=== PATIENT | male | born 1960 | race Caucasian/White ===

== ENCOUNTER 2017-11-06 06:28 | Emergency (ER) | END 2017-11-06 07:08 | disposition home or self-care (01) ==

== ENCOUNTER 2018-10-13 18:15 | Inpatient (IN) | payer OTHER ==
[~2018-10-13] VITALS: Ht 172.7 cm; Wt 73.2 kg
[~2018-10-13 18:15] MED LIST: IBUP-1542 PO; LEVO750T25 PO; TRAM50TA2 PO
[2018-10-13] MEDS ORDERED: SOD CHLORIDE 0.9% 500 ML IV STA (19:17)
[2018-10-13] MEDS ORDERED: SOD CHLORIDE 0.9% 100 ML ONE (19:49)
[2018-10-13] MEDS ORDERED: IOHEXOL 100 ML ONE (19:49)
[2018-10-13] MEDS ORDERED: CEFTRIAXONE 1 GM/50 ML (PMX) 50 ML IVPB ONE (22:00)
[2018-10-13] MEDS ORDERED: PROPOFOL 200 MG INJ IV ONE (22:30)
[2018-10-13] MEDS ORDERED: HYDROmorphONE 0.5 MG/0.5 ML SYG IV STA (22:56)
[2018-10-13] MEDS ORDERED: ONDANSETRON 4 MG INJ IV STA (22:56)
[2018-10-13] MEDS ORDERED: ONDANSETRON 4 MG INJ IV PRN (23:30)
[2018-10-13] MEDS ORDERED: ZOLPIDEM 5 MG TAB PO PRN (23:30)
--- NOTE | 2018-10-13 23:49 | ERD ---
ER Documentation Chief Complaint Chief Complaint CHEST PAIN X 4 DAYS HPI This is a 58-year-old male who 3 days ago felt a sudden pain in his right back and was short of breath ever since. Is also had a cough that is been chronic. He says he is currently being treated with clarithromycin for MAC. He had a bronchial lavage in July with an cultures returned with this antibiotic as a sensitivity. He has not had any fever, substernal chest pain or abdominal pain ROS All systems reviewed and are negative except as per history of present illness. Medications Home Meds Active Scripts Ibuprofen* (Motrin*) 600 Mg Tab, 600 MG PO Q6, #30 TAB Prov:MANSI SHAH PA-C 11/06/17 Tramadol HCl (Tramadol HCl) 50 Mg Tablet, 50 MG PO Q6 PRN for PAIN, #20 TAB Prov:MANSI SHAH PA-C 11/06/17 Levofloxacin* (Levaquin*) 750 Mg Tablet, 750 MG PO DAILY for 5 Days, TAB Prov:VALENTINA OVALLE BRAIDER SETTER 08/08/15 Allergies Allergies: Coded Allergies: No Known Allergy (Unverified , 11/06/17) PMhx/Soc History of Surgery: Yes (appendectomy) Anesthesia Reaction: No Hx Neurological Disorder: No Hx Respiratory Disorders: No Hx Cardiac Disorders: No Hx Psychiatric Problems: No Hx Miscellaneous Medical Probl: Yes (rheumatoid arthritis ) Hx Alcohol Use: No Hx Substance Use: No Hx Tobacco Use: No Smoking Status: Never smoker FmHx Family History: No coronary disease Physical Exam Vitals Vital Signs Date Temp Pulse Resp B/P (MAP) Pulse Ox O2 O2 Flow FiO2 Time Delivery Rate 10/13/18 91 21 130/93 99 Room Air 23:00 (105) 10/13/18 100 2.0 22:57 10/13/18 98.5 101 25 96/67 (77) 97 Room Air 22:00 10/13/18 98.5 100 24 119/87 99 Room Air 21:00 (98) 10/13/18 98.5 103 22 127/89 99 Room Air 19:10 (102) 10/13/18 98.5 112 22 152/88 99 18:17 (109) Physical Exam Const: Well-developed, well-nourished Head: Atraumatic, normocephalic Eyes: Normal Conjunctiva, PERRLA, EOMI, normal sclera, no nystagmus ENT: Normal External Ears, Nose and Mouth, moist mucus membranes. Neck: Full range of motion. No meningismus, no lymphadenopathy. Resp: [No breath sounds on the right lung eubanks left lung is clear Cardio: Regular rate and rhythm, no murmurs, S1 S2 present Abd: Soft, non tender x 4, non distended. Normal bowel sounds, no guarding or rebound, no pulsitile abdominal masses or bruits Skin: No petechiae or rashes, no ecchymosis , no maculopapular rash Back: No midline or flank tenderness Ext: No cyanosis, or edema, FROM x 4, normal inspection, neurovascularly intact x 4 Neur: Awake and alert, STR 5/5 x 4, sensation intact x 4, no focal findings, cerebellum intact Psych: Normal Mood and Affect Result Diagram: 10/13/18190410/13/181904 Results 24 hrs Laboratory Tests Test 10/13/18 19:05 White Blood Count 8.9 10^3/ul Red Blood Count 4.03 10^6/ul Hemoglobin 11.0 g/dl Hematocrit 34.9 % Mean Corpuscular Volume 86.6 fl Mean Corpuscular Hemoglobin 27.3 pg Mean Corpuscular Hemoglobin Concent 31.5 g/dl Red Cell Distribution Width 15.9 % Platelet Count 314 10^3/UL Mean Platelet Volume 8.9 fl Immature Granulocytes % 0.800 % Neutrophils % 84.1 % Lymphocytes % 6.3 % Monocytes % 8.4 % Eosinophils % 0.2 % Basophils % 0.2 % Nucleated Red Blood Cells % 0.0 /100WBC Immature Granulocytes # 0.070 10^3/ul Neutrophils # 7.5 10^3/ul Lymphocytes # 0.6 10^3/ul Monocytes # 0.7 10^3/ul Eosinophils # 0.0 10^3/ul Basophils # 0.0 10^3/ul Nucleated Red Blood Cells # 0.0 10^3/ul Prothrombin Time 13.7 Sec Prothrombin Time Ratio 1.1 INR International Normalized Ratio 1.04 Activated Partial Thromboplast Time 29.5 Sec Sodium Level 135 mmol/L Potassium Level 4.6 mmol/L Chloride Level 99 mmol/L Carbon Dioxide Level 25 mmol/L Anion Gap 11 Blood Urea Nitrogen 18 mg/dl Creatinine 0.66 mg/dl Est Glomerular Filtrat Rate mL/min > 60 mL/min Glucose Level 394 mg/dl Calcium Level 8.8 mg/dl Troponin I < 0.012 ng/ml B-Type Natriuretic Peptide 354 PG/ML Current Medications Medications Dose Sig/Raoul Start Time Status Last (Trade) Ordered Route PRN Stop Time Admin Dose Reason Admin Sodium 500 ml @ Q1H STAT 10/13/18 DC 10/13/18 Chloride 500 mls/hr IV 19:17 10/13/18 19:39 20:16 IV Flush 10 ml STK-MED 10/13/18 DC (NS 10 ml) ONCE .ROUTE 19:49 10/13/18 19:50 Sodium 100 ml @ ud STK-MED 10/13/18 DC Chloride ONCE .ROUTE 19:49 10/13/18 19:50 Iohexol 100 ml @ ud STK-MED 10/13/18 DC ONCE .ROUTE 19:49 10/13/18 19:50 Ceftriaxone 50 ml @ ONCE ONCE 10/13/18 DC 10/13/18 Sodium 100 mls/hr IVPB 22:00 10/13/18 22:11 22:29 Propofol 100 mg ONCE ONCE 10/13/18 DC 10/13/18 (Diprivan) IV 22:30 10/13/18 22:33 22:31 1 mg ONCE STAT 10/13/18 DC 10/13/18 Hydromorphone IV 22:56 10/13/18 23:04 HCl 22:59 (Dilaudid) Ondansetron 4 mg ONCE STAT 10/13/18 DC 10/13/18 HCl (Zofran IV 22:56 10/13/18 23:03 Inj) 22:59 Morphine 3 mg Q3H PRN 10/13/18 Sulfate IV mod pain 23:30 (morphine) Ondansetron 4 mg Q4H PRN 10/13/18 HCl (Zofran IV nausea 23:30 Inj) Zolpidem 5 mg HS 10/13/18 Tartrate REPEAT X 1 23:30 (Ambien) PRN PO INSOMNIA Procedures/MDM [address] [address] Radiology Main Line: [phone] DIAGNOSTIC IMAGING REPORT Patient: MATILDA JOSEPH : 1960 Age: 58 Sex: M MR #: [id number] DOS: 10/13/181916 Ordering MD: MORENA PRECIADO DO Location: E/R Room/Bed: PROCEDURE: CTA Chest and pulmonary angiogram. CLINICAL INDICATION: Chest pain and shortness of breath. TECHNIQUE: CT scan of the chest and CT pulmonary angiogram was performed following the uncomplicated intravenous administration of 100 cc of Omnipaque- 350 IV contrast. Coronal and sagittal reformatted images were obtained. 3D volume rendered images were obtained. DICOM images are available. CTDI 19.72, 13.94 mGy, and DLP 582.34 mGy-cm. One or more of the following dose reduction techniques were used: - Automated exposure control. - Adjustment of the mA and/or kV according to patient size. - Use of iterative reconstruction technique. COMPARISON: CR CHEST 08/07/2015 FINDINGS: CT CHEST: Lungs: Partial near complete collapse of the right lung. Very large right-sided hydropneumothorax. Dense consolidation with small effusion in the right lung base. Mediastinum: Normal. No significant midline shift at this time. Cardiovascular: Atherosclerotic vascular calcifications. Lymph nodes: No adenopathy. Musculoskeletal: Degenerative spinal enthesopathy. Upper abdomen: Normal. CT PULMONARY ANGIOGRAM: Pulmonary arteries: [<Normal caliber.>] [<No embolism.>] IMPRESSION: 1. Severe near complete collapse of the right lung. 2. Dense consolidation in the right lung base with adjacent small right pleural effusion. 3. Otherwise, scattered benign chronic senescent changes. Critical results discussed with Dr. Preciado in the ER at 9:49 p.m. on 10/13/2018. RPTAT: HMJB .Sawyer Mills MD MD Date Time Electronically viewed and signed by .Sawyer Mills MD, MD on 10/13/2018 21:50 .B/ CC: MORENA PRECIADO DO [id number] Procedural Sedation: Pre-assessment performed. See preceding complete history and physical for details. Time out performed. See sedation documentation for details. Risk, benefits and alternatives were discussed with the patient. Medication(s): Propofol Complications: No hypoxic or apneic events Recovered without incident. A minimum of 16 minutes of face to face time was performed including preparation, sedation and recovery time. Chest Tube Placement by me: Patient consented, sterilely draped, full prep, gown, glove, mask, time out performed. Anesthesia: 1% lidocaine locally Location: Mid-Anterior Axillary Line, approximate 5th intercostal Device: 28 [place]ong [place]er chest tube Technique: Vertical incision, blunt dissection above the superior rib border, tactile confirmation Results: Chest tube fogging Secured with suture and taping. No complications. Attached to [facility]. Spoke to Dr. Boykin as well as Dr. Jermaine vincent will admit to the floor to treat Critical Care Time: 45 minutes Treatments/Evaluations: Close monitoring and treatment of unstable vital signs, cardiorespiratory, and neurologic status, while maintaining tight balance of fluid, respiratory, and cardiac interventions. This time includes discussing the case with the patient and the patient's family. This time does not include all procedures stated elsewhere in this record. This time also includes reviewing old records, labs and radiological studies. This time includes examining and re- examining the patient. Additionally, this time also includes arranging care with admitting and consulting physicians. Departure Diagnosis: Primary Impression: Pneumothorax, right Condition: Stable MORENA PRECIADO DO Oct 13, 2018 23:49
[2018-10-14] VITALS (11 sets, daily range): BP systolic 123–137; BP diastolic 77–92; PULSE 90–115; RESP 18–19; Ht 172.7 cm; Wt 73.2 kg
[2018-10-14] MEDS ORDERED: ACETAMINOPHEN 325 MG TAB PO PRN
[2018-10-14] MEDS ORDERED: ONDANSETRON 4 MG INJ IV PRN
[2018-10-14] MEDS ORDERED: OMEP20CA16 PO ×2 (00:43→01:25)
[2018-10-14] MEDS ORDERED: FOLI-49 PO (00:43)
[2018-10-14] MEDS ORDERED: CLAR500T PO (00:43)
[2018-10-14] MEDS ORDERED: RIFA150C22 PO (00:43)
[2018-10-14] MEDS ORDERED: ETHA400T8 PO (00:43)
[2018-10-14] MEDS ORDERED: PRED5TAB PO (00:43)
[2018-10-14] MEDS ORDERED: CHOL100062 PO (01:25)
[2018-10-14] MEDS: morphine 4 MG/ML VIAL IV PRN ×2 (03:55→18:53)
[2018-10-14] MEDS ORDERED: ETHAMBUTOL 400 MG TAB PO SCH ×2 (09:00→10:30)
[2018-10-14] MEDS ORDERED: CLARITHROMYCIN 500 MG TAB PO SCH ×2 (09:00→10:30)
[2018-10-14] MEDS ORDERED: RIFABUTIN 150 MG CAP PO SCH (09:00)
[2018-10-14] MEDS ORDERED: GLUCAGON 1 MG INJ IM PRN (09:00)
[2018-10-14] MEDS ORDERED: GLUCOSE GEL 15 GRAM TUBE PO PRN ×2 (09:00)
[2018-10-14] MEDS ORDERED: DEXTROSE 50% 50 ML SYRINGE IV PRN ×2 (09:00)
[2018-10-14] MEDS ORDERED: GLUCOSE GEL 15 GRAM TUBE BUCCAL PRN (09:00)
--- NOTE | 2018-10-14 09:34 | HP ---
DATE OF ADMISSION: 10/13/2018 CHIEF COMPLAINT: Chest pain and shortness of breath x4 days. HISTORY OF PRESENT ILLNESS: A 58-year-old male with recently diagnosed MAC pneumonia, [facility] with complaint of right-sided chest pain associated with shortness of breath for the la st 3 days prior to admission. The patient had a chronic cough with associated hemoptysis prior to on set of his chest pain. He underwent extensive workup and diagnosed with MAC pneumonia. He is on 3 o ral antibiotics. The patient denies abdominal pain, nausea or vomiting. No fevers or chills. No we ight loss. Initial evaluation revealed a 90% pneumothorax on the right side. A chest tube was placed in the [facility] Room. REVIEW OF SYSTEMS: Otherwise unremarkable. PAST MEDICAL HISTORY: 1. Recently diagnosed MAC pneumonia. 2. Type 2 diabetes mellitus. 3. Rheumatoid arthritis. MEDICATIONS PRIOR TO ADMISSION: 1. Clarithromycin 1000 mg daily. 2. Ethambutol 800 mg daily. 3. 300 mg daily. 4. Omeprazole 20 mg daily. 5. Prednisone 5 mg daily. 6. Folic acid 1 mg daily. 7. Vitamin D supplement. SOCIAL HISTORY: Patient lives at home. His was at the bedside. He denies tobacco or alcohol u se. PHYSICAL EXAMINATION: GENERAL: Well-developed, well-nourished male who is in no apparent distress. VITAL SIGNS: Stable. He is afebrile. HEENT: Extraocular muscles intact. Pupils equal and reactive to light bilaterally. Sclerae are ani cteric. Oropharynx is clear and moist. NECK: Supple, no JVD, no carotid bruits. LUNGS: Decreased breath sounds on the right side with mild rhonchi. CARDIAC: Regular rate and rhythm. ABDOMEN: Soft, nontender, nondistended, normoactive bowel sounds. EXTREMITIES: No clubbing, cyanosis, or edema. NEUROLOGICAL: Grossly nonfocal. ASSESSMENT: 1. A 58-year-old male with near complete right-sided pneumothorax. 2. Recently diagnosed MAC pneumonia. 3. Type 2 diabetes mellitus. 4. Rheumatoid arthritis. PLAN: 1. Admit to telemetry. 2. Resume home medications including antibiotics. 3. Continue chest tube. 4. Cardiothoracic consultation was requested. Dictated By: KAREN KRAMER/LINK Conf#: [id number] [facility]#: [id number]
[2018-10-14] MEDS: FOLIC ACID 1 MG TAB PO SCH (09:56)
[2018-10-14] MEDS: predniSONE 2.5 MG TAB PO SCH (09:57)
--- NOTE | 2018-10-14 10:44 | CONS ---
Assessment/Plan Assessment/Plan Assessment/Plan (Daily) Her spontaneous episode of right-sided pneumothorax status post chest tube placement She is still with a air leak Continue chest tube suction pulmonary toilet repeat chest x-ray tomorrow Consultation Date/Type/Reason Admit Date/Time Oct 13, 2018 at 23:44 Date/Time of Note DATE: 10/14/18 TIME: 10:42 Hx of Present Illness This is a 58-year-old male with a first episode of spontaneous right-sided pneumothorax admitted through the emergency room chest tube has been placed Currently a chest tube is in place with small air leak minimal drainage X-ray shows no definitive pneumothorax but right-sided pleural effusion and con gestive heart failure patient is hemodynamically stable minimal shortness of breath ENT: no complaints Respiratory: no complaints Cardiovascular: no complaints Gastrointestinal: no complaints Genitourinary: no complaints Musculoskeletal: no complaints Skin: no complaints Neurologic: no complaints Past Medical History Home Meds Reported Medications Cholecalciferol* (Vitamin D3*) 1,000 Unit Tablet, 1000 UNIT PO DAILY, TAB 10/14/18 Omeprazole* (Omeprazole*) 20 Mg Capsule.dr, 20 MG PO QAM, #30 CAP 10/14/18 Folic Acid* (Folic Acid*) 1 Mg Tablet, 1 MG PO DAILY for 90 Days, #90 10/14/18 Prednisone* (Prednisone*) 5 Mg Tab, 7.5 MG PO DAILY for 30 Days TAKE 1.5 TAB BY MOUTH DAILY 10/14/18 Clarithromycin* (Clarithromycin*) 500 Mg Tablet, 1000 MG PO DAILY for [id number] for 5 Days 10/14/18 Ethambutol Hcl (Ethambutol Hcl) 400 Mg Tablet, 800 MG PO DAILY for [id number] 10/14/18 Rifabutin (Rifabutin) 150 Mg Capsule, 300 MG PO DAILY for [id number] 10/14/18 Discontinued Reported Medications Omeprazole* (Omeprazole*) 20 Mg Capsule.dr, 20 MG PO DAILY, #30 CAP 10/14/18 Discontinued Scripts Ibuprofen* (Motrin*) 600 Mg Tab, 600 MG PO Q6, #30 TAB Prov:MANSI SHAH PA-C 11/06/17 Tramadol HCl (Tramadol HCl) 50 Mg Tablet, 50 MG PO Q6 PRN for PAIN, #20 TAB Prov:MANSI SHAH PA-C 11/06/17 Levofloxacin* (Levaquin*) 750 Mg Tablet, 750 MG PO DAILY for 5 Days, TAB Prov:VALENTINA OVALLE NP 08/08/15 Medications Current Medications Morphine Sulfate (morphine) 3 mg Q3H PRN IV mod pain Last administered on 10/14/18at 03:55; Admin Dose 3 MG; Start 10/13/18 at 23:30 Ondansetron HCl (Zofran Inj) 4 mg Q4H PRN IV nausea; Start 10/13/18 at 23:30 Zolpidem Tartrate (Ambien) 5 mg HS MAY REPEAT X 1 PRN PO INSOMNIA; Start 10/13/18 at 23:30 Ondansetron HCl (Zofran Inj) 4 mg ER BRIDGE PRN IV NAUSEA/VOMITING; Start 10/14/18 at 00:00; Stop 10/14/18 at 23:59 Acetaminophen (Tylenol Tab) 650 mg ER BRIDGE PRN PO .MILD PAIN 1-3 OR TEMP; Start 10/14/18 at 00:00; Stop 10/14/18 at 23:59 Folic Acid (Folic Acid) 1 mg DAILY PO Last administered on 10/14/18at 09:56; Adm in Dose 1 MG; Start 10/14/18 at 09:00 Prednisone (Prednisone) 7.5 mg DAILY PO Last administered on 10/14/18at 09:57; Admin Dose 7.5 MG; Start 10/14/18 at 09:00 Insulin Aspart (Novolog Insulin Pen) NOVOLOG *MODERATE* ALGORITHM WITH MEALS BEDTIME SC ; Start 10/14/18 at 11:50 Miscellaneous Information 1 ea NOTE XX ; Start 10/14/18 at 09:00 Glucose (Glutose) 15 gm Q15M PRN PO DECREASED GLUCOSE; Start 10/14/18 at 09:00 Glucose (Glutose) 22.5 gm Q15M PRN PO DECREASED GLUCOSE; Start 10/14/18 at 09:00 Dextrose (D50w Syringe) 25 ml Q15M PRN IV DECREASED GLUCOSE; Start 10/14/18 at 09:00 Dextrose (D50w Syringe) 50 ml Q15M PRN IV DECREASED GLUCOSE; Start 10/14/18 at 09:00 Glucagon (Glucagen) 1 mg Q15M PRN IM DECREASED GLUCOSE; Start 10/14/18 at 09:00 Glucose (Glutose) 15 gm Q15M PRN BUCCAL DECREASED GLUCOSE; Start 10/14/18 at 09:00 Rifabutin (Mycobutin) 150 mg MoWeFr@0900,2100 PO ; Start 10/16/18 at 09:00 Clarithromycin (Biaxin) 500 mg MoWeFr@0900,2100 PO ; Start 10/16/18 at 09:00 Ethambutol HCl (Myambutol) 400 mg MoWeFr@0900,2100 PO ; Start 10/16/18 at 09:00 Allergies: Coded Allergies: No Known Allergy (Unverified , 10/14/18) Social History Smoking Status: Former smoker Exam/Review of Systems Exam Vitals Vital Signs Date Temp Pulse Resp B/P (MAP) Pulse Ox O2 O2 Flow FiO2 Time Delivery Rate 10/14/18 101 08:00 10/14/18 98.5 18 128/82 96 07:25 (97) 10/14/18 Room Air 03:20 10/13/18 2.0 22:57 Intake and Output 10/13/18 10/13/18 10/14/18 1515:00 23:00 07:00 IntakeIntake Total 0 ml OutputOutput Total 40 ml 150 ml BalanceBalance -40 ml -150 ml Eyes: nl conjunctiva, EOMI, nl lids, nl sclera, PERRL ENMT: nl external ears & nose, nl lips & teeth, nl nasal mucosa & septum Neck: supple, non-tender Respiratory: clear to auscultation, normal air movement Cardiovascular: regular rate and rhythm, nl pulses Gastrointestinal: soft, nl liver, spleen, non-tender Musculoskeletal: nl extremities to inspection, nl gait and stance Extremities: normal pulses Results Result Diagram: 10/13/18190410/13/181904 Results 24hrs Laboratory Tests Test 10/13/18 19:05 White Blood Count 8.9 # Red Blood Count 4.03 L Hemoglobin 11.0 L Hematocrit 34.9 L Mean Corpuscular Volume 86.6 Mean Corpuscular Hemoglobin 27.3 L Mean Corpuscular Hemoglobin Concent 31.5 L Red Cell Distribution Width 15.9 H Platelet Count 314 Mean Platelet Volume 8.9 Immature Granulocytes % 0.800 H Neutrophils % 84.1 H Lymphocytes % 6.3 L Monocytes % 8.4 Eosinophils % 0.2 Basophils % 0.2 Nucleated Red Blood Cells % 0.0 Immature Granulocytes # 0.070 H Neutrophils # 7.5 Lymphocytes # 0.6 L Monocytes # 0.7 Eosinophils # 0.0 Basophils # 0.0 Nucleated Red Blood Cells # 0.0 Prothrombin Time 13.7 Prothrombin Time Ratio 1.1 INR International Normalized Ratio 1.04 Activated Partial Thromboplast Time 29.5 Sodium Level 135 Potassium Level 4.6 Chloride Level 99 Carbon Dioxide Level 25 Anion Gap 11 Blood Urea Nitrogen 18 Creatinine 0.66 Est Glomerular Filtrat Rate mL/min > 60 Glucose Level 394 H Calcium Level 8.8 Troponin I < 0.012 B-Type Natriuretic Peptide 354 H Medications Medication Current Medications Morphine Sulfate (morphine) 3 mg Q3H PRN IV mod pain Last administered on 10/14/18at 03:55; Admin Dose 3 MG; Start 10/13/18 at 23:30 Ondansetron HCl (Zofran Inj) 4 mg Q4H PRN IV nausea; Start 10/13/18 at 23:30 Zolpidem Tartrate (Ambien) 5 mg HS MAY REPEAT X 1 PRN PO INSOMNIA; Start 10/13/18 at 23:30 Ondansetron HCl (Zofran Inj) 4 mg ER BRIDGE PRN IV NAUSEA/VOMITING; Start 10/14/18 at 00:00; Stop 10/14/18 at 23:59 Acetaminophen (Tylenol Tab) 650 mg ER BRIDGE PRN PO .MILD PAIN 1-3 OR TEMP; Start 10/14/18 at 00:00; Stop 10/14/18 at 23:59 Folic Acid (Folic Acid) 1 mg DAILY PO Last administered on 10/14/18at 09:56; A dmin Dose 1 MG; Start 10/14/18 at 09:00 Prednisone (Prednisone) 7.5 mg DAILY PO Last administered on 10/14/18at 09:57; Admin Dose 7.5 MG; Start 10/14/18 at 09:00 Insulin Aspart (Novolog Insulin Pen) NOVOLOG *MODERATE* ALGORITHM WITH MEALS BEDTIME SC ; Start 10/14/18 at 11:50 Miscellaneous Information 1 ea NOTE XX ; Start 10/14/18 at 09:00 Glucose (Glutose) 15 gm Q15M PRN PO DECREASED GLUCOSE; Start 10/14/18 at 09:00 Glucose (Glutose) 22.5 gm Q15M PRN PO DECREASED GLUCOSE; Start 10/14/18 at 09:00 Dextrose (D50w Syringe) 25 ml Q15M PRN IV DECREASED GLUCOSE; Start 10/14/18 at 09:00 Dextrose (D50w Syringe) 50 ml Q15M PRN IV DECREASED GLUCOSE; Start 10/14/18 at 09:00 Glucagon (Glucagen) 1 mg Q15M PRN IM DECREASED GLUCOSE; Start 10/14/18 at 09:00 Glucose (Glutose) 15 gm Q15M PRN BUCCAL DECREASED GLUCOSE; Start 10/14/18 at 09:00 Rifabutin (Mycobutin) 150 mg MoWeFr@0900,2100 PO ; Start 10/16/18 at 09:00 Clarithromycin (Biaxin) 500 mg MoWeFr@0900,2100 PO ; Start 10/16/18 at 09:00 Ethambutol HCl (Myambutol) 400 mg MoWeFr@0900,2100 PO ; Start 10/16/18 at 09:00 JOSEPH VALAEDZ MD Oct 14, 2018 10:44
[2018-10-14] MEDS: INSULIN ASPART [NOVOLOG] 3 ML PEN SC SCH ×3 (12:23→21:48)
[2018-10-15] VITALS (12 sets, daily range): BP systolic 105–140; BP diastolic 72–85; PULSE 101–120; RESP 16–18
[2018-10-15] MEDS: ACETAMINOPHEN 325 MG TAB PO PRN (04:44)
[2018-10-15] MEDS: INSULIN ASPART [NOVOLOG] 3 ML PEN SC SCH ×4 (07:41→22:11)
[2018-10-15] MEDS: predniSONE 2.5 MG TAB PO SCH (08:04)
[2018-10-15] MEDS: FOLIC ACID 1 MG TAB PO SCH (08:04)
--- NOTE | 2018-10-15 09:01 | PN ---
Date/Time of Note Date/Time of Note DATE: 10/15/18 TIME: 08:59 Subjective Complains of joint pain. No shortness of breath. No cough. Objective Vitals Vital Signs Date Temp Pulse Resp B/P (MAP) Pulse Ox O2 O2 Flow FiO2 Time Delivery Rate 10/15/18 99.5 106 16 105/74 95 07:26 (84) 10/14/18 Room Air 03:20 10/13/18 2.0 22:57 Intake and Output 10/14/18 10/14/18 10/15/18 1515:00 23:00 07:00 IntakeIntake Total 650 ml 450 ml OutputOutput Total 150 ml BalanceBalance 500 ml 450 ml Neck supple Lungs mild rhonchi Regular rate and rhythm no murmurs or gallops Soft nontender nondistended normoactive bowel sounds No edema Nonfocal Results Result Diagram: 10/13/18190410/13/181904 Medications Medications Current Medications Morphine Sulfate (morphine) 3 mg Q3H PRN IV mod pain Last administered on 10/14/18at 18:53; Admin Dose 3 MG; Start 10/13/18 at 23:30 Ondansetron HCl (Zofran Inj) 4 mg Q4H PRN IV nausea; Start 10/13/18 at 23:30 Zolpidem Tartrate (Ambien) 5 mg HS MAY REPEAT X 1 PRN PO INSOMNIA; Start 10/13/18 at 23:30 Folic Acid (Folic Acid) 1 mg DAILY PO Last administered on 10/15/18at 08:04; Admin Dose 1 MG; Start 10/14/18 at 09:00 Prednisone (Prednisone) 7.5 mg DAILY PO Last administered on 10/15/18at 08:04; Admin Dose 7.5 MG; Start 10/14/18 at 09:00 Insulin Aspart (Novolog Insulin Pen) NOVOLOG *MODERATE* ALGORITHM WITH MEALS BEDTIME SC Last administered on 10/14/18at 21:48; Admin Dose 1 UNIT; Start 10/14/18 at 11:50 Miscellaneous Information 1 ea NOTE XX ; Start 10/14/18 at 09:00 Glucose (Glutose) 15 gm Q15M PRN PO DECREASED GLUCOSE; Start 10/14/18 at 09:00 Glucose (Glutose) 22.5 gm Q15M PRN PO DECREASED GLUCOSE; Start 10/14/18 at 09:00 Dextrose (D50w Syringe) 25 ml Q15M PRN IV DECREASED GLUCOSE; Start 10/14/18 at 09:00 Dextrose (D50w Syringe) 50 ml Q15M PRN IV DECREASED GLUCOSE; Start 10/14/18 at 09:00 Glucagon (Glucagen) 1 mg Q15M PRN IM DECREASED GLUCOSE; Start 10/14/18 at 09:00 Glucose (Glutose) 15 gm Q15M PRN BUCCAL DECREASED GLUCOSE; Start 10/14/18 at 09:00 Rifabutin (Mycobutin) 150 mg MoWeFr@0900,2100 PO ; Start 10/16/18 at 09:00 Clarithromycin (Biaxin) 500 mg MoWeFr@0900,2100 PO ; Start 10/16/18 at 09:00 Ethambutol HCl (Myambutol) 400 mg MoWeFr@0900,2100 PO ; Start 10/16/18 at 09:00 Acetaminophen (Tylenol Tab) 650 mg Q4H PRN PO MILD PAIN(1-3)OR ELEVATED TEMP Last administered on 10/15/18at 04:44; Admin Dose 650 MG; Start 10/15/18 at 04:38 VTE Prophylaxis Risk score (from Nsg)>0 risk: 2 SCD applied (from Nsg): Yes Lines/Catheters IV Catheter Type: Saline Lock Retana in Place: No Assessment/Plan Assessment/Plan 58-year-old male with spontaneous right-sided pneumothorax about 3 days prior to admission Status post right chest tube placement MAC pneumonia Fever Rheumatoid arthritis Type 2 diabetes mellitus Continue chest tube drainage Continue triple antibiotics as previously prescribed Cardiothoracic follow-up ID consultation was requested KAREN HINDS MD Oct 15, 2018 09:01
--- NOTE | 2018-10-15 09:37 | CONS ---
Consultation Date/Type/Reason Admit Date/Time Oct 13, 2018 at 23:44 Date/Time of Note DATE: 10/15/18 TIME: 09:37 Past Medical History Home Meds Reported Medications Cholecalciferol* (Vitamin D3*) 1,000 Unit Tablet, 1000 UNIT PO DAILY, TAB 10/14/18 Omeprazole* (Omeprazole*) 20 Mg Capsule.dr, 20 MG PO QAM, #30 CAP 10/14/18 Folic Acid* (Folic Acid*) 1 Mg Tablet, 1 MG PO DAILY for 90 Days, #90 10/14/18 Prednisone* (Prednisone*) 5 Mg Tab, 7.5 MG PO DAILY for 30 Days TAKE 1.5 TAB BY MOUTH DAILY 10/14/18 Clarithromycin* (Clarithromycin*) 500 Mg Tablet, 1000 MG PO DAILY for [id number] for 5 Days 10/14/18 Ethambutol Hcl (Ethambutol Hcl) 400 Mg Tablet, 800 MG PO DAILY for [id number] 10/14/18 Rifabutin (Rifabutin) 150 Mg Capsule, 300 MG PO DAILY for [id number] 10/14/18 Discontinued Reported Medications Omeprazole* (Omeprazole*) 20 Mg Capsule.dr, 20 MG PO DAILY, #30 CAP 10/14/18 Discontinued Scripts Ibuprofen* (Motrin*) 600 Mg Tab, 600 MG PO Q6, #30 TAB Prov:MANSI SHAH PA-C 11/06/17 Tramadol HCl (Tramadol HCl) 50 Mg Tablet, 50 MG PO Q6 PRN for PAIN, #20 TAB Prov:MANSI SHAH PA-C 11/06/17 Levofloxacin* (Levaquin*) 750 Mg Tablet, 750 MG PO DAILY for 5 Days, TAB Prov:VALENTINA OVALLE NP 08/08/15 Medications Current Medications Morphine Sulfate (morphine) 3 mg Q3H PRN IV mod pain Last administered on 10/14/18at 18:53; Admin Dose 3 MG; Start 10/13/18 at 23:30 Ondansetron HCl (Zofran Inj) 4 mg Q4H PRN IV nausea; Start 10/13/18 at 23:30 Zolpidem Tartrate (Ambien) 5 mg HS MAY REPEAT X 1 PRN PO INSOMNIA; Start 10/13/18 at 23:30 Folic Acid (Folic Acid) 1 mg DAILY PO Last administered on 10/15/18at 08:04; Admin Dose 1 MG; Start 10/14/18 at 09:00 Prednisone (Prednisone) 7.5 mg DAILY PO Last administered on 10/15/18at 08:04; Admin Dose 7.5 MG; Start 10/14/18 at 09:00 Insulin Aspart (Novolog Insulin Pen) NOVOLOG *MODERATE* ALGORITHM WITH MEALS BEDTIME SC Last administered on 10/14/18at 21:48; Admin Dose 1 UNIT; Start 10/14/18 at 11:50 Miscellaneous Information 1 ea NOTE XX ; Start 10/14/18 at 09:00 Glucose (Glutose) 15 gm Q15M PRN PO DECREASED GLUCOSE; Start 10/14/18 at 09:00 Glucose (Glutose) 22.5 gm Q15M PRN PO DECREASED GLUCOSE; Start 10/14/18 at 09:00 Dextrose (D50w Syringe) 25 ml Q15M PRN IV DECREASED GLUCOSE; Start 10/14/18 at 09:00 Dextrose (D50w Syringe) 50 ml Q15M PRN IV DECREASED GLUCOSE; Start 10/14/18 at 09:00 Glucagon (Glucagen) 1 mg Q15M PRN IM DECREASED GLUCOSE; Start 10/14/18 at 09:00 Glucose (Glutose) 15 gm Q15M PRN BUCCAL DECREASED GLUCOSE; Start 10/14/18 at 09:00 Rifabutin (Mycobutin) 150 mg MoWeFr@0900,2100 PO ; Start 10/16/18 at 09:00 Clarithromycin (Biaxin) 500 mg MoWeFr@0900,2100 PO ; Start 10/16/18 at 09:00 Ethambutol HCl (Myambutol) 400 mg MoWeFr@0900,2100 PO ; Start 10/16/18 at 09:00 Acetaminophen (Tylenol Tab) 650 mg Q4H PRN PO MILD PAIN(1-3)OR ELEVATED TEMP Last administered on 10/15/18at 04:44; Admin Dose 650 MG; Start 10/15/18 at 04:38 Allergies: Coded Allergies: No Known Allergy (Unverified , 10/14/18) Social History Smoking Status: Former smoker Exam/Review of Systems Exam Vitals Vital Signs Date Temp Pulse Resp B/P (MAP) Pulse Ox O2 O2 Flow FiO2 Time Delivery Rate 6/9/19 99.5 106 16 105/74 95 07:26 (84) 10/14/18 Room Air 03:20 10/13/18 2.0 22:57 Intake and Output 10/14/18 10/14/18 10/15/18 1515:00 23:00 07:00 IntakeIntake Total 650 ml 450 ml OutputOutput Total 150 ml BalanceBalance 500 ml 450 ml Results Result Diagram: 10/13/18190410/13/18 190 Results 24hrs Laboratory Tests Test 10/14/18 12:16 10/14/18 17:22 10/14/18 21:33 10/15/18 03:04 Bedside Glucose 178 273 H 181 191 Test 10/15/18 07:40 Bedside Glucose 135 Medications Medication Current Medications Morphine Sulfate (morphine) 3 mg Q3H PRN IV mod pain Last administered on 10/14/18at 18:53; Admin Dose 3 MG; Start 10/13/18 at 23:30 Ondansetron HCl (Zofran Inj) 4 mg Q4H PRN IV nausea; Start 10/13/18 at 23:30 Zolpidem Tartrate (Ambien) 5 mg HS MAY REPEAT X 1 PRN PO INSOMNIA; Start 10/13/18 at 23:30 Folic Acid (Folic Acid) 1 mg DAILY PO Last administered on 10/15/18at 08:04; Admin Dose 1 MG; Start 10/14/18 at 09:00 Prednisone (Prednisone) 7.5 mg DAILY PO Last administered on 10/15/18at 08:04; Admin Dose 7.5 MG; Start 10/14/18 at 09:00 Insulin Aspart (Novolog Insulin Pen) NOVOLOG *MODERATE* ALGORITHM WITH MEALS BEDTIME SC Last administered on 10/14/18at 21:48; Admin Dose 1 UNIT; Start 10/14/18 at 11:50 Miscellaneous Information 1 ea NOTE XX ; Start 10/14/18 at 09:00 Glucose (Glutose) 15 gm Q15M PRN PO DECREASED GLUCOSE; Start 10/14/18 at 09:00 Glucose (Glutose) 22.5 gm Q15M PRN PO DECREASED GLUCOSE; Start 10/14/18 at 09:00 Dextrose (D50w Syringe) 25 ml Q15M PRN IV DECREASED GLUCOSE; Start 10/14/18 at 09:00 Dextrose (D50w Syringe) 50 ml Q15M PRN IV DECREASED GLUCOSE; Start 10/14/18 at 09:00 Glucagon (Glucagen) 1 mg Q15M PRN IM DECREASED GLUCOSE; Start 10/14/18 at 09:00 Glucose (Glutose) 15 gm Q15M PRN BUCCAL DECREASED GLUCOSE; Start 10/14/18 at 09:00 Rifabutin (Mycobutin) 150 mg MoWeFr@0900,2100 PO ; Start 10/16/18 at 09:00 Clarithromycin (Biaxin) 500 mg MoWeFr@0900,2100 PO ; Start 10/16/18 at 09:00 Ethambutol HCl (Myambutol) 400 mg MoWeFr@0900,2100 PO ; Start 10/16/18 at 09:00 Acetaminophen (Tylenol Tab) 650 mg Q4H PRN PO MILD PAIN(1-3)OR ELEVATED TEMP Last administered on 10/15/18at 04:44; Admin Dose 650 MG; Start 10/15/18 at 04:38 SCOTTY YOUNGER MD Oct 15, 2018 09:37
[2018-10-15] MEDS: morphine 4 MG/ML VIAL IV PRN (11:02)
--- NOTE | 2018-10-15 11:41 | CONS ---
Assessment/Plan Assessment/Plan Hospital Course (Demo Recall) Persistent tachy noted. labs ordered no results back yet. will start empiric abx given above will be in nikkie. ty Consultation Date/Type/Reason Admit Date/Time Oct 13, 2018 at 23:44 Initial Consult Date Date/Time of Note DATE: 10/15/18 TIME: 11:41 Exam/Review of Systems Exam Vitals Vital Signs Date Temp Pulse Resp B/P (MAP) Pulse Ox O2 O2 Flow FiO2 Time Delivery Rate 10/15/18 98.5 112 16 113/75 96 11:30 (88) 10/14/18 Room Air 03:20 10/13/18 2.0 22:57 Intake and Output 10/14/18 10/14/18 10/15/18 1515:00 23:00 07:00 IntakeIntake Total 650 ml 450 ml OutputOutput Total 150 ml BalanceBalance 500 ml 450 ml Results Result Diagram: 10/13/18 1905 10/13/18 1905 Results 24hrs Laboratory Tests Test 10/14/18 12:16 10/14/18 17:22 10/14/18 21:33 10/15/18 03:04 Bedside Glucose 178 273 H 181 191 Test 10/15/18 07:40 Bedside Glucose 135 Medications Medication Current Medications Morphine Sulfate (morphine) 3 mg Q3H PRN IV mod pain Last administered on 10/15/18at 11:02; Admin Dose 3 MG; Start 10/13/18 at 23:30 Ondansetron HCl (Zofran Inj) 4 mg Q4H PRN IV nausea; Start 10/13/18 at 23:30 Zolpidem Tartrate (Ambien) 5 mg HS MAY REPEAT X 1 PRN PO INSOMNIA; Start 10/13/18 at 23:30 Folic Acid (Folic Acid) 1 mg DAILY PO Last administered on 10/15/18at 08:04; Admin Dose 1 MG; Start 10/14/18 at 09:00 Prednisone (Prednisone) 7.5 mg DAILY PO Last administered on 10/15/18at 08:04; Admin Dose 7.5 MG; Start 10/14/18 at 09:00 Insulin Aspart (Novolog Insulin Pen) NOVOLOG *MODERATE* ALGORITHM WITH MEALS BEDTIME SC Last administered on 10/14/18at 21:48; Admin Dose 1 UNIT; Start 10/14/18 at 11:50 Miscellaneous Information 1 ea NOTE XX ; Start 10/14/18 at 09:00 Glucose (Glutose) 15 gm Q15M PRN PO DECREASED GLUCOSE; Start 10/14/18 at 09:00 Glucose (Glutose) 22.5 gm Q15M PRN PO DECREASED GLUCOSE; Start 10/14/18 at 09:00 Dextrose (D50w Syringe) 25 ml Q15M PRN IV DECREASED GLUCOSE; Start 10/14/18 at 09:00 Dextrose (D50w Syringe) 50 ml Q15M PRN IV DECREASED GLUCOSE; Start 10/14/18 at 09:00 Glucagon (Glucagen) 1 mg Q15M PRN IM DECREASED GLUCOSE; Start 10/14/18 at 09:00 Glucose (Glutose) 15 gm Q15M PRN BUCCAL DECREASED GLUCOSE; Start 10/14/18 at 09:00 Rifabutin (Mycobutin) 150 mg MoWeFr@0900,2100 PO ; Start 10/16/18 at 09:00 Clarithromycin (Biaxin) 500 mg MoWeFr@0900,2100 PO ; Start 10/16/18 at 09:00 Ethambutol HCl (Myambutol) 400 mg MoWeFr@0900,2100 PO ; Start 10/16/18 at 09:00 Acetaminophen (Tylenol Tab) 650 mg Q4H PRN PO MILD PAIN(1-3)OR ELEVATED TEMP Last administered on 10/15/18at 04:44; Admin Dose 650 MG; Start 10/15/18 at 04:38 SCOTTY YOUNGER MD Oct 15, 2018 11:41
[2018-10-15] MEDS ORDERED: VANCOMYCIN IV PER PHARMACY XX SCH (12:00)
[2018-10-15] MEDS ORDERED: VANCOMYCIN HCL 1.5 GM in SOD CHLORIDE 0.9% 250 ML IVPB ONE (13:00)
[2018-10-15] MEDS: PIPER-TAZO 3.375 GM IV (PMX) 100 ML IVPB SCH (17:30)
[2018-10-16] VITALS (12 sets, daily range): BP systolic 112–131; BP diastolic 66–81; PULSE 113–132; RESP 18–20
[2018-10-16] MEDS: PIPER-TAZO 3.375 GM IV (PMX) 100 ML IVPB SCH ×3 (01:53→18:58)
[2018-10-16] MEDS: VANCOMYCIN 1 GM 250 ML IVPB SCH ×2 (01:56→14:08)
[2018-10-16] MEDS: morphine 4 MG/ML VIAL IV PRN ×2 (02:36→20:16)
[2018-10-16] MEDS: ACETAMINOPHEN 325 MG TAB PO PRN (04:48)
[2018-10-16] MEDS: predniSONE 2.5 MG TAB PO SCH (09:11)
[2018-10-16] MEDS: ETHAMBUTOL 400 MG TAB PO SCH ×2 (09:11→20:15)
[2018-10-16] MEDS: CLARITHROMYCIN 500 MG TAB PO SCH ×2 (09:11→20:15)
[2018-10-16] MEDS: FOLIC ACID 1 MG TAB PO SCH (09:11)
[2018-10-16] MEDS: RIFABUTIN 150 MG CAP PO SCH ×2 (09:15→20:15)
[2018-10-16] MEDS: INSULIN ASPART [NOVOLOG] 3 ML PEN SC SCH ×4 (09:31→20:15)
--- NOTE | 2018-10-16 09:37 | PN ---
Date/Time of Note Date/Time of Note DATE: 10/16/18 TIME: 09:35 Subjective Alert and comfortable. Having dry cough Objective Vitals Vital Signs Date Temp Pulse Resp B/P (MAP) Pulse Ox O2 O2 Flow FiO2 Time Delivery Rate 10/16/18 115 08:39 10/16/18 98.5 20 112/74 95 Room Air 07:21 (87) 10/13/18 2.0 22:57 Intake and Output 10/15/18 10/15/18 10/16/18 1515:00 23:00 07:00 IntakeIntake Total 1100 ml 800 ml OutputOutput Total 1700 ml BalanceBalance -600 ml 800 ml Right-sided rhonchi. Chest tube in place Regular rate and rhythm Soft nontender nondistended normoactive bowel sounds No edema Nonfocal Results Result Diagram: 10/16/18 0733 10/13/18 1905 Medications Medications Current Medications Morphine Sulfate (morphine) 3 mg Q3H PRN IV mod pain Last administered on 02/24at 02:36; Admin Dose 3 MG; Start 10/13/18 at 23:30 Ondansetron HCl (Zofran Inj) 4 mg Q4H PRN IV nausea; Start 10/13/18 at 23:30 Zolpidem Tartrate (Ambien) 5 mg HS MAY REPEAT X 1 PRN PO INSOMNIA; Start 10/13/18 at 23:30 Folic Acid (Folic Acid) 1 mg DAILY PO Last administered on 10/16/18at 09:11; Admin Dose 1 MG; Start 10/14/18 at 09:00 Prednisone (Prednisone) 7.5 mg DAILY PO Last administered on 10/16/18at 09:11; Admin Dose 7.5 MG; Start 10/14/18 at 09:00 Insulin Aspart (Novolog Insulin Pen) NOVOLOG *MODERATE* ALGORITHM WITH MEALS BEDTIME SC Last administered on 10/16/18at 09:31; Admin Dose 2 UNIT; Start 10/14/18 at 11:50 Miscellaneous Information 1 ea NOTE XX ; Start 10/14/18 at 09:00 Glucose (Glutose) 15 gm Q15M PRN PO DECREASED GLUCOSE; Start 10/14/18 at 09:00 Glucose (Glutose) 22.5 gm Q15M PRN PO DECREASED GLUCOSE; Start 10/14/18 at 09:00 Dextrose (D50w Syringe) 25 ml Q15M PRN IV DECREASED GLUCOSE; Start 10/14/18 at 09:00 Dextrose (D50w Syringe) 50 ml Q15M PRN IV DECREASED GLUCOSE; Start 10/14/18 at 09:00 Glucagon (Glucagen) 1 mg Q15M PRN IM DECREASED GLUCOSE; Start 10/14/18 at 09:00 Glucose (Glutose) 15 gm Q15M PRN BUCCAL DECREASED GLUCOSE; Start 10/14/18 at 09:00 Rifabutin (Mycobutin) 150 mg MoWeFr@0900,2100 PO Last administered on 10/16/18at 09:15; Admin Dose 150 MG; Start 10/16/18 at 09:00 Clarithromycin (Biaxin) 500 mg MoWeFr@0900,2100 PO Last administered on 10/16/18at 09:11; Admin Dose 500 MG; Start 10/16/18 at 09:00 Ethambutol HCl (Myambutol) 400 mg MoWeFr@0900,2100 PO Last administered on 10/16/18at 09:11; Admin Dose 400 MG; Start 10/16/18 at 09:00 Acetaminophen (Tylenol Tab) 650 mg Q4H PRN PO MILD PAIN(1-3)OR ELEVATED TEMP Last administered on 10/16/18at 04:48; Admin Dose 650 MG; Start 10/15/18 at 04:38 Vancomycin HCl (Vanco Iv Per Pharmacy) VANCOMYCIN PER PHARMACY PER PROTOCOL XX ; Start 10/15/18 at 12:00 Piperacillin Sod/ Tazobactam Sod 100 ml @ 25 mls/hr TID@,,18 IVPB Last administered on 10/16/18at 01:53; Admin Dose 25 MLS/HR; Start 10/15/18 at 18:00 Vancomycin HCl 250 ml @ 125 mls/hr Q12H IVPB Last administered on 10/16/18at 01:56; Admin Dose 125 MLS/HR; Start 10/16/18 at 02:00 Miscellaneous Information (*Rx Drug Level Order Reminder*) Reminder: Vancomycin Tro... ONCE ONCE XX ; Start 10/17/18 at 01:00; Stop 10/17/18 at 01:01 VTE Prophylaxis Risk score (from Nsg)>0 risk: 3 SCD applied (from Ns): Yes Lines/Catheters IV Catheter Type: Saline Lock Retana in Place: No Assessment/Plan Assessment/Plan 58-year-old male with spontaneous right pneumothorax, status post chest tube placement MAC pneumonia, on triple antibiotics Persistent fevers Rheumatoid arthritis Type 2 diabetes mellitus Continue IV vancomycin and Zosyn Continue chest tube Cardiothoracic and ID follow-up KAREN HINDS MD Oct 16, 2018 09:37
[2018-10-16] MEDS: PANTOPRAZOLE (EC) 40 MG TAB PO SCH (14:08)
--- NOTE | 2018-10-16 15:03 | CONS ---
Assessment/Plan Assessment/Plan Hospital Course (Demo Recall) 1. Pneumothorax 2. PNA 3. Sepsis 4. DM 5. RA R: [place] cx lactic acid procalc serial cxr vanco/zosyn hiv screen cocci crypto obtain records from outpatient pulm Consultation Date/Type/Reason Admit Date/Time Oct 13, 2018 at 23:44 Date of Consultation: Oct 16, 2018 Type of Consult ID Reason for Consultation ABX RECS Requesting Provider: KAREN HINDS MD Date/Time of Note DATE: 10/16/18 TIME: 14:57 Hx of Present Illness A 58-year-old male with hx of MAC, admitted through ER with R pneumothorax. He had chest tube placed emergently. He was noted to have fevers. Past Medical History Home Meds Reported Medications Cholecalciferol* (Vitamin D3*) 1,000 Unit Tablet, 1000 UNIT PO DAILY, TAB 10/14/18 Omeprazole* (Omeprazole*) 20 Mg Capsule.dr, 20 MG PO QAM, #30 CAP 10/14/18 Folic Acid* (Folic Acid*) 1 Mg Tablet, 1 MG PO DAILY for 90 Days, #90 10/14/18 Prednisone* (Prednisone*) 5 Mg Tab, 7.5 MG PO DAILY for 30 Days TAKE 1.5 TAB BY MOUTH DAILY 10/14/18 Clarithromycin* (Clarithromycin*) 500 Mg Tablet, 1000 MG PO DAILY for [id number] for 5 Days 10/14/18 Ethambutol Hcl (Ethambutol Hcl) 400 Mg Tablet, 800 MG PO DAILY for [id number] 10/14/18 Rifabutin (Rifabutin) 150 Mg Capsule, 300 MG PO DAILY for [id number] 10/14/18 Discontinued Reported Medications Omeprazole* (Omeprazole*) 20 Mg Capsule.dr, 20 MG PO DAILY, #30 CAP 10/14/18 Discontinued Scripts Ibuprofen* (Motrin*) 600 Mg Tab, 600 MG PO Q6, #30 TAB Prov:MANSI SHAH PA-C 11/06/17 Tramadol HCl (Tramadol HCl) 50 Mg Tablet, 50 MG PO Q6 PRN for PAIN, #20 TAB Prov:MANSI SHAH PA-C 11/06/17 Levofloxacin* (Levaquin*) 750 Mg Tablet, 750 MG PO DAILY for 5 Days, TAB Prov:VALENTINA OVALLE NP 08/08/15 Medications Current Medications Morphine Sulfate (morphine) 3 mg Q3H PRN IV mod pain Last administered on 10/16/18at 02:36; Admin Dose 3 MG; Start 10/13/18 at 23:30 Ondansetron HCl (Zofran Inj) 4 mg Q4H PRN IV nausea; Start 10/13/18 at 23:30 Zolpidem Tartrate (Ambien) 5 mg HS MAY REPEAT X 1 PRN PO INSOMNIA; Start 10/13/18 at 23:30 Folic Acid (Folic Acid) 1 mg DAILY PO Last administered on 10/16/18at 09:11; Admin Dose 1 MG; Start 10/14/18 at 09:00 Prednisone (Prednisone) 7.5 mg DAILY PO Last administered on 10/16/18at 09:11; Admin Dose 7.5 MG; Start 10/14/18 at 09:00 Insulin Aspart (Novolog Insulin Pen) NOVOLOG *MODERATE* ALGORITHM WITH MEALS BEDTIME SC Last administered on 10/16/18at 13:13; Admin Dose 4 UNIT; Start 10/14/18 at 11:50 Miscellaneous Information 1 ea NOTE XX ; Start 10/14/18 at 09:00 Glucose (Glutose) 15 gm Q15M PRN PO DECREASED GLUCOSE; Start 10/14/18 at 09:00 Glucose (Glutose) 22.5 gm Q15M PRN PO DECREASED GLUCOSE; Start 10/14/18 at 09:00 Dextrose (D50w Syringe) 25 ml Q15M PRN IV DECREASED GLUCOSE; Start 10/14/18 at 09:00 Dextrose (D50w Syringe) 50 ml Q15M PRN IV DECREASED GLUCOSE; Start 10/14/18 at 09:00 Glucagon (Glucagen) 1 mg Q15M PRN IM DECREASED GLUCOSE; Start 10/14/18 at 09:00 Glucose (Glutose) 15 gm Q15M PRN BUCCAL DECREASED GLUCOSE; Start 10/14/18 at 0 9:00 Rifabutin (Mycobutin) 150 mg MoWeFr@00,2100 PO Last administered on 10/16/18at 09:15; Admin Dose 150 MG; Start 10/16/18 at 09:00 Clarithromycin (Biaxin) 500 mg MoWeFr@00,2100 PO Last administered on 10/16/18 09:11; Admin Dose 500 MG; Start 10/16/18 at 09:00 Ethambutol HCl (Myambutol) 400 mg MoWeFr@0900,2100 PO Last administered on 10/16/18 09:11; Admin Dose 400 MG; Start 10/16/18 at 09:00 Acetaminophen (Tylenol Tab) 650 mg Q4H PRN PO MILD PAIN(1-3)OR ELEVATED TEMP Last administered on 10/16/18at 04:48; Admin Dose 650 MG; Start 10/15/18 at 04:38 Vancomycin HCl (Vanco Iv Per Pharmacy) VANCOMYCIN PER PHARMACY PER PROTOCOL XX ; Start 10/15/18 at 12:00 Piperacillin Sod/ Tazobactam Sod 100 ml @ 25 mls/hr TID@,,18 IVPB Last administered on 10/16/18at 12:42; Admin Dose 25 MLS/HR; Start 10/15/18 at 18:00 Vancomycin HCl 250 ml @ 125 mls/hr Q12H IVPB Last administered on 10/16/18 14:08; Admin Dose 125 MLS/HR; Start 10/16/18 at 02:00 Miscellaneous Information (*Rx Drug Level Order Reminder*) Reminder: Vancomycin Tro... ONCE ONCE XX ; Start 10/17/18 at 01:00; Stop 10/17/18 at 01:01 Pantoprazole (Protonix Tab) 40 mg DAILY@06 PO Last administered on 10/16/18 14:08; Admin Dose 40 MG; Start 10/16/18 at 13:55 Allergies: Coded Allergies: No Known Allergy (Unverified , 10/14/18) Social History Smoking Status: Former smoker Exam/Review of Systems Exam Vitals Vital Signs Date Temp Pulse Resp B/P (MAP) Pulse Ox O2 O2 Flow FiO2 Time Delivery Rate 10/16/18 126 12:35 10/16/18 99.1 20 118/81 97 Room Air 11:20 (93) 10/13/18 2.0 22:57 Intake and Output 10/15/18 10/15/18 10/16/18 1515:00 23:00 07:00 IntakeIntake Total 1100 ml 800 ml OutputOutput Total 1700 ml BalanceBalance -600 ml 800 ml Constitutional: alert, oriented, well developed Psych: no complaints, nl mood/affect Head: normocephalic, atraumatic Eyes: EOMI Respiratory: clear to auscultation, other (CT in place) Cardiovascular: regular rate and rhythm Gastrointestinal: soft Neurological: [employer] 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 Results Result Diagram: 10/16/18 0733 10/13/18 1905 Results 24hrs Laboratory Tests Test 10/15/18 17:27 10/15/18 22:00 10/16/18 02:18 10/16/18 07:33 Bedside Glucose 199 221 H 145 White Blood Count 15.6 #H Red Blood Count 4.28 L Hemoglobin 11.4 L Hematocrit 37.2 L Mean Corpuscular 86.9 Volume Mean Corpuscular 26.6 L Hemoglobin Mean Corpuscular 30.6 L Hemoglobin Concent Red Cell 16.5 H Distribution Width Platelet Count 262 Mean Platelet Volume 8.4 Immature 1.300 H Granulocytes % Neutrophils % 83.1 H Lymphocytes % 6.7 L Monocytes % 8.4 Eosinophils % 0.3 Basophils % 0.2 Nucleated Red Blood 0.0 Cells % Immature 0.210 H Granulocytes # Neutrophils # 13.0 H Lymphocytes # 1.0 Monocytes # 1.3 H Eosinophils # 0.0 Basophils # 0.0 Nucleated Red Blood 0.0 Cells # Test 10/16/18 08:41 10/16/18 12:37 Bedside Glucose 142 214 Medications Medication Current Medications Morphine Sulfate (morphine) 3 mg Q3H PRN IV mod pain Last administered on 10/16/18at 02:36; Admin Dose 3 MG; Start 10/13/18 at 23:30 Ondansetron HCl (Zofran Inj) 4 mg Q4H PRN IV nausea; Start 10/13/18 at 23:30 Zolpidem Tartrate (Ambien) 5 mg HS MAY REPEAT X 1 PRN PO INSOMNIA; Start 10/13/18 at 23:30 Folic Acid (Folic Acid) 1 mg DAILY PO Last administered on 10/16/18at 09:11; Admin Dose 1 MG; Start 10/14/18 at 09:00 Prednisone (Prednisone) 7.5 mg DAILY PO Last administered on 10/16/18at 09:11; Admin Dose 7.5 MG; Start 10/14/18 at 09:00 Insulin Aspart (Novolog Insulin Pen) NOVOLOG *MODERATE* ALGORITHM WITH MEALS BEDTIME SC Last administered on 10/16/18at 13:13; Admin Dose 4 UNIT; Start 10/14/18 at 11:50 Miscellaneous Information 1 ea NOTE XX ; Start 10/14/18 at 09:00 Glucose (Glutose) 15 gm Q15M PRN PO DECREASED GLUCOSE; Start 10/14/18 at 09:00 Glucose (Glutose) 22.5 gm Q15M PRN PO DECREASED GLUCOSE; Start 10/14/18 at 09:00 Dextrose (D50w Syringe) 25 ml Q15M PRN IV DECREASED GLUCOSE; Start 10/14/18 at 09:00 Dextrose (D50w Syringe) 50 ml Q15M PRN IV DECREASED GLUCOSE; Start 10/14/18 at 09:00 Glucagon (Glucagen) 1 mg Q15M PRN IM DECREASED GLUCOSE; Start 10/14/18 at 09:00 Glucose (Glutose) 15 gm Q15M PRN BUCCAL DECREASED GLUCOSE; Start 10/14/18 at 09:00 Rifabutin (Mycobutin) 150 mg MoWeFr@0900,2100 PO Last administered on 10/16/18at 09:15; Admin Dose 150 MG; Start 10/16/18 at 09:00 Clarithromycin (Biaxin) 500 mg MoWeFr@0900,2100 PO Last administered on 10/16/18at 09:11; Admin Dose 500 MG; Start 10/16/18 at 09:00 Ethambutol HCl (Myambutol) 400 mg MoWeFr@0900,2100 PO Last administered on at 09:11; Admin Dose 400 MG; Start 10/16/18 at 09:00 Acetaminophen (Tylenol Tab) 650 mg Q4H PRN PO MILD PAIN(1-3)OR ELEVATED TEMP Last administered on 10/16/18at 04:48; Admin Dose 650 MG; Start 10/15/18 at 04:38 Vancomycin HCl (Vanco Iv Per Pharmacy) VANCOMYCIN PER PHARMACY PER PROTOCOL XX ; Start 10/15/18 at 12:00 Piperacillin Sod/ Tazobactam Sod 100 ml @ 25 mls/hr TID@02,,18 IVPB Last ad ministered on 10/16/18at 12:42; Admin Dose 25 MLS/HR; Start 10/15/18 at 18:00 Vancomycin HCl 250 ml @ 125 mls/hr Q12H IVPB Last administered on 10/16/18at 14:08; Admin Dose 125 MLS/HR; Start 10/16/18 at 02:00 Miscellaneous Information (*Rx Drug Level Order Reminder*) Reminder: Vancomycin Tro... ONCE ONCE XX ; Start 10/17/18 at 01:00; Stop 10/17/18 at 01:01 Pantoprazole (Protonix Tab) 40 mg DAILY@06 PO Last administered on 10/16/18at 14:08; Admin Dose 40 MG; Start 10/16/18 at 13:55 SCOTTY YOUNGER MD Oct 16, 2018 15:03
[2018-10-17] VITALS (12 sets, daily range): BP systolic 115–147; BP diastolic 72–86; PULSE 104–148; RESP 18–22
[2018-10-17] MEDS: VANCOMYCIN 1 GM 250 ML IVPB SCH (01:42)
[2018-10-17] MEDS: PIPER-TAZO 3.375 GM IV (PMX) 100 ML IVPB SCH ×2 (01:43→09:55)
[2018-10-17] MEDS: ACETAMINOPHEN 325 MG TAB PO PRN ×2 (02:00→08:06)
[2018-10-17] MEDS: PANTOPRAZOLE (EC) 40 MG TAB PO SCH (05:42)
[2018-10-17] MEDS ORDERED: PANTOPRAZOLE (EC) 40 MG TAB PO SCH (06:00)
[2018-10-17] MEDS: INSULIN ASPART [NOVOLOG] 3 ML PEN SC SCH ×4 (07:55→20:38)
[2018-10-17] MEDS: predniSONE 2.5 MG TAB PO SCH (08:06)
[2018-10-17] MEDS: FOLIC ACID 1 MG TAB PO SCH (08:06)
[2018-10-17] MEDS: morphine 2 MG INJ IV PRN (08:54)
[2018-10-17] MEDS ORDERED: SOD CHLORIDE 0.9% 500 ML IV ONE (09:00)
[2018-10-17] MEDS ORDERED: SOD CHLORIDE 0.9% 250 ML IV ONE (09:00)
--- NOTE | 2018-10-17 10:20 | PN ---
Date/Time of Note Date/Time of Note DATE: 10/17/18 TIME: 10:17 Subjective Patient complains of right-sided chest pain. Mild dry cough Objective Vitals Vital Signs Date Temp Pulse Resp B/P (MAP) Pulse Ox O2 O2 Flow FiO2 Time Delivery Rate 10/17/18 98.8 130 09:54 10/17/18 18 147/83 94 Nasal 2.0 08:05 (104) Cannula Intake and Output 10/16/18 10/16/18 10/17/18 1515:00 23:00 07:00 IntakeIntake Total 1410 ml 600 ml BalanceBalance 1410 ml 600 ml Right-sided rhonchi. Decreased breath sound at the base Tachycardia Soft nontender nondistended normoactive bowel sounds No edema No focal Results Result Diagram: 10/17/1882010/17/18820 Medications Medications Current Medications Ondansetron HCl (Zofran Inj) 4 mg Q4H PRN IV nausea; Start 10/13/18 at 23:30 Zolpidem Tartrate (Ambien) 5 mg HS MAY REPEAT X 1 PRN PO INSOMNIA; Start 10/13/18 at 23:30 Folic Acid (Folic Acid) 1 mg DAILY PO Last administered on 10/17/18at 08:06; Admin Dose 1 MG; Start 10/14/18 at 09:00 Prednisone (Prednisone) 7.5 mg DAILY PO Last administered on 10/17/18at 08:06; Admin Dose 7.5 MG; Start 10/14/18 at 09:00 Insulin Aspart (Novolog Insulin Pen) NOVOLOG *MODERATE* ALGORITHM WITH MEALS BEDTIME SC Last administered on 10/16/18at 18:26; Admin Dose 4 UNIT; Start 10/14/18 at 11:50 Miscellaneous Information 1 ea NOTE XX ; Start 10/14/18 at 09:00 Glucose (Glutose) 15 gm Q15M PRN PO DECREASED GLUCOSE; Start 10/14/18 at 09:00 Glucose (Glutose) 22.5 gm Q15M PRN PO DECREASED GLUCOSE; Start 10/14/18 at 09:00 Dextrose (D50w Syringe) 25 ml Q15M PRN IV DECREASED GLUCOSE; Start 10/14/18 at 09:00 Dextrose (D50w Syringe) 50 ml Q15M PRN IV DECREASED GLUCOSE; Start 10/14/18 at 09:00 Glucagon (Glucagen) 1 mg Q15M PRN IM DECREASED GLUCOSE; Start 10/14/18 at 09:00 Glucose (Glutose) 15 gm Q15M PRN BUCCAL DECREASED GLUCOSE; Start 10/14/18 at 09:00 Rifabutin (Mycobutin) 150 mg MoWeFr@0900,2100 PO Last administered on 10/16/18at 20:15; Admin Dose 150 MG; Start 10/16/18 at 09:00 Clarithromycin (Biaxin) 500 mg MoWeFr@0900,2100 PO Last administered on 10/16/18at 20:15; Admin Dose 500 MG; Start 10/16/18 at 09:00 Ethambutol HCl (Myambutol) 400 mg MoWeFr@0900,2100 PO Last administered on 10/16/18at 20:15; Admin Dose 400 MG; Start 10/16/18 at 09:00 Acetaminophen (Tylenol Tab) 650 mg Q4H PRN PO MILD PAIN(1-3)OR ELEVATED TEMP Last administered on 10/17/18at 08:06; Admin Dose 650 MG; Start 10/15/18 at 04:38 Vancomycin HCl (Vanco Iv Per Pharmacy) VANCOMYCIN PER PHARMACY PER PROTOCOL XX ; Start 10/15/18 at 12:00 Piperacillin Sod/ Tazobactam Sod 100 ml @ 25 mls/hr TID@02,10,18 IVPB Last administered on 10/17/18at 09:55; Admin Dose 25 MLS/HR; Start 10/15/18 at 18:00 Pantoprazole (Protonix Tab) 40 mg DAILY@06 PO Last administered on 10/17/18at 05:42; Admin Dose 40 MG; Start 10/16/18 at 13:55 Vancomycin HCl 1.5 gm/Sodium Chloride 250 ml @ 83.333 mls/ hr Q12H IVPB ; Start 10/17/18 at 12:00 Miscellaneous Information (*Rx Drug Level Order Reminder*) VANCO TR AT 2300 2300 ONCE XX ; Start 10/18/18 at 23:00; Stop 10/18/18 at 23:01 Morphine Sulfate (morphine) 2 mg Q3H PRN IV SEVERE PAIN LEVEL 7-10 Last administered on 10/17/18at 08:54; Admin Dose 2 MG; Start 10/17/18 at 08:30 VTE Prophylaxis Risk score (from Nsg)>0 risk: 3 [place] [facility] [place]/Catheters IV Catheter Type: Saline Lock Retana in Place: No Assessment/Plan Assessment/Plan 58-year-old male with right-sided pneumothorax. Status post chest tube placement. Chest x-ray shows the chest tube is out of place Right lower lobe consolidation MAC pneumonia Persistent fever Type 2 diabetes mellitus Rheumatoid arthritis Immunocompromised state Continue broad-spectrum antibiotics Stat chest CT Case was discussed with Dr. Schneider and Dr Oakley Pulmonary consultation KAREN HINDS MD Oct 17, 2018 10:20
--- NOTE | 2018-10-17 11:02 | CONS ---
Assessment/Plan Assessment/Plan Hospital Course (Demo Recall) - Sepsis 2/2 pna - Pna - sputum cx in process - Pneumothorax - CXR shows R sided thoracostomy tube tube is been withdrawn with the tip now seen external to the pleural within the R lateral soft tissues. Increasing consolidation at R lung base with loculated appearing R pleural fluid accumulation, slightly increased. Increased lucency within the central R lung suspicious for pneumo. Discoid atelectasis is seen at LLbase. - DMT2 - RA Recommendations: - Cont vanco - D/c zosyn, start merrem - Cont clarithro, rifambutin, and ethambutol - Serial cxr - F/u repeat blood cultures and ua/cx from this am (pending in process), blood cultures 10/13/18 (NGTD), blood cultures 10/15/18 (NGTD), crypto, cocci - Ordered: Beta D glucan, TB Quant Gold, Sputum AFB x3 - F/u CT scan - F/u RUE doppler - Obtain records from outpatient pulm - asked RN to request these - Airborne isolation Plan was d/w patient in detail, patient's RN Haleigh, and with Dr. Beltrán via [employer] messaging in detail. Total time spent was 60 min. Consultation Date/Type/Reason Admit Date/Time Oct 13, 2018 at 23:44 Initial Consult Date 10/16/18 Requesting Provider: KAREN HINDS MD Date/Time of Note DATE: 10/17/18 TIME: 10:49 24 HR Interval Summary Free Text/Dictation wbc improving 13.1. Patient febrile with tmax this am 103. [place] cultures done and in process. CXR showed dislodgment of chest tube and patient is awaiting a CT Scan today. Patient also awaiting a RUE doppler d/t RUE increasing swelling. HIV Screen and Influenz a/b screens were neg. Detailed Summary Eyes: no complaints ENT: no complaints Respiratory: cough (occ), shortness of breath (had sob this am, states since he was placed on oxygen has been "breathing ok." ), sputum (he reports it is yellow ), other (chest tube out.); No pain, No pleuritic pain, No wheezing Cardiovascular: no complaints; No chest pain, No lightheadedness, No palpitations Gastrointestinal: pain (states he gets "bloating pain" after meals); No constipation, No decreased appetite, No diarrhea, No nausea, No vomiting Genitourinary: no complaints; No dysuria Musculoskeletal: no complaints Skin: no complaints, other (LUE progressive swelling. ) Neurologic: no complaints Endocrine: no complaints Lymphatic: no complaints Psychological: no complaints, nl mood/affect Exam/Review of Systems Exam Vitals Vital Signs Date Temp Pulse Resp B/P (MAP) Pulse Ox O2 O2 Flow FiO2 Time Delivery Rate 10/17/18 98.8 130 09:54 10/17/18 18 147/83 94 Nasal 2.0 08:05 (104) Cannula Allergies Coded Allergies No Known Allergy (Unverified10/14/18) Intake and Output 10/16/18 10/16/18 10/17/18 1515:00 23:00 07:00 IntakeIntake Total 1410 ml 600 ml BalanceBalance 1410 ml 600 ml Constitutional: alert, oriented, well developed, other (sitting up in bed speaking with his visitors); No distress Psych: no complaints, nl mood/affect Head: normocephalic, atraumatic Eyes: nl conjunctiva, nl lids, nl sclera ENMT: nl external ears & nose, nl nasal mucosa & septum, mucosa pink and moist Neck: supple, non-tender Respiratory: normal air movement, diminished breath sounds (R mid/lower lobes > all other lung eubanks), other (On O2 2l nc, right previous ct site covered with a c/d/i kerlix dressing. ); No labored breathing, No wheezing Cardiovascular: regular rate and rhythm, nl pulses; No edema Gastrointestinal: soft, non-tender, bowel sounds (normoactive); No distended, No tender Genitourinary - Male: other (bladder flat, no f/c) Musculoskeletal: nl extremities to inspection Extremities: normal pulses Neurological: DIGITAL PROJECT COORDINATOR 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, nl mental status, nl speech, nl strength Skin: nl turgor; No rash or lesions Results Result Diagram: 10/17/1882010/17/1821 Results 24hrs Laboratory Tests Test 10/16/18 12:37 10/16/18 18:18 10/16/18 20:14 10/17/18 00:47 Bedside Glucose 214 200 166 Vancomycin Level 7.7 L Trough Test 10/17/18 06:31 10/17/18 08:15 10/17/18 08:21 Blood Urea Nitrogen 13 14 Creatinine 0.94 0.98 Bedside Glucose 129 White Blood Count 13.1 H Red Blood Count 4.22 L Hemoglobin 11.3 L Hematocrit 36.3 L Mean Corpuscular 86.0 Volume Mean Corpuscular 26.8 L Hemoglobin Mean Corpuscular 31.1 L Hemoglobin Concent Red Cell 16.5 H Distribution Width Platelet Count 278 Mean Platelet Volume 8.4 Immature 1.400 H Granulocytes % Neutrophils % 83.4 H Lymphocytes % 5.9 L Monocytes % 8.7 Eosinophils % 0.4 Basophils % 0.2 Nucleated Red Blood 0.0 Cells % Immature 0.190 H Granulocytes # Neutrophils # 10.9 H Lymphocytes # 0.8 Monocytes # 1.1 H Eosinophils # 0.1 Basophils # 0.0 Nucleated Red Blood 0.0 Cells # Sodium Level 134 L Potassium Level 4.4 Chloride Level 100 Carbon Dioxide Level 24 Anion Gap 10 Est Glomerular > 60 Filtrat Rate mL/min Glucose Level 112 Lactic Acid Level 1.2 Calcium Level 8.7 Total Bilirubin 0.4 Direct Bilirubin 0.00 Indirect Bilirubin 0.4 Aspartate Amino 25 Transf (AST/SGOT) Alanine 40 Aminotransferase (AL T/SGPT) Alkaline Phosphatase 166 H Total Protein 5.6 L Albumin 2.6 L Globulin 3.00 Albumin/Globulin 0.86 Ratio Imaging Imaging CXR 10/17/18 IMPRESSION: 1. The right-sided thoracostomy tube is been withdrawn with the tip now seen external to the pleura within the right lateral soft tissues. 2. Increasing consolidation at the right lung base with loculated appearing right pleural fluid accumulation, slightly increased. There is increased lucency within the central right lung suspicious for pneumothorax. Discoid atelectasis is seen at the left lung base. 3. Mild diffuse degenerative enthesopathy of the thoracic spine. 4. The bowel gas pattern reflects an ileus. Findings including that of malpositioned right thoracostomy tube, increasing consolidation, increasing pleural fluid and suspicion of pneumothorax were telephoned by Parker Clemente MD to VANESSA Butler, on 10/17/2018 at 0914 hours. Medications Medication Current Medications Ondansetron HCl (Zofran Inj) 4 mg Q4H PRN IV nausea; Start 10/13/18 at 23:30 Zolpidem Tartrate (Ambien) 5 mg HS MAY REPEAT X 1 PRN PO INSOMNIA; Start 10/13/18 at 23:30 Folic Acid (Folic Acid) 1 mg DAILY PO Last administered on 10/17/18 08:06; Admin Dose 1 MG; Start 10/14/18 at 09:00 Prednisone (Prednisone) 7.5 mg DAILY PO Last administered on 10/17/18 08:06; Admin Dose 7.5 MG; Start 10/14/18 at 09:00 Insulin Aspart (Novolog Insulin Pen) NOVOLOG *MODERATE* ALGORITHM WITH MEALS BEDTIME SC Last administered on 10/16/18 18:26; Admin Dose 4 UNIT; Start 10/14/18 at 11:50 Miscellaneous Information 1 ea NOTE XX ; Start 10/14/18 at 09:00 Glucose (Glutose) 15 gm Q15M PRN PO DECREASED GLUCOSE; Start 10/14/18 at 09:00 Glucose (Glutose) 22.5 gm Q15M PRN PO DECREASED GLUCOSE; Start 10/14/18 at 09:00 Dextrose (D50w Syringe) 25 ml Q15M PRN IV DECREASED GLUCOSE; Start 10/14/18 at 09:00 Dextrose (D50w Syringe) 50 ml Q15M PRN IV DECREASED GLUCOSE; Start 10/14/18 at 09:00 Glucagon (Glucagen) 1 mg Q15M PRN IM DECREASED GLUCOSE; Start 10/14/18 at 09:00 Glucose (Glutose) 15 gm Q15M PRN BUCCAL DECREASED GLUCOSE; Start 10/14/18 at 09:00 Rifabutin (Mycobutin) 150 mg MoWeFr@0900,2100 PO Last administered on 10/16/18at 20:15; Admin Dose 150 MG; Start 10/16/18 at 09:00 Clarithromycin (Biaxin) 500 mg MoWeFr@0900,2100 PO Last administered on 10/16/18 20:15; Admin Dose 500 MG; Start 10/16/18 at 09:00 Ethambutol HCl (Myambutol) 400 mg MoWeFr@0900,2100 PO Last administered on 10/16/18at 20:15; Admin Dose 400 MG; Start 10/16/18 at 09:00 Acetaminophen (Tylenol Tab) 650 mg Q4H PRN PO MILD PAIN(1-3)OR ELEVATED TEMP Last administered on 6/11/19at 08:06; Admin Dose 650 MG; Start 10/15/18 at 04:38 Vancomycin HCl (Vanco Iv Per Pharmacy) VANCOMYCIN PER PHARMACY PER PROTOCOL XX ; Start 10/15/18 at 12:00 Piperacillin Sod/ Tazobactam Sod 100 ml @ 25 mls/hr TID@02,10,18 IVPB Last administered on 10/17/18at 09:55; Admin Dose 25 MLS/HR; Start 10/15/18 at 18:00 Pantoprazole (Protonix Tab) 40 mg DAILY@06 PO Last administered on 10/17/18at 05:42; Admin Dose 40 MG; Start 10/16/18 at 13:55 Vancomycin HCl 1.5 gm/Sodium Chloride 250 ml @ 83.333 mls/ hr Q12H IVPB ; Start 10/17/18 at 12:00 Miscellaneous Information (*Rx Drug Level Order Reminder*) VANCO TR AT 2300 2300 ONCE XX ; Start 10/18/18 at 23:00; Stop 10/18/18 at 23:01 Morphine Sulfate (morphine) 2 mg Q3H PRN IV SEVERE PAIN LEVEL 7-10 Last administered on 10/17/18at 08:54; Admin Dose 2 MG; Start 10/17/18 at 08:30 ENDER AVILA NP Oct 17, 2018 11:02
--- NOTE | 2018-10-17 11:48 | CONS ---
Assessment/Plan Assessment/Plan Assessment/Plan (Daily) CT chest was reviewed from admission which is showing subtotal right pneumothorax with infiltrative changes in right upper lobe. There is mild pleural thickening on the right side as well. Post chest tube placements x-ray showing adequate lung reexpansion. Assessment and recommendations; 1. Patient with history of MAC pneumonia admitted for right pneumothorax with likely acute right lower lobe community acquired pneumonia,, currently on appropriate antimicrobial regimen. 2. Apparently chest tube has slipped out of pleural space. Continue current supportive care. Chest tube to be addressed by cardiothoracic surgeon. Continue current antimicrobial regimen. Consultation Date/Type/Reason Admit Date/Time Oct 13, 2018 at 23:44 Date of Consultation: Oct 17, 2018 Type of Consult Pulmonary Patient is a 58-year-old male who came into the emergency room on the seventh of this month with acute shortness of breath. Upon evaluation chest was done which showed a right pneumothorax. Patient had a chest tube placement with lung reexpansion. 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 Patient is feeling better still complains of scant cough without any sputum production or hemoptysis. Denies any fever or chills. Past medical history; 1. History of MAC pneumonia. 2. Right pneumothorax, status post chest tube placement. 3. COPD. Medications; reviewed. Allergies; none. Social history; noncontributory. Family history; noncontributory. No sure of any tuberculosis infection in the family. Occupational history; patient is on disability. Review of systems; denies any headache, seizures, fever, chest pain, wheezing, complains of very scant cough. Denies any weight loss. Any hemoptysis. Denies any abdominal pain, nausea vomiting. Any melena hematochezia. Any arthritis symptoms. Any skin changes. Patient has good appetite. General exam; middle-aged male, awake and alert. Currently in no distress. Date/Time of Note DATE: 10/17/18 TIME: 11:45 Past Medical History Home Meds Reported Medications Cholecalciferol* (Vitamin D3*) 1,000 Unit Tablet, 1000 UNIT PO DAILY, TAB 10/14/18 Omeprazole* (Omeprazole*) 20 Mg Capsule.dr, 20 MG PO QAM, #30 CAP 10/14/18 Folic Acid* (Folic Acid*) 1 Mg Tablet, 1 MG PO DAILY for 90 Days, #90 10/14/18 Prednisone* (Prednisone*) 5 Mg Tab, 7.5 MG PO DAILY for 30 Days TAKE 1.5 TAB BY MOUTH DAILY 10/14/18 Clarithromycin* (Clarithromycin*) 500 Mg Tablet, 1000 MG PO DAILY for [id number] for 5 Days 10/14/18 Ethambutol Hcl (Ethambutol Hcl) 400 Mg Tablet, 800 MG PO DAILY for CLHE-OLI-LOP 10/14/18 Rifabutin (Rifabutin) 150 Mg Capsule, 300 MG PO DAILY for [id number] 10/14/18 Discontinued Reported Medications Omeprazole* (Omeprazole*) 20 Mg Capsule.dr, 20 MG PO DAILY, #30 CAP 10/14/18 Discontinued Scripts Ibuprofen* (Motrin*) 600 Mg Tab, 600 MG PO Q6, #30 TAB Prov:MANSI SHAH PA-C 11/06/17 Tramadol HCl (Tramadol HCl) 50 Mg Tablet, 50 MG PO Q6 PRN for PAIN, #20 TAB Prov:MANSI SHAH PA-C 11/06/17 Levofloxacin* (Levaquin*) 750 Mg Tablet, 750 MG PO DAILY for 5 Days, TAB Prov:VALENTINA OVALLE NP 08/08/15 Medications Current Medications Ondansetron HCl (Zofran Inj) 4 mg Q4H PRN IV nausea; Start 10/13/18 at 23:30 Zolpidem Tartrate (Ambien) 5 mg HS MAY REPEAT X 1 PRN PO INSOMNIA; Start 10/13/18 at 23:30 Folic Acid (Folic Acid) 1 mg DAILY PO Last administered on 10/17/18at 08:06; Admin Dose 1 MG; Start 10/14/18 at 09:00 Prednisone (Prednisone) 7.5 mg DAILY PO Last administered on 10/17/18at 08:06; Admin Dose 7.5 MG; Start 10/14/18 at 09:00 Insulin Aspart (Novolog Insulin Pen) NOVOLOG *MODERATE* ALGORITHM WITH MEALS BEDTIME SC Last administered on 10/16/18at 18:26; Admin Dose 4 UNIT; Start 10/14/18 at 11:50 Miscellaneous Information 1 ea NOTE XX ; Start 10/14/18 at 09:00 Glucose (Glutose) 15 gm Q15M PRN PO DECREASED GLUCOSE; Start 10/14/18 at 09:00 Glucose (Glutose) 22.5 gm Q15M PRN PO DECREASED GLUCOSE; Start 10/14/18 at 09:00 Dextrose (D50w Syringe) 25 ml Q15M PRN IV DECREASED GLUCOSE; Start 10/14/18 at 09:00 Dextrose (D50w Syringe) 50 ml Q15M PRN IV DECREASED GLUCOSE; Start 10/14/18 at 09:00 Glucagon (Glucagen) 1 mg Q15M PRN IM DECREASED GLUCOSE; Start 10/14/18 at 09:00 Glucose (Glutose) 15 gm Q15M PRN BUCCAL DECREASED GLUCOSE; Start 10/14/18 at 09:00 Rifabutin (Mycobutin) 150 mg MoWeFr@0900,2100 PO Last administered on 10/16/18at 20:15; Admin Dose 150 MG; Start 10/16/18 at 09:00 Clarithromycin (Biaxin) 500 mg MoWeFr@0900,2100 PO Last administered on 10/16/18at 20:15; Admin Dose 500 MG; Start 10/16/18 at 09:00 Ethambutol HCl (Myambutol) 400 mg MoWeFr@0900,2100 PO Last administered on 10/16/18at 20:15; Admin Dose 400 MG; Start 10/16/18 at 09:00 Acetaminophen (Tylenol Tab) 650 mg Q4H PRN PO MILD PAIN(1-3)OR ELEVATED TEMP Last administered on 10/17/18at 08:06; Admin Dose 650 MG; Start 10/15/18 at 04:38 Vancomycin HCl (Vanco Iv Per Pharmacy) VANCOMYCIN PER PHARMACY PER PROTOCOL XX ; Start 10/15/18 at 12:00 Pantoprazole (Protonix Tab) 40 mg DAILY@06 PO Last administered on 10/17/18at 05:42; Admin Dose 40 MG; Start 10/16/18 at 13:55 Vancomycin HCl 1.5 gm/Sodium Chloride 250 ml @ 83.333 mls/ hr Q12H IVPB ; Start 10/17/18 at 12:00 Miscellaneous Information (*Rx Drug Level Order Reminder*) VANCO TR AT 2300 2300 ONCE XX ; Start 10/18/18 at 23:00; Stop 10/18/18 at 23:01 Morphine Sulfate (morphine) 2 mg Q3H PRN IV SEVERE PAIN LEVEL 7-10 Last administered on 10/17/18at 08:54; Admin Dose 2 MG; Start 10/17/18 at 08:30 Meropenem/Sodium Chloride 50 ml @ 100 mls/hr Q8 IVPB ; Start 10/17/18 at 14:00 Allergies: Coded Allergies: No Known Allergy (Unverified , 10/14/18) Social History Smoking Status: Former smoker Exam/Review of Systems Exam Vitals Vital Signs Date Temp Pulse Resp B/P (MAP) Pulse Ox O2 O2 Flow FiO2 Time Delivery Rate 10/17/18 98.7 116 18 117/74 97 11:36 (88) 10/17/18 Nasal 2.0 08:05 Cannula Intake and Output 10/16/18 10/16/18 10/17/18 1515:00 23:00 07:00 IntakeIntake Total 1410 ml 600 ml BalanceBalance 1410 ml 600 ml Exam H EENT exam; supple neck, no JVD. No lymphadenopathy. Midline trachea. No thyromegaly. No neck masses. Chest exam; diminished breath sounds bilaterally. Right-sided chest tube in place. S1-S2 audible, no murmurs. Regular rhythm. Abdomen exam; soft, nontender. No organomegaly. Bowel sounds audible. Extremity exam; no peripheral edema clubbing. APPLICATION SECURITY ENGINEER exam; no focal deficit. Results Result Diagram: 10/17/18 0821 10/17/18 0821 Results 24hrs Laboratory Tests Test 10/16/18 12:37 10/16/18 18:18 10/16/18 20:14 10/17/18 00:47 Bedside Glucose 214 200 166 Vancomycin Level 7.7 L Trough Test 10/17/18 06:31 10/17/18 08:15 10/17/18 08:21 Blood Urea Nitrogen 13 14 Creatinine 0.94 0.98 Bedside Glucose 129 White Blood Count 13.1 H Red Blood Count 4.22 L Hemoglobin 11.3 L Hematocrit 36.3 L Mean Corpuscular 86.0 Volume Mean Corpuscular 26.8 L Hemoglobin Mean Corpuscular 31.1 L Hemoglobin Concent Red Cell 16.5 H Distribution Width Platelet Count 278 Mean Platelet Volume 8.4 Immature 1.400 H Granulocytes % Neutrophils % 83.4 H Lymphocytes % 5.9 L Monocytes % 8.7 Eosinophils % 0.4 Basophils % 0.2 Nucleated Red Blood 0.0 Cells % Immature 0.190 H Granulocytes # Neutrophils # 10.9 H Lymphocytes # 0.8 Monocytes # 1.1 H Eosinophils # 0.1 Basophils # 0.0 Nucleated Red Blood 0.0 Cells # Sodium Level 134 L Potassium Level 4.4 Chloride Level 100 Carbon Dioxide Level 24 Anion Gap 10 Est Glomerular > 60 Filtrat Rate mL/min Glucose Level 112 Lactic Acid Level 1.2 Calcium Level 8.7 Total Bilirubin 0.4 Direct Bilirubin 0.00 Indirect Bilirubin 0.4 Aspartate Amino 25 Transf (AST/SGOT) Alanine 40 Aminotransferase (AL T/SGPT) Alkaline Phosphatase 166 H Total Protein 5.6 L Albumin 2.6 L Globulin 3.00 Albumin/Globulin 0.86 Ratio Medications Medication Current Medications Ondansetron HCl (Zofran Inj) 4 mg Q4H PRN IV nausea; Start 10/13/18 at 23:30 Zolpidem Tartrate (Ambien) 5 mg HS MAY REPEAT X 1 PRN PO INSOMNIA; Start 10/13/18 at 23:30 Folic Acid (Folic Acid) 1 mg DAILY PO Last administered on 10/17/18at 08:06; Admin Dose 1 MG; Start 10/14/18 at 09:00 Prednisone (Prednisone) 7.5 mg DAILY PO Last administered on 10/17/18at 08:06; Admin Dose 7.5 MG; Start 10/14/18 at 09:00 Insulin Aspart (Novolog Insulin Pen) NOVOLOG *MODERATE* ALGORITHM WITH MEALS BEDTIME SC Last administered on 10/16/18at 18:26; Admin Dose 4 UNIT; Start 10/14/18 at 11:50 Miscellaneous Information 1 ea NOTE XX ; Start 10/14/18 at 09:00 Glucose (Glutose) 15 gm Q15M PRN PO DECREASED GLUCOSE; Start 10/14/18 at 09:00 Glucose (Glutose) 22.5 gm Q15M PRN PO DECREASED GLUCOSE; Start 10/14/18 at 09:00 Dextrose (D50w Syringe) 25 ml Q15M PRN IV DECREASED GLUCOSE; Start 10/14/18 at 09:00 Dextrose (D50w Syringe) 50 ml Q15M PRN IV DECREASED GLUCOSE; Start 10/14/18 at 09:00 Glucagon (Glucagen) 1 mg Q15M PRN IM DECREASED GLUCOSE; Start 10/14/18 at 09:00 Glucose (Glutose) 15 gm Q15M PRN BUCCAL DECREASED GLUCOSE; Start 10/14/18 at 09:00 Rifabutin (Mycobutin) 150 mg MoWeFr@0900,2100 PO Last administered on 10/16/18at 20:15; Admin Dose 150 MG; Start 10/16/18 at 09:00 Clarithromycin (Biaxin) 500 mg MoWeFr@0900,2100 PO Last administered on 10/16/18at 20:15; Admin Dose 500 MG; Start 10/16/18 at 09:00 Ethambutol HCl (Myambutol) 400 mg MoWeFr@0900,2100 PO Last administered on 10/16/18 20:15; Admin Dose 400 MG; Start 10/16/18 at 09:00 Acetaminophen (Tylenol Tab) 650 mg Q4H PRN PO MILD PAIN(1-3)OR ELEVATED TEMP Last administered on 10/17/18at 08:06; Admin Dose 650 MG; Start 10/15/18 at 04:38 Vancomycin HCl (Vanco Iv Per Pharmacy) VANCOMYCIN PER PHARMACY PER PROTOCOL XX ; Start 10/15/18 at 12:00 Pantoprazole (Protonix Tab) 40 mg DAILY@06 PO Last administered on 10/17/18at 05:42; Admin Dose 40 MG; Start 10/16/18 at 13:55 Vancomycin HCl 1.5 gm/Sodium Chloride 250 ml @ 83.333 mls/ hr Q12H IVPB ; Start 10/17/18 at 12:00 Miscellaneous Information (*Rx Drug Level Order Reminder*) VANCO TR AT 2300 2300 ONCE XX ; Start 10/18/18 at 23:00; Stop 10/18/18 at 23:01 Morphine Sulfate (morphine) 2 mg Q3H PRN IV SEVERE PAIN LEVEL 7-10 Last administered on 10/17/18at 08:54; Admin Dose 2 MG; Start 10/17/18 at 08:30 Meropenem/Sodium Chloride 50 ml @ 100 mls/hr Q8 IVPB ; Start 10/17/18 at 14:00 BENJAMIN PERSON 11, 2019 11:48
[2018-10-17] MEDS: VANCOMYCIN HCL 1.5 GM in SOD CHLORIDE 0.9% 250 ML IVPB SCH (12:07)
[2018-10-17] MEDS: MEROPENEM 1 GM/50ML(PMX) 50 ML IVPB SCH ×2 (13:23→21:33)
[2018-10-17] MEDS: ASPIRIN 81 MG TAB PO SCH (17:07)
[2018-10-18] VITALS (15 sets, daily range): BP systolic 114–144; BP diastolic 71–83; PULSE 93–129; RESP 18–20
[2018-10-18] MEDS: VANCOMYCIN HCL 1.5 GM in SOD CHLORIDE 0.9% 250 ML IVPB SCH ×2 (00:29→11:35)
[2018-10-18] MEDS: PANTOPRAZOLE (EC) 40 MG TAB PO SCH (05:28)
[2018-10-18] MEDS: MEROPENEM 1 GM/50ML(PMX) 50 ML IVPB SCH ×3 (05:28→22:31)
[2018-10-18] MEDS: INSULIN ASPART [NOVOLOG] 3 ML PEN SC SCH ×4 (07:55→20:25)
[2018-10-18] MEDS: ACETAMINOPHEN 325 MG TAB PO PRN (08:16)
[2018-10-18] MEDS: ASPIRIN 81 MG TAB PO SCH (08:16)
[2018-10-18] MEDS: predniSONE 2.5 MG TAB PO SCH (08:16)
[2018-10-18] MEDS: FOLIC ACID 1 MG TAB PO SCH (08:16)
[2018-10-18] MEDS: RIFABUTIN 150 MG CAP PO SCH ×2 (08:20→20:25)
[2018-10-18] MEDS: CLARITHROMYCIN 500 MG TAB PO SCH ×2 (08:20→20:25)
[2018-10-18] MEDS: ETHAMBUTOL 400 MG TAB PO SCH ×2 (08:20→20:25)
--- NOTE | 2018-10-18 11:12 | CONS ---
Assessment/Plan Assessment/Plan Assessment/Plan (Daily) CT chest was reviewed from yesterday which is showing partially loculated right hydropneumothorax. Assessment recommendations; 1. Patient with history of KIERAN chronic pulmonary infection admitted for right pneumothorax with right lower lobe pneumonia. Chest tube has been removed due to dislodgment. Continue current supportive care. Patient scheduled for replacement chest tube today. Consultation Date/Type/Reason Admit Date/Time Oct 13, 2018 at 23:44 Initial Consult Date 10/17/18 Type of Consult Pulmonary Patient is a 58-year-old male who came into the emergency room on the seventh of this month with acute shortness of breath. Upon evaluation chest was done which showed a right pneumothorax. Patient had a chest tube placement with lung reexpansion. 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 Patient is feeling better still complains of scant cough without any sputum production or hemoptysis. Denies any fever or chills. Past medical history; 1. History of MAC pneumonia. 2. Right pneumothorax, status post chest tube placement. 3. COPD. Medications; reviewed. Allergies; none. Social history; noncontributory. Family history; noncontributory. No sure of any tuberculosis infection in the family. Occupational history; patient is on disability. Review of systems; denies any headache, seizures, fever, chest pain, wheezing, complains of very scant cough. Denies any weight loss. Any hemoptysis. Denies any abdominal pain, nausea vomiting. Any melena hematochezia. Any arthritis symptoms. Any skin changes. Patient has good appetite. General exam; middle-aged male, awake and alert. Currently in no distress. Requesting Provider: KAREN HINDS MD Date/Time of Note DATE: 10/18/18 TIME: 11:09 24 HR Interval Summary Free Text/Dictation Patient's condition is overall stable. Right-sided chest tube was pulled out yesterday. Because of dislodgment. Patient come to the very minimal shortness of breath. Complains of scant cough. General exam; middle-aged male, sitting in a chair by bedside. Awake and alert. Currently in no distress. Exam/Review of Systems Exam Vitals Vital Signs Date Temp Pulse Resp B/P (MAP) Pulse Ox O2 O2 Flow FiO2 Time Delivery Rate 10/18/18 100.0 09:13 10/18/18 123 08:20 10/18/18 20 144/83 91 Room Air 08:02 (103) 10/18/18 2.0 07:49 Intake and Output 10/17/18 10/17/18 10/18/18 1515:00 23:00 07:00 IntakeIntake Total 900 ml 650 ml BalanceBalance 900 ml 650 ml Exam H EENT exam; supple neck, no JVD. No lymphadenopathy. Midline trachea. No thyromegaly. Patient has fair dentition. No neck masses. Chest exam; diffuse crackles right lower lobe. Rest of the lung eubanks are fairly clear. S1-S2 audible, no murmurs. Regular rhythm. Abdomen exam; soft, no organomegaly. Nontender. Bowel sounds audible. Extremity exam; no peripheral edema. DAY CARE DIRECTOR exam; no focal deficit. Results Result Diagram: 10/18/18 1003 10/18/18 1003 Results 24hrs Laboratory Tests Test 10/17/18 12:05 10/17/18 13:10 10/17/18 17:06 10/17/18 20:29 Bedside Glucose 159 229 H 211 Urine Color YELLOW Urine Clarity CLEAR Urine pH 6.0 Urine Specific 1.011 [place] Urine Ketones 1+ H Urine Nitrite NEGATIVE Urine Bilirubin NEGATIVE Urine Urobilinogen NEGATIVE Urine Leukocyte NEGATIVE Esterase Urine Microscopic 2 RBC Urine Microscopic 2 WBC Urine Hemoglobin NEGATIVE Urine Glucose NEGATIVE Urine Total Protein 1+ H Test 10/18/18 01:40 10/18/18 08:15 10/18/18 10:03 Bedside Glucose 124 107 White Blood Count 13.1 H Red Blood Count 3.94 L Hemoglobin 10.9 L Hematocrit 34.5 L Mean Corpuscular 87.6 Volume Mean Corpuscular 27.7 L Hemoglobin Mean Corpuscular 31.6 L Hemoglobin Concent Red Cell 16.5 H Distribution Width Platelet Count 326 Mean Platelet Volume 8.5 Immature 1.100 H Granulocytes % Neutrophils % 83.0 H Lymphocytes % 5.5 L Monocytes % 9.3 Eosinophils % 0.8 Basophils % 0.3 Nucleated Red Blood 0.0 Cells % Immature 0.150 H Granulocytes # Neutrophils # 10.8 H Lymphocytes # 0.7 L Monocytes # 1.2 H Eosinophils # 0.1 Basophils # 0.0 Nucleated Red Blood 0.0 Cells # Prothrombin Time 15.1 H Prothrombin Time 1.2 Ratio INR International 1.18 Normalized Ratio Activated 39.3 H Partial Thromboplast Time Sodium Level 140 Potassium Level 4.1 Chloride Level 103 Carbon Dioxide Level 22 Anion Gap 15 H Blood Urea Nitrogen 20 Creatinine 1.34 H Est Glomerular 55 L Filtrat Rate mL/min Glucose Level 144 Calcium Level 9.1 Phosphorus Level 2.8 Magnesium Level 2.2 Total Bilirubin 0.3 Direct Bilirubin 0.00 Indirect Bilirubin 0.3 Aspartate Amino 21 Transf (AST/SGOT) Alanine 24 Aminotransferase (AL T/SGPT) Alkaline Phosphatase 169 H Total Protein 7.1 # Albumin 3.2 L Globulin 3.90 H Albumin/Globulin 0.82 Ratio Medications Medication Current Medications Ondansetron HCl (Zofran Inj) 4 mg Q4H PRN IV nausea; Start 10/13/18 at 23:30 Zolpidem Tartrate (Ambien) 5 mg HS MAY REPEAT X 1 PRN PO INSOMNIA; Start 10/13/18 at 23:30 Folic Acid (Folic Acid) 1 mg DAILY PO Last administered on 10/18/18at 08:16; Admin Dose 1 MG; Start 10/14/18 at 09:00 Prednisone (Prednisone) 7.5 mg DAILY PO Last administered on 10/18/18at 08:16; Admin Dose 7.5 MG; Start 10/14/18 at 09:00 Insulin Aspart (Novolog Insulin Pen) NOVOLOG *MODERATE* ALGORITHM WITH MEALS BEDTIME SC Last administered on 10/17/18at 20:38; Admin Dose 1 UNIT; Start 10/14/18 at 11:50 Miscellaneous Information 1 ea NOTE XX ; Start 10/14/18 at 09:00 Glucose (Glutose) 15 gm Q15M PRN PO DECREASED GLUCOSE; Start 10/14/18 at 09:00 Glucose (Glutose) 22.5 gm Q15M PRN PO DECREASED GLUCOSE; Start 10/14/18 at 09:00 Dextrose (D50w Syringe) 25 ml Q15M PRN IV DECREASED GLUCOSE; Start 10/14/18 at 09:00 Dextrose (D50w Syringe) 50 ml Q15M PRN IV DECREASED GLUCOSE; Start 10/14/18 at 09:00 Glucagon (Glucagen) 1 mg Q15M PRN IM DECREASED GLUCOSE; Start 10/14/18 at 09:00 Glucose (Glutose) 15 gm Q15M PRN BUCCAL DECREASED GLUCOSE; Start 10/14/18 at 09:00 Rifabutin (Mycobutin) 150 mg MoWeFr@0900,2100 PO Last administered on 10/18/18 08:20; Admin Dose 150 MG; Start 10/16/18 at 09:00 Clarithromycin (Biaxin) 500 mg MoWeFr@0900,2100 PO Last administered on 10/18/18 08:20; Admin Dose 500 MG; Start 10/16/18 at 09:00 Ethambutol HCl (Myambutol) 400 mg MoWeFr@0900,2100 PO Last administered on 10/07 08:20; Admin Dose 400 MG; Start 10/16/18 at 09:00 Acetaminophen (Tylenol Tab) 650 mg Q4H PRN PO MILD PAIN(1-3)OR ELEVATED TEMP Last administered on 10/18/18 08:16; Admin Dose 650 MG; Start 10/15/18 at 04:38 Vancomycin HCl (Vanco Iv Per Pharmacy) VANCOMYCIN PER PHARMACY PER PROTOCOL XX ; Start 10/15/18 at 12:00 Pantoprazole (Protonix Tab) 40 mg DAILY@06 PO Last administered on 10/18/18 05:28; Admin Dose 40 MG; Start 10/16/18 at 13:55 Vancomycin HCl 1.5 gm/Sodium Chloride 250 ml @ 83.333 mls/ hr Q12H IVPB Last administered on 10/18/18 00:29; Admin Dose 83.333 MLS/HR; Start 10/17/18 at 12:00 Miscellaneous Information (*Rx Drug Level Order Reminder*) VANCO TR AT 2300 2300 ONCE XX ; Start 10/18/18 at 23:00; Stop 10/18/18 at 23:01 Morphine Sulfate (morphine) 2 mg Q3H PRN IV SEVERE PAIN LEVEL 7-10 Last administered on 10/17/18at 08:54; Admin Dose 2 MG; Start 10/17/18 at 08:30 Meropenem/Sodium Chloride 50 ml @ 100 mls/hr Q8 IVPB Last administered on 10/18/18 05:28; Admin Dose 100 MLS/HR; Start 10/17/18 at 14:00 Aspirin (Aspirin) 81 mg DAILY PO Last administered on 6/12/19at 08:16; Admin Dose 81 MG; Start 10/17/18 at 16:30 BENJAMIN PERSON Oct 18, 2018 11:11
[2018-10-18] MEDS ORDERED: BENZONATATE 100 MG CAP PO PRN (12:00)
[2018-10-18] MEDS ORDERED: DIPHENHYDRAMINE 50 MG INJ IM PRN (12:00)
[2018-10-18] MEDS ORDERED: FENTAnyl 50 MCG/ML VIAL ONE (13:04)
[2018-10-18] MEDS ORDERED: LIDOCAINE 1% (MDV) 20 ML INJ ONE (13:06)
--- NOTE | 2018-10-18 13:29 | CONS ---
Assessment/Plan Assessment/Plan Hospital Course (Demo Recall) - Sepsis 2/2 pna - Pna - sputum cx in process - Pneumothorax - CXR shows R sided thoracostomy tube tube is been withdrawn with the tip now seen external to the pleural within the R lateral soft tissues. Increasing consolidation at R lung base with loculated appearing R pleural fluid accumulation, slightly increased. Increased lucency within the central R lung suspicious for pneumo. Discoid atelectasis is seen at LLbase. - DMT2 - RA Recommendations: - Cont vanco - cont. merrem - cont. Fluconazole - low threshold to change to Caspofungin as necc. - CT surgery evaluation for decortication nikkie - Cont clarithro, rifambutin, and ethambutol - Serial cxr - F/u repeat blood cultures and ua/cx from this am (pending in process), blood cultures 10/13/18 (NGTD), blood cultures 10/15/18 (NGTD), crypto, cocci - Ordered: Beta D glucan, TB Quant Gold, Sputum AFB x3 - Obtain records from outpatient pulm - asked RN to request these - Airborne isolation I directed care to HEARING HEALTH TECHNICIAN yesterday via [employer] English messaging in detail. I discussed the case with Dr. Andrade yesteday am; care coordinated. Consultation Date/Type/Reason Admit Date/Time Oct 13, 2018 at 23:44 Initial Consult Date Type of Consult ID Requesting Provider: KAREN ANDRADE MD Date/Time of Note DATE: 10/18/18 TIME: 13:25 cct 2h 24 HR Interval Summary Free Text/Dictation Case d/w Dr. Andrade yesterday. CAre coordinated. Suggested CT surg eval. d/w nurse Cristiine this and ordered lactic acid given persistent fevers. Exam/Review of Systems Exam Vitals Vital Signs Date Temp Pulse Resp B/P (MAP) Pulse Ox O2 O2 Flow FiO2 Time Delivery Rate 10/18/18 98.1 122 20 114/71 96 Room Air 11:14 (85) 10/18/18 2.0 07:49 Intake and Output 10/17/18 10/17/18 10/18/18 1515:00 23:00 07:00 IntakeIntake Total 900 ml 650 ml BalanceBalance 900 ml 650 ml Constitutional: alert Head: normocephalic, atraumatic Eyes: EOMI Neck: supple Results Result Diagram: 10/18/18 1003 10/18/18 1003 Results 24hrs Laboratory Tests Test 10/17/18 17:06 10/17/18 20:29 10/18/18 01:40 10/18/18 08:15 Bedside Glucose 229 H 211 124 107 Test 10/18/18 10:03 10/18/18 11:18 10/18/18 11:34 White Blood Count 13.1 H Red Blood Count 3.94 L Hemoglobin 10.9 L Hematocrit 34.5 L Mean Corpuscular 87.6 Volume Mean Corpuscular 27.7 L Hemoglobin Mean Corpuscular 31.6 L Hemoglobin Concent Red Cell 16.5 H Distribution Width Platelet Count 326 Mean Platelet Volume 8.5 Immature 1.100 H Granulocytes % Neutrophils % 83.0 H Lymphocytes % 5.5 L Monocytes % 9.3 Eosinophils % 0.8 Basophils % 0.3 Nucleated Red Blood 0.0 Cells % Immature 0.150 H Granulocytes # Neutrophils # 10.8 H Lymphocytes # 0.7 L Monocytes # 1.2 H Eosinophils # 0.1 Basophils # 0.0 Nucleated Red Blood 0.0 Cells # Prothrombin Time 15.1 H Prothrombin Time 1.2 Ratio INR International 1.18 Normalized Ratio Activated 39.3 H Partial Thromboplast Time Sodium Level 140 Potassium Level 4.1 Chloride Level 103 Carbon Dioxide Level 22 Anion Gap 15 H Blood Urea Nitrogen 20 Creatinine 1.34 H Est Glomerular 55 L Filtrat Rate mL/min Glucose Level 144 Calcium Level 9.1 Phosphorus Level 2.8 Magnesium Level 2.2 Total Bilirubin 0.3 Direct Bilirubin 0.00 Indirect Bilirubin 0.3 Aspartate Amino 21 Transf (AST/SGOT) Alanine 24 Aminotransferase (AL T/SGPT) Alkaline Phosphatase 169 H Total Protein 7.1 # Albumin 3.2 L Globulin 3.90 H Albumin/Globulin 0.82 Ratio Lactic Acid Level 1.3 Bedside Glucose 155 Medications Medication Current Medications Ondansetron HCl (Zofran Inj) 4 mg Q4H PRN IV nausea; Start 10/13/18 at 23:30 Zolpidem Tartrate (Ambien) 5 mg HS MAY REPEAT X 1 PRN PO INSOMNIA; Start 10/13/18 at 23:30 Folic Acid (Folic Acid) 1 mg DAILY PO Last administered on 10/18/18at 08:16; Admin Dose 1 MG; Start 10/14/18 at 09:00 Prednisone (Prednisone) 7.5 mg DAILY PO Last administered on 10/18/18 08:16; Admin Dose 7.5 MG; Start 10/14/18 at 09:00 Insulin Aspart (Novolog Insulin Pen) NOVOLOG *MODERATE* ALGORITHM WITH MEALS BEDTIME SC Last administered on 10/18/18at 11:55; Admin Dose 2 UNIT; Start 10/14/18 at 11:50 Miscellaneous Information 1 ea NOTE XX ; Start 10/14/18 at 09:00 Glucose (Glutose) 15 gm Q15M PRN PO DECREASED GLUCOSE; Start 10/14/18 at 09:00 Glucose (Glutose) 22.5 gm Q15M PRN PO DECREASED GLUCOSE; Start 10/14/18 at 09:00 Dextrose (D50w Syringe) 25 ml Q15M PRN IV DECREASED GLUCOSE; Start 10/14/18 at 09:00 Dextrose (D50w Syringe) 50 ml Q15M PRN IV DECREASED GLUCOSE; Start 10/14/18 at 09:00 Glucagon (Glucagen) 1 mg Q15M PRN IM DECREASED GLUCOSE; Start 10/14/18 at 09:00 Glucose (Glutose) 15 gm Q15M PRN BUCCAL DECREASED GLUCOSE; Start 10/14/18 at 09:00 Rifabutin (Mycobutin) 150 mg MoWeFr@0900,2100 PO Last administered on 10/18/18at 08:20; Admin Dose 150 MG; Start 10/16/18 at 09:00 Clarithromycin (Biaxin) 500 mg MoWeFr@0900,2100 PO Last administered on 10/18/18 08:20; Admin Dose 500 MG; Start 10/16/18 at 09:00 Ethambutol HCl (Myambutol) 400 mg MoWeFr@0900,2100 PO Last administered on 10/18/18 08:20; Admin Dose 400 MG; Start 10/16/18 at 09:00 Acetaminophen (Tylenol Tab) 650 mg Q4H PRN PO MILD PAIN(1-3)OR ELEVATED TEMP Last administered on 10/18/18 08:16; Admin Dose 650 MG; Start 10/15/18 at 04:38 Vancomycin HCl (Vanco Iv Per Pharmacy) VANCOMYCIN PER PHARMACY PER PROTOCOL XX ; Start 10/15/18 at 12:00 Pantoprazole (Protonix Tab) 40 mg DAILY@06 PO Last administered on 10/18/18at 05:28; Admin Dose 40 MG; Start 10/16/18 at 13:55 Vancomycin HCl 1.5 gm/Sodium Chloride 250 ml @ 83.333 mls/ hr Q12H IVPB Last administered on 10/18/18at 11:35; Admin Dose 83.333 MLS/HR; Start 10/17/18 at 12:00 Miscellaneous Information (*Rx Drug Level Order Reminder*) VANCO TR AT 2300 2300 ONCE XX ; Start 10/18/18 at 23:00; Stop 10/18/18 at 23:01 Morphine Sulfate (morphine) 2 mg Q3H PRN IV SEVERE PAIN LEVEL 7-10 Last administered on 10/17/18at 08:54; Admin Dose 2 MG; Start 10/17/18 at 08:30 Meropenem/Sodium Chloride 50 ml @ 100 mls/hr Q8 IVPB Last administered on 10/18/18at 05:28; Admin Dose 100 MLS/HR; Start 10/17/18 at 14:00 Aspirin (Aspirin) 81 mg DAILY PO Last administered on 10/18/18at 08:16; Admin Dose 81 MG; Start 10/17/18 at 16:30 Diphenhydramine HCl (Benadryl) 25 mg Q6H PRN IM itching ; Start 10/18/18 at 12:00 Benzonatate (Tessalon) 200 mg TID PRN PO cough; Start 10/18/18 at 12:00 Fluconazole 200 ml @ 100 mls/hr Q24H IVPB ; Start 10/18/18 at 13:30; Status SCOTTY GARCIA MD Oct 18, 2018 13:29
[2018-10-18] MEDS: FLUCONAZOLE 400 MG/NS (PMX) 200 ML IVPB SCH (15:02)
[2018-10-18] MEDS: morphine 2 MG INJ IV PRN (16:40)
[2018-10-18] MEDS ORDERED: DIPHENHYDRAMINE 50 MG INJ IV PRN (18:00)
--- NOTE | 2018-10-18 20:26 | PN ---
Date/Time of Note Date/Time of Note DATE: 10/18/18 TIME: 20:24 Assessment/Plan VTE Prophylaxis [place] [facility] [place] risk: 3 SCD applied (from [facility] [place] Yes Pharmacological prophylaxis: NA/contraindicated Pharm contraindication: surgical contra Lines/Catheters IV Catheter Type (from [facility]): Peripheral IV Urinary Cath still in place: No Assessment/Plan Hospital Course 58 male with recently diagnosed MAC pneumonia . He is being followed by ID for persistent fever and on Vancomycin, Diflucan, Meropenem Clarithromycin, Rifabutin, Ethambutol,. He had a right-sided thoracostomy tube for pneumothorax which fell of . He is waiting CT surgery consult by Dr Schneider . Found to have JOHNNY on 10/18 . Plan - continue ABX per ID recs - Airbron precautions - Awaiting CT surgery input for possible decortication - Monitor Creatinine , start IVF , consider stopping vancomycin gib=renay JOHNNY - PPX : Problems: (1) Persistent fever Status: Acute (2) Pulmonary Mycobacterium avium complex (MAC) infection Status: Acute (3) Hydropneumothorax Status: Acute (4) JOHNNY (acute kidney injury) Status: Acute Result Diagram: 10/18/18 1003 10/18/18 1003 Results 24hrs Laboratory Tests Test 10/17/18 20:29 10/18/18 01:40 10/18/18 08:15 10/18/18 10:03 Bedside Glucose 211 124 107 White Blood Count 13.1 H Red Blood Count 3.94 L Hemoglobin 10.9 L Hematocrit 34.5 L Mean Corpuscular 87.6 Volume Mean Corpuscular 27.7 L Hemoglobin Mean Corpuscular 31.6 L Hemoglobin Concent Red Cell 16.5 H Distribution Width Platelet Count 326 Mean Platelet Volume 8.5 Immature 1.100 H Granulocytes % Neutrophils % 83.0 H Lymphocytes % 5.5 L Monocytes % 9.3 Eosinophils % 0.8 Basophils % 0.3 Nucleated Red Blood 0.0 Cells % Immature 0.150 H Granulocytes # Neutrophils # 10.8 H Lymphocytes # 0.7 L Monocytes # 1.2 H Eosinophils # 0.1 Basophils # 0.0 Nucleated Red Blood 0.0 Cells # Prothrombin Time 15.1 H Prothrombin Time 1.2 Ratio INR International 1.18 Normalized Ratio Activated 39.3 H Partial Thromboplast Time Sodium Level 140 Potassium Level 4.1 Chloride Level 103 Carbon Dioxide Level 22 Anion Gap 15 H Blood Urea Nitrogen 20 Creatinine 1.34 H Est Glomerular 55 L Filtrat Rate mL/min Glucose Level 144 Calcium Level 9.1 Phosphorus Level 2.8 Magnesium Level 2.2 Total Bilirubin 0.3 Direct Bilirubin 0.00 Indirect Bilirubin 0.3 Aspartate Amino 21 Transf (AST/SGOT) Alanine 24 Aminotransferase (AL T/SGPT) Alkaline Phosphatase 169 H Total Protein 7.1 # Albumin 3.2 L Globulin 3.90 H Albumin/Globulin 0.82 Ratio Test 10/18/18 11:18 10/18/18 11:34 10/18/18 16:47 Lactic Acid Level 1.3 Bedside Glucose 155 227 H Subjective 24 Hr Interval Summary Free Text/Dictation co pain in the throat and upper abdomen with coughing , co persistent fever and cough Exam/Review of Systems Exam Vitals Vital Signs Date Temp Pulse Resp B/P (MAP) Pulse Ox O2 O2 Flow FiO2 Time Delivery Rate 10/18/18 Nasal 2.0 19:05 Cannula 10/18/18 98.6 110 20 123/77 94 17:00 (92) Intake and Output 10/17/18 10/17/18 10/18/18 1414:59 22:59 06:59 IntakeIntake Total 900 ml 650 ml BalanceBalance 900 ml 650 ml Exam General: In no acute distress , laying in bed , cooperative , pleasant HEENT, EOM intact, JULIO bilat, mucosal membranes moist and pink , no oral lesions, NECK : Supple , not stiffness, , no mass , no carotid bruit Core: S1, S2, NL rate and rhythm, no murmur, no rubs, JVD not elevated, no peripheral edema Lungs: in no respiratory distress, not using the accessory muscles of respiration, clear bilaterally with no rales, no crackles , no wheezing , normal inspiratory to expiratory ratio Abdomen, soft, not distended, normal bowel sounds, no tenderness, Extremities without : edema , cyanosis, calf tenderness, brisk capillary refill Neurological: AOx3, normal speech, CN2-12 intact, no motor or sensory deficit, normal gait and normal coordination Results Results 24hrs Laboratory Tests Test 10/17/18 20:29 10/18/18 01:40 10/18/18 08:15 10/18/18 10:03 Bedside Glucose 211 124 107 White Blood Count 13.1 H Red Blood Count 3.94 L Hemoglobin 10.9 L Hematocrit 34.5 L Mean Corpuscular 87.6 Volume Mean Corpuscular 27.7 L Hemoglobin Mean Corpuscular 31.6 L Hemoglobin Concent Red Cell 16.5 H Distribution Width Platelet Count 326 Mean Platelet Volume 8.5 Immature 1.100 H Granulocytes % Neutrophils % 83.0 H Lymphocytes % 5.5 L Monocytes % 9.3 Eosinophils % 0.8 Basophils % 0.3 Nucleated Red Blood 0.0 Cells % Immature 0.150 H Granulocytes # Neutrophils # 10.8 H Lymphocytes # 0.7 L Monocytes # 1.2 H Eosinophils # 0.1 Basophils # 0.0 Nucleated Red Blood 0.0 Cells # Prothrombin Time 15.1 H Prothrombin Time 1.2 Ratio INR International 1.18 Normalized Ratio Activated 39.3 H Partial Thromboplast Time Sodium Level 140 Potassium Level 4.1 Chloride Level 103 Carbon Dioxide Level 22 Anion Gap 15 H Blood Urea Nitrogen 20 Creatinine 1.34 H Est Glomerular 55 L Filtrat Rate mL/min Glucose Level 144 Calcium Level 9.1 Phosphorus Level 2.8 Magnesium Level 2.2 Total Bilirubin 0.3 Direct Bilirubin 0.00 Indirect Bilirubin 0.3 Aspartate Amino 21 Transf (AST/SGOT) Alanine 24 Aminotransferase (AL T/SGPT) Alkaline Phosphatase 169 H Total Protein 7.1 # Albumin 3.2 L Globulin 3.90 H Albumin/Globulin 0.82 Ratio Test 10/18/18 11:18 10/18/18 11:34 10/18/18 16:47 Lactic Acid Level 1.3 Bedside Glucose 155 227 H Medications Medication Current Medications Ondansetron HCl (Zofran Inj) 4 mg Q4H PRN IV nausea; Start 10/13/18 at 23:30 Zolpidem Tartrate (Ambien) 5 mg HS MAY REPEAT X 1 PRN PO INSOMNIA; Start 10/13/18 at 23:30 Folic Acid (Folic Acid) 1 mg DAILY PO Last administered on 10/18/18at 08:16; Admin Dose 1 MG; Start 10/14/18 at 09:00 Prednisone (Prednisone) 7.5 mg DAILY PO Last administered on 10/18/18at 08:16; Admin Dose 7.5 MG; Start 10/14/18 at 09:00 Insulin Aspart (Novolog Insulin Pen) NOVOLOG *MODERATE* ALGORITHM WITH MEALS BEDTIME SC Last administered on 10/18/18at 17:03; Admin Dose 6 UNIT; Start 10/14/18 at 11:50 Miscellaneous Information 1 ea NOTE XX ; Start 10/14/18 at 09:00 Glucose (Glutose) 15 gm Q15M PRN PO DECREASED GLUCOSE; Start 10/14/18 at 09:00 Glucose (Glutose) 22.5 gm Q15M PRN PO DECREASED GLUCOSE; Start 10/14/18 at 09:00 Dextrose (D50w Syringe) 25 ml Q15M PRN IV DECREASED GLUCOSE; Start 10/14/18 at 09:00 Dextrose (D50w Syringe) 50 ml Q15M PRN IV DECREASED GLUCOSE; Start 10/14/18 at 09:00 Glucagon (Glucagen) 1 mg Q15M PRN IM DECREASED GLUCOSE; Start 10/14/18 at 09:00 Glucose (Glutose) 15 gm Q15M PRN BUCCAL DECREASED GLUCOSE; Start 10/14/18 at 09:00 Rifabutin (Mycobutin) 150 mg MoWeFr@0900,2100 PO Last administered on 10/18/18at 08:20; Admin Dose 150 MG; Start 10/16/18 at 09:00 Clarithromycin (Biaxin) 500 mg MoWeFr@0900,2100 PO Last administered on 10/18/18at 08:20; Admin Dose 500 MG; Start 10/16/18 at 09:00 Ethambutol HCl (Myambutol) 400 mg MoWeFr@0900,2100 PO Last administered on 10/18/18at 08:20; Admin Dose 400 MG; Start 10/16/18 at 09:00 Acetaminophen (Tylenol Tab) 650 mg Q4H PRN PO MILD PAIN(1-3)OR ELEVATED TEMP Last administered on 10/18/18at 08:16; Admin Dose 650 MG; Start 10/15/18 at 04:38 Vancomycin HCl (Vanco Iv Per Pharmacy) VANCOMYCIN PER PHARMACY PER PROTOCOL XX ; Start 10/15/18 at 12:00 Pantoprazole (Protonix Tab) 40 mg DAILY@06 PO Last administered on 10/18/18at 05:28; Admin Dose 40 MG; Start 10/16/18 at 13:55 Vancomycin HCl 1.5 gm/Sodium Chloride 250 ml @ 83.333 mls/ hr Q12H IVPB Last administered on 10/18/18 11:35; Admin Dose 83.333 MLS/HR; Start 10/17/18 at 12:00; Status Hold Miscellaneous Information (*Rx Drug Level Order Reminder*) NARDA TR AT 2300 2300 ONCE XX ; Start 10/18/18 at 23:00; Stop 10/18/18 at 23:01 Morphine Sulfate (morphine) 2 mg Q3H PRN IV SEVERE PAIN LEVEL 7-10 Last administered on 10/18/18 16:40; Admin Dose 2 MG; Start 10/17/18 at 08:30 Meropenem/Sodium Chloride 50 ml @ 100 mls/hr Q8 IVPB Last administered on 10/18/18 15:03; Admin Dose 100 MLS/HR; Start 10/17/18 at 14:00 Aspirin (Aspirin) 81 mg DAILY PO Last administered on 10/18/18 08:16; Admin Dose 81 MG; Start 10/17/18 at 16:30 Benzonatate (Tessalon) 200 mg TID PRN PO cough Last administered on 10/18/18 15:00; Admin Dose 200 MG; Start 10/18/18 at 12:00 Fluconazole 200 ml @ 100 mls/hr Q24H IVPB Last administered on 10/18/18 15:02; Admin Dose 100 MLS/HR; Start 10/18/18 at 13:30 Diphenhydramine HCl (Benadryl) 25 mg Q6H PRN IV itching Last administered on 10/18/18 16:14; Admin Dose 25 MG; Start 10/18/18 at 18:00 ELOY HARPER MD Oct 18, 2018 20:26
[2018-10-18] MEDS: SOD CHLORIDE 0.9% 1,000 ML IV SCH (22:31)
[2018-10-19] VITALS (9 sets, daily range): BP systolic 119–138; BP diastolic 72–85; PULSE 98–124; RESP 16–18
[2018-10-19] MEDS: VANCOMYCIN 1 GM 250 ML IVPB SCH ×2 (04:10→15:52)
[2018-10-19] MEDS: ACETAMINOPHEN 325 MG TAB PO PRN ×2 (04:10→10:27)
[2018-10-19] MEDS: MEROPENEM 1 GM/50ML(PMX) 50 ML IVPB SCH ×3 (05:41→21:01)
[2018-10-19] MEDS: PANTOPRAZOLE (EC) 40 MG TAB PO SCH (05:41)
[2018-10-19] MEDS: INSULIN ASPART [NOVOLOG] 3 ML PEN SC SCH ×4 (07:55→20:56)
[2018-10-19] MEDS: ASPIRIN 81 MG TAB PO SCH (08:42)
[2018-10-19] MEDS: FOLIC ACID 1 MG TAB PO SCH (08:42)
[2018-10-19] MEDS: SOD CHLORIDE 0.9% 1,000 ML IV SCH ×2 (08:42→13:29)
[2018-10-19] MEDS: predniSONE 2.5 MG TAB PO SCH (08:42)
--- NOTE | 2018-10-19 10:57 | CONS ---
Consultation Date/Type/Reason Admit Date/Time Oct 13, 2018 at 23:44 Initial Consult Date 10/17/18 Type of Consult Pulmonary Patient is a 58-year-old male who came into the emergency room on the seventh of this month with acute shortness of breath. Upon evaluation chest was done which showed a right pneumothorax. Patient had a chest tube placement with lung reexpansion. 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 Patient is feeling better still complains of scant cough without any sputum production or hemoptysis. Denies any fever or chills. Past medical history; 1. History of MAC pneumonia. 2. Right pneumothorax, status post chest tube placement. 3. COPD. Medications; reviewed. Allergies; none. Social history; noncontributory. Family history; noncontributory. No sure of any tuberculosis infection in the family. Occupational history; patient is on disability. Review of systems; denies any headache, seizures, fever, chest pain, wheezing, complains of very scant cough. Denies any weight loss. Any hemoptysis. Denies any abdominal pain, nausea vomiting. Any melena hematochezia. Any arthritis symptoms. Any skin changes. Patient has good appetite. General exam; middle-aged male, awake and alert. Currently in no distress. Requesting Provider: KAREN HINDS MD Date/Time of Note DATE: 10/19/18 TIME: 10:56 24 HR Interval Summary Free Text/Dictation Patient's condition is stable. Denies any chest pain, coughing, wheezing, or shortness of breath. Underwent right pigtail chest tube placement yesterday. General exam; middle-aged male, awake alert, currently in no distress. H EENT exam; supple neck, no JVD. No lymphadenopathy. Midline trachea. No thy romegaly. Patient has fair dentition. No neck masses. Chest exam; diminished but clear breath sounds. Right side chest tube in place. S1-S2 audible, no murmurs. Regular rhythm. Abdomen exam; soft, nontender. No organomegaly. Bowel sounds audible. Extremity exam; no peripheral edema clubbing. SAMPLE TAILOR exam; no focal deficit. Assessment and recommendations; 1. Patient admitted with recurrent right pneumothorax with a history of KIERAN infection. Currently on appropriate antimicrobial regimen. 2. Status post placement of right pleural pigtail catheter with full right lung reexpansion. Continue with supportive care. Antibiotics per ID recommendations. Exam/Review of Systems Exam Vitals Vital Signs Date Temp Pulse Resp B/P (MAP) Pulse Ox O2 O2 Flow FiO2 Time Delivery Rate 10/19/18 103.0 10:27 10/19/18 Nasal 08:46 Cannula 10/19/18 124 08:01 10/19/18 18 135/83 91 07:15 (100) 10/18/18 2.0 19:05 Intake and Output 10/18/18 10/18/18 10/19/18 1515:00 23:00 07:00 IntakeIntake Total 800 ml 800 ml OutputOutput Total 170 ml BalanceBalance 630 ml 800 ml Results Result Diagram: 10/19/18 0625 10/19/18 06 Results 24hrs Laboratory Tests Test 10/18/18 11:18 10/18/18 11:34 10/18/18 16:47 10/18/18 20:23 Lactic Acid Level 1.3 Bedside Glucose 155 227 H 177 Test 10/18/18 23:11 10/19/18 06:25 10/19/18 08:39 Vancomycin Level 21.4 *H Trough White Blood Count 9.0 # Red Blood Count 3.65 L Hemoglobin 9.8 L Hematocrit 31.5 L Mean Corpuscular 86.3 Volume Mean Corpuscular 26.8 L Hemoglobin Mean Corpuscular 31.1 L Hemoglobin Concent Red Cell 16.7 H Distribution Width Platelet Count 304 Mean Platelet Volume 8.8 Immature 0.900 H Granulocytes % Neutrophils % 81.4 H Lymphocytes % 6.4 L Monocytes % 9.8 Eosinophils % 1.2 Basophils % 0.3 Nucleated Red Blood 0.0 Cells % Immature 0.080 H Granulocytes # Neutrophils # 7.3 Lymphocytes # 0.6 L Monocytes # 0.9 Eosinophils # 0.1 Basophils # 0.0 Nucleated Red Blood 0.0 Cells # Sodium Level 137 Potassium Level 3.7 Chloride Level 105 Carbon Dioxide Level 25 Anion Gap 7 # Blood Urea Nitrogen 17 Creatinine 1.18 Est Glomerular > 60 Filtrat Rate mL/min Glucose Level 108 Calcium Level 8.7 Phosphorus Level 2.5 Magnesium Level 2.0 Total Bilirubin 0.2 Direct Bilirubin 0.00 Indirect Bilirubin 0.2 Aspartate Amino 19 Transf (AST/SGOT) Alanine 24 Aminotransferase (AL T/SGPT) Alkaline Phosphatase 122 H Total Protein 6.0 #L Albumin 2.7 L Globulin 3.30 H Albumin/Globulin 0.81 Ratio Bedside Glucose 116 Medications Medication Current Medications Ondansetron HCl (Zofran Inj) 4 mg Q4H PRN IV nausea; Start 10/13/18 at 23:30 Zolpidem Tartrate (Ambien) 5 mg HS MAY REPEAT X 1 PRN PO INSOMNIA; Start 10/13/18 at 23:30 Folic Acid (Folic Acid) 1 mg DAILY PO Last administered on 10/19/18at 08:42; Admin Dose 1 MG; Start 10/14/18 at 09:00 Prednisone (Prednisone) 7.5 mg DAILY PO Last administered on 10/19/18at 08:42; Admin Dose 7.5 MG; Start 10/14/18 at 09:00 Insulin Aspart (Novolog Insulin Pen) NOVOLOG *MODERATE* ALGORITHM WITH MEALS BEDTIME SC Last administered on 10/18/18at 17:03; Admin Dose 6 UNIT; Start 10/14/18 at 11:50 Miscellaneous Information 1 ea NOTE XX ; Start 10/14/18 at 09:00 Glucose (Glutose) 15 gm Q15M PRN PO DECREASED GLUCOSE; Start 10/14/18 at 09:00 Glucose (Glutose) 22.5 gm Q15M PRN PO DECREASED GLUCOSE; Start 10/14/18 at 09:00 Dextrose (D50w Syringe) 25 ml Q15M PRN IV DECREASED GLUCOSE; Start 10/14/18 at 09:00 Dextrose (D50w Syringe) 50 ml Q15M PRN IV DECREASED GLUCOSE; Start 10/14/18 at 09:00 Glucagon (Glucagen) 1 mg Q15M PRN IM DECREASED GLUCOSE; Start 10/14/18 at 09:00 Glucose (Glutose) 15 gm Q15M PRN BUCCAL DECREASED GLUCOSE; Start 10/14/18 at 09:00 Rifabutin (Mycobutin) 150 mg MoWeFr@0900,2100 PO Last administered on 10/18/18at 20:25; Admin Dose 150 MG; Start 10/16/18 at 09:00 Clarithromycin (Biaxin) 500 mg MoWeFr@0900,2100 PO Last administered on 10/18/18at 20:25; Admin Dose 500 MG; Start 10/16/18 at 09:00 Ethambutol HCl (Myambutol) 400 mg MoWeFr@0900,2100 PO Last administered on 10/18/18 20:25; Admin Dose 400 MG; Start 10/16/18 at 09:00 Acetaminophen (Tylenol Tab) 650 mg Q4H PRN PO MILD PAIN(1-3)OR ELEVATED TEMP Last administered on 10/19/18 10:27; Admin Dose 650 MG; Start 10/15/18 at 04:38 Vancomycin HCl (Vanco Iv Per Pharmacy) VANCOMYCIN PER PHARMACY PER PROTOCOL XX ; Start 10/15/18 at 12:00 Pantoprazole (Protonix Tab) 40 mg DAILY@06 PO Last administered on 10/19/18 05:41; Admin Dose 40 MG; Start 10/16/18 at 13:55 Morphine Sulfate (morphine) 2 mg Q3H PRN IV SEVERE PAIN LEVEL 7-10 Last administered on 10/18/18 16:40; Admin Dose 2 MG; Start 10/17/18 at 08:30 Meropenem/Sodium Chloride 50 ml @ 100 mls/hr Q8 IVPB Last administered on 10/19/18 05:41; Admin Dose 100 MLS/HR; Start 10/17/18 at 14:00 Aspirin (Aspirin) 81 mg DAILY PO Last administered on 10/19/18 08:42; Admin Dose 81 MG; Start 10/17/18 at 16:30 Benzonatate (Tessalon) 200 mg TID PRN PO cough Last administered on 10/18/18 15:00; Admin Dose 200 MG; Start 10/18/18 at 12:00 Fluconazole 200 ml @ 100 mls/hr Q24H IVPB Last administered on 10/18/18 15:02; Admin Dose 100 MLS/HR; Start 10/18/18 at 13:30 Diphenhydramine HCl (Benadryl) 25 mg Q6H PRN IV itching Last administered on 10/18/18 16:14; Admin Dose 25 MG; Start 10/18/18 at 18:00 Sodium Chloride 1,000 ml @ 100 mls/hr Q10H IV Last administered on 10/19/18 08:42; Admin Dose 100 MLS/HR; Start 10/18/18 at 21:00 Vancomycin HCl 250 ml @ 125 mls/hr Q12H IVPB Last administered on 10/19/18at 04:10; Admin Dose 125 MLS/HR; Start 10/19/18 at 04:00 BENJAMIN PERSON Oct 19, 2018 10:57
[2018-10-19] MEDS: FLUCONAZOLE 400 MG/NS (PMX) 200 ML IVPB SCH (13:23)
--- NOTE | 2018-10-19 16:34 | CONS ---
Assessment/Plan Assessment/Plan Hospital Course (Demo Recall) - Sepsis 2/2 pneumonia and possible empyema - still with high fevers and tachycardia but leukocytosis has resolved - Recent MAC pneumonia; sputum cx grew normal resp kacey and C. albicans - Pneumothorax, s/p R thoracostomy tube placement 10/13/2018; chest tube had slipped out of pleural space and was removed on 10/17/2018 - Large right hydropneumothorax multiple air pockets within suspicious for empyema per CT - S/p successful CT guided placement of 10-Danish drainage catheter in the right pleural space 10/18/2018 - JOHNNY on 10/18/2018 - resolved - Thrombosis of the right cephalic vein in the antecubital fossa per venous doppler on 10/17/2018 - DMT2 - RA - Immunocompromised status - Elevated alk phos -improving Recommendations: - Continue vancomycin (10/15/2018-) - Continue meropenem (10/17/2018-); S/p Zosyn (10/15/2018-10/17/2018) - Continue fluconazole (10/18/2018-) - Low threshold to change to Caspofungin as necessary - Continue clarithromycin, rifabutin, and ethambutol (10/14/2018-) - Serial CXR - F/u repeat blood cultures (NGTD) from 10/17, crypto, coccidioides, Beta D glucan, Sputum AFB x3 (AFB x1 is negative) - Obtain records from outpatient pulm (still pending) - We recommend CT Surgery re-evaluation for consideration of possible decortication - Airborne isolation Management d/w patient, pt's family at bedside (son and ), VANESSA Grimaldo, and with Dr. Beltrán. Multiple questions from family were answered. Therapeutic time provided. Total time spent: 45 min Consultation Date/Type/Reason Admit Date/Time Oct 13, 2018 at 23:44 Initial Consult Date 10/17/18 Type of Consult Infectious Disease Requesting Provider: KAREN HINDS MD Date/Time of Note DATE: 10/19/18 TIME: 16:34 24 HR Interval Summary Free Text/Dictation Pt had recurrent fever, Tmax 103 F, but WBC has normalized. Quantiferon TB gold negative. CXR shows improving air space opacification of the right lung base, persistent rind of soft tissue density seen along the right lateral chest wall which likely represents loculated fluid and is unchanged, no pneumothorax, and subcutaneous air is no longer seen in the right lateral soft tissues. Pt states SOB has improved. Has occ productive cough with white phlegm. Reports mild abd pain with eating. +Flatus. No BM in 2 days. No n/v/d, dysuria. Exam/Review of Systems Exam Vitals Vital Signs Date Temp Pulse Resp B/P (MAP) Pulse Ox O2 O2 Flow FiO2 Time Delivery Rate 10/19/18 98.7 101 16 119/73 94 15:34 (88) 10/19/18 Nasal 08:46 Cannula 10/18/18 2.0 19:05 Intake and Output 10/18/18 10/18/18 10/19/18 1515:00 23:00 07:00 IntakeIntake Total 800 ml 800 ml OutputOutput Total 170 ml BalanceBalance 630 ml 800 ml Constitutional: alert, oriented, well developed, other (laying in bed in NAD; family at bedside) Psych: no complaints, nl mood/affect Head: normocephalic, atraumatic Eyes: nl conjunctiva, nl lids ENMT: nl external ears & nose, nl lips & teeth, nl nasal mucosa & septum, mucosa pink and moist Neck: supple, non-tender Respiratory: normal air movement, diminished breath sounds (R side), other (on room air; pigtail R chest tube in place on LCWS with serous drainage); No labored breathing, No wheezing Cardiovascular: regular rate and rhythm (mildly tachycardic), nl pulses; No edema Gastrointestinal: soft, non-tender; No distended Genitourinary - Male: other (No Retana; bladder flat) Musculoskeletal: nl extremities to inspection Extremities: normal pulses Neurological: nl mental status, nl speech, nl strength Skin: nl turgor; No rash or lesions Results Result Diagram: 10/19/1862410/19/18624 Results 24hrs Laboratory Tests Test 10/18/18 16:47 10/18/18 20:23 10/18/18 23:11 10/19/18 06:25 Bedside Glucose 227 H 177 Vancomycin Level 21.4 *H Trough White Blood Count 9.0 # Red Blood Count 3.65 L Hemoglobin 9.8 L Hematocrit 31.5 L Mean Corpuscular 86.3 Volume Mean Corpuscular 26.8 L Hemoglobin Mean Corpuscular 31.1 L Hemoglobin Concent Red Cell 16.7 H Distribution Width Platelet Count 304 Mean Platelet Volume 8.8 Immature 0.900 H Granulocytes % Neutrophils % 81.4 H Lymphocytes % 6.4 L Monocytes % 9.8 Eosinophils % 1.2 Basophils % 0.3 Nucleated Red Blood 0.0 Cells % Immature 0.080 H Granulocytes # Neutrophils # 7.3 Lymphocytes # 0.6 L Monocytes # 0.9 Eosinophils # 0.1 Basophils # 0.0 Nucleated Red Blood 0.0 Cells # Sodium Level 137 Potassium Level 3.7 Chloride Level 105 Carbon Dioxide Level 25 Anion Gap 7 # Blood Urea Nitrogen 17 Creatinine 1.18 Est Glomerular > 60 Filtrat Rate mL/min Glucose Level 108 Calcium Level 8.7 Phosphorus Level 2.5 Magnesium Level 2.0 Total Bilirubin 0.2 Direct Bilirubin 0.00 Indirect Bilirubin 0.2 Aspartate Amino 19 Transf (AST/SGOT) Alanine 24 Aminotransferase (AL T/SGPT) Alkaline Phosphatase 122 H Total Protein 6.0 #L Albumin 2.7 L Globulin 3.30 H Albumin/Globulin 0.81 Ratio Test 10/19/18 08:39 10/19/18 12:07 Bedside Glucose 116 190 Imaging Imaging CXR 10/19/2018: IMPRESSION: 1. Interval placement of a pigtail tipped thoracostomy tube which projects through the mid to lower lung right lung zone. 2. Improving air space opacification of the right lung base and there is persistent discoid atelectasis at the left lung base. There is a rind of soft tissue density again seen along the right lateral chest wall which likely represents loculated fluid and is unchanged. No pneumothorax is presently identified. 3. The cardiovascular silhouette is stable and unremarkable. 4. Subcutaneous air is no longer seen in the right lateral soft tissues. Medications Medication Current Medications Ondansetron HCl (Zofran Inj) 4 mg Q4H PRN IV nausea; Start 10/13/18 at 23:30 Zolpidem Tartrate (Ambien) 5 mg HS MAY REPEAT X 1 PRN PO INSOMNIA; Start 10/13/18 at 23:30 Folic Acid (Folic Acid) 1 mg DAILY PO Last administered on 10/19/18at 08:42; Admin Dose 1 MG; Start 10/14/18 at 09:00 Prednisone (Prednisone) 7.5 mg DAILY PO Last administered on 10/19/18 08:42; Admin Dose 7.5 MG; Start 10/14/18 at 09:00 Insulin Aspart (Novolog Insulin Pen) NOVOLOG *MODERATE* ALGORITHM WITH MEALS BEDTIME SC Last administered on 10/18/18 17:03; Admin Dose 6 UNIT; Start 10/14/18 at 11:50 Miscellaneous Information 1 ea NOTE XX ; Start 10/14/18 at 09:00 Glucose (Glutose) 15 gm Q15M PRN PO DECREASED GLUCOSE; Start 10/14/18 at 09:00 Glucose (Glutose) 22.5 gm Q15M PRN PO DECREASED GLUCOSE; Start 10/14/18 at 09:00 Dextrose (D50w Syringe) 25 ml Q15M PRN IV DECREASED GLUCOSE; Start 10/14/18 at 09:00 Dextrose (D50w Syringe) 50 ml Q15M PRN IV DECREASED GLUCOSE; Start 10/14/18 at 09:00 Glucagon (Glucagen) 1 mg Q15M PRN IM DECREASED GLUCOSE; Start 10/14/18 at 09:00 Glucose (Glutose) 15 gm Q15M PRN BUCCAL DECREASED GLUCOSE; Start 10/14/18 at 09:00 Rifabutin (Mycobutin) 150 mg MoWeFr@0900,2100 PO Last administered on 10/18/18 20:25; Admin Dose 150 MG; Start 10/16/18 at 09:00 Clarithromycin (Biaxin) 500 mg MoWeFr@0900,2100 PO Last administered on 10/18/18 20:25; Admin Dose 500 MG; Start 10/16/18 at 09:00 Ethambutol HCl (Myambutol) 400 mg MoWeFr@0900,2100 PO Last administered on 10/18/18 20:25; Admin Dose 400 MG; Start 10/16/18 at 09:00 Acetaminophen (Tylenol Tab) 650 mg Q4H PRN PO MILD PAIN(1-3)OR ELEVATED TEMP Last administered on 10/19/18 10:27; Admin Dose 650 MG; Start 10/15/18 at 04:38 Vancomycin HCl (Vanco Iv Per Pharmacy) VANCOMYCIN PER PHARMACY PER PROTOCOL XX ; Start 10/15/18 at 12:00 Pantoprazole (Protonix Tab) 40 mg DAILY@06 PO Last administered on 10/19/18at 05:41; Admin Dose 40 MG; Start 10/16/18 at 13:55 Morphine Sulfate (morphine) 2 mg Q3H PRN IV SEVERE PAIN LEVEL 7-10 Last administered on 10/18/18 16:40; Admin Dose 2 MG; Start 10/17/18 at 08:30 Meropenem/Sodium Chloride 50 ml @ 100 mls/hr Q8 IVPB Last administered on 10/19/18 14:32; Admin Dose 100 MLS/HR; Start 10/17/18 at 14:00 Aspirin (Aspirin) 81 mg DAILY PO Last administered on 10/19/18 08:42; Admin Dose 81 MG; Start 10/17/18 at 16:30 Benzonatate (Tessalon) 200 mg TID PRN PO cough Last administered on 10/18/18 15:00; Admin Dose 200 MG; Start 10/18/18 at 12:00 Fluconazole 200 ml @ 100 mls/hr Q24H IVPB Last administered on 10/19/18 13:23; Admin Dose 100 MLS/HR; Start 10/18/18 at 13:30 Diphenhydramine HCl (Benadryl) 25 mg Q6H PRN IV itching Last administered on 10/18/18 16:14; Admin Dose 25 MG; Start 10/18/18 at 18:00 Sodium Chloride 1,000 ml @ 100 mls/hr Q10H IV Last administered on 10/19/18 13:29; Admin Dose 100 MLS/HR; Start 10/18/18 at 21:00 Vancomycin HCl 250 ml @ 125 mls/hr Q12H IVPB Last administered on 10/19/18 15:52; Admin Dose 125 MLS/HR; Start 10/19/18 at 04:00 ANILA SIU NP Oct 19, 2018 16:34
--- NOTE | 2018-10-19 19:27 | PN ---
Date/Time of Note Date/Time of Note DATE: 10/19/18 TIME: 19:20 Assessment/Plan VTE Prophylaxis Risk score (from Ns)>0 risk: 2 [place] [facility] [place] Pharmacological prophylaxis: NA/contraindicated Pharm contraindication: bleeding Lines/Catheters IV Catheter Type (from [facility]): [place] Urinary Cath still in place: No Assessment/Plan Hospital Course 58 male with recently diagnosed MAC pneumonia . He is being followed by ID for persistent fever and on Vancomycin, Diflucan, Meropenem Clarithromycin, Rifabutin, Ethambutol,. He had a right-sided thoracostomy tube for pneumothorax which fell off .A Pigtail catheter was then placed via IR Post procedural X ray showed Improving air space opacification of the right lung base but persistent soft tissue density again seen along the right lateral chest wall which likely represents loculated fluid and is unchanged. No pneumothorax is presently identified. Subcutaneous air is no longer seen in the right lateral soft tissues.. Found to have JOHNNY on 10/18 which responded well to IVF . Plan - continue ABX per ID recs - Airbron precautions - CT surgery for possible decortication if he does not respond - Monitor Creatinine ,continue IVF , minimize nephrotoxic agents , renally dosed medications - PPX: Pepcid and SCDs, Result Diagram: 10/19/18 0625 10/19/18 0625 Results 24hrs Laboratory Tests Test 10/18/18 20:23 10/18/18 23:11 10/19/18 06:25 10/19/18 08:39 Bedside Glucose 177 116 Vancomycin Level 21.4 *H Trough White Blood Count 9.0 # Red Blood Count 3.65 L Hemoglobin 9.8 L Hematocrit 31.5 L Mean Corpuscular 86.3 Volume Mean Corpuscular 26.8 L Hemoglobin Mean Corpuscular 31.1 L Hemoglobin Concent Red Cell 16.7 H Distribution Width Platelet Count 304 Mean Platelet Volume 8.8 Immature 0.900 H Granulocytes % Neutrophils % 81.4 H Lymphocytes % 6.4 L Monocytes % 9.8 Eosinophils % 1.2 Basophils % 0.3 Nucleated Red Blood 0.0 Cells % Immature 0.080 H Granulocytes # Neutrophils # 7.3 Lymphocytes # 0.6 L Monocytes # 0.9 Eosinophils # 0.1 Basophils # 0.0 Nucleated Red Blood 0.0 Cells # Sodium Level 137 Potassium Level 3.7 Chloride Level 105 Carbon Dioxide Level 25 Anion Gap 7 # Blood Urea Nitrogen 17 Creatinine 1.18 Est Glomerular > 60 Filtrat Rate mL/min Glucose Level 108 Calcium Level 8.7 Phosphorus Level 2.5 Magnesium Level 2.0 Total Bilirubin 0.2 Direct Bilirubin 0.00 Indirect Bilirubin 0.2 Aspartate Amino 19 Transf (AST/SGOT) Alanine 24 Aminotransferase (AL T/SGPT) Alkaline Phosphatase 122 H Total Protein 6.0 #L Albumin 2.7 L Globulin 3.30 H Albumin/Globulin 0.81 Ratio Test 10/19/18 12:07 10/19/18 17:49 Bedside Glucose 190 220 Exam/Review of Systems Exam Vitals Vital Signs Date Temp Pulse Resp B/P (MAP) Pulse Ox O2 O2 Flow FiO2 Time Delivery Rate 10/19/18 98 16:01 10/19/18 98.7 16 119/73 94 15:34 (88) 10/19/18 Nasal 08:46 Cannula 10/18/18 2.0 19:05 Intake and Output 10/18/18 10/18/18 10/19/18 1515:00 23:00 07:00 IntakeIntake Total 800 ml 800 ml OutputOutput Total 170 ml BalanceBalance 630 ml 800 ml Exam General: In no acute distress , laying in bed , cooperative , pleasant HEENT, EOM intact, JULIO bilat, mucosal membranes moist and pink , no oral lesions, NECK : Supple , not stiffness, , no mass , no carotid bruit Core: S1, S2, NL rate and rhythm, no murmur, no rubs, JVD not elevated, no peripheral edema Lungs: in no respiratory distress, not using the accessory muscles of respiration, clear bilaterally with no rales, no crackles , no wheezing , normal inspiratory to expiratory ratio Abdomen, soft, not distended, normal bowel sounds, no tenderness, Extremities without : edema , cyanosis, calf tenderness, brisk capillary refill Neurological: AOx3, normal speech, CN2-12 intact, no motor or sensory deficit, normal gait and normal coordination Results Results 24hrs Laboratory Tests Test 10/18/18 20:23 10/18/18 23:11 10/19/18 06:25 10/19/18 08:39 Bedside Glucose 177 116 Vancomycin Level 21.4 *H Trough White Blood Count 9.0 # Red Blood Count 3.65 L Hemoglobin 9.8 L Hematocrit 31.5 L Mean Corpuscular 86.3 Volume Mean Corpuscular 26.8 L Hemoglobin Mean Corpuscular 31.1 L Hemoglobin Concent Red Cell 16.7 H Distribution Width Platelet Count 304 Mean Platelet Volume 8.8 Immature 0.900 H Granulocytes % Neutrophils % 81.4 H Lymphocytes % 6.4 L Monocytes % 9.8 Eosinophils % 1.2 Basophils % 0.3 Nucleated Red Blood 0.0 Cells % Immature 0.080 H Granulocytes # Neutrophils # 7.3 Lymphocytes # 0.6 L Monocytes # 0.9 Eosinophils # 0.1 Basophils # 0.0 Nucleated Red Blood 0.0 Cells # Sodium Level 137 Potassium Level 3.7 Chloride Level 105 Carbon Dioxide Level 25 Anion Gap 7 # Blood Urea Nitrogen 17 Creatinine 1.18 Est Glomerular > 60 Filtrat Rate mL/min Glucose Level 108 Calcium Level 8.7 Phosphorus Level 2.5 Magnesium Level 2.0 Total Bilirubin 0.2 Direct Bilirubin 0.00 Indirect Bilirubin 0.2 Aspartate Amino 19 Transf (AST/SGOT) Alanine 24 Aminotransferase (AL T/SGPT) Alkaline Phosphatase 122 H Total Protein 6.0 #L Albumin 2.7 L Globulin 3.30 H Albumin/Globulin 0.81 Ratio Test 10/19/18 12:07 10/19/18 17:49 Bedside Glucose 190 220 Medications Medication Current Medications Ondansetron HCl (Zofran Inj) 4 mg Q4H PRN IV nausea; Start 10/13/18 at 23:30 Zolpidem Tartrate (Ambien) 5 mg HS MAY REPEAT X 1 PRN PO INSOMNIA; Start 10/13/18 at 23:30 Folic Acid (Folic Acid) 1 mg DAILY PO Last administered on 10/19/18at 08:42; Admin Dose 1 MG; Start 10/14/18 at 09:00 Prednisone (Prednisone) 7.5 mg DAILY PO Last administered on 10/19/18at 08:42; Admin Dose 7.5 MG; Start 10/14/18 at 09:00 Insulin Aspart (Novolog Insulin Pen) NOVOLOG *MODERATE* ALGORITHM WITH MEALS BEDTIME SC Last administered on 10/19/18at 18:27; Admin Dose 4 UNIT; Start 10/14/18 at 11:50 Miscellaneous Information 1 ea NOTE XX ; Start 10/14/18 at 09:00 Glucose (Glutose) 15 gm Q15M PRN PO DECREASED GLUCOSE; Start 10/14/18 at 09:00 Glucose (Glutose) 22.5 gm Q15M PRN PO DECREASED GLUCOSE; Start 10/14/18 at 09:00 Dextrose (D50w Syringe) 25 ml Q15M PRN IV DECREASED GLUCOSE; Start 10/14/18 at 09:00 Dextrose (D50w Syringe) 50 ml Q15M PRN IV DECREASED GLUCOSE; Start 10/14/18 at 09:00 Glucagon (Glucagen) 1 mg Q15M PRN IM DECREASED GLUCOSE; Start 10/14/18 at 09:00 Glucose (Glutose) 15 gm Q15M PRN BUCCAL DECREASED GLUCOSE; Start 10/14/18 at 09: 00 Rifabutin (Mycobutin) 150 mg MoWeFr@0900,2100 PO Last administered on 10/18/18at 20:25; Admin Dose 150 MG; Start 10/16/18 at 09:00 Clarithromycin (Biaxin) 500 mg MoWeFr@0900,2100 PO Last administered on 10/18/18 20:25; Admin Dose 500 MG; Start 10/16/18 at 09:00 Ethambutol HCl (Myambutol) 400 mg MoWeFr@0900,2100 PO Last administered on 10/18/18 20:25; Admin Dose 400 MG; Start 10/16/18 at 09:00 Acetaminophen (Tylenol Tab) 650 mg Q4H PRN PO MILD PAIN(1-3)OR ELEVATED TEMP Last administered on 10/19/18at 10:27; Admin Dose 650 MG; Start 10/15/18 at 04:38 Vancomycin HCl (Vanco Iv Per Pharmacy) VANCOMYCIN PER PHARMACY PER PROTOCOL XX ; Start 10/15/18 at 12:00 Pantoprazole (Protonix Tab) 40 mg DAILY@06 PO Last administered on 10/19/18 05:41; Admin Dose 40 MG; Start 10/16/18 at 13:55 Morphine Sulfate (morphine) 2 mg Q3H PRN IV SEVERE PAIN LEVEL 7-10 Last administered on 10/18/18at 16:40; Admin Dose 2 MG; Start 10/17/18 at 08:30 Meropenem/Sodium Chloride 50 ml @ 100 mls/hr Q8 IVPB Last administered on 10/19/18 14:32; Admin Dose 100 MLS/HR; Start 10/17/18 at 14:00 Aspirin (Aspirin) 81 mg DAILY PO Last administered on 10/19/18 08:42; Admin Dose 81 MG; Start 10/17/18 at 16:30 Benzonatate (Tessalon) 200 mg TID PRN PO cough Last administered on 10/18/18 15:00; Admin Dose 200 MG; Start 10/18/18 at 12:00 Fluconazole 200 ml @ 100 mls/hr Q24H IVPB Last administered on 10/19/18 13: 23; Admin Dose 100 MLS/HR; Start 10/18/18 at 13:30 Diphenhydramine HCl (Benadryl) 25 mg Q6H PRN IV itching Last administered on 10/18/18 16:14; Admin Dose 25 MG; Start 10/18/18 at 18:00 Sodium Chloride 1,000 ml @ 100 mls/hr Q10H IV Last administered on 10/19/18 13:29; Admin Dose 100 MLS/HR; Start 10/18/18 at 21:00 Vancomycin HCl 250 ml @ 125 mls/hr Q12H IVPB Last administered on 10/19/18 15:52; Admin Dose 125 MLS/HR; Start 10/19/18 at 04:00 ELOY HARPER MD Oct 19, 2018 19:27
[2018-10-20] VITALS (12 sets, daily range): BP systolic 123–152; BP diastolic 71–94; PULSE 101–143; RESP 18–19
[2018-10-20] MEDS: SOD CHLORIDE 0.9% 1,000 ML IV SCH ×3 (00:16→18:26)
[2018-10-20] MEDS: VANCOMYCIN 1 GM 250 ML IVPB SCH ×2 (03:48→16:05)
[2018-10-20] MEDS: ACETAMINOPHEN 325 MG TAB PO PRN ×2 (05:45→10:57)
[2018-10-20] MEDS: PANTOPRAZOLE (EC) 40 MG TAB PO SCH (05:45)
[2018-10-20] MEDS: MEROPENEM 1 GM/50ML(PMX) 50 ML IVPB SCH ×3 (05:46→21:14)
[2018-10-20] MEDS: INSULIN ASPART [NOVOLOG] 3 ML PEN SC SCH ×4 (07:55→21:00)
[2018-10-20] MEDS: FOLIC ACID 1 MG TAB PO SCH (08:17)
[2018-10-20] MEDS: ASPIRIN 81 MG TAB PO SCH (08:18)
[2018-10-20] MEDS: predniSONE 2.5 MG TAB PO SCH (08:18)
[2018-10-20] MEDS: ETHAMBUTOL 400 MG TAB PO SCH ×2 (08:23→21:15)
[2018-10-20] MEDS: RIFABUTIN 150 MG CAP PO SCH ×2 (08:23→21:15)
[2018-10-20] MEDS: CLARITHROMYCIN 500 MG TAB PO SCH ×2 (08:28→21:15)
[2018-10-20] MEDS ORDERED: SOD CHLORIDE 0.9% 1,000 ML IV ONE (11:30)
--- NOTE | 2018-10-20 11:56 | CONS ---
Consultation Date/Type/Reason Admit Date/Time Oct 13, 2018 at 23:44 Initial Consult Date 10/17/18 Type of Consult Pulmonary Patient is a 58-year-old male who came into the emergency room on the seventh of this month with acute shortness of breath. Upon evaluation chest was done which showed a right pneumothorax. Patient had a chest tube placement with lung reexpansion. 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 Patient is feeling better still complains of scant cough without any sputum production or hemoptysis. Denies any fever or chills. Past medical history; 1. History of MAC pneumonia. 2. Right pneumothorax, status post chest tube placement. 3. COPD. Medications; reviewed. Allergies; none. Social history; noncontributory. Family history; noncontributory. No sure of any tuberculosis infection in the family. Occupational history; patient is on disability. Review of systems; denies any headache, seizures, fever, chest pain, wheezing, complains of very scant cough. Denies any weight loss. Any hemoptysis. Denies any abdominal pain, nausea vomiting. Any melena hematochezia. Any arthritis symptoms. Any skin changes. Patient has good appetite. General exam; middle-aged male, awake and alert. Currently in no distress. Requesting Provider: KAREN HINDS MD Date/Time of Note DATE: 10/20/18 TIME: 11:54 24 HR Interval Summary Free Text/Dictation Patient's condition is stable. Denies any coughing, wheezing, sputum production or hemoptysis. Denies any chest pain. General exam; middle-aged male, awake alert, currently in no distress. H EENT exam; supple neck, no JVD. No lymphadenopathy. Midline trachea. No thyromegaly. Patient has fair dentition. No neck masses. Chest exam; diminished but clear breath sounds. Right side chest tube in place. S1-S2 audible, no murmurs. Regular rhythm. Abdomen exam; soft, nontender. No organomegaly. Bowel sounds are audible. Extremity exam; no peripheral edema clubbing. SECURITIES TRADER exam; no focal deficit. Assessment and recommendations; 1. Patient with history of KIERAN pneumonia admitted for right pneumothorax with a possibly right acute community acquired pneumonia involving right lower lobe. Status post chest tube placement with exchange to pigtail catheter. 2. COPD. Continue current supportive care. Antibiotics per ID recommendations. Exam/Review of Systems Exam Vitals Vital Signs Date Temp Pulse Resp B/P (MAP) Pulse Ox O2 O2 Flow FiO2 Time Delivery Rate 10/20/18 102.9 10:57 10/20/18 131 18 139/80 92 Room Air 10:47 (99) 10/18/18 2.0 19:05 Intake and Output 10/19/18 10/19/18 10/20/18 1515:00 23:00 07:00 IntakeIntake Total 200 ml 1740 ml 700 ml OutputOutput Total 1970 ml 1135 ml BalanceBalance 200 ml -230 ml -435 ml Results Result Diagram: 10/20/18 0721 10/20/18 0721 Results 24hrs Laboratory Tests Test 10/19/18 12:07 10/19/18 17:49 10/19/18 20:56 10/20/18 07:21 Bedside Glucose 190 220 165 White Blood Count 10.2 Red Blood Count 3.64 L Hemoglobin 9.7 L Hematocrit 31.4 L Mean Corpuscular 86.3 Volume Mean Corpuscular 26.6 L Hemoglobin Mean Corpuscular 30.9 L Hemoglobin Concent Red Cell 16.8 H Distribution Width Platelet Count 329 Mean Platelet 8.9 Volume Immature 0.900 H Granulocytes % Neutrophils % 82.1 H Lymphocytes % 6.5 L Monocytes % 8.3 Eosinophils % 1.9 Basophils % 0.3 Nucleated Red 0.0 Blood Cells % Immature 0.090 H Granulocytes # Neutrophils # 8.4 H Lymphocytes # 0.7 L Monocytes # 0.9 Eosinophils # 0.2 Basophils # 0.0 Nucleated Red 0.0 Blood Cells # Sodium Level 136 Potassium Level 3.7 Chloride Level 103 Carbon Dioxide 25 Level Anion Gap 8 Blood Urea 13 Nitrogen Creatinine 1.11 Est Glomerular > 60 Filtrat Rate mL/min Glucose Level 107 Calcium Level 8.7 Phosphorus Level 2.5 Magnesium Level 1.9 Total Bilirubin 0.2 Direct Bilirubin 0.00 Indirect Bilirubin 0.2 Aspartate Amino 22 Transf (AST/SGOT) Alanine 22 Aminotransferase ( ALT/SGPT) Alkaline 115 Phosphatase Total Protein 5.8 L Albumin 2.8 L Globulin 3.00 Albumin/Globulin 0.93 Ratio Test 10/20/18 08:16 10/20/18 11:43 Bedside Glucose 103 Lab Scanned Report REFERENCE LAB Medications Medication Current Medications Ondansetron HCl (Zofran Inj) 4 mg Q4H PRN IV nausea; Start 10/13/18 at 23:30 Zolpidem Tartrate (Ambien) 5 mg HS MAY REPEAT X 1 PRN PO INSOMNIA; Start 10/13/18 at 23:30 Folic Acid (Folic Acid) 1 mg DAILY PO Last administered on 10/20/18 08:17; Admin Dose 1 MG; Start 10/14/18 at 09:00 Prednisone (Prednisone) 7.5 mg DAILY PO Last administered on 10/20/18at 08:18; Admin Dose 7.5 MG; Start 10/14/18 at 09:00 Insulin Aspart (Novolog Insulin Pen) NOVOLOG *MODERATE* ALGORITHM WITH MEALS BEDTIME SC Last administered on 10/19/18at 18:27; Admin Dose 4 UNIT; Start 10/14/18 at 11:50 Miscellaneous Information 1 ea NOTE XX ; Start 10/14/18 at 09:00 Glucose (Glutose) 15 gm Q15M PRN PO DECREASED GLUCOSE; Start 10/14/18 at 09:00 Glucose (Glutose) 22.5 gm Q15M PRN PO DECREASED GLUCOSE; Start 10/14/18 at 09:00 Dextrose (D50w Syringe) 25 ml Q15M PRN IV DECREASED GLUCOSE; Start 10/14/18 at 09:00 Dextrose (D50w Syringe) 50 ml Q15M PRN IV DECREASED GLUCOSE; Start 10/14/18 at 09:00 Glucagon (Glucagen) 1 mg Q15M PRN IM DECREASED GLUCOSE; Start 10/14/18 at 09:00 Glucose (Glutose) 15 gm Q15M PRN BUCCAL DECREASED GLUCOSE; Start 10/14/18 at 09:00 Rifabutin (Mycobutin) 150 mg MoWeFr@00,2100 PO Last administered on 10/20/18at 08:23; Admin Dose 150 MG; Start 10/16/18 at 09:00 Clarithromycin (Biaxin) 500 mg MoWeFr@00,2100 PO Last administered on 10/20/18at 08:28; Admin Dose 500 MG; Start 10/16/18 at 09:00 Ethambutol HCl (Myambutol) 400 mg MoWeFr@00,2100 PO Last administered on 10/20/18at 08:23; Admin Dose 400 MG; Start 10/16/18 at 09:00 Acetaminophen (Tylenol Tab) 650 mg Q4H PRN PO MILD PAIN(1-3)OR ELEVATED TEMP Last administered on 10/20/18 10:57; Admin Dose 650 MG; Start 10/15/18 at 04:38 Vancomycin HCl (Vanco Iv Per Pharmacy) VANCOMYCIN PER PHARMACY PER PROTOCOL XX ; Start 10/15/18 at 12:00 Pantoprazole (Protonix Tab) 40 mg DAILY@06 PO Last administered on 10/20/18 05:45; Admin Dose 40 MG; Start 10/16/18 at 13:55 Morphine Sulfate (morphine) 2 mg Q3H PRN IV SEVERE PAIN LEVEL 7-10 Last administered on 10/18/18 16:40; Admin Dose 2 MG; Start 10/17/18 at 08:30 Meropenem/Sodium Chloride 50 ml @ 100 mls/hr Q8 IVPB Last administered on 10/20/18 05:46; Admin Dose 100 MLS/HR; Start 10/17/18 at 14:00 Aspirin (Aspirin) 81 mg DAILY PO Last administered on 10/20/18 08:18; Admin Dose 81 MG; Start 10/17/18 at 16:30 Benzonatate (Tessalon) 200 mg TID PRN PO cough Last administered on 10/18/18 15:00; Admin Dose 200 MG; Start 10/18/18 at 12:00 Fluconazole 200 ml @ 100 mls/hr Q24H IVPB Last administered on 10/19/18 13:23; Admin Dose 100 MLS/HR; Start 10/18/18 at 13:30 Diphenhydramine HCl (Benadryl) 25 mg Q6H PRN IV itching Last administered on 10/18/18 16:14; Admin Dose 25 MG; Start 10/18/18 at 18:00 Sodium Chloride 1,000 ml @ 100 mls/hr Q10H IV Last administered on 10/20/18 00:16; Admin Dose 100 MLS/HR; Start 10/18/18 at 21:00 Vancomycin HCl 250 ml @ 125 mls/hr Q12H IVPB Last administered on 10/20/18 03:48; Admin Dose 125 MLS/HR; Start 10/19/18 at 04:00 Sodium Chloride 1,000 ml @ 1,000 mls/hr Q1H ONCE IV Last administered on 10/20/18at 11:16; Admin Dose 1,000 MLS/HR; Start 10/20/18 at 11:30; Stop 10/20/18 at 12:29 BENJAMIN PERSON Oct 20, 2018 11:56
[2018-10-20] MEDS: FLUCONAZOLE 400 MG/NS (PMX) 200 ML IVPB SCH (12:32)
--- NOTE | 2018-10-20 16:05 | CONS ---
Assessment/Plan Assessment/Plan Hospital Course (Demo Recall) - Sepsis 2/2 pneumonia and possible empyema - still with high fevers and tachycardia but leukocytosis has resolved - Recent MAC pneumonia; sputum cx grew normal resp kacey and C. albicans - Pneumothorax, s/p R thoracostomy tube placement 10/13/2018; chest tube had slipped out of pleural space and was removed on 10/17/2018 - Large right hydropneumothorax multiple air pockets within suspicious for empyema per CT - S/p successful CT guided placement of 10-Ethiopian drainage catheter in the right pleural space 10/18/2018 - JOHNNY on 10/18/2018 - resolved - Thrombosis of the right cephalic vein in the antecubital fossa per venous doppler on 10/17/2018 - DMT2 - RA - Immunocompromised status - Elevated alk phos -improving Recommendations: - Continue vancomycin (10/15/2018-); monitor levels (21.4) and renal function closely (better today); consider stopping Vanco soon if all cxs remain neg. - Continue meropenem (10/17/2018-); S/p Zosyn (10/15/2018-10/17/2018) - Continue fluconazole (10/18/2018-) till cocci back; albeit that negative fungatell and crypto is somewhat reassuring - Continue clarithromycin, rifabutin, and ethambutol (10/14/2018-) -- optho exam as outpatient and periodic ekg - Serial CXR - F/u repeat blood cultures (NGTD) from 10/17, crypto, coccidioides, Beta D glucan, Sputum AFB x3 (AFB x1 is negative)-- encouraged nursing to collect his via sputum collection in early ams - Obtain records from outpatient pulm (still pending)-- requested again-- I asked family to bring them in and/or have them faxed to our office. I gave them our cards and my personal card - We recommend CT Surgery re-evaluation for consideration of possible decortication - Airborne isolation - Consultation Date/Type/Reason Admit Date/Time Oct 13, 2018 at 23:44 Initial Consult Date Type of Consult ID Requesting Provider: KAREN HINDS MD Date/Time of Note DATE: 10/20/18 TIME: 15:51 i DISCussed with patient, and son on phone along with nurse for approx 1 hour. I answered all their questions and explained everything in detail prolonged service 1 hour Exam/Review of Systems Exam Vitals Vital Signs Date Temp Pulse Resp B/P (MAP) Pulse Ox O2 O2 Flow FiO2 Time Delivery Rate 10/20/18 98.9 104 19 123/75 95 Room Air 14:46 (91) 10/18/18 2.0 19:05 Intake and Output 10/19/18 10/19/18 10/20/18 1515:00 23:00 07:00 IntakeIntake Total 200 ml 1740 ml 700 ml OutputOutput Total 1970 ml 1135 ml BalanceBalance 200 ml -230 ml -435 ml Exam says he feels better Constitutional: alert, oriented Psych: no complaints, nl mood/affect Head: normocephalic, atraumatic Eyes: EOMI Neck: supple Respiratory: other (decreased bs right side) Cardiovascular: regular rate and rhythm Gastrointestinal: soft 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 Results Result Diagram: 10/20/18 0721 10/20/18 0721 Results 24hrs Laboratory Tests Test 10/19/18 17:49 10/19/18 20:56 10/20/18 07:21 10/20/18 08:16 Bedside Glucose 220 165 103 White Blood Count 10.2 Red Blood Count 3.64 L Hemoglobin 9.7 L Hematocrit 31.4 L Mean Corpuscular 86.3 Volume Mean Corpuscular 26.6 L Hemoglobin Mean Corpuscular 30.9 L Hemoglobin Concent Red Cell 16.8 H Distribution Width Platelet Count 329 Mean Platelet 8.9 Volume Immature 0.900 H Granulocytes % Neutrophils % 82.1 H Lymphocytes % 6.5 L Monocytes % 8.3 Eosinophils % 1.9 Basophils % 0.3 Nucleated Red 0.0 Blood Cells % Immature 0.090 H Granulocytes # Neutrophils # 8.4 H Lymphocytes # 0.7 L Monocytes # 0.9 Eosinophils # 0.2 Basophils # 0.0 Nucleated Red 0.0 Blood Cells # Sodium Level 136 Potassium Level 3.7 Chloride Level 103 Carbon Dioxide 25 Level Anion Gap 8 Blood Urea 13 Nitrogen Creatinine 1.11 Est Glomerular > 60 Filtrat Rate mL/min Glucose Level 107 Calcium Level 8.7 Phosphorus Level 2.5 Magnesium Level 1.9 Total Bilirubin 0.2 Direct Bilirubin 0.00 Indirect Bilirubin 0.2 Aspartate Amino 22 Transf (AST/SGOT) Alanine 22 Aminotransferase ( ALT/SGPT) Alkaline 115 Phosphatase Total Protein 5.8 L Albumin 2.8 L Globulin 3.00 Albumin/Globulin 0.93 Ratio Test 10/20/18 11:43 10/20/18 12:25 Lab Scanned Report REFERENCE LAB Bedside Glucose 176 Medications Medication Current Medications Ondansetron HCl (Zofran Inj) 4 mg Q4H PRN IV nausea; Start 10/13/18 at 23:30 Zolpidem Tartrate (Ambien) 5 mg HS MAY REPEAT X 1 PRN PO INSOMNIA; Start 10/13/18 at 23:30 Folic Acid (Folic Acid) 1 mg DAILY PO Last administered on 10/20/18at 08:17; Admin Dose 1 MG; Start 10/14/18 at 09:00 Prednisone (Prednisone) 7.5 mg DAILY PO Last administered on 10/20/18at 08:18; Admin Dose 7.5 MG; Start 10/14/18 at 09:00 Insulin Aspart (Novolog Insulin Pen) NOVOLOG *MODERATE* ALGORITHM WITH MEALS BEDTIME SC Last administered on 10/20/18at 12:35; Admin Dose 2 UNIT; Start 10/14/18 at 11:50 Miscellaneous Information 1 ea NOTE XX ; Start 10/14/18 at 09:00 Glucose (Glutose) 15 gm Q15M PRN PO DECREASED GLUCOSE; Start 10/14/18 at 09:00 Glucose (Glutose) 22.5 gm Q15M PRN PO DECREASED GLUCOSE; Start 10/14/18 at 09:00 Dextrose (D50w Syringe) 25 ml Q15M PRN IV DECREASED GLUCOSE; Start 10/14/18 at 09:00 Dextrose (D50w Syringe) 50 ml Q15M PRN IV DECREASED GLUCOSE; Start 10/14/18 at 09:00 Glucagon (Glucagen) 1 mg Q15M PRN IM DECREASED GLUCOSE; Start 10/14/18 at 09:00 Glucose (Glutose) 15 gm Q15M PRN BUCCAL DECREASED GLUCOSE; Start 10/14/18 at 09:00 Rifabutin (Mycobutin) 150 mg MoWeFr@0900,2100 PO Last administered on 10/20/18at 08:23; Admin Dose 150 MG; Start 10/16/18 at 09:00 Clarithromycin (Biaxin) 500 mg MoWeFr@00,2100 PO Last administered on 10/20/18 08:28; Admin Dose 500 MG; Start 10/16/18 at 09:00 Ethambutol HCl (Myambutol) 400 mg MoWeFr@0900,2100 PO Last administered on 10/20/18 08:23; Admin Dose 400 MG; Start 10/16/18 at 09:00 Acetaminophen (Tylenol Tab) 650 mg Q4H PRN PO MILD PAIN(1-3)OR ELEVATED TEMP Last administered on 10/20/18 10:57; Admin Dose 650 MG; Start 10/15/18 at 04:38 Vancomycin HCl (Vanco Iv Per Pharmacy) VANCOMYCIN PER PHARMACY PER PROTOCOL XX ; Start 10/15/18 at 12:00 Pantoprazole (Protonix Tab) 40 mg DAILY@06 PO Last administered on 10/20/18 05:45; Admin Dose 40 MG; Start 10/16/18 at 13:55 Morphine Sulfate (morphine) 2 mg Q3H PRN IV SEVERE PAIN LEVEL 7-10 Last administered on 10/18/18 16:40; Admin Dose 2 MG; Start 10/17/18 at 08:30 Meropenem/Sodium Chloride 50 ml @ 100 mls/hr Q8 IVPB Last administered on 10/20/18 14:29; Admin Dose 100 MLS/HR; Start 10/17/18 at 14:00 Aspirin (Aspirin) 81 mg DAILY PO Last administered on 10/20/18 08:18; Admin Dose 81 MG; Start 10/17/18 at 16:30 Benzonatate (Tessalon) 200 mg TID PRN PO cough Last administered on 10/18/18 15:00; Admin Dose 200 MG; Start 10/18/18 at 12:00 Fluconazole 200 ml @ 100 mls/hr Q24H IVPB Last administered on 10/20/18 12:32; Admin Dose 100 MLS/HR; Start 10/18/18 at 13:30 Diphenhydramine HCl (Benadryl) 25 mg Q6H PRN IV itching Last administered on 10/18/18 16:14; Admin Dose 25 MG; Start 10/18/18 at 18:00 Sodium Chloride 1,000 ml @ 100 mls/hr Q10H IV Last administered on 10/20/18 00:16; Admin Dose 100 MLS/HR; Start 10/18/18 at 21:00 Vancomycin HCl 250 ml @ 125 mls/hr Q12H IVPB Last administered on 10/20/18at 03:48; Admin Dose 125 MLS/HR; Start 10/19/18 at 04:00 SCOTTY YOUNGER MD Oct 20, 2018 16:04
--- NOTE | 2018-10-20 18:57 | PN ---
Date/Time of Note Date/Time of Note DATE: 10/20/18 TIME: 18:55 Assessment/Plan Lines/Catheters IV Catheter Type (from Nrsg): Peripheral IV Retana in Place (from Nrsg): No Assessment/Plan Assessment/Plan Right Empyema SP Pigtail cath pt still with fever and tachycardia plan for VATS tomorrow Subjective 24 Hr Interval Summary Constitutional: improved Pain Control: mild Exam/Review of Systems Vital Signs Vitals Vital Signs Date Temp Pulse Resp B/P (MAP) Pulse Ox O2 O2 Flow FiO2 Time Delivery Rate 10/20/18 101 16:12 10/20/18 98.9 19 123/75 95 Room Air 14:46 (91) 10/18/18 2.0 19:05 Intake and Output 10/19/18 10/19/18 10/20/18 1515:00 23:00 07:00 IntakeIntake Total 200 ml 1740 ml 700 ml OutputOutput Total 1970 ml 1135 ml BalanceBalance 200 ml -230 ml -435 ml Exam Eyes: nl conjunctiva, EOMI, nl lids, nl sclera ENMT: nl external ears & nose, nl lips & teeth, nl nasal mucosa & septum, mucosa pink and moist Neck: supple, non-tender Respiratory: clear to auscultation, normal air movement Cardiovascular: regular rate and rhythm, nl pulses Gastrointestinal: soft, nl liver, spleen, non-tender Musculoskeletal: nl extremities to inspection, nl gait and stance Results Result Diagram: 10/20/18 0721 10/20/18 0721 JOSEPH VALADEZ MD Oct 20, 2018 18:57
--- NOTE | 2018-10-20 20:25 | PN ---
Date/Time of Note Date/Time of Note DATE: 10/20/18 TIME: 20:21 Assessment/Plan VTE Prophylaxis Risk score (from Ns)>0 risk: 2 SCD applied (from [facility]): Yes Pharmacological prophylaxis: NA/contraindicated, heparin Pharm contraindication: other (chest tube ) Lines/Catheters IV Catheter Type (from [facility]): Peripheral IV Urinary Cath still in place: No Assessment/Plan Hospital Course 58 male with recently diagnosed MAC pneumonia . He is being followed by ID for persistent fever and on Vancomycin, Diflucan, Meropenem Clarithromycin, Rifabutin, Ethambutol,. He had a right-sided thoracostomy tube for pneumothorax which fell off .A Pigtail catheter was then placed via IR Post procedural X ray showed Improving air space opacification of the right lung base but persistent soft tissue density again seen along the right lateral chest wall which likely represents loculated fluid and is unchanged. No pneumothorax is presently identified. Subcutaneous air is no longer seen in the right lateral soft tissues.. Found to have JOHNNY on 10/18 which responded well to IVF . Noted to be tachycardic in 130 s today which responded well to IVF bolus Plan - IVF - continue ABX per ID recs - Airbron precautions - CT surgery for VATS tomorrow given persistent fever despite ABX treatment - Monitor Creatinine ,continue IVF , minimize nephrotoxic agents , renally dosed medications - PPX: Pepcid and SCDs, Problems: (1) Hydropneumothorax Status: Acute (2) Persistent fever Status: Acute (3) Pulmonary Mycobacterium avium complex (MAC) infection Status: Acute (4) JOHNNY (acute kidney injury) Status: Acute Result Diagram: 10/20/18 0721 10/20/18 0721 Results 24hrs Laboratory Tests Test 10/19/18 20:56 10/20/18 07:21 10/20/18 08:16 10/20/18 11:43 Bedside Glucose 165 103 White Blood Count 10.2 Red Blood Count 3.64 L Hemoglobin 9.7 L Hematocrit 31.4 L Mean Corpuscular 86.3 Volume Mean Corpuscular 26.6 L Hemoglobin Mean Corpuscular 30.9 L Hemoglobin Concent Red Cell 16.8 H Distribution Width Platelet Count 329 Mean Platelet 8.9 Volume Immature 0.900 H Granulocytes % Neutrophils % 82.1 H Lymphocytes % 6.5 L Monocytes % 8.3 Eosinophils % 1.9 Basophils % 0.3 Nucleated Red 0.0 Blood Cells % Immature 0.090 H Granulocytes # Neutrophils # 8.4 H Lymphocytes # 0.7 L Monocytes # 0.9 Eosinophils # 0.2 Basophils # 0.0 Nucleated Red 0.0 Blood Cells # Sodium Level 136 Potassium Level 3.7 Chloride Level 103 Carbon Dioxide 25 Level Anion Gap 8 Blood Urea 13 Nitrogen Creatinine 1.11 Est Glomerular > 60 Filtrat Rate mL/min Glucose Level 107 Calcium Level 8.7 Phosphorus Level 2.5 Magnesium Level 1.9 Total Bilirubin 0.2 Direct Bilirubin 0.00 Indirect Bilirubin 0.2 Aspartate Amino 22 Transf (AST/SGOT) Alanine 22 Aminotransferase ( ALT/SGPT) Alkaline 115 Phosphatase Total Protein 5.8 L Albumin 2.8 L Globulin 3.00 Albumin/Globulin 0.93 Ratio Lab Scanned Report REFERENCE LAB Test 10/20/18 12:25 10/20/18 17:36 Bedside Glucose 176 190 Exam/Review of Systems Exam Vitals Vital Signs Date Temp Pulse Resp B/P (MAP) Pulse Ox O2 O2 Flow FiO2 Time Delivery Rate 10/20/18 105 20:00 10/20/18 97.7 19 129/76 94 19:37 (93) 10/20/18 Room Air 14:46 10/18/18 2.0 19:05 Intake and Output 10/19/18 10/19/18 10/20/18 1515:00 23:00 07:00 IntakeIntake Total 200 ml 1740 ml 700 ml OutputOutput Total 1970 ml 1135 ml BalanceBalance 200 ml -230 ml -435 ml Exam General: In no acute distress , laying in bed , cooperative , pleasant HEENT, EOM intact, JULIO bilat, mucosal membranes moist and pink , no oral lesions, NECK : Supple , not stiffness, , no mass , no carotid bruit Core: S1, S2, NL rhythm, tachycardic no murmur, no rubs, JVD not elevated, no peripheral edema Lungs: in no respiratory distress, not using the accessory muscles of respiration, clear bilaterally with no rales, no crackles , no wheezing , normal inspiratory to expiratory ratio Abdomen, soft, not distended, normal bowel sounds, no tenderness, Extremities without : edema , cyanosis, calf tenderness, brisk capillary refill Neurological: AOx3, normal speech, CN2-12 intact, no motor or sensory deficit, normal gait and normal coordination Results Results 24hrs Laboratory Tests Test 10/19/18 20:56 10/20/18 07:21 10/20/18 08:16 10/20/18 11:43 Bedside Glucose 165 103 White Blood Count 10.2 Red Blood Count 3.64 L Hemoglobin 9.7 L Hematocrit 31.4 L Mean Corpuscular 86.3 Volume Mean Corpuscular 26.6 L Hemoglobin Mean Corpuscular 30.9 L Hemoglobin Concent Red Cell 16.8 H Distribution Width Platelet Count 329 Mean Platelet 8.9 Volume Immature 0.900 H Granulocytes % Neutrophils % 82.1 H Lymphocytes % 6.5 L Monocytes % 8.3 Eosinophils % 1.9 Basophils % 0.3 Nucleated Red 0.0 Blood Cells % Immature 0.090 H Granulocytes # Neutrophils # 8.4 H Lymphocytes # 0.7 L Monocytes # 0.9 Eosinophils # 0.2 Basophils # 0.0 Nucleated Red 0.0 Blood Cells # Sodium Level 136 Potassium Level 3.7 Chloride Level 103 Carbon Dioxide 25 Level Anion Gap 8 Blood Urea 13 Nitrogen Creatinine 1.11 Est Glomerular > 60 Filtrat Rate mL/min Glucose Level 107 Calcium Level 8.7 Phosphorus Level 2.5 Magnesium Level 1.9 Total Bilirubin 0.2 Direct Bilirubin 0.00 Indirect Bilirubin 0.2 Aspartate Amino 22 Transf (AST/SGOT) Alanine 22 Aminotransferase ( ALT/SGPT) Alkaline 115 Phosphatase Total Protein 5.8 L Albumin 2.8 L Globulin 3.00 Albumin/Globulin 0.93 Ratio Lab Scanned Report REFERENCE LAB Test 10/20/18 12:25 10/20/18 17:36 Bedside Glucose 176 190 Medications Medication Current Medications Ondansetron HCl (Zofran Inj) 4 mg Q4H PRN IV nausea; Start 10/13/18 at 23:30 Zolpidem Tartrate (Ambien) 5 mg HS MAY REPEAT X 1 PRN PO INSOMNIA; Start 10/13/18 at 23:30 Folic Acid (Folic Acid) 1 mg DAILY PO Last administered on 10/20/18at 08:17; Admin Dose 1 MG; Start 10/14/18 at 09:00 Prednisone (Prednisone) 7.5 mg DAILY PO Last administered on 10/20/18at 08:18; Admin Dose 7.5 MG; Start 10/14/18 at 09:00 Insulin Aspart (Novolog Insulin Pen) NOVOLOG *MODERATE* ALGORITHM WITH MEALS BEDTIME SC Last administered on 10/20/18at 17:41; Admin Dose 4 UNIT; Start 10/14/18 at 11:50 Miscellaneous Information 1 ea NOTE XX ; Start 10/14/18 at 09:00 Glucose (Glutose) 15 gm Q15M PRN PO DECREASED GLUCOSE; Start 10/14/18 at 09:00 Glucose (Glutose) 22.5 gm Q15M PRN PO DECREASED GLUCOSE; Start 10/14/18 at 09:00 Dextrose (D50w Syringe) 25 ml Q15M PRN IV DECREASED GLUCOSE; Start 10/14/18 at 09:00 Dextrose (D50w Syringe) 50 ml Q15M PRN IV DECREASED GLUCOSE; Start 10/14/18 at 09:00 Glucagon (Glucagen) 1 mg Q15M PRN IM DECREASED GLUCOSE; Start 10/14/18 at 09:00 Glucose (Glutose) 15 gm Q15M PRN BUCCAL DECREASED GLUCOSE; Start 10/14/18 at 09:00 Rifabutin (Mycobutin) 150 mg MoWeFr@0900,2100 PO Last administered on 10/20/18at 08:23; Admin Dose 150 MG; Start 10/16/18 at 09:00 Clarithromycin (Biaxin) 500 mg MoWeFr@0900,2100 PO Last administered on 10/20/18at 08:28; Admin Dose 500 MG; Start 10/16/18 at 09:00 Ethambutol HCl (Myambutol) 400 mg MoWeFr@0900,2100 PO Last administered on 10/20/18at 08:23; Admin Dose 400 MG; Start 10/16/18 at 09:00 Acetaminophen (Tylenol Tab) 650 mg Q4H PRN PO MILD PAIN(1-3)OR ELEVATED TEMP Last administered on 10/20/18at 10:57; Admin Dose 650 MG; Start 10/15/18 at 04:38 Vancomycin HCl (Vanco Iv Per Pharmacy) VANCOMYCIN PER PHARMACY PER PROTOCOL XX ; Start 10/15/18 at 12:00 Pantoprazole (Protonix Tab) 40 mg DAILY@06 PO Last administered on 10/20/18at 05:45; Admin Dose 40 MG; Start 10/16/18 at 13:55 Morphine Sulfate (morphine) 2 mg Q3H PRN IV SEVERE PAIN LEVEL 7-10 Last administered on 10/18/18 16:40; Admin Dose 2 MG; Start 10/17/18 at 08:30 Meropenem/Sodium Chloride 50 ml @ 100 mls/hr Q8 IVPB Last administered on 10/20/18 14:29; Admin Dose 100 MLS/HR; Start 10/17/18 at 14:00 Aspirin (Aspirin) 81 mg DAILY PO Last administered on 10/20/18 08:18; Admin Dose 81 MG; Start 10/17/18 at 16:30 Benzonatate (Tessalon) 200 mg TID PRN PO cough Last administered on 10/18/18 15:00; Admin Dose 200 MG; Start 10/18/18 at 12:00 Fluconazole 200 ml @ 100 mls/hr Q24H IVPB Last administered on 10/20/18 12:32; Admin Dose 100 MLS/HR; Start 10/18/18 at 13:30 Diphenhydramine HCl (Benadryl) 25 mg Q6H PRN IV itching Last administered on 10/18/18 16:14; Admin Dose 25 MG; Start 10/18/18 at 18:00 Sodium Chloride 1,000 ml @ 100 mls/hr Q10H IV Last administered on 10/20/18 18:26; Admin Dose 100 MLS/HR; Start 10/18/18 at 21:00 Vancomycin HCl 250 ml @ 125 mls/hr Q12H IVPB Last administered on 10/20/18 16:05; Admin Dose 125 MLS/HR; Start 10/19/18 at 04:00 Miscellaneous Information (*Rx Drug Level Order Reminder*) VANCOMYCIN TROUGH AT 0300 0300 ONCE XX ; Start 10/21/18 at 03:00; Stop 10/21/18 at 03:01 ELOY HARPER MD Oct 20, 2018 20:25
[2018-10-21] VITALS (43 sets, daily range): BP systolic 125–206; BP diastolic 54–115; PULSE 90–125; RESP 14–32
[2018-10-21] MEDS: SOD CHLORIDE 0.9% 1,000 ML IV SCH ×3 (00:40→15:41)
[2018-10-21] MEDS: ACETAMINOPHEN 325 MG TAB PO PRN ×2 (03:06→08:29)
[2018-10-21] MEDS: PANTOPRAZOLE (EC) 40 MG TAB PO SCH (05:54)
[2018-10-21] MEDS: MEROPENEM 1 GM/50ML(PMX) 50 ML IVPB SCH ×3 (05:55→21:57)
[2018-10-21] MEDS ORDERED: VANCOMYCIN 750 MG (PMX) 250 ML IVPB SCH (06:00)
[2018-10-21] MEDS: INSULIN ASPART [NOVOLOG] 3 ML PEN SC SCH ×4 (07:55→20:24)
[2018-10-21] MEDS: predniSONE 2.5 MG TAB PO SCH (08:28)
[2018-10-21] MEDS: ASPIRIN 81 MG TAB PO SCH (08:28)
[2018-10-21] MEDS: FOLIC ACID 1 MG TAB PO SCH (08:28)
--- NOTE | 2018-10-21 09:55 | CONS ---
[facility] HCIS Consult Follow-up Patient Name: Christian Hines Unit Number: [id number] Date of : 1960 Patient Status: Admitted Inpatient Attending Doctor: Kishor Hinds MD Edit: SALEEM MILLIGAN M.D. on 10/23/18 @ 16:59 Chel: I discussed the management with UTILITY SERVICE WORKER Araceli and agree Assessment/Plan Assessment/Plan Hospital Course (Demo Recall) - Sepsis 2/2 pneumonia and possible empyema - still with high fevers and tach ycardia - Recent MAC pneumonia; sputum cx grew normal resp kacey and C. albicans - Pneumothorax, s/p R thoracostomy tube placement 10/13/2018; chest tube had slipped out of pleural space and was removed on 10/17/2018 - Large right hydropneumothorax multiple air pockets within suspicious for empyema per CT - S/p successful CT guided placement of 10-Hungarian drainage catheter in the right pleural space 10/18/2018 - "Sternum" AFB stain positive AFB smear 10/19/18 - Erythematous mildly pruritic rash on pt's back, right knee, and right lateral abdomen 10/21/18 - JOHNNY on 10/18/2018 - resolved - Thrombosis of the right cephalic vein in the antecubital fossa per venous doppler on 10/17/2018 - DMT2 - RA - Immunocompromised status - Elevated alk phos -improving Recommendations: - D/c vancomycin (10/15/2018-10/21/18); monitor levels (19.2) and renal function closely (better today); - Continue meropenem (10/17/2018-); S/p Zosyn (10/15/2018-10/17/2018) - Continue fluconazole (10/18/2018-) till cocci back; albeit that negative fungatell and crypto is somewhat reassuring - Continue clarithromycin, rifabutin, and ethambutol (10/14/2018-) - optho exam as outpatient and periodic ekg - Serial CXR - F/u repeat blood cultures (NGTD) from 10/17, coccidioides, Sputum AFB x3 (AFB x1 is negative) - encouraged nursing to collect his via sputum collection in early ams, pleural fluid cultures - Obtain records from outpatient pulm (still pending) - requested again - Asked family to bring them in and/or have them faxed to our office. - Planned for VATS today - ordered AFB smear/cx, Fungal cx, cytology, anaerobic and aerobic cx for this - Review medications with pharmacy for possible reactions with other medications and rash- d/w Pharmacist Cee - Monitor rash - Airborne isolation Plan was d/w patient in detail, with VANESSA Molina, and with Dr. Milligan. Total time spent was 65 minutes. Consultation Date/Type/Reason Admit Date/Time Oct 13, 2018 at 23:44 Initial Consult Date 10/16/18 Type of Consult ID Requesting Provider: KISHOR HINDS MD Date/Time of Note DATE: 10/21/18 TIME: 09:49 24 HR Interval Summary Free Text/Dictation Recurrent fevers, this am tmax 102.7. Pt currently states he is feeling better. Denies sob. + cough with deep breath ing. States he intermittently has been using the nc oxygen. Denies n/v/d. dysuria. Is c/o rash on his posterior back, states it is mildly itchy, and since this morning rash on right knee and right lateral abdomen. WBC 11.4 D/w VANESSA Molina, the culture that says "sternum" - patient does not have a sternal wound or opening, this culture is likely from the R chest tube site. He is going for VATS today around noon. Exam/Review of Systems Exam Vitals Vital Signs Date Temp Pulse Resp B/P (MAP) Pulse Ox O2 O2 Flow FiO2 Time Delivery Rate 10/21/18 100.6 08:29 10/21/18 121 08:12 10/21/18 19 158/88 98 Room Air 07:45 (111) 10/18/18 2.0 19:05 Allergies Coded Allergies No Known Allergy (Unverified10/14/18) Intake and Output 10/20/18 10/20/1810/21/19 1515:00 23:00 07:00 IntakeIntake Total 1200 ml 860 ml OutputOutput Total 2000 ml BalanceBalance 1200 ml -1140 ml Exam Constitutional: alert, oriented, well developed, other (sitting up in bed speaking with his visitors); No distress Psych: no complaints, nl mood/affect Head: normocephalic, atraumatic Eyes: nl conjunctiva, nl lids, nl sclera ENMT: nl external ears & nose, nl nasal mucosa & septum, mucosa pink and moist Neck: supple, non-tender Respiratory: normal air movement, diminished breath sounds (R mid/lower lobes > all other lung eubanks), other (On RA, R pigtail tube site is c/d/i, serous fluid draining ); No labored breathing, No wheezing Cardiovascular: regular rate and rhythm, nl pulses; No edema Gastrointestinal: soft, non-tender, bowel sounds (normoactive); No distended, No tender Genitourinary - Male: other (bladder flat, no f/c) Musculoskeletal: nl extremities to inspection Extremities: normal pulses Neurological: RN CORONARY CARE UNIT 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, nl mental status, nl speech, nl strength Skin: nl turgor; rash or lesions (Posterior back, right abdomen, and right knee with scattered erythematous pruritic rash) Results Result Diagram: 10/21/18 0327 10/21/18 0327 Results 24hrs Laboratory Tests Test 10/20/18 11:43 10/20/18 12:25 10/20/18 17:36 10/20/18 21:24 Lab Scanned Report REFERENCE LAB Bedside Glucose 176 190 152 Test 10/21/18 03:27 10/21/18 08:27 White Blood Count 11.4 H Red Blood Count 3.89 L Hemoglobin 10.6 L Hematocrit 33.9 L Mean Corpuscular 87.1 Volume Mean Corpuscular 27.2 L Hemoglobin Mean Corpuscular 31.3 L Hemoglobin Concent Red Cell 16.4 H Distribution Width Platelet Count 365 Mean Platelet 8.7 Volume Immature 1.100 H Granulocytes % Neutrophils % 76.3 Lymphocytes % 12.8 L Monocytes % 7.4 Eosinophils % 2.0 Basophils % 0.4 Nucleated Red 0.0 Blood Cells % Immature 0.120 H Granulocytes # Neutrophils # 8.7 H Lymphocytes # 1.5 Monocytes # 0.9 Eosinophils # 0.2 Basophils # 0.0 Nucleated Red 0.0 Blood Cells # Sodium Level 140 Potassium Level 4.1 Chloride Level 104 Carbon Dioxide 27 Level Anion Gap 9 Blood Urea 11 Nitrogen Creatinine 1.09 Est Glomerular > 60 Filtrat Rate mL/min Glucose Level 85 Calcium Level 9.2 Phosphorus Level 2.8 Magnesium Level 2.1 Total Bilirubin 0.4 Direct Bilirubin 0.00 Indirect Bilirubin 0.4 Aspartate Amino 21 Transf (AST/SGOT) Alanine 20 Aminotransferase ( ALT/SGPT) Alkaline 125 H Phosphatase Total Protein 6.5 Albumin 3.0 L Globulin 3.50 H Albumin/Globulin 0.85 Ratio Procalcitonin 0.83 H Vancomycin Level 19.2 Trough Bedside Glucose 88 Imaging Imaging CXR 10/19/18 IMPRESSION: 1. Interval placement of a pigtail tipped thoracostomy tube which projects through the mid to lower lung right lung zone. 2. Improving air space opacification of the right lung base and there is persistent discoid atelectasis at the left lung base. There is a rind of soft tissue density again seen along the right lateral chest wall which likely represents loculated fluid and is unchanged. No pneumothorax is presently identified. 3. The cardiovascular silhouette is stable and unremarkable. 4. Subcutaneous air is no longer seen in the right lateral soft tissues. Medications Medication Current Medications Ondansetron HCl (Zofran Inj) 4 mg Q4H PRN IV nausea; Start 10/13/18 at 23:30 Zolpidem Tartrate (Ambien) 5 mg HS MAY REPEAT X 1 PRN PO INSOMNIA; Start 10/13/18 at 23:30 Folic Acid (Folic Acid) 1 mg DAILY PO Last administered on 10/21/18at 08:28; Admin Dose 1 MG; Start 10/14/18 at 09:00 Prednisone (Prednisone) 7.5 mg DAILY PO Last administered on 10/21/18at 08:28; Admin Dose 7.5 MG; Start 10/14/18 at 09:00 Insulin Aspart (Novolog Insulin Pen) NOVOLOG *MODERATE* ALGORITHM WITH MEALS BEDTIME SC Last administered on 10/20/18at 17:41; Admin Dose 4 UNIT; Start 10/14/18 at 11:50 Miscellaneous Information 1 ea NOTE XX ; Start 10/14/18 at 09:00 Glucose (Glutose) 15 gm Q15M PRN PO DECREASED GLUCOSE; Start 10/14/18 at 09:00 Glucose (Glutose) 22.5 gm Q15M PRN PO DECREASED GLUCOSE; Start 10/14/18 at 09:00 Dextrose (D50w Syringe) 25 ml Q15M PRN IV DECREASED GLUCOSE; Start 10/14/18 at 09:00 Dextrose (D50w Syringe) 50 ml Q15M PRN IV DECREASED GLUCOSE; Start 10/14/18 at 09:00 Glucagon (Glucagen) 1 mg Q15M PRN IM DECREASED GLUCOSE; Start 10/14/18 at 09:00 Glucose (Glutose) 15 gm Q15M PRN BUCCAL DECREASED GLUCOSE; Start 10/14/18 at 09:00 Rifabutin (Mycobutin) 150 mg MoWeFr@0900,2100 PO Last administered on 10/20/18at 21:15; Admin Dose 150 MG; Start 10/16/18 at 09:00 Clarithromycin (Biaxin) 500 mg MoWeFr@0900,2100 PO Last administered on 10/20/18 21:15; Admin Dose 500 MG; Start 10/16/18 at 09:00 Ethambutol HCl (Myambutol) 400 mg MoWeFr@0900,2100 PO Last administered on 10/20/18 21:15; Admin Dose 400 MG; Start 10/16/18 at 09:00 Acetaminophen (Tylenol Tab) 650 mg Q4H PRN PO MILD PAIN(1-3)OR ELEVATED TEMP L ast administered on 10/21/18at 08:29; Admin Dose 650 MG; Start 10/15/18 at 04:38 Vancomycin HCl (Vanco Iv Per Pharmacy) VANCOMYCIN PER PHARMACY PER PROTOCOL XX ; Start 10/15/18 at 12:00 Pantoprazole (Protonix Tab) 40 mg DAILY@06 PO Last administered on 10/21/18at 05:54; Admin Dose 40 MG; Start 10/16/18 at 13:55 Morphine Sulfate (morphine) 2 mg Q3H PRN IV SEVERE PAIN LEVEL 7-10 Last administered on 10/18/18at 16:40; Admin Dose 2 MG; Start 10/17/18 at 08:30 Meropenem/Sodium Chloride 50 ml @ 100 mls/hr Q8 IVPB Last administered on 10/21/18at 05:55; Admin Dose 100 MLS/HR; Start 10/17/18 at 14:00 Aspirin (Aspirin) 81 mg DAILY PO Last administered on 10/21/18 08:28; Admin Dose 81 MG; Start 10/17/18 at 16:30 Benzonatate (Tessalon) 200 mg TID PRN PO cough Last administered on 10/18/18 15:00; Admin Dose 200 MG; Start 10/18/18 at 12:00 Fluconazole 200 ml @ 100 mls/hr Q24H IVPB Last administered on 10/20/18 12:32; Admin Dose 100 MLS/HR; Start 10/18/18 at 13:30 Diphenhydramine HCl (Benadryl) 25 mg Q6H PRN IV itching Last administered on 10/18/18 16:14; Admin Dose 25 MG; Start 10/18/18 at 18:00 Sodium Chloride 1,000 ml @ 100 mls/hr Q10H IV Last administered on 10/21/18 08:27; Admin Dose 100 MLS/HR; Start 10/18/18 at 21:00 Vancomycin HCl 1.25 gm/Sodium Chloride 250 ml @ 83.333 mls/ hr Q24H IVPB ; Start 10/21/18 at 23:00 ENDER AVILA NP Oct 21, 2018 09:55
--- NOTE | 2018-10-21 11:06 | PREAC ---
Date/Time of Note Date/Time of Note DATE: 10/21/18 TIME: 11:04 Anesthesia Eval and Record Evaluation Time Pre-Procedure Interview DATE: 10/21/18 TIME: 11:04 Age 58 Sex male NPO: 8 hrs Preoperative diagnosis right pneumothorax, MAC pneumonia Planned procedure right VATS with decortication Past Medical History Past Medical History: Includes Cardio: HTN Endo: Diabetes Pulm: COPD Musculoskeletal: Rheumatoid arthritis Heme: Anemia Surgery & Anesthesia Issues No known issue Meds Anticoagulation: No Beta Isabel within 24 hr: No Reason Beta Isabel not given: Pt. not on B-Isabel Reported Medications Cholecalciferol* (Vitamin D3*) 1,000 Unit Tablet, 1000 UNIT PO DAILY, TAB 10/14/18 Omeprazole* (Omeprazole*) 20 Mg Capsule.dr, 20 MG PO QAM, #30 CAP 10/14/18 Folic Acid* (Folic Acid*) 1 Mg Tablet, 1 MG PO DAILY for 90 Days, #90 10/14/18 Prednisone* (Prednisone*) 5 Mg Tab, 7.5 MG PO DAILY for 30 Days TAKE 1.5 TAB BY MOUTH DAILY 10/14/18 Clarithromycin* (Clarithromycin*) 500 Mg Tablet, 1000 MG PO DAILY for [id number] for 5 Days 10/14/18 Ethambutol Hcl (Ethambutol Hcl) 400 Mg Tablet, 800 MG PO DAILY for [id number] 10/14/18 Rifabutin (Rifabutin) 150 Mg Capsule, 300 MG PO DAILY for [id number] 10/14/18 Discontinued Reported Medications Omeprazole* (Omeprazole*) 20 Mg Capsule.dr, 20 MG PO DAILY, #30 CAP 10/14/18 Discontinued Scripts Ibuprofen* (Motrin*) 600 Mg Tab, 600 MG PO Q6, #30 TAB Prov:MANSI SHAH PA-C 11/06/17 Tramadol HCl (Tramadol HCl) 50 Mg Tablet, 50 MG PO Q6 PRN for PAIN, #20 TAB Prov:MANSI SHAH PA-C 11/06/17 Levofloxacin* (Levaquin*) 750 Mg Tablet, 750 MG PO DAILY for 5 Days, TAB Prov:VALENTINA OVALLE DIE REPAIR 08/08/15 Current Medications Ondansetron HCl (Zofran Inj) 4 mg Q4H PRN IV nausea; Start 10/13/18 at 23:30 Zolpidem Tartrate (Ambien) 5 mg HS MAY REPEAT X 1 PRN PO INSOMNIA; Start 10/13/18 at 23:30 Folic Acid (Folic Acid) 1 mg DAILY PO Last administered on 10/21/18at 08:28; Adm in Dose 1 MG; Start 10/14/18 at 09:00 Prednisone (Prednisone) 7.5 mg DAILY PO Last administered on 10/21/18at 08:28; Admin Dose 7.5 MG; Start 10/14/18 at 09:00 Insulin Aspart (Novolog Insulin Pen) NOVOLOG *MODERATE* ALGORITHM WITH MEALS BEDTIME SC Last administered on 10/20/18at 17:41; Admin Dose 4 UNIT; Start 10/14/18 at 11:50 Miscellaneous Information 1 ea NOTE XX ; Start 10/14/18 at 09:00 Glucose (Glutose) 15 gm Q15M PRN PO DECREASED GLUCOSE; Start 10/14/18 at 09:00 Glucose (Glutose) 22.5 gm Q15M PRN PO DECREASED GLUCOSE; Start 10/14/18 at 09:00 Dextrose (D50w Syringe) 25 ml Q15M PRN IV DECREASED GLUCOSE; Start 10/14/18 at 09:00 Dextrose (D50w Syringe) 50 ml Q15M PRN IV DECREASED GLUCOSE; Start 10/14/18 at 09:00 Glucagon (Glucagen) 1 mg Q15M PRN IM DECREASED GLUCOSE; Start 10/14/18 at 09:00 Glucose (Glutose) 15 gm Q15M PRN BUCCAL DECREASED GLUCOSE; Start 10/14/18 at 09:00 Rifabutin (Mycobutin) 150 mg MoWeFr@0900,2100 PO Last administered on 10/20/18at 21:15; Admin Dose 150 MG; Start 10/16/18 at 09:00 Clarithromycin (Biaxin) 500 mg MoWeFr@0900,2100 PO Last administered on 10/20/18at 21:15; Admin Dose 500 MG; Start 10/16/18 at 09:00 Ethambutol HCl (Myambutol) 400 mg MoWeFr@0900,2100 PO Last administered on 10/20/18at 21:15; Admin Dose 400 MG; Start 10/16/18 at 09:00 Acetaminophen (Tylenol Tab) 650 mg Q4H PRN PO MILD PAIN(1-3)OR ELEVATED TEMP Last administered on 10/21/18 08:29; Admin Dose 650 MG; Start 10/15/18 at 04:38 Vancomycin HCl (Vanco Iv Per Pharmacy) VANCOMYCIN PER PHARMACY PER PROTOCOL XX ; Start 10/15/18 at 12:00 Pantoprazole (Protonix Tab) 40 mg DAILY@06 PO Last administered on 10/21/18 05:54; Admin Dose 40 MG; Start 10/16/18 at 13:55 Morphine Sulfate (morphine) 2 mg Q3H PRN IV SEVERE PAIN LEVEL 7-10 Last administered on 10/18/18 16:40; Admin Dose 2 MG; Start 10/17/18 at 08:30 Meropenem/Sodium Chloride 50 ml @ 100 mls/hr Q8 IVPB Last administered on 10/07 05:55; Admin Dose 100 MLS/HR; Start 10/17/18 at 14:00 Aspirin (Aspirin) 81 mg DAILY PO Last administered on 10/21/18 08:28; Admin Dose 81 MG; Start 10/17/18 at 16:30 Benzonatate (Tessalon) 200 mg TID PRN PO cough Last administered on 10/18/18 15:00; Admin Dose 200 MG; Start 10/18/18 at 12:00 Fluconazole 200 ml @ 100 mls/hr Q24H IVPB Last administered on 10/20/18 12:32; Admin Dose 100 MLS/HR; Start 10/18/18 at 13:30 Diphenhydramine HCl (Benadryl) 25 mg Q6H PRN IV itching Last administered on 10/18/18 16:14; Admin Dose 25 MG; Start 10/18/18 at 18:00 Sodium Chloride 1,000 ml @ 100 mls/hr Q10H IV Last administered on 10/21/18 08:27; Admin Dose 100 MLS/HR; Start 10/18/18 at 21:00 Vancomycin HCl 1.25 gm/Sodium Chloride 250 ml @ 83.333 mls/ hr Q24H IVPB ; Start 10/21/18 at 23:00 Meds reviewed: Yes Allergies Coded Allergies: No Known Allergy (Unverified , 10/14/18) Allergies Reviewed: Yes Labs/Studies Labs Reviewed: Reviewed by anesthesiologist Result Diagram: 10/21/18 0327 10/21/18 0327 Laboratory Tests 10/21/18 03:27 Blood Bank Test 10/20/18 19:18 Antibody Screen NEGATIVE Blood Product Summary Counts Blood Type O POSITIVE Crossmatch Red Blood Cells test: N/A Studies: ECG, CXR Pre-procedure Exam Last vitals Vital Signs Date Temp Pulse Resp B/P (MAP) Pulse Ox O2 O2 Flow FiO2 Time Delivery Rate 10/21/18 100.2 09:30 10/21/18 121 08:12 10/21/18 158/88 98 Room Air 07:45 (111) 10/18/18 2.0 19:05 Airway: Adequate mouth opening, Adequate thyromental dist Mallampati: Mallampati II Teeth: Normal Lung: Normal Heart: Normal ASA Physical Status ASA physical status: 3 Emergency: None Planned Anesthetic General/MAC: ETT, A Line, One-Lung ventilation Planned Pain Management Parenteral pain med Pre-operative Attestations Prior to commencing anesthesia and surgery, the patient was re-evaluated, there was verification of: *The patient's identity *The results of appropriate recent lab work and preoperative vital signs *The above evaluation not changing prior to induction *Anesthetic plan, risk benefits, alternative and complications discussed with patient/family; questions answered; patient/family understands, accepts and wishes to proceed. AUBREE QUIROGA Oct 21, 2018 11:06
[2018-10-21] MEDS ORDERED: LIDOCAINE 2% (SDV) 5 ML INJ ONE (11:21)
[2018-10-21] MEDS ORDERED: MIDAZOLAM 1 MG/ML 2 ML INJ ONE ×2 (11:21→12:48)
[2018-10-21] MEDS ORDERED: PROPOFOL 20 ML ONE (11:22)
--- NOTE | 2018-10-21 12:08 | HPN ---
Date/Time of Note Date/Time of Note DATE: 10/21/18 TIME: 12:08 Interval H&P Admission Note Pt. seen H&P reviewed: No system changes JOSEPH VALADEZ MD Oct 21, 2018 12:08
[2018-10-21] MEDS ORDERED: DEXAMETHASONE 4 MG/ML 5 ML INJ ONE (13:34)
[2018-10-21] MEDS ORDERED: THROMBIN 5000 UNIT VIAL ONE (13:55)
[2018-10-21] MEDS ORDERED: ROCURONIUM 50 MG INJ ONE (14:05)
[2018-10-21] MEDS ORDERED: ONDANSETRON 4 MG INJ ONE (14:06)
[2018-10-21] MEDS ORDERED: SURGIFOAM POWDER 1 GM KIT MM ONE (14:15)
[2018-10-21] MEDS ORDERED: SUGAMMADEX SODIUM 200 MG/2 ML VIAL IV ONE (14:18)
--- NOTE | 2018-10-21 14:18 | PN ---
Date/Time of Note Date/Time of Note DATE: 10/21/18 TIME: 14:17 Assessment/Plan VTE Prophylaxis Risk score (from Ns)>0 risk: 4 SCD applied (from Nsg): Yes Pharmacological prophylaxis: LMWH Lines/Catheters IV Catheter Type (from Nrsg): Peripheral IV Urinary Cath still in place: No Assessment/Plan Assessment/Plan chart and labs, vitals reviewed a/p 1. pulm: MAC pna (b) r ptx, possible empyema, s/p vats (c) Sternal(?) afb cont current abx Result Diagram: 10/21/1832610/21/18326 Results 24hrs Laboratory Tests Test 10/20/18 17:36 10/20/18 21:24 10/21/18 03:27 10/21/18 08:27 Bedside Glucose 190 152 88 White Blood Count 11.4 H Red Blood Count 3.89 L Hemoglobin 10.6 L Hematocrit 33.9 L Mean Corpuscular 87.1 Volume Mean Corpuscular 27.2 L Hemoglobin Mean Corpuscular 31.3 L Hemoglobin Concent Red Cell 16.4 H Distribution Width Platelet Count 365 Mean Platelet Volume 8.7 Immature 1.100 H Granulocytes % Neutrophils % 76.3 Lymphocytes % 12.8 L Monocytes % 7.4 Eosinophils % 2.0 Basophils % 0.4 Nucleated Red Blood 0.0 Cells % Immature 0.120 H Granulocytes # Neutrophils # 8.7 H Lymphocytes # 1.5 Monocytes # 0.9 Eosinophils # 0.2 Basophils # 0.0 Nucleated Red Blood 0.0 Cells # Sodium Level 140 Potassium Level 4.1 Chloride Level 104 Carbon Dioxide Level 27 Anion Gap 9 Blood Urea Nitrogen 11 Creatinine 1.09 Est Glomerular > 60 Filtrat Rate mL/min Glucose Level 85 Calcium Level 9.2 Phosphorus Level 2.8 Magnesium Level 2.1 Total Bilirubin 0.4 Direct Bilirubin 0.00 Indirect Bilirubin 0.4 Aspartate Amino 21 Transf (AST/SGOT) Alanine 20 Aminotransferase (AL T/SGPT) Alkaline Phosphatase 125 H Total Protein 6.5 Albumin 3.0 L Globulin 3.50 H Albumin/Globulin 0.85 Ratio Procalcitonin 0.83 H Vancomycin Level 19.2 Trough Test 10/21/18 12:15 Bedside Glucose 153 Subjective 24 Hr Interval Summary Free Text/Dictation patient in or for vats Exam/Review of Systems Exam Vitals Vital Signs Date Temp Pulse Resp B/P (MAP) Pulse Ox O2 O2 Flow FiO2 Time Delivery Rate 10/21/18 117 12:10 10/21/18 98.5 19 135/77 97 11:36 (96) 10/21/18 Room Air 07:45 10/18/18 2.0 19:05 Intake and Output 10/20/18 10/20/18 10/21/18 1515:00 23:00 07:00 IntakeIntake Total 1200 ml 860 ml OutputOutput Total 2000 ml BalanceBalance 1200 ml -1140 ml Results Results 24hrs Laboratory Tests Test 10/20/18 17:36 10/20/18 21:24 10/21/18 03:27 10/21/18 08:27 Bedside Glucose 190 152 88 White Blood Count 11.4 H Red Blood Count 3.89 L Hemoglobin 10.6 L Hematocrit 33.9 L Mean Corpuscular 87.1 Volume Mean Corpuscular 27.2 L Hemoglobin Mean Corpuscular 31.3 L Hemoglobin Concent Red Cell 16.4 H Distribution Width Platelet Count 365 Mean Platelet Volume 8.7 Immature 1.100 H Granulocytes % Neutrophils % 76.3 Lymphocytes % 12.8 L Monocytes % 7.4 Eosinophils % 2.0 Basophils % 0.4 Nucleated Red Blood 0.0 Cells % Immature 0.120 H Granulocytes # Neutrophils # 8.7 H Lymphocytes # 1.5 Monocytes # 0.9 Eosinophils # 0.2 Basophils # 0.0 Nucleated Red Blood 0.0 Cells # Sodium Level 140 Potassium Level 4.1 Chloride Level 104 Carbon Dioxide Level 27 Anion Gap 9 Blood Urea Nitrogen 11 Creatinine 1.09 Est Glomerular > 60 Filtrat Rate mL/min Glucose Level 85 Calcium Level 9.2 Phosphorus Level 2.8 Magnesium Level 2.1 Total Bilirubin 0.4 Direct Bilirubin 0.00 Indirect Bilirubin 0.4 Aspartate Amino 21 Transf (AST/SGOT) Alanine 20 Aminotransferase (AL T/SGPT) Alkaline Phosphatase 125 H Total Protein 6.5 Albumin 3.0 L Globulin 3.50 H Albumin/Globulin 0.85 Ratio Procalcitonin 0.83 H Vancomycin Level 19.2 Trough Test 10/21/18 12:15 Bedside Glucose 153 Medications Medication Current Medications Ondansetron HCl (Zofran Inj) 4 mg Q4H PRN IV nausea; Start 10/13/18 at 23:30 Zolpidem Tartrate (Ambien) 5 mg HS MAY REPEAT X 1 PRN PO INSOMNIA; Start 10/13/18 at 23:30 Folic Acid (Folic Acid) 1 mg DAILY PO Last administered on 10/21/18at 08:28; Admin Dose 1 MG; Start 10/14/18 at 09:00 Prednisone (Prednisone) 7.5 mg DAILY PO Last administered on 10/21/18 08:28; Admin Dose 7.5 MG; Start 10/14/18 at 09:00 Insulin Aspart (Novolog Insulin Pen) NOVOLOG *MODERATE* ALGORITHM WITH MEALS BEDTIME SC Last administered on 10/21/18at 12:34; Admin Dose 2 UNIT; Start 10/14/18 at 11:50 Miscellaneous Information 1 ea NOTE XX ; Start 10/14/18 at 09:00 Glucose (Glutose) 15 gm Q15M PRN PO DECREASED GLUCOSE; Start 10/14/18 at 09:00 Glucose (Glutose) 22.5 gm Q15M PRN PO DECREASED GLUCOSE; Start 10/14/18 at 09:00 Dextrose (D50w Syringe) 25 ml Q15M PRN IV DECREASED GLUCOSE; Start 10/14/18 at 0 9:00 Dextrose (D50w Syringe) 50 ml Q15M PRN IV DECREASED GLUCOSE; Start 10/14/18 at 09:00 Glucagon (Glucagen) 1 mg Q15M PRN IM DECREASED GLUCOSE; Start 10/14/18 at 09:00 Glucose (Glutose) 15 gm Q15M PRN BUCCAL DECREASED GLUCOSE; Start 10/14/18 at 09:00 Rifabutin (Mycobutin) 150 mg MoWeFr@0900,2100 PO Last administered on 10/20/18at 21:15; Admin Dose 150 MG; Start 10/16/18 at 09:00 Clarithromycin (Biaxin) 500 mg MoWeFr@0900,2100 PO Last administered on 10/20/18at 21:15; Admin Dose 500 MG; Start 10/16/18 at 09:00 Ethambutol HCl (Myambutol) 400 mg MoWeFr@0900,2100 PO Last administered on 10/20/18at 21:15; Admin Dose 400 MG; Start 10/16/18 at 09:00 Acetaminophen (Tylenol Tab) 650 mg Q4H PRN PO MILD PAIN(1-3)OR ELEVATED TEMP Last administered on 10/21/18 08:29; Admin Dose 650 MG; Start 10/15/18 at 04:38 Pantoprazole (Protonix Tab) 40 mg DAILY@06 PO Last administered on 10/21/18 05:54; Admin Dose 40 MG; Start 10/16/18 at 13:55 Morphine Sulfate (morphine) 2 mg Q3H PRN IV SEVERE PAIN LEVEL 7-10 Last administered on 10/18/18 16:40; Admin Dose 2 MG; Start 10/17/18 at 08:30 Meropenem/Sodium Chloride 50 ml @ 100 mls/hr Q8 IVPB Last administered on 10/21/18 05:55; Admin Dose 100 MLS/HR; Start 10/17/18 at 14:00 Aspirin (Aspirin) 81 mg DAILY PO Last administered on 10/21/18 08:28; Admin Dose 81 MG; Start 10/17/18 at 16:30 Benzonatate (Tessalon) 200 mg TID PRN PO cough Last administered on 10/18/18 15:00; Admin Dose 200 MG; Start 10/18/18 at 12:00 Fluconazole 200 ml @ 100 mls/hr Q24H IVPB Last administered on 10/20/18 12:32; Admin Dose 100 MLS/HR; Start 10/18/18 at 13:30 Diphenhydramine HCl (Benadryl) 25 mg Q6H PRN IV itching Last administered on 10/18/18 16:14; Admin Dose 25 MG; Start 10/18/18 at 18:00 Sodium Chloride 1,000 ml @ 100 mls/hr Q10H IV Last administered on 10/21/18 08:27; Admin Dose 100 MLS/HR; Start 10/18/18 at 21:00 MARTIN WASHINGTON MD Oct 21, 2018 14:18
--- NOTE | 2018-10-21 14:21 | OPR ---
Date/Time of Note Date/Time of Note DATE: 10/21/18 TIME: 14:18 Operative Report Procedure Date: Oct 21, 2018 Preoperative Diagnosis Right loculated pleural effusion Postoperative Diagnosis Same Operation/Procedure Performed 1 right video-assisted thoracic surgery total pulmonary decortication 2 bronchoscopy Surgeon see signature line Visual Merchandising Coordinator None Anesthesia Type: general Estimated Blood Loss: 100 - 150 ml's Transfusion none Specimen Right pleural peel Grafts/Implants none Complications none Procedure Description Risk benefits complications, alternative therapies explained to the patient and family consent obtained of the cecum patient was placed supine position intubated using double endotracheal tube bronchoscopy was done no evidence of any end of No Bronchial lesions were noted Pt was placed in the left lateral decubitus position axillary roll was placed all pressure points were padded , Was called antibiotics was given I made a 1 cm incision mid axillary line seventh intercostal space incision was taken down to subcutaneous tissue 12 mm trocar was advanced into the pleural cavity A second incision was made mid vascular line fifth intercostal space and a 12 mm trocar was advanced and is into the pleural cavity CO2 insufflation was used Large amounts of loculated fluid collections were noted with a peel in the right lung which was then opened suctioned and the peel was removed using thoracoscopic instruments No evidence of any bleeding was noted Pleural cavity was irrigated using saline solution 36 straight chest tube and a 36 right angle chest tube was placed into the pleural cavity through the trocar incision secured to skin using 2-0 silk sutures Lung was inflated adequately patient tolerated procedure well JOSEPH VALADEZ MD Oct 21, 2018 14:21
--- NOTE | 2018-10-21 14:51 | PAC ---
Date/Time of Note Date/Time of Note DATE: 10/21/18 TIME: 14:50 Post-Anesthesia Notes Post-Anesthesia Note Last documented vital signs Vital Signs Date Temp Pulse Resp B/P (MAP) Pulse Ox O2 O2 Flow FiO2 Time Delivery Rate 10/21/18 98.9 117 18 163/79 98 1450 10/21/18 98.5 19 135/77 97 11:36 (96) 10/21/18 Room Air 07:45 10/18/18 2.0 19:05 Activity: WNL Respiratory function: WNL Cardiovascular function: WNL Mental status: Baseline Pain reasonably controlled: Yes Hydration appropriate: Yes Nausea/Vomiting absent: Yes AUBREE QUIROGA Oct 21, 2018 14:51
--- NOTE | 2018-10-21 14:52 | CONS ---
Consult Date/Type/Reason Admit Date/Time Oct 13, 2018 at 23:44 Initial Consult Date 10/17/18 Type of Consultation: Pulm/CCM Requesting Provider: KAREN HINDS MD Date/Time of Note DATE: 10/21/18 TIME: 14:45 Subjective POD#0 s/p right-sided decortication. Transferred to the ICU post-operatively. Objective Vitals Vital Signs Date Temp Pulse Resp B/P (MAP) Pulse Ox O2 O2 Flow FiO2 Time Delivery Rate 10/21/18 117 12:10 10/21/18 98.5 19 135/77 97 11:36 (96) 10/21/18 Room Air 07:45 10/18/18 2.0 19:05 Intake and Output 10/20/18 10/20/18 10/21/18 1515:00 23:00 07:00 IntakeIntake Total 1200 ml 860 ml OutputOutput Total 2000 ml BalanceBalance 1200 ml -1140 ml Exam HEENT: Neck supple; no JVD; no LAD CVS: RRR, S1 and S2 CHEST: Decreased BS right side ABD: Soft, NT, + BS EXT: No c/c/e Results/Medications Result Diagram: 10/21/18 0327 10/21/18 0327 Results 24 hrs Laboratory Tests Test 10/20/18 17:36 10/20/18 21:24 10/21/18 03:27 10/21/18 08:27 Bedside Glucose 190 152 88 White Blood Count 11.4 H Red Blood Count 3.89 L Hemoglobin 10.6 L Hematocrit 33.9 L Mean Corpuscular 87.1 Volume Mean Corpuscular 27.2 L Hemoglobin Mean Corpuscular 31.3 L Hemoglobin Concent Red Cell 16.4 H Distribution Width Platelet Count 365 Mean Platelet Volume 8.7 Immature 1.100 H Granulocytes % Neutrophils % 76.3 Lymphocytes % 12.8 L Monocytes % 7.4 Eosinophils % 2.0 Basophils % 0.4 Nucleated Red Blood 0.0 Cells % Immature 0.120 H Granulocytes # Neutrophils # 8.7 H Lymphocytes # 1.5 Monocytes # 0.9 Eosinophils # 0.2 Basophils # 0.0 Nucleated Red Blood 0.0 Cells # Sodium Level 140 Potassium Level 4.1 Chloride Level 104 Carbon Dioxide Level 27 Anion Gap 9 Blood Urea Nitrogen 11 Creatinine 1.09 Est Glomerular > 60 Filtrat Rate mL/min Glucose Level 85 Calcium Level 9.2 Phosphorus Level 2.8 Magnesium Level 2.1 Total Bilirubin 0.4 Direct Bilirubin 0.00 Indirect Bilirubin 0.4 Aspartate Amino 21 Transf (AST/SGOT) Alanine 20 Aminotransferase (AL T/SGPT) Alkaline Phosphatase 125 H Total Protein 6.5 Albumin 3.0 L Globulin 3.50 H Albumin/Globulin 0.85 Ratio Procalcitonin 0.83 H Vancomycin Level 19.2 Trough Test 10/21/18 12:15 Bedside Glucose 153 Home Meds Reported Medications Cholecalciferol* (Vitamin D3*) 1,000 Unit Tablet, 1000 UNIT PO DAILY, TAB 10/14/18 Omeprazole* (Omeprazole*) 20 Mg Capsule.dr, 20 MG PO QAM, #30 CAP 10/14/18 Folic Acid* (Folic Acid*) 1 Mg Tablet, 1 MG PO DAILY for 90 Days, #90 10/14/18 Prednisone* (Prednisone*) 5 Mg Tab, 7.5 MG PO DAILY for 30 Days TAKE 1.5 TAB BY MOUTH DAILY 10/14/18 Clarithromycin* (Clarithromycin*) 500 Mg Tablet, 1000 MG PO DAILY for [id number] for 5 Days 10/14/18 Ethambutol Hcl (Ethambutol Hcl) 400 Mg Tablet, 800 MG PO DAILY for [id number] 10/14/18 Rifabutin (Rifabutin) 150 Mg Capsule, 300 MG PO DAILY for [id number] 10/14/18 Discontinued Reported Medications Omeprazole* (Omeprazole*) 20 Mg Capsule.dr, 20 MG PO DAILY, #30 CAP 10/14/18 Discontinued Scripts Ibuprofen* (Motrin*) 600 Mg Tab, 600 MG PO Q6, #30 TAB Prov:MANSI SHAH PA-C 11/06/17 Tramadol HCl (Tramadol HCl) 50 Mg Tablet, 50 MG PO Q6 PRN for PAIN, #20 TAB Prov:MANSI SHAH PA-C 11/06/17 Levofloxacin* (Levaquin*) 750 Mg Tablet, 750 MG PO DAILY for 5 Days, TAB Prov:VALENTINA OVALLE NP 08/08/15 Medications Current Medications Ondansetron HCl (Zofran Inj) 4 mg Q4H PRN IV nausea; Start 10/13/18 at 23:30 Zolpidem Tartrate (Ambien) 5 mg HS MAY REPEAT X 1 PRN PO INSOMNIA; Start 10/13/18 at 23:30 Folic Acid (Folic Acid) 1 mg DAILY PO Last administered on 10/21/18at 08:28; Admin Dose 1 MG; Start 10/14/18 at 09:00 Prednisone (Prednisone) 7.5 mg DAILY PO Last administered on 10/21/18at 08:28; Admin Dose 7.5 MG; Start 10/14/18 at 09:00 Insulin Aspart (Novolog Insulin Pen) NOVOLOG *MODERATE* ALGORITHM WITH MEALS BEDTIME SC Last administered on 10/21/18at 12:34; Admin Dose 2 UNIT; Start 10/14/18 at 11:50 Miscellaneous Information 1 ea NOTE XX ; Start 10/14/18 at 09:00 Glucose (Glutose) 15 gm Q15M PRN PO DECREASED GLUCOSE; Start 10/14/18 at 09:00 Glucose (Glutose) 22.5 gm Q15M PRN PO DECREASED GLUCOSE; Start 10/14/18 at 09:00 Dextrose (D50w Syringe) 25 ml Q15M PRN IV DECREASED GLUCOSE; Start 10/14/18 at 09:00 Dextrose (D50w Syringe) 50 ml Q15M PRN IV DECREASED GLUCOSE; Start 10/14/18 at 09:00 Glucagon (Glucagen) 1 mg Q15M PRN IM DECREASED GLUCOSE; Start 10/14/18 at 09:00 Glucose (Glutose) 15 gm Q15M PRN BUCCAL DECREASED GLUCOSE; Start 10/14/18 at 09:00 Rifabutin (Mycobutin) 150 mg MoWeFr@0900,2100 PO Last administered on 10/20/18at 21:15; Admin Dose 150 MG; Start 10/16/18 at 09:00 Clarithromycin (Biaxin) 500 mg MoWeFr@0900,2100 PO Last administered on 10/20/18 21:15; Admin Dose 500 MG; Start 10/16/18 at 09:00 Ethambutol HCl (Myambutol) 400 mg MoWeFr@0900,2100 PO Last administered on 10/20/18 21:15; Admin Dose 400 MG; Start 10/16/18 at 09:00 Acetaminophen (Tylenol Tab) 650 mg Q4H PRN PO MILD PAIN(1-3)OR ELEVATED TEMP Last administered on 10/21/18 08:29; Admin Dose 650 MG; Start 10/15/18 at 04:38 Pantoprazole (Protonix Tab) 40 mg DAILY@06 PO Last administered on 10/21/18 05:54; Admin Dose 40 MG; Start 10/16/18 at 13:55 Morphine Sulfate (morphine) 2 mg Q3H PRN IV SEVERE PAIN LEVEL 7-10 Last adminis tered on 10/18/18 16:40; Admin Dose 2 MG; Start 10/17/18 at 08:30 Meropenem/Sodium Chloride 50 ml @ 100 mls/hr Q8 IVPB Last administered on 10/21/18 05:55; Admin Dose 100 MLS/HR; Start 10/17/18 at 14:00 Aspirin (Aspirin) 81 mg DAILY PO Last administered on 10/21/18 08:28; Admin Dose 81 MG; Start 10/17/18 at 16:30 Benzonatate (Tessalon) 200 mg TID PRN PO cough Last administered on 10/18/18 15:00; Admin Dose 200 MG; Start 10/18/18 at 12:00 Fluconazole 200 ml @ 100 mls/hr Q24H IVPB Last administered on 10/20/18 12:32; Admin Dose 100 MLS/HR; Start 10/18/18 at 13:30 Diphenhydramine HCl (Benadryl) 25 mg Q6H PRN IV itching Last administered on 10/18/18 16:14; Admin Dose 25 MG; Start 10/18/18 at 18:00 Sodium Chloride 1,000 ml @ 100 mls/hr Q10H IV Last administered on 10/21/18 08:27; Admin Dose 100 MLS/HR; Start 10/18/18 at 21:00 Enoxaparin Sodium (Lovenox) 40 mg DAILY SC ; Start 10/22/18 at 09:00 Assessment/Plan Assessment/Plan (Daily) IMP: 1. Right Hydropneumothorax--s/p decortication. POD#0 2. 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 Anemia 4 FEN RECS: 1. Anti-mycobacterial therapy as per ID 2. F/U cultures and histology from VATS 3. Continue resp isolation for the time being 4. Post-operative care 5. Incentive spirometry 6. Titrate oxygen 35 min cc time PAT OQUENDO MD Oct 21, 2018 14:52
[2018-10-21] MEDS ORDERED: DIPHENHYDRAMINE 50 MG INJ IV PRN (15:00)
[2018-10-21] MEDS ORDERED: MIDAZOLAM 1 MG/ML 2 ML INJ IV PRN (15:00)
[2018-10-21] MEDS ORDERED: HYDROmorphONE 0.5 MG/0.5 ML SYG IV PRN ×3 (15:00)
[2018-10-21] MEDS ORDERED: MEPERIDINE 25 MG INJ IV PRN (15:00)
[2018-10-21] MEDS ORDERED: LABETALOL HCL 20MG INJ IV PRN (15:00)
[2018-10-21] MEDS ORDERED: ALBUTEROL 0.083% (NEB) 2.5 MG/3 ML AMP HHN PRN (15:00)
[2018-10-21] MEDS ORDERED: EPHEDrine 25 MG/5 ML SYG IV PRN (15:00)
[2018-10-21] MEDS ORDERED: hydrALAzine 20 MG INJ IV PRN (15:00)
[2018-10-21] MEDS: FLUCONAZOLE 400 MG/NS (PMX) 200 ML IVPB SCH (17:10)
[2018-10-21] MEDS: morphine 2 MG INJ IV PRN (20:05)
[2018-10-21] MEDS ORDERED: VANCOMYCIN HCL 1.25 GM in SOD CHLORIDE 0.9% 250 ML IVPB SCH (23:00)
[2018-10-22] VITALS (52 sets, daily range): BP systolic 123–162; BP diastolic 57–101; PULSE 85–114; RESP 12–34
[2018-10-22] MEDS: SOD CHLORIDE 0.9% 1,000 ML IV SCH ×3 (03:40→17:31)
[2018-10-22] MEDS: PANTOPRAZOLE (EC) 40 MG TAB PO SCH (05:46)
[2018-10-22] MEDS: MEROPENEM 1 GM/50ML(PMX) 50 ML IVPB SCH ×3 (05:46→21:09)
[2018-10-22] MEDS: morphine 2 MG INJ IV PRN (05:52)
[2018-10-22] MEDS: INSULIN ASPART [NOVOLOG] 3 ML PEN SC SCH ×4 (08:52→21:21)
[2018-10-22] MEDS: predniSONE 2.5 MG TAB PO SCH (08:55)
[2018-10-22] MEDS: FOLIC ACID 1 MG TAB PO SCH (08:55)
[2018-10-22] MEDS: ASPIRIN 81 MG TAB PO SCH (08:55)
[2018-10-22] MEDS: ENOXAPARIN 40 MG/0.4 ML SYG SC SCH (09:05)
--- NOTE | 2018-10-22 09:42 | CONS ---
[facility] HCIS Consult Follow-up Patient Name: Christian Hines Unit Number: [id number] Date of : 1960 Patient Status: Admitted Inpatient Attending Doctor: Kishor Hinds MD Edit: SALEEM MILLIGAN M.D. on 10/23/18 @ 16:59 Chel: I discussed the management with MAT MAKING MACHINE TENDER Araceli and agree Assessment/Plan Assessment/Plan Hospital Course (Demo Recall) - Sepsis 2/2 pneumonia and possible empyema - still with high fevers and tach ycardia - Recent MAC pneumonia; sputum cx grew normal resp kacey and C. albicans - Pneumothorax, s/p R thoracostomy tube placement 10/13/2018; chest tube had slipped out of pleural space and was removed on 10/17/2018 - Large right hydropneumothorax multiple air pockets within suspicious for empyema per CT - S/p successful CT guided placement of 10-Filipino drainage catheter in the right pleural space 10/18/2018 - "Sternum" AFB stain positive AFB smear 10/19/18 - s/p R sided decortication 10/21/18 - Erythematous mildly pruritic rash on pt's back, right knee, and right lateral abdomen 10/21/18 - JOHNNY on 10/18/2018 - resolved - Thrombosis of the right cephalic vein in the antecubital fossa per venous doppler on 10/17/2018 - DMT2 - RA - Immunocompromised status - Elevated alk phos -improving Recommendations: - Continue meropenem (10/17/2018-); S/p Zosyn (10/15/2018-10/17/2018); s/p vancomycin (10/15/2018-10/21/18); monitor renal function closely - Continue fluconazole (10/18/2018-) till cocci back; albeit that negative fungatell and crypto is somewhat reassuring - Continue clarithromycin, rifabutin, and ethambutol (10/14/2018-) - optho exam as outpatient and periodic ekg - Serial CXR - F/u coccidioides, Sputum AFB x3 (AFB x1 is negative); pleural fluid cultures (NGTD), MRSA screen (pending), AFB smear/cx, Fungal cx, cytology, anaerobic and aerobic cx VATS procedure (pending in process) - Obtain records from outpatient pulm (still pending) - requested again - Asked family to bring them in and/or have them faxed to our office. - Monitor rash - Airborne isolation Plan was d/w patient, RN at bedside, and with Dr. Milligan. Total critical care time spent: 45 minutes. Consultation Date/Type/Reason Admit Date/Time Oct 13, 2018 at 23:44 Initial Consult Date 10/16/18 Type of Consult ID Requesting Provider: KISHOR HINDS MD Date/Time of Note DATE: 10/22/18 TIME: 09:35 24 HR Interval Summary Free Text/Dictation S/p VATS yesterday. Patient states "I feel much better today." Reports he can take a deep breath now without coughing and he feels like he has increased level of energy. Also patient states that "I can't believe no fever this morning." He still reports a rash but states he has not been itching on the back, R knee, or abdomen, but that there is a new site of rash on the left inner thigh which is mildly pruritic. Denies sob, cp, n/v/d, dysuria. Exam/Review of Systems Exam Vitals Vital Signs Date Temp Pulse Resp B/P (MAP) Pulse Ox O2 O2 Flow FiO2 Time Delivery Rate 10/22/18 101 31 132/58 95 06:30 (82) 10/22/18 97.9 06:00 10/22/18 Nasal 4.0 04:30 Cannula Allergies Coded Allergies No Known Allergy (Unverified10/14/18) Intake and Output 10/21/18 10/21/18 10/22/18 1515:00 23:00 07:00 IntakeIntake Total 2535 ml 100 ml 1050 ml OutputOutput Total 2275 ml 545 ml 1270 ml BalanceBalance 260 ml -445 ml -220 ml Exam Constitutional: alert, oriented, well developed, other (sitting up in bed in NAD); No distress Psych: no complaints, nl mood/affect Head: normocephalic, atraumatic Eyes: nl conjunctiva, nl lids, nl sclera ENMT: nl external ears & nose, nl nasal mucosa & septum, mucosa pink and moist (No thrush) Neck: supple, non-tender Respiratory: clear to auscultation, normal air movement, diminished breath hansel nds (right), other (On RA, Chest Tube site is c/d/i with serosanguinous drainage); No labored breathing, No wheezing Cardiovascular: regular rate and rhythm, nl pulses; No edema Gastrointestinal: soft, non-tender, bowel sounds (normoactive); No distended, No tender Genitourinary - Male: other (bladder flat, no f/c) Musculoskeletal: nl extremities to inspection Extremities: normal pulses Neurological: BOAT PULLER 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, nl mental status, nl speech, nl strength Skin: nl turgor, rash or lesions (erythematous rash on back improved, erytha mtous scattered rash right abdomen, right knee, and left inner thigh) Results Result Diagram: 10/22/18 0434 10/22/18 0434 Results 24hrs Laboratory Tests Test 10/21/18 12:15 10/21/18 17:15 10/21/18 20:12 10/22/18 04:34 Bedside Glucose 153 212 204 White Blood Count 13.3 H Red Blood Count 3.71 L Hemoglobin 10.0 L Hematocrit 31.9 L Mean Corpuscular 86.0 Volume Mean Corpuscular 27.0 L Hemoglobin Mean Corpuscular 31.3 L Hemoglobin Concen t Red Cell 16.4 H Distribution Width Platelet Count 414 Mean Platelet 8.7 Volume Immature 0.800 H Granulocytes % Neutrophils % 93.2 H Lymphocytes % 4.4 L Monocytes % 1.4 Eosinophils % 0.0 Basophils % 0.2 Nucleated Red 0.0 Blood Cells % Immature 0.110 H Granulocytes # Neutrophils # 12.4 H Lymphocytes # 0.6 L Monocytes # 0.2 L Eosinophils # 0.0 Basophils # 0.0 Nucleated Red 0.0 Blood Cells # Sodium Level 136 Potassium Level 4.6 Chloride Level 102 Carbon Dioxide 25 Level Anion Gap 9 Blood Urea 17 Nitrogen Creatinine 0.97 Est Glomerular > 60 Filtrat Rate mL/min Glucose Level 166 Calcium Level 9.0 Test 10/22/18 05:00 10/22/18 08:48 Blood Gas Blood arterial Specimen Source Arterial Blood 10/22/2018 4:56:2 Date Drawn 3 AM Arterial Blood pH 7.433 (Temp corrected) Arterial Blood 34.9 L pCO2 (Temp correct) Arterial Blood 77.7 L pO2 (Temp corrected) Arterial Blood 22.8 HCO3 Arterial Blood -1.0 Base Excess Arterial Blood 95.1 Oxygen Saturation Rodney Test N/A Arterial Blood A-Line Gas Puncture Site Arterial 0.3 Blood Carboxyhemo globin Arterial Blood 0.1 Methemoglobin Blood Gas A-a O2 30.2 H Differential Oxyhemoglobin 94.7 Percent Blood Gas 37.0 Temperature Blood Gas ROOM AIR Modality FiO2 21.0 Blood Gas LW Notified Whom Blood Gas 10/22/2018 5:07:3 Notified Time 4 AM Bedside Glucose 180 Medications Medication Current Medications Ondansetron HCl (Zofran Inj) 4 mg Q4H PRN IV nausea; Start 10/13/18 at 23:30 Zolpidem Tartrate (Ambien) 5 mg HS MAY REPEAT X 1 PRN PO INSOMNIA; Start 10/13/18 at 23:30 Folic Acid (Folic Acid) 1 mg DAILY PO Last administered on 10/22/18at 08:55; Admin Dose 1 MG; Start 10/14/18 at 09:00 Prednisone (Prednisone) 7.5 mg DAILY PO Last administered on 10/22/18at 08:55; Admin Dose 7.5 MG; Start 10/14/18 at 09:00 Insulin Aspart (Novolog Insulin Pen) NOVOLOG *MODERATE* ALGORITHM WITH MEALS BEDTIME SC Last administered on 10/22/18at 08:52; Admin Dose 2 UNIT; Start 10/14/18 at 11:50 Miscellaneous Information 1 ea NOTE XX ; Start 10/14/18 at 09:00 Glucose (Glutose) 15 gm Q15M PRN PO DECREASED GLUCOSE; Start 10/14/18 at 09:00 Glucose (Glutose) 22.5 gm Q15M PRN PO DECREASED GLUCOSE; Start 10/14/18 at 09:00 Dextrose (D50w Syringe) 25 ml Q15M PRN IV DECREASED GLUCOSE; Start 10/14/18 at 09:00 Dextrose (D50w Syringe) 50 ml Q15M PRN IV DECREASED GLUCOSE; Start 10/14/18 at 09:00 Glucagon (Glucagen) 1 mg Q15M PRN IM DECREASED GLUCOSE; Start 10/14/18 at 09:00 Glucose (Glutose) 15 gm Q15M PRN BUCCAL DECREASED GLUCOSE; Start 10/14/18 at 09:00 Rifabutin (Mycobutin) 150 mg MoWeFr@0900,2100 PO Last administered on 10/20/18 21:15; Admin Dose 150 MG; Start 10/16/18 at 09:00 Clarithromycin (Biaxin) 500 mg MoWeFr@0900,2100 PO Last administered on 10/20/18 21:15; Admin Dose 500 MG; Start 10/16/18 at 09:00 Ethambutol HCl (Myambutol) 400 mg MoWeFr@0900,2100 PO Last administered on 10/20/18 21:15; Admin Dose 400 MG; Start 10/16/18 at 09:00 Acetaminophen (Tylenol Tab) 650 mg Q4H PRN PO MILD PAIN(1-3)OR ELEVATED TEMP Last administered on 10/21/18 08:29; Admin Dose 650 MG; Start 10/15/18 at 04:38 Pantoprazole (Protonix Tab) 40 mg DAILY@06 PO Last administered on 10/22/18 05:46; Admin Dose 40 MG; Start 10/16/18 at 13:55 Morphine Sulfate (morphine) 2 mg Q3H PRN IV SEVERE PAIN LEVEL 7-10 Last administered on 10/22/18 05:52; Admin Dose 2 MG; Start 10/17/18 at 08:30 Meropenem/Sodium Chloride 50 ml @ 100 mls/hr Q8 IVPB Last administered on 10/22/18 05:46; Admin Dose 100 MLS/HR; Start 10/17/18 at 14:00 Aspirin (Aspirin) 81 mg DAILY PO Last administered on 10/22/18 08:55; Admin Dose 81 MG; Start 10/17/18 at 16:30 Benzonatate (Tessalon) 200 mg TID PRN PO cough Last administered on 10/18/18 15:00; Admin Dose 200 MG; Start 10/18/18 at 12:00 Fluconazole 200 ml @ 100 mls/hr Q24H IVPB Last administered on 6/15/19at 17:10; Admin Dose 100 MLS/HR; Start 10/18/18 at 13:30 Diphenhydramine HCl (Benadryl) 25 mg Q6H PRN IV itching Last administered on 10/18/18at 16:14; Admin Dose 25 MG; Start 10/18/18 at 18:00 Sodium Chloride 1,000 ml @ 100 mls/hr Q10H IV Last administered on 10/22/18 03:40; Admin Dose 100 MLS/HR; Start 10/18/18 at 21:00 Enoxaparin Sodium (Lovenox) 40 mg DAILY SC Last administered on 10/22/18 09:05; Admin Dose 40 MG; Start 10/22/18 at 09:00 ENDER AVILA NP Oct 22, 2018 09:42
--- NOTE | 2018-10-22 11:39 | PN ---
Date/Time of Note Date/Time of Note DATE: 10/22/18 TIME: 11:37 Assessment/Plan VTE Prophylaxis Risk score (from Nsg)>0 risk: 3 SCD applied (from Nsg): Yes Pharmacological prophylaxis: LMWH Lines/Catheters IV Catheter Type (from Nrsg): A Line Urinary Cath still in place: Yes Reason Cath still needed: urinary retention Assessment/Plan Assessment/Plan 1. pulm: pod #1 R chest decortication for hydropneumothorax, chest tube per pulm/chest surg (b0 KIERAN pna, conbt current abx Result Diagram: 10/22/1843310/22/18433 Results 24hrs Laboratory Tests Test 10/21/18 12:15 10/21/18 17:15 10/21/18 20:12 10/22/18 04:34 Bedside Glucose 153 212 204 White Blood Count 13.3 H Red Blood Count 3.71 L Hemoglobin 10.0 L Hematocrit 31.9 L Mean Corpuscular 86.0 Volume Mean Corpuscular 27.0 L Hemoglobin Mean Corpuscular 31.3 L Hemoglobin Concen t Red Cell 16.4 H Distribution Width Platelet Count 414 Mean Platelet 8.7 Volume Immature 0.800 H Granulocytes % Neutrophils % 93.2 H Lymphocytes % 4.4 L Monocytes % 1.4 Eosinophils % 0.0 Basophils % 0.2 Nucleated Red 0.0 Blood Cells % Immature 0.110 H Granulocytes # Neutrophils # 12.4 H Lymphocytes # 0.6 L Monocytes # 0.2 L Eosinophils # 0.0 Basophils # 0.0 Nucleated Red 0.0 Blood Cells # Sodium Level 136 Potassium Level 4.6 Chloride Level 102 Carbon Dioxide 25 Level Anion Gap 9 Blood Urea 17 Nitrogen Creatinine 0.97 Est Glomerular > 60 Filtrat Rate mL/min Glucose Level 166 Calcium Level 9.0 Test 10/22/18 05:00 10/22/18 08:48 Blood Gas Blood arterial Specimen Source Arterial Blood 10/22/2018 4:56:2 Date Drawn 3 AM Arterial Blood pH 7.433 (Temp corrected) Arterial Blood 34.9 L pCO2 (Temp correct) Arterial Blood 77.7 L pO2 (Temp corrected) Arterial Blood 22.8 HCO3 Arterial Blood -1.0 Base Excess Arterial Blood 95.1 Oxygen Saturation Rodney Test N/A Arterial Blood A-Line Gas Puncture Site Arterial 0.3 Blood Carboxyhemo globin Arterial Blood 0.1 Methemoglobin Blood Gas A-a O2 30.2 H Differential Oxyhemoglobin 94.7 Percent Blood Gas 37.0 Temperature Blood Gas ROOM AIR Modality FiO2 21.0 Blood Gas LW Notified Whom Blood Gas 10/22/2018 5:07:3 Notified Time 4 AM Bedside Glucose 180 Subjective 24 Hr Interval Summary Free Text/Dictation no complaints, breathing well, pain controlled' Exam/Review of Systems Exam Vitals Vital Signs Date Temp Pulse Resp B/P (MAP) Pulse Ox O2 O2 Flow FiO2 Time Delivery Rate 10/22/18 108 22 135/80 96 Room Air 10:00 (98) 10/22/18 97.6 08:00 10/22/18 4.0 04:30 Intake and Output 10/21/18 10/21/18 10/22/18 1515:00 23:00 07:00 IntakeIntake Total 2535 ml 100 ml 1150 ml OutputOutput Total 2275 ml 545 ml 1310 ml BalanceBalance 260 ml -445 ml -160 ml Exam nad soft nt, ctab Results Results 24hrs Laboratory Tests Test 10/21/18 12:15 10/21/18 17:15 10/21/18 20:12 10/22/18 04:34 Bedside Glucose 153 212 204 White Blood Count 13.3 H Red Blood Count 3.71 L Hemoglobin 10.0 L Hematocrit 31.9 L Mean Corpuscular 86.0 Volume Mean Corpuscular 27.0 L Hemoglobin Mean Corpuscular 31.3 L Hemoglobin Concen t Red Cell 16.4 H Distribution Width Platelet Count 414 Mean Platelet 8.7 Volume Immature 0.800 H Granulocytes % Neutrophils % 93.2 H Lymphocytes % 4.4 L Monocytes % 1.4 Eosinophils % 0.0 Basophils % 0.2 Nucleated Red 0.0 Blood Cells % Immature 0.110 H Granulocytes # Neutrophils # 12.4 H Lymphocytes # 0.6 L Monocytes # 0.2 L Eosinophils # 0.0 Basophils # 0.0 Nucleated Red 0.0 Blood Cells # Sodium Level 136 Potassium Level 4.6 Chloride Level 102 Carbon Dioxide 25 Level Anion Gap 9 Blood Urea 17 Nitrogen Creatinine 0.97 Est Glomerular > 60 Filtrat Rate mL/min Glucose Level 166 Calcium Level 9.0 Test 10/22/18 05:00 10/22/18 08:48 Blood Gas Blood arterial Specimen Source Arterial Blood 10/22/2018 4:56:2 Date Drawn 3 AM Arterial Blood pH 7.433 (Temp corrected) Arterial Blood 34.9 L pCO2 (Temp correct) Arterial Blood 77.7 L pO2 (Temp corrected) Arterial Blood 22.8 HCO3 Arterial Blood -1.0 Base Excess Arterial Blood 95.1 Oxygen Saturation Rodney Test N/A Arterial Blood A-Line Gas Puncture Site Arterial 0.3 Blood Carboxyhemo globin Arterial Blood 0.1 Methemoglobin Blood Gas A-a O2 30.2 H Differential Oxyhemoglobin 94.7 Percent Blood Gas 37.0 Temperature Blood Gas ROOM AIR Modality FiO2 21.0 Blood Gas LW Notified Whom Blood Gas 10/22/2018 5:07:3 Notified Time 4 AM Bedside Glucose 180 Medications Medication Current Medications Ondansetron HCl (Zofran Inj) 4 mg Q4H PRN IV nausea; Start 10/13/18 at 23:30 Zolpidem Tartrate (Ambien) 5 mg HS MAY REPEAT X 1 PRN PO INSOMNIA; Start 10/13/18 at 23:30 Folic Acid (Folic Acid) 1 mg DAILY PO Last administered on 10/22/18at 08:55; Admin Dose 1 MG; Start 10/14/18 at 09:00 Prednisone (Prednisone) 7.5 mg DAILY PO Last administered on 10/22/18at 08:55; Admin Dose 7.5 MG; Start 10/14/18 at 09:00 Insulin Aspart (Novolog Insulin Pen) NOVOLOG *MODERATE* ALGORITHM WITH MEALS BEDTIME SC Last administered on 10/22/18at 08:52; Admin Dose 2 UNIT; Start 10/14/18 at 11:50 Miscellaneous Information 1 ea NOTE XX ; Start 10/14/18 at 09:00 Glucose (Glutose) 15 gm Q15M PRN PO DECREASED GLUCOSE; Start 10/14/18 at 09:00 Glucose (Glutose) 22.5 gm Q15M PRN PO DECREASED GLUCOSE; Start 10/14/18 at 09:00 Dextrose (D50w Syringe) 25 ml Q15M PRN IV DECREASED GLUCOSE; Start 10/14/18 at 09:00 Dextrose (D50w Syringe) 50 ml Q15M PRN IV DECREASED GLUCOSE; Start 10/14/18 at 09:00 Glucagon (Glucagen) 1 mg Q15M PRN IM DECREASED GLUCOSE; Start 10/14/18 at 09:00 Glucose (Glutose) 15 gm Q15M PRN BUCCAL DECREASED GLUCOSE; Start 10/14/18 at 09:00 Rifabutin (Mycobutin) 150 mg MoWeFr@0900,2100 PO Last administered on 10/20/18 21:15; Admin Dose 150 MG; Start 10/16/18 at 09:00 Clarithromycin (Biaxin) 500 mg MoWeFr@0900,2100 PO Last administered on 10/20/18 21:15; Admin Dose 500 MG; Start 10/16/18 at 09:00 Ethambutol HCl (Myambutol) 400 mg MoWeFr@0900,2100 PO Last administered on 10/20/18 21:15; Admin Dose 400 MG; Start 10/16/18 at 09:00 Acetaminophen (Tylenol Tab) 650 mg Q4H PRN PO MILD PAIN(1-3)OR ELEVATED TEMP Last administered on 10/21/18 08:29; Admin Dose 650 MG; Start 10/15/18 at 04:38 Pantoprazole (Protonix Tab) 40 mg DAILY@06 PO Last administered on 10/22/18 05:46; Admin Dose 40 MG; Start 10/16/18 at 13:55 Morphine Sulfate (morphine) 2 mg Q3H PRN IV SEVERE PAIN LEVEL 7-10 Last administered on 10/22/18 05:52; Admin Dose 2 MG; Start 10/17/18 at 08:30 Meropenem/Sodium Chloride 50 ml @ 100 mls/hr Q8 IVPB Last administered on 10/22/18 05:46; Admin Dose 100 MLS/HR; Start 10/17/18 at 14:00 Aspirin (Aspirin) 81 mg DAILY PO Last administered on 10/22/18 08:55; Admin Dose 81 MG; Start 10/17/18 at 16:30 Benzonatate (Tessalon) 200 mg TID PRN PO cough Last administered on 10/18/18 15:00; Admin Dose 200 MG; Start 10/18/18 at 12:00 Fluconazole 200 ml @ 100 mls/hr Q24H IVPB Last administered on 10/21/18at 17:10; Admin Dose 100 MLS/HR; Start 10/18/18 at 13:30 Diphenhydramine HCl (Benadryl) 25 mg Q6H PRN IV itching Last administered on 10/18/18at 16:14; Admin Dose 25 MG; Start 10/18/18 at 18:00 Sodium Chloride 1,000 ml @ 100 mls/hr Q10H IV Last administered on 10/22/18at 03:40; Admin Dose 100 MLS/HR; Start 10/18/18 at 21:00 Enoxaparin Sodium (Lovenox) 40 mg DAILY SC Last administered on 10/22/18at 09:05; Admin Dose 40 MG; Start 10/22/18 at 09:00 MARTIN WASHINGTON MD Oct 22, 2018 11:39
[2018-10-22] MEDS ORDERED: SOD CHLORIDE 0.9% 1,000 ML IV ONE (12:00)
[2018-10-22] MEDS: FLUCONAZOLE 400 MG/NS (PMX) 200 ML IVPB SCH (13:31)
--- NOTE | 2018-10-22 13:51 | CONS ---
Consult Date/Type/Reason Admit Date/Time Oct 13, 2018 at 23:44 Initial Consult Date 10/17/18 Type of Consultation: Pulm/CCM Requesting Provider: KAREN HINDS MD Date/Time of Note DATE: 10/22/18 TIME: 13:42 Subjective Doing well post-operative; weaned off oxygen. Objective Vitals Vital Signs Date Temp Pulse Resp B/P (MAP) Pulse Ox O2 O2 Flow FiO2 Time Delivery Rate 10/22/18 102 12:00 10/22/18 22 135/80 96 Room Air 10:00 (98) 10/22/18 97.6 08:00 10/22/18 4.0 04:30 Intake and Output 10/21/18 10/21/18 10/22/18 1515:00 23:00 07:00 IntakeIntake Total 2535 ml 100 ml 1150 ml OutputOutput Total 2275 ml 545 ml 1310 ml BalanceBalance 260 ml -445 ml -160 ml Exam HEENT: Neck supple; no JVD; no LAD CVS: RRR, S1 and S2 CHEST: Decreased BS right side ~ 1/[address] up ABD: Soft, NT, + BS EXT: No c/c/e Results/Medications Result Diagram: 10/22/18 0434 10/22/18 0434 Results 24 hrs Laboratory Tests Test 10/21/18 17:15 10/21/18 20:12 10/22/18 04:34 10/22/18 05:00 Bedside Glucose 212 204 White Blood Count 13.3 H Red Blood Count 3.71 L Hemoglobin 10.0 L Hematocrit 31.9 L Mean Corpuscular 86.0 Volume Mean Corpuscular 27.0 L Hemoglobin Mean Corpuscular 31.3 L Hemoglobin Concen t Red Cell 16.4 H Distribution Width Platelet Count 414 Mean Platelet 8.7 Volume Immature 0.800 H Granulocytes % Neutrophils % 93.2 H Lymphocytes % 4.4 L Monocytes % 1.4 Eosinophils % 0.0 Basophils % 0.2 Nucleated Red 0.0 Blood Cells % Immature 0.110 H Granulocytes # Neutrophils # 12.4 H Lymphocytes # 0.6 L Monocytes # 0.2 L Eosinophils # 0.0 Basophils # 0.0 Nucleated Red 0.0 Blood Cells # Sodium Level 136 Potassium Level 4.6 Chloride Level 102 Carbon Dioxide 25 Level Anion Gap 9 Blood Urea 17 Nitrogen Creatinine 0.97 Est Glomerular > 60 Filtrat Rate mL/min Glucose Level 166 Calcium Level 9.0 Blood Gas Blood arterial Specimen Source Arterial Blood 10/22/2018 4:56:2 Date Drawn 3 AM Arterial Blood pH 7.433 (Temp corrected) Arterial Blood 34.9 L pCO2 (Temp correct) Arterial Blood 77.7 L pO2 (Temp corrected) Arterial Blood 22.8 HCO3 Arterial Blood -1.0 Base Excess Arterial Blood 95.1 Oxygen Saturation Rodney Test N/A Arterial Blood A-Line Gas Puncture Site Arterial 0.3 Blood Carboxyhemo globin Arterial Blood 0.1 Methemoglobin Blood Gas A-a O2 30.2 H Differential Oxyhemoglobin 94.7 Percent Blood Gas 37.0 Temperature Blood Gas ROOM AIR Modality FiO2 21.0 Blood Gas LW Notified Whom Blood Gas 10/22/2018 5:07:3 Notified Time 4 AM Test 10/22/18 08:48 10/22/18 12:28 Bedside Glucose 180 175 Home Meds Reported Medications Cholecalciferol* (Vitamin D3*) 1,000 Unit Tablet, 1000 UNIT PO DAILY, TAB 10/14/18 Omeprazole* (Omeprazole*) 20 Mg Capsule.dr, 20 MG PO QAM, #30 CAP 10/14/18 Folic Acid* (Folic Acid*) 1 Mg Tablet, 1 MG PO DAILY for 90 Days, #90 10/14/18 Prednisone* (Prednisone*) 5 Mg Tab, 7.5 MG PO DAILY for 30 Days TAKE 1.5 TAB BY MOUTH DAILY 10/14/18 Clarithromycin* (Clarithromycin*) 500 Mg Tablet, 1000 MG PO DAILY for [id number] for 5 Days 10/14/18 Ethambutol Hcl (Ethambutol Hcl) 400 Mg Tablet, 800 MG PO DAILY for [id number] 10/14/18 Rifabutin (Rifabutin) 150 Mg Capsule, 300 MG PO DAILY for [id number] 10/14/18 Medications Current Medications Ondansetron HCl (Zofran Inj) 4 mg Q4H PRN IV nausea; Start 10/13/18 at 23:30 Zolpidem Tartrate (Ambien) 5 mg HS MAY REPEAT X 1 PRN PO INSOMNIA; Start 10/13/18 at 23:30 Folic Acid (Folic Acid) 1 mg DAILY PO Last administered on 10/22/18at 08:55; Admin Dose 1 MG; Start 10/14/18 at 09:00 Prednisone (Prednisone) 7.5 mg DAILY PO Last administered on 10/22/18 08:55; Admin Dose 7.5 MG; Start 10/14/18 at 09:00 Insulin Aspart (Novolog Insulin Pen) NOVOLOG *MODERATE* ALGORITHM WITH MEALS BEDTIME SC Last administered on 10/22/18 12:35; Admin Dose 2 UNIT; Start 10/14/18 at 11:50 Miscellaneous Information 1 ea NOTE XX ; Start 10/14/18 at 09:00 Glucose (Glutose) 15 gm Q15M PRN PO DECREASED GLUCOSE; Start 10/14/18 at 09:00 Glucose (Glutose) 22.5 gm Q15M PRN PO DECREASED GLUCOSE; Start 10/14/18 at 09:00 Dextrose (D50w Syringe) 25 ml Q15M PRN IV DECREASED GLUCOSE; Start 10/14/18 at 09:00 Dextrose (D50w Syringe) 50 ml Q15M PRN IV DECREASED GLUCOSE; Start 10/14/18 at 09:00 Glucagon (Glucagen) 1 mg Q15M PRN IM DECREASED GLUCOSE; Start 10/14/18 at 09:00 Glucose (Glutose) 15 gm Q15M PRN BUCCAL DECREASED GLUCOSE; Start 10/14/18 at 09:00 Rifabutin (Mycobutin) 150 mg MoWeFr@0900,2100 PO Last administered on 10/20/18 21:15; Admin Dose 150 MG; Start 10/16/18 at 09:00 Clarithromycin (Biaxin) 500 mg MoWeFr@0900,2100 PO Last administered on 21:15; Admin Dose 500 MG; Start 10/16/18 at 09:00 Ethambutol HCl (Myambutol) 400 mg MoWeFr@0900,2100 PO Last administered on 10/20/18 21:15; Admin Dose 400 MG; Start 10/16/18 at 09:00 Acetaminophen (Tylenol Tab) 650 mg Q4H PRN PO MILD PAIN(1-3)OR ELEVATED TEMP Last administered on 10/21/18 08:29; Admin Dose 650 MG; Start 10/15/18 at 04:38 Pantoprazole (Protonix Tab) 40 mg DAILY@06 PO Last administered on 10/22/18 05:46; Admin Dose 40 MG; Start 10/16/18 at 13:55 Morphine Sulfate (morphine) 2 mg Q3H PRN IV SEVERE PAIN LEVEL 7-10 Last administered on 10/22/18 05:52; Admin Dose 2 MG; Start 10/17/18 at 08:30 Meropenem/Sodium Chloride 50 ml @ 100 mls/hr Q8 IVPB Last administered on 10/22/18 05:46; Admin Dose 100 MLS/HR; Start 10/17/18 at 14:00 Aspirin (Aspirin) 81 mg DAILY PO Last administered on 10/22/18 08:55; Admin Dose 81 MG; Start 10/17/18 at 16:30 Benzonatate (Tessalon) 200 mg TID PRN PO cough Last administered on 10/18/18 15:00; Admin Dose 200 MG; Start 10/18/18 at 12:00 Fluconazole 200 ml @ 100 mls/hr Q24H IVPB Last administered on 10/22/18 13:31; Admin Dose 100 MLS/HR; Start 10/18/18 at 13:30 Diphenhydramine HCl (Benadryl) 25 mg Q6H PRN IV itching Last administered on 10/18/18 16:14; Admin Dose 25 MG; Start 10/18/18 at 18:00 Sodium Chloride 1,000 ml @ 100 mls/hr Q10H IV Last administered on 10/22/18 03:40; Admin Dose 100 MLS/HR; Start 10/18/18 at 21:00 Enoxaparin Sodium (Lovenox) 40 mg DAILY SC Last administered on 10/22/18 09:05; Admin Dose 40 MG; Start 10/22/18 at 09:00 Assessment/Plan Assessment/Plan (Daily) Results/Medications Result Diagram: 10/21/1832610/21/18326 IMP: 1. Right Hydropneumothorax--s/p decortication. POD#0 2. 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 Anemia 4 FEN RECS: 1. Anti-mycobacterial therapy as per ID 2. F/U cultures and histology from [facility] 3. Continue resp isolation for the time being 4. Post-operative care 5. Incentive spirometry 10 efforts per hour while awake 6. Titrate oxygen--> off 7. Okay for telemetry from pulm standpoint 35 min cc time PAT OQUENDO MD Oct 22, 2018 13:51
[2018-10-23] VITALS (16 sets, daily range): BP systolic 130–144; BP diastolic 72–96; PULSE 89–225; RESP 16–26
[2018-10-23] MEDS: SOD CHLORIDE 0.9% 1,000 ML IV SCH ×4 (01:00→20:23)
[2018-10-23] MEDS: morphine 2 MG INJ IV PRN ×2 (02:02→09:36)
[2018-10-23] MEDS: PANTOPRAZOLE (EC) 40 MG TAB PO SCH (05:31)
[2018-10-23] MEDS: MEROPENEM 1 GM/50ML(PMX) 50 ML IVPB SCH ×2 (05:32→15:21)
[2018-10-23] MEDS: INSULIN ASPART [NOVOLOG] 3 ML PEN SC SCH ×4 (07:35→20:23)
[2018-10-23] MEDS: ASPIRIN 81 MG TAB PO SCH (09:17)
[2018-10-23] MEDS: FOLIC ACID 1 MG TAB PO SCH (09:20)
[2018-10-23] MEDS: predniSONE 2.5 MG TAB PO SCH (09:20)
[2018-10-23] MEDS: ENOXAPARIN 40 MG/0.4 ML SYG SC SCH (09:30)
--- NOTE | 2018-10-23 11:14 | PN ---
Date/Time of Note Date/Time of Note DATE: 10/23/18 TIME: 11:13 Assessment/Plan Lines/Catheters IV Catheter Type (from Nrsg): Peripheral IV Retana in Place (from Nrsg): No Assessment/Plan Assessment/Plan Status post right video-assisted thoracic surgery pulmonary decortication Chest tube still with 170 cc of output Continue chest tube suction [place] toilet Biotics Check cultures Subjective 24 Hr Interval Summary Constitutional: improved Pain Control: mild Exam/Review of Systems Vital Signs Vitals Vital Signs Date Temp Pulse Resp B/P (MAP) Pulse Ox O2 O2 Flow FiO2 Time Delivery Rate 10/23/18 98.0 104 20 141/88 94 Room Air 10:10 (105) 10/22/18 4.0 04:30 Intake and Output 10/22/18 10/22/18 10/23/18 1515:00 23:00 07:00 IntakeIntake Total 1840 ml 1450 ml 1620 ml OutputOutput Total 560 ml 1250 ml 390 ml BalanceBalance 1280 ml 200 ml 1230 ml Exam Eyes: nl conjunctiva, EOMI, nl lids, nl sclera ENMT: nl external ears & nose, nl lips & teeth, nl nasal mucosa & septum, mucosa pink and moist Neck: supple, non-tender Respiratory: clear to auscultation, normal air movement Cardiovascular: regular rate and rhythm, nl pulses Gastrointestinal: soft, nl liver, spleen, non-tender Musculoskeletal: nl extremities to inspection, nl gait and stance Results Result Diagram: 10/23/18 0500 10/23/18 0500 JOSEPH VALADEZ MD Oct 23, 2018 11:14
[2018-10-23] MEDS: CLARITHROMYCIN 500 MG TAB PO SCH ×2 (11:16→20:24)
[2018-10-23] MEDS: ETHAMBUTOL 400 MG TAB PO SCH ×2 (11:16→20:24)
[2018-10-23] MEDS: RIFABUTIN 150 MG CAP PO SCH ×2 (11:17→20:24)
--- NOTE | 2018-10-23 11:27 | PN ---
Date/Time of Note Date/Time of Note DATE: 10/23/18 TIME: 11:25 Subjective Chart was reviewed. Doing well. No shortness of breath. Objective Vitals Vital Signs Date Temp Pulse Resp B/P (MAP) Pulse Ox O2 O2 Flow FiO2 Time Delivery Rate 10/23/18 98.0 104 20 141/88 94 Room Air 10:10 (105) 10/22/18 4.0 04:30 Intake and Output 10/22/18 10/22/18 10/23/18 1515:00 23:00 07:00 IntakeIntake Total 1840 ml 1450 ml 1620 ml OutputOutput Total 560 ml 1250 ml 390 ml BalanceBalance 1280 ml 200 ml 1230 ml Right-sided rhonchi. Chest tube in place Regular rate and rhythm Soft nontender nondistended normoactive bowel sounds No edema Nonfocal Results Result Diagram: 10/23/18 0500 10/23/18 0500 Medications Medications Current Medications Ondansetron HCl (Zofran Inj) 4 mg Q4H PRN IV nausea; Start 10/13/18 at 23:30 Zolpidem Tartrate (Ambien) 5 mg HS MAY REPEAT X 1 PRN PO INSOMNIA; Start 10/13/18 at 23:30 Folic Acid (Folic Acid) 1 mg DAILY PO Last administered on 10/23/18at 09:20; Admin Dose 1 MG; Start 10/14/18 at 09:00 Prednisone (Prednisone) 7.5 mg DAILY PO Last administered on 10/23/18at 09:20; Admin Dose 7.5 MG; Start 10/14/18 at 09:00 Insulin Aspart (Novolog Insulin Pen) NOVOLOG *MODERATE* ALGORITHM WITH MEALS BEDTIME SC Last administered on 10/22/18at 21:21; Admin Dose 2 UNIT; Start 10/14/18 at 11:50 Miscellaneous Information 1 ea NOTE XX ; Start 10/14/18 at 09:00 Glucose (Glutose) 15 gm Q15M PRN PO DECREASED GLUCOSE; Start 10/14/18 at 09:00 Glucose (Glutose) 22.5 gm Q15M PRN PO DECREASED GLUCOSE; Start 10/14/18 at 09:00 Dextrose (D50w Syringe) 25 ml Q15M PRN IV DECREASED GLUCOSE; Start 10/14/18 at 09:00 Dextrose (D50w Syringe) 50 ml Q15M PRN IV DECREASED GLUCOSE; Start 10/14/18 at 09:00 Glucagon (Glucagen) 1 mg Q15M PRN IM DECREASED GLUCOSE; Start 10/14/18 at 09:00 Glucose (Glutose) 15 gm Q15M PRN BUCCAL DECREASED GLUCOSE; Start 10/14/18 at 09:00 Rifabutin (Mycobutin) 150 mg MoWeFr@0900,2100 PO Last administered on 10/23/18 11:17; Admin Dose 150 MG; Start 10/16/18 at 09:00 Clarithromycin (Biaxin) 500 mg MoWeFr@0900,2100 PO Last administered on 10/23/18 11:16; Admin Dose 500 MG; Start 10/16/18 at 09:00 Ethambutol HCl (Myambutol) 400 mg MoWeFr@0900,2100 PO Last administered on 10/23/18 11:16; Admin Dose 400 MG; Start 10/16/18 at 09:00 Acetaminophen (Tylenol Tab) 650 mg Q4H PRN PO MILD PAIN(1-3)OR ELEVATED TEMP Last administered on 10/21/18 08:29; Admin Dose 650 MG; Start 10/15/18 at 04:38 Pantoprazole (Protonix Tab) 40 mg DAILY@06 PO Last administered on 10/23/18 05:31; Admin Dose 40 MG; Start 10/16/18 at 13:55 Morphine Sulfate (morphine) 2 mg Q3H PRN IV SEVERE PAIN LEVEL 7-10 Last administered on 10/23/18 09:36; Admin Dose 2 MG; Start 10/17/18 at 08:30 Meropenem/Sodium Chloride 50 ml @ 100 mls/hr Q8 IVPB Last administered on 10/23/18 05:32; Admin Dose 100 MLS/HR; Start 10/17/18 at 14:00 Aspirin (Aspirin) 81 mg DAILY PO Last administered on 10/23/18 09:17; Admin Dose 81 MG; Start 10/17/18 at 16:30 Benzonatate (Tessalon) 200 mg TID PRN PO cough Last administered on 10/18/18at 15:00; Admin Dose 200 MG; Start 10/18/18 at 12:00 Fluconazole 200 ml @ 100 mls/hr Q24H IVPB Last administered on 10/22/18 13:31; Admin Dose 100 MLS/HR; Start 10/18/18 at 13:30 Diphenhydramine HCl (Benadryl) 25 mg Q6H PRN IV itching Last administered on 10/18/18at 16:14; Admin Dose 25 MG; Start 10/18/18 at 18:00 Sodium Chloride 1,000 ml @ 100 mls/hr Q10H IV Last administered on 10/23/18 03:52; Admin Dose 100 MLS/HR; Start 10/18/18 at 21:00 Enoxaparin Sodium (Lovenox) 40 mg DAILY SC Last administered on 10/23/18 09:30; Admin Dose 40 MG; Start 10/22/18 at 09:00 VTE Prophylaxis Risk score (from Ns)>0 risk: 7 SCD applied (from [facility] [place]): Yes Lines/Catheters IV Catheter Type: Saline Lock Retana in Place: No Assessment/Plan Assessment/Plan 58-year-old male with persistent right hydropneumothorax Status post right-sided VATS and decortication MAC pneumonia Continue antibiotics Chest tube to drainage Cardiothoracic, pulmonary, and ID follow-up KAREN HINDS MD Oct 23, 2018 11:27
[2018-10-23] MEDS: FLUCONAZOLE 400 MG/NS (PMX) 200 ML IVPB SCH (12:51)
--- NOTE | 2018-10-23 18:09 | CONS ---
Assessment/Plan Assessment/Plan Hospital Course (Demo Recall) - Sepsis 2/2 pneumonia and possible empyema - Recent diagnosis of MAC pneumonia; one of the "Sternum" sample on 10/19/2018 has 1+ AFB on smear - Pneumothorax, s/p R thoracostomy tube placement 10/13/2018; chest tube had slipped out of pleural space and was removed on 10/17/2018 - Large right hydropneumothorax multiple air pockets within suspicious for empyema per CT - S/p successful CT guided placement of 10-Serbian drainage catheter in R pleural space 10/18/2018 - s/p R sided decortication 10/21/18 - Erythematous mildly pruritic rash on the back, trunk and extremities, possibly due to rifabutin - poor appetite, possibly related to clarithromycin - JOHNNY on 10/18/2018 - resolved - Thrombosis of the right cephalic vein in the antecubital fossa per venous doppler on 10/17/2018 - DMT2 - RA - Immunocompromised status - Elevated alk phos -improving - so far he took: meropenem (10/17/2018-10/23/2018), pip/tazo (10/15/2018- 10/17/2018), vancomycin (10/15/2018-10/21/18) recommendations: - F/u coccidioides, Sputum AFB x3 (AFB x1 is negative); pleural fluid cultures (NGTD), AFB smear/cx, Fungal cx, cytology, anaerobic and aerobic, culture - will d/c meropenem - Continue fluconazole (10/18/2018-) until coccidioides serolog is back - Continue clarithromycin, rifabutin, and ethambutol (10/14/2018-) - I recommend Pt be referred to an ophtho for eye exam while Pt's taking ethambutol as outpatient - we attempted to obtain records from outpatient pulm; but not received yet. I may communicate directly with his ID or pulm specialist - the rash may be caused by rifabutin. Pt says it is is getting better and so we will continue three drug regimen for MAC. I plan to communicate with his ID specialist to coordinate his MAC treatment - Airborne isolation management d/w Pt and his in detail the total time I took to care for this Pt today was from 1700 to 174 Consultation Date/Type/Reason Admit Date/Time Oct 13, 2018 at 23:44 Initial Consult Date 10/17/18 Requesting Provider: KAREN HINDS MD Date/Time of Note DATE: 10/23/18 TIME: 17:59 24 HR Interval Summary Constitutional: improved, other (poor PO intake) Detailed Summary Eyes: no complaints ENT: no complaints Respiratory: shortness of breath, wheezing Cardiovascular: no complaints Gastrointestinal: decreased appetite, passing stool; No pain, No constipation, No diarrhea, No nausea Genitourinary: no complaints Musculoskeletal: no complaints Skin: pruritis (improved compared to before), rash Neurologic: no complaints Exam/Review of Systems Exam Vitals Vital Signs Date Temp Pulse Resp B/P (MAP) Pulse Ox O2 O2 Flow FiO2 Time Delivery Rate 10/23/18 99.2 98 18 137/82 98 16:47 (100) 10/23/18 Room Air 10:10 10/22/18 4.0 04:30 Intake and Output 10/22/18 10/22/18 10/23/18 1515:00 23:00 07:00 IntakeIntake Total 1840 ml 1450 ml 1620 ml OutputOutput Total 560 ml 1250 ml 390 ml BalanceBalance 1280 ml 200 ml 1230 ml Constitutional: alert, oriented, frail Psych: no complaints, nl mood/affect Head: normocephalic, atraumatic Eyes: nl conjunctiva, nl lids, nl sclera; No icteric ENMT: nl external ears & nose, nl nasal mucosa & septum, mucosa pink and moist Neck: supple; No masses Respiratory: wheezing (R>L), other (chest tube on R side) Cardiovascular: regular rate and rhythm Gastrointestinal: soft, non-tender, bowel sounds; No distended Musculoskeletal: nl extremities to inspection Extremities: No edema Neurological: 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 INSTRUCTOR 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, nl mental status, nl speech, nl strength Skin: rash or lesions (macular rash on the trunk, less intense on extremities and back) Results Result Diagram: 10/23/18 0500 10/23/18 0500 Results 24hrs Laboratory Tests Test 10/22/18 21:07 10/23/18 05:00 10/23/18 09:04 10/23/18 11:46 Bedside Glucose 230 H 131 182 White Blood Count 16.4 #H Red Blood Count 3.69 L Hemoglobin 10.1 L Hematocrit 32.0 L Mean Corpuscular 86.7 Volume Mean Corpuscular 27.4 L Hemoglobin Mean Corpuscular 31.6 L Hemoglobin Concent Red Cell 16.3 H Distribution Width Platelet Count 479 H Mean Platelet Volume 8.8 Immature 0.900 H Granulocytes % Neutrophils % 85.6 H Lymphocytes % 5.8 L Monocytes % 5.1 Eosinophils % 2.3 Basophils % 0.3 Nucleated Red Blood 0.0 Cells % Immature 0.150 H Granulocytes # Neutrophils # 14.1 H Lymphocytes # 1.0 Monocytes # 0.8 Eosinophils # 0.4 Basophils # 0.1 Nucleated Red Blood 0.0 Cells # Sodium Level 138 Potassium Level 4.1 Chloride Level 107 Carbon Dioxide Level 27 Anion Gap 4 L Blood Urea Nitrogen 19 Creatinine 0.88 Est Glomerular > 60 Filtrat Rate mL/min Glucose Level 168 Calcium Level 8.6 Test 10/23/18 17:41 Bedside Glucose 176 Medications Medication Current Medications Ondansetron HCl (Zofran Inj) 4 mg Q4H PRN IV nausea; Start 10/13/18 at 23:30 Zolpidem Tartrate (Ambien) 5 mg HS MAY REPEAT X 1 PRN PO INSOMNIA; Start 10/13/18 at 23:30 Folic Acid (Folic Acid) 1 mg DAILY PO Last administered on 10/23/18at 09:20; Admin Dose 1 MG; Start 10/14/18 at 09:00 Prednisone (Prednisone) 7.5 mg DAILY PO Last administered on 10/23/18at 09:20; Admin Dose 7.5 MG; Start 10/14/18 at 09:00 Insulin Aspart (Novolog Insulin Pen) NOVOLOG *MODERATE* ALGORITHM WITH MEALS BEDTIME SC Last administered on 10/23/18at 12:28; Admin Dose 4 UNIT; Start 10/14/18 at 11:50 Miscellaneous Information 1 ea NOTE XX ; Start 10/14/18 at 09:00 Glucose (Glutose) 15 gm Q15M PRN PO DECREASED GLUCOSE; Start 10/14/18 at 09:00 Glucose (Glutose) 22.5 gm Q15M PRN PO DECREASED GLUCOSE; Start 10/14/18 at 09:00 Dextrose (D50w Syringe) 25 ml Q15M PRN IV DECREASED GLUCOSE; Start 10/14/18 at 09:00 Dextrose (D50w Syringe) 50 ml Q15M PRN IV DECREASED GLUCOSE; Start 10/14/18 at 09:00 Glucagon (Glucagen) 1 mg Q15M PRN IM DECREASED GLUCOSE; Start 10/14/18 at 09:00 Glucose (Glutose) 15 gm Q15M PRN BUCCAL DECREASED GLUCOSE; Start 10/14/18 at 09:00 Rifabutin (Mycobutin) 150 mg MoWeFr@0900,2100 PO Last administered on 10/23/18 11:17; Admin Dose 150 MG; Start 10/16/18 at 09:00 Clarithromycin (Biaxin) 500 mg MoWeFr@0900,2100 PO Last administered on 10/23/18 11:16; Admin Dose 500 MG; Start 10/16/18 at 09:00 Ethambutol HCl (Myambutol) 400 mg MoWeFr@0900,2100 PO Last administered on 10/23/18 11:16; Admin Dose 400 MG; Start 10/16/18 at 09:00 Acetaminophen (Tylenol Tab) 650 mg Q4H PRN PO MILD PAIN(1-3)OR ELEVATED TEMP Last administered on 10/21/18 08:29; Admin Dose 650 MG; Start 10/15/18 at 04:38 Pantoprazole (Protonix Tab) 40 mg DAILY@06 PO Last administered on 10/23/18 05:31; Admin Dose 40 MG; Start 10/16/18 at 13:55 Morphine Sulfate (morphine) 2 mg Q3H PRN IV SEVERE PAIN LEVEL 7-10 Last administered on 10/23/18 09:36; Admin Dose 2 MG; Start 10/17/18 at 08:30 Meropenem/Sodium Chloride 50 ml @ 100 mls/hr Q8 IVPB Last administered on 10/23/18 15:21; Admin Dose 100 MLS/HR; Start 10/17/18 at 14:00 Aspirin (Aspirin) 81 mg DAILY PO Last administered on 10/23/18 09:17; Admin Dose 81 MG; Start 10/17/18 at 16:30 Benzonatate (Tessalon) 200 mg TID PRN PO cough Last administered on 10/18/18 15:00; Admin Dose 200 MG; Start 10/18/18 at 12:00 Fluconazole 200 ml @ 100 mls/hr Q24H IVPB Last administered on 10/23/18 12:51; Admin Dose 100 MLS/HR; Start 10/18/18 at 13:30 Diphenhydramine HCl (Benadryl) 25 mg Q6H PRN IV itching Last administered on 10/18/18 16:14; Admin Dose 25 MG; Start 10/18/18 at 18:00 Sodium Chloride 1,000 ml @ 100 mls/hr Q10H IV Last administered on 10/23/18 11:45; Admin Dose 100 MLS/HR; Start 10/18/18 at 21:00 Enoxaparin Sodium (Lovenox) 40 mg DAILY SC Last administered on 10/23/18 09:30; Admin Dose 40 MG; Start 10/22/18 at 09:00 SALEEM MAST M.D. Oct 23, 2018 18:09
[2018-10-24] VITALS (12 sets, daily range): BP systolic 114–150; BP diastolic 63–88; PULSE 91–171; RESP 18–20
[2018-10-24] MEDS: morphine 2 MG INJ IV PRN (04:12)
[2018-10-24] MEDS: SOD CHLORIDE 0.9% 1,000 ML IV SCH ×2 (04:12→07:36)
[2018-10-24] MEDS: ACETAMINOPHEN 325 MG TAB PO PRN (04:55)
[2018-10-24] MEDS: PANTOPRAZOLE (EC) 40 MG TAB PO SCH (04:55)
[2018-10-24] MEDS: INSULIN ASPART [NOVOLOG] 3 ML PEN SC SCH ×4 (07:36→20:14)
[2018-10-24] MEDS: predniSONE 2.5 MG TAB PO SCH (08:30)
[2018-10-24] MEDS: ASPIRIN 81 MG TAB PO SCH (08:30)
[2018-10-24] MEDS: FOLIC ACID 1 MG TAB PO SCH (08:30)
[2018-10-24] MEDS: ENOXAPARIN 40 MG/0.4 ML SYG SC SCH (08:35)
--- NOTE | 2018-10-24 10:49 | PN ---
Date/Time of Note Date/Time of Note DATE: 10/24/18 TIME: 10:42 Subjective Doing well. No shortness of breath. Complains of pain at the chest tube site Objective Vitals Vital Signs Date Temp Pulse Resp B/P (MAP) Pulse Ox O2 O2 Flow FiO2 Time Delivery Rate 10/24/18 113 08:22 10/24/18 100.7 18 124/63 98 07:55 (83) 10/24/18 Room Air 00:26 10/22/18 4.0 04:30 Intake and Output 10/23/18 10/23/18 10/24/18 1515:00 23:00 07:00 IntakeIntake Total 950 ml 1220 ml 450 ml OutputOutput Total 940 ml 2000 ml BalanceBalance 950 ml 280 ml -1550 ml Lungs with right-sided rhonchi. Chest tube in place Regular rate and rhythm Soft nontender nondistended normoactive bowel sounds No edema Diffuse rash on proximal upper extremities and chest Nonfocal Results Result Diagram: 10/23/18 0500 10/23/18 0500 Medications Medications Current Medications Ondansetron HCl (Zofran Inj) 4 mg Q4H PRN IV nausea; Start 10/13/18 at 23:30 Zolpidem Tartrate (Ambien) 5 mg HS MAY REPEAT X 1 PRN PO INSOMNIA; Start 10/13/18 at 23:30 Folic Acid (Folic Acid) 1 mg DAILY PO Last administered on 10/24/18at 08:30; Admin Dose 1 MG; Start 10/14/18 at 09:00 Prednisone (Prednisone) 7.5 mg DAILY PO Last administered on 10/24/18at 08:30; Admin Dose 7.5 MG; Start 10/14/18 at 09:00 Insulin Aspart (Novolog Insulin Pen) NOVOLOG *MODERATE* ALGORITHM WITH MEALS BEDTIME SC Last administered on 10/23/18at 18:04; Admin Dose 2 UNIT; Start 10/14/18 at 11:50 Miscellaneous Information 1 ea NOTE XX ; Start 10/14/18 at 09:00 Glucose (Glutose) 15 gm Q15M PRN PO DECREASED GLUCOSE; Start 10/14/18 at 09:00 Glucose (Glutose) 22.5 gm Q15M PRN PO DECREASED GLUCOSE; Start 10/14/18 at 09:00 Dextrose (D50w Syringe) 25 ml Q15M PRN IV DECREASED GLUCOSE; Start 10/14/18 at 09:00 Dextrose (D50w Syringe) 50 ml Q15M PRN IV DECREASED GLUCOSE; Start 10/14/18 at 09:00 Glucagon (Glucagen) 1 mg Q15M PRN IM DECREASED GLUCOSE; Start 10/14/18 at 09:00 Glucose (Glutose) 15 gm Q15M PRN BUCCAL DECREASED GLUCOSE; Start 10/14/18 at 09:00 Rifabutin (Mycobutin) 150 mg MoWeFr@0900,2100 PO Last administered on 10/23/18 20:24; Admin Dose 150 MG; Start 10/16/18 at 09:00 Clarithromycin (Biaxin) 500 mg MoWeFr@0900,2100 PO Last administered on 10/23/18 20:24; Admin Dose 500 MG; Start 10/16/18 at 09:00 Ethambutol HCl (Myambutol) 400 mg MoWeFr@0900,2100 PO Last administered on 10/23/18 20:24; Admin Dose 400 MG; Start 10/16/18 at 09:00 Acetaminophen (Tylenol Tab) 650 mg Q4H PRN PO MILD PAIN(1-3)OR ELEVATED TEMP Last administered on 10/24/18 04:55; Admin Dose 650 MG; Start 10/15/18 at 04:38 Pantoprazole (Protonix Tab) 40 mg DAILY@06 PO Last administered on 10/24/18 04:55; Admin Dose 40 MG; Start 10/16/18 at 13:55 Morphine Sulfate (morphine) 2 mg Q3H PRN IV SEVERE PAIN LEVEL 7-10 Last administered on 10/24/18 04:12; Admin Dose 2 MG; Start 10/17/18 at 08:30 Aspirin (Aspirin) 81 mg DAILY PO Last administered on 10/24/18 08:30; Admin Dose 81 MG; Start 10/17/18 at 16:30 Benzonatate (Tessalon) 200 mg TID PRN PO cough Last administered on 10/18/18 15:00; Admin Dose 200 MG; Start 10/18/18 at 12:00 Fluconazole 200 ml @ 100 mls/hr Q24H IVPB Last administered on 10/23/18 12:51; Admin Dose 100 MLS/HR; Start 10/18/18 at 13:30 Diphenhydramine HCl (Benadryl) 25 mg Q6H PRN IV itching Last administered on 10/18/18at 16:14; Admin Dose 25 MG; Start 10/18/18 at 18:00 Sodium Chloride 1,000 ml @ 100 mls/hr Q10H IV Last administered on 10/24/18at 07:36; Admin Dose 100 MLS/HR; Start 10/18/18 at 21:00 Enoxaparin Sodium (Lovenox) 40 mg DAILY SC Last administered on 10/24/18at 08:35; Admin Dose 40 MG; Start 10/22/18 at 09:00 VTE Prophylaxis Risk score (from Ns)>0 risk: 8 SCD applied (from Ns): Yes Lines/Catheters IV Catheter Type: Saline Lock Retana in Place: No Assessment/Plan Assessment/Plan R hydropnuemothorax s/p decortication MAC Pna continue current therapy check pending culture results pulm,CTS,and ID follow up KAREN HINDS MD Oct 24, 2018 10:49
--- NOTE | 2018-10-24 10:54 | CONS ---
Assessment/Plan Assessment/Plan Assessment/Plan (Daily) Assessment and recommendations; 1. Patient with history of KIERAN infection maintained on chronic antibiotics admitted for shortness of breath due to right pneumothorax status post chest tube placement with significant clinical and radiological improvement. No further air leak in Pleur-evac chamber. 2. Possibly superimposed acute community-acquired bacterial pneumonia involving right upper lobe with interval radiological improvement. Continue with supportive care. Obtain follow-up chest x-ray. If there is no further pneumothorax, chest tube can be removed. Antibiotics per ID recommendations. Consultation Date/Type/Reason Admit Date/Time Oct 13, 2018 at 23:44 Initial Consult Date 10/17/18 Type of Consult Pulmonary Patient is a 58-year-old male who came into the emergency room on the seventh of this month with acute shortness of breath. Upon evaluation chest was done which showed a right pneumothorax. Patient had a chest tube placement with lung reexpansion. 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 Patient is feeling better still complains of scant cough without any sputum production or hemoptysis. Denies any fever or chills. Past medical history; 1. History of MAC pneumonia. 2. Right pneumothorax, status post chest tube placement. 3. COPD. Medications; reviewed. Allergies; none. Social history; noncontributory. Family history; noncontributory. No sure of any tuberculosis infection in the family. Occupational history; patient is on disability. Review of systems; denies any headache, seizures, fever, chest pain, wheezing, complains of very scant cough. Denies any weight loss. Any hemoptysis. Denies any abdominal pain, nausea vomiting. Any melena hematochezia. Any arthritis symptoms. Any skin changes. Patient has good appetite. General exam; middle-aged male, awake and alert. Currently in no distress. Requesting Provider: KAREN HINDS MD Date/Time of Note DATE: 10/24/18 TIME: 10:52 24 HR Interval Summary Free Text/Dictation Patient's condition is stable. Denies any shortness of breath, coughing, wheezing, chest pain. General exam; middle-aged male, awake alert, laying comfortably in bed. Currently in no distress. Exam/Review of Systems Exam Vitals Vital Signs Date Temp Pulse Resp B/P (MAP) Pulse Ox O2 O2 Flow FiO2 Time Delivery Rate 10/24/18 113 08:22 10/24/18 100.7 18 124/63 98 07:55 (83) 10/24/18 Room Air 00:26 10/22/18 4.0 04:30 Intake and Output 10/23/18 10/23/18 10/24/18 1515:00 23:00 07:00 IntakeIntake Total 950 ml 1220 ml 450 ml OutputOutput Total 940 ml 2000 ml BalanceBalance 950 ml 280 ml -1550 ml Exam H EENT exam; supple neck, no JVD. No lymphadenopathy. Midline trachea. No thyromegaly. Patient has good dentition. No neck masses. Chest exam; diminished but clear breath sounds. No added sounds. S1-S2 audible, no murmurs. Regular rhythm. Right side chest tube in place. There is no air leak in the Pleur-evac chamber. Not much drainage either. Abdomen exam; benign. Extremity exam; no peripheral edema or clubbing. 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 Results Result Diagram: 10/23/18 0500 10/23/18 0500 Results 24hrs Laboratory Tests Test 10/23/18 11:46 10/23/18 17:41 10/23/18 20:22 10/24/18 07:33 Bedside Glucose 182 176 115 126 Test 10/24/18 10:27 Lab Scanned Report REFERENCE LAB Medications Medication Current Medications Ondansetron HCl (Zofran Inj) 4 mg Q4H PRN IV nausea; Start 10/13/18 at 23:30 Zolpidem Tartrate (Ambien) 5 mg HS MAY REPEAT X 1 PRN PO INSOMNIA; Start 10/13/18 at 23:30 Folic Acid (Folic Acid) 1 mg DAILY PO Last administered on 10/24/18at 08:30; Admin Dose 1 MG; Start 10/14/18 at 09:00 Prednisone (Prednisone) 7.5 mg DAILY PO Last administered on 10/24/18at 08:30; Admin Dose 7.5 MG; Start 10/14/18 at 09:00 Insulin Aspart (Novolog Insulin Pen) NOVOLOG *MODERATE* ALGORITHM WITH MEALS B EDTIME SC Last administered on 10/23/18at 18:04; Admin Dose 2 UNIT; Start 10/14/18 at 11:50 Miscellaneous Information 1 ea NOTE XX ; Start 10/14/18 at 09:00 Glucose (Glutose) 15 gm Q15M PRN PO DECREASED GLUCOSE; Start 10/14/18 at 09:00 Glucose (Glutose) 22.5 gm Q15M PRN PO DECREASED GLUCOSE; Start 10/14/18 at 09:00 Dextrose (D50w Syringe) 25 ml Q15M PRN IV DECREASED GLUCOSE; Start 10/14/18 at 09:00 Dextrose (D50w Syringe) 50 ml Q15M PRN IV DECREASED GLUCOSE; Start 10/14/18 at 09:00 Glucagon (Glucagen) 1 mg Q15M PRN IM DECREASED GLUCOSE; Start 10/14/18 at 09:00 Glucose (Glutose) 15 gm Q15M PRN BUCCAL DECREASED GLUCOSE; Start 10/14/18 at 09:00 Rifabutin (Mycobutin) 150 mg MoWeFr@0900,2100 PO Last administered on 10/23/18at 20:24; Admin Dose 150 MG; Start 10/16/18 at 09:00 Clarithromycin (Biaxin) 500 mg MoWeFr@0900,2100 PO Last administered on 10/23/18at 20:24; Admin Dose 500 MG; Start 10/16/18 at 09:00 Ethambutol HCl (Myambutol) 400 mg MoWeFr@0900,2100 PO Last administered on 10/23/18at 20:24; Admin Dose 400 MG; Start 10/16/18 at 09:00 Acetaminophen (Tylenol Tab) 650 mg Q4H PRN PO MILD PAIN(1-3)OR ELEVATED TEMP Last administered on 10/24/18at 04:55; Admin Dose 650 MG; Start 10/15/18 at 04:38 Pantoprazole (Protonix Tab) 40 mg DAILY@06 PO Last administered on 10/24/18at 04:55; Admin Dose 40 MG; Start 10/16/18 at 13:55 Morphine Sulfate (morphine) 2 mg Q3H PRN IV SEVERE PAIN LEVEL 7-10 Last administered on 10/24/18at 04:12; Admin Dose 2 MG; Start 10/17/18 at 08:30 Aspirin (Aspirin) 81 mg DAILY PO Last administered on 10/24/18at 08:30; Admin Dose 81 MG; Start 10/17/18 at 16:30 Benzonatate (Tessalon) 200 mg TID PRN PO cough Last administered on 10/18/18 15:00; Admin Dose 200 MG; Start 10/18/18 at 12:00 Fluconazole 200 ml @ 100 mls/hr Q24H IVPB Last administered on 10/23/18 12 :51; Admin Dose 100 MLS/HR; Start 10/18/18 at 13:30 Diphenhydramine HCl (Benadryl) 25 mg Q6H PRN IV itching Last administered on 10/18/18at 16:14; Admin Dose 25 MG; Start 10/18/18 at 18:00 Sodium Chloride 1,000 ml @ 100 mls/hr Q10H IV Last administered on 10/24/18 07:36; Admin Dose 100 MLS/HR; Start 10/18/18 at 21:00 Enoxaparin Sodium (Lovenox) 40 mg DAILY SC Last administered on 10/24/18 08 :35; Admin Dose 40 MG; Start 10/22/18 at 09:00 BENJAMIN PERSON Oct 24, 2018 10:54
[2018-10-24] MEDS: FLUCONAZOLE 400 MG/NS (PMX) 200 ML IVPB SCH (13:19)
--- NOTE | 2018-10-24 16:29 | CONS ---
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 BAL culture at [facility] that was collected on 07/31/2018 grew MAC, finalized on 08/18/2018. MAC was sensitive to clarithromycin but resistant to moxifloxacin and linezolid (this report was brought to [facility] from his . The copy was left in Pt's chart and also at the infection control office. Pt was started on PO clarithromycin, ethambutol and rifabutin by Dr. Okeefe, ID physician, three days prior to his admission at [facility] - one of the "Sternum" samples on 10/19/2018 at [facility] has 1+ AFB on smear - Pneumothorax, s/p R thoracostomy tube placement 10/13/2018; chest tube had slipped out of pleural space and was removed on 10/17/2018 - Large R hydropneumothorax multiple air pockets within suspicious for empyema per CT - S/p successful CT guided placement of 10-Monegasque drainage catheter in R pleural space 10/18/2018 - s/p R sided decortication 10/21/18 - Erythematous mildly pruritic rash on the trunk, groin and extremities, possibly due to MAC treatment - poor appetite, possibly related to clarithromycin # other conditions - JOHNNY on 10/18/2018 - resolved - Thrombosis of the right cephalic vein in the antecubital fossa per venous doppler on 10/17/2018 - DMT2 - RA - Immunocompromised state - Elevated alk phos -improving - so far he took: meropenem (10/17/2018-10/23/2018), pip/tazo (10/15/2018-10/17), vancomycin (10/15/2018-10/21/18), fluconazole (10/18/2018-10/24/2018). clarithromycin, rifabutin, and ethambutol (10/14/2018-) - so far: coccodioides serology in the serum on 10/16/2018 was negative recommendations: - pending results: sputum AFB x3; pleural fluid cultures of AFB, fungi, a naerobic and aerobic bacteria, cytology - will d/c fluconazole (10/18/2018-) - discussed with Dr. Okeefe, Pt's regular ID oracle application consultant as outpatient. Will stop clarithromycin, rifabutin, and ethambutol (10/14/2018-10/24/2018). - if rash resolves, Dr. Okeefe and I will discuss appropriate MAC treatment for him - Pt's on airborne isolation: a copy of this Pt's BAL culture result is on the Pt's chart and at the infection control office. Officer Courtney agreed to call the [facility] TB control unit and discuss whether Pt needs to remain on airborne isolation management d/w Pt, his , RN Courtney Sherman at infection control and Dr. Okeefe the total time I took to care for this Pt today was from 1400 to 1615 Consultation Date/Type/Reason Admit Date/Time Oct 13, 2018 at 23:44 Initial Consult Date 10/17/18 Type of Consult ID Requesting Provider: KAREN HINDS MD Date/Time of Note DATE: 10/24/18 TIME: 16:07 24 HR Interval Summary Constitutional: no complaints Detailed Summary Eyes: no complaints ENT: no complaints Respiratory: cough (intermittent), pleuritic pain (R chest); No shortness of breath, No sputum Cardiovascular: no complaints Gastrointestinal: no complaints Genitourinary: no complaints Musculoskeletal: no complaints Skin: rash (b/l LEs, thigh, trunk, flank) Exam/Review of Systems Exam Vitals Vital Signs Date Temp Pulse Resp B/P (MAP) Pulse Ox O2 O2 Flow FiO2 Time Delivery Rate 10/24/18 99.0 100 18 127/73 98 12:40 (91) 10/24/18 Room Air 00:26 10/22/18 4.0 04:30 Intake and Output 10/23/18 10/23/18 10/24/18 1515:00 23:00 07:00 IntakeIntake Total 950 ml 1220 ml 450 ml OutputOutput Total 940 ml 2000 ml BalanceBalance 950 ml 280 ml -1550 ml Constitutional: alert, oriented, well developed Psych: no complaints, nl mood/affect Head: normocephalic, atraumatic Eyes: nl conjunctiva, EOMI, nl lids, nl sclera ENMT: nl external ears & nose, nl lips & teeth, nl nasal mucosa & septum, mucosa pink and moist Neck: supple, non-tender Respiratory: congested cough, diminished breath sounds, other (R chest tube) Cardiovascular: regular rate and rhythm, nl pulses Gastrointestinal: soft, non-tender Musculoskeletal: nl extremities to inspection Extremities: No edema Neurological: CLOUD ARCHITECT 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, nl mental status, nl speech, nl strength Skin: rash or lesions (erythematous maculopapular rash on the LEs, thighs, lowe r abd wall, flank, less on the chest and back) Results Result Diagram: 10/23/18 0500 10/23/18 0500 Results 24hrs Laboratory Tests Test 10/23/18 17:41 10/23/18 20:22 10/24/18 07:33 10/24/18 10:27 Bedside Glucose 176 115 126 Lab Scanned Report REFERENCE LAB Test 10/24/18 11:50 Bedside Glucose 213 Medications Medication Current Medications Ondansetron HCl (Zofran Inj) 4 mg Q4H PRN IV nausea; Start 10/13/18 at 23:30 Zolpidem Tartrate (Ambien) 5 mg HS MAY REPEAT X 1 PRN PO INSOMNIA; Start 10/13/18 at 23:30 Folic Acid (Folic Acid) 1 mg DAILY PO Last administered on 10/24/18at 08:30; Admin Dose 1 MG; Start 10/14/18 at 09:00 Prednisone (Prednisone) 7.5 mg DAILY PO Last administered on 10/24/18at 08:30; Admin Dose 7.5 MG; Start 10/14/18 at 09:00 Insulin Aspart (Novolog Insulin Pen) NOVOLOG *MODERATE* ALGORITHM WITH MEALS BEDTIME SC Last administered on 10/24/18at 11:56; Admin Dose 4 UNIT; Start 10/14/18 at 11:50 Miscellaneous Information 1 ea NOTE XX ; Start 10/14/18 at 09:00 Glucose (Glutose) 15 gm Q15M PRN PO DECREASED GLUCOSE; Start 10/14/18 at 09:00 Glucose (Glutose) 22.5 gm Q15M PRN PO DECREASED GLUCOSE; Start 10/14/18 at 09:00 Dextrose (D50w Syringe) 25 ml Q15M PRN IV DECREASED GLUCOSE; Start 10/14/18 at 09:00 Dextrose (D50w Syringe) 50 ml Q15M PRN IV DECREASED GLUCOSE; Start 10/14/18 at 09:00 Glucagon (Glucagen) 1 mg Q15M PRN IM DECREASED GLUCOSE; Start 10/14/18 at 09:00 Glucose (Glutose) 15 gm Q15M PRN BUCCAL DECREASED GLUCOSE; Start 10/14/18 at 09:00 Acetaminophen (Tylenol Tab) 650 mg Q4H PRN PO MILD PAIN(1-3)OR ELEVATED TEMP Last administered on 10/24/18 04:55; Admin Dose 650 MG; Start 10/15/18 at 04:38 Pantoprazole (Protonix Tab) 40 mg DAILY@06 PO Last administered on 10/24/18 04:55; Admin Dose 40 MG; Start 10/16/18 at 13:55 Morphine Sulfate (morphine) 2 mg Q3H PRN IV SEVERE PAIN LEVEL 7-10 Last administered on 10/24/18 04:12; Admin Dose 2 MG; Start 10/17/18 at 08:30 Aspirin (Aspirin) 81 mg DAILY PO Last administered on 10/24/18 08:30; Admin Dose 81 MG; Start 10/17/18 at 16:30 Benzonatate (Tessalon) 200 mg TID PRN PO cough Last administered on 10/18/18 15:00; Admin Dose 200 MG; Start 10/18/18 at 12:00 Diphenhydramine HCl (Benadryl) 25 mg Q6H PRN IV itching Last administered on 10/18/18 16:14; Admin Dose 25 MG; Start 10/18/18 at 18:00 Enoxaparin Sodium (Lovenox) 40 mg DAILY SC Last administered on 10/24/18 08:35; Admin Dose 40 MG; Start 10/22/18 at 09:00 SALEEM MAST M.D. Oct 24, 2018 16:29
[2018-10-24] MEDS ORDERED: AL HYDROX/MG HYDROX/SIMETH 30 ML CUP PO PRN (21:00)
[2018-10-25] VITALS (13 sets, daily range): BP systolic 103–143; BP diastolic 67–82; PULSE 95–141; RESP 16–20
[2018-10-25] MEDS: PANTOPRAZOLE (EC) 40 MG TAB PO SCH (04:04)
[2018-10-25] MEDS: ACETAMINOPHEN 325 MG TAB PO PRN (04:04)
[2018-10-25] MEDS: INSULIN ASPART [NOVOLOG] 3 ML PEN SC SCH ×4 (08:50→20:26)
[2018-10-25] MEDS: FOLIC ACID 1 MG TAB PO SCH (09:00)
--- NOTE | 2018-10-25 09:54 | PN ---
Date/Time of Note Date/Time of Note DATE: 10/25/18 TIME: 09:52 Subjective Doing well. No cough. No chest pain. Continues to have high fevers Objective Vitals Vital Signs Date Temp Pulse Resp B/P (MAP) Pulse Ox O2 O2 Flow FiO2 Time Delivery Rate 10/25/18 99.7 123 16 125/82 93 07:56 (96) 10/25/18 Room Air 03:55 10/22/18 4.0 04:30 Intake and Output 10/24/18 10/24/18 10/25/18 1515:00 23:00 07:00 IntakeIntake Total 1020 ml 440 ml OutputOutput Total 50 ml 1650 ml 1320 ml BalanceBalance -50 ml -630 ml -880 ml Right more than left rhonchi Regular rate and rhythm no murmurs or gallops Soft nontender nondistended normoactive bowel sounds No edema Nonfocal Results Result Diagram: 10/23/18 0500 10/23/18 0500 Medications Medications Current Medications Ondansetron HCl (Zofran Inj) 4 mg Q4H PRN IV nausea; Start 10/13/18 at 23:30 Zolpidem Tartrate (Ambien) 5 mg HS MAY REPEAT X 1 PRN PO INSOMNIA; Start 10/13/18 at 23:30 Folic Acid (Folic Acid) 1 mg DAILY PO Last administered on 10/24/18at 08:30; Admin Dose 1 MG; Start 10/14/18 at 09:00 Prednisone (Prednisone) 7.5 mg DAILY PO Last administered on 10/24/18at 08:30; Admin Dose 7.5 MG; Start 10/14/18 at 09:00 Insulin Aspart (Novolog Insulin Pen) NOVOLOG *MODERATE* ALGORITHM WITH MEALS BEDTIME SC Last administered on 10/25/18at 08:50; Admin Dose 2 UNIT; Start 10/14/18 at 11:50 Miscellaneous Information 1 ea NOTE XX ; Start 10/14/18 at 09:00 Glucose (Glutose) 15 gm Q15M PRN PO DECREASED GLUCOSE; Start 10/14/18 at 09:00 Glucose (Glutose) 22.5 gm Q15M PRN PO DECREASED GLUCOSE; Start 10/14/18 at 09:00 Dextrose (D50w Syringe) 25 ml Q15M PRN IV DECREASED GLUCOSE; Start 10/14/18 at 09:00 Dextrose (D50w Syringe) 50 ml Q15M PRN IV DECREASED GLUCOSE; Start 10/14/18 at 09:00 Glucagon (Glucagen) 1 mg Q15M PRN IM DECREASED GLUCOSE; Start 10/14/18 at 09:00 Glucose (Glutose) 15 gm Q15M PRN BUCCAL DECREASED GLUCOSE; Start 10/14/18 at 09:00 Acetaminophen (Tylenol Tab) 650 mg Q4H PRN PO MILD PAIN(1-3)OR ELEVATED TEMP Last administered on 10/25/18 04:04; Admin Dose 650 MG; Start 10/15/18 at 04:38 Pantoprazole (Protonix Tab) 40 mg DAILY@06 PO Last administered on 10/25/18 04:04; Admin Dose 40 MG; Start 10/16/18 at 13:55 Morphine Sulfate (morphine) 2 mg Q3H PRN IV SEVERE PAIN LEVEL 7-10 Last administered on 10/24/18 04:12; Admin Dose 2 MG; Start 10/17/18 at 08:30 Aspirin (Aspirin) 81 mg DAILY PO Last administered on 10/24/18 08:30; Admin Dose 81 MG; Start 10/17/18 at 16:30 Benzonatate (Tessalon) 200 mg TID PRN PO cough Last administered on 10/18/18 15:00; Admin Dose 200 MG; Start 10/18/18 at 12:00 Diphenhydramine HCl (Benadryl) 25 mg Q6H PRN IV itching Last administered on 10/18/18 16:14; Admin Dose 25 MG; Start 10/18/18 at 18:00 Enoxaparin Sodium (Lovenox) 40 mg DAILY SC Last administered on 10/24/18 08:35; Admin Dose 40 MG; Start 10/22/18 at 09:00 Al Hydrox/Mg Hydrox/Simethicone (Mag-Al Plus) 30 ml QID PRN PO GASTROINTESTINAL UPSET Last administered on 10/24/18 21:13; Admin Dose 30 ML; Start 10/24/18 at 21:00 VTE Prophylaxis Risk score (from Nsg)>0 risk: 7 SCD applied (from Nsg): Yes Lines/Catheters IV Catheter Type: Saline Lock Retana in Place: No Assessment/Plan Assessment/Plan 58-year-old male with right hydropneumothorax Status post decortication MAC pneumonia Maculopapular rash, most likely drug-induced, resolved since antibiotics were discontinued Persistent fevers Continue current therapy Check pending culture results Resume antibiotics per ID recommendations Case was discussed with ID specialist KAREN HINDS MD Oct 25, 2018 09:54
[2018-10-25] MEDS: ASPIRIN 81 MG TAB PO SCH (10:39)
[2018-10-25] MEDS: predniSONE 2.5 MG TAB PO SCH (10:39)
[2018-10-25] MEDS: ENOXAPARIN 40 MG/0.4 ML SYG SC SCH (10:43)
[2018-10-25] MEDS ORDERED: AMIKACIN IV PER PHARMACY XX SCH (12:00)
--- NOTE | 2018-10-25 12:09 | CONS ---
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 BAL culture at [facility] that was collected on 07/31/2018 grew MAC, finalized on 08/18/2018. MAC was sensitive to clarithromycin but resistant to moxifloxacin and linezolid (this report was brought to [facility] from his . The copy was left in Pt's chart and also at the infection control office. Pt was started on PO clarithromycin, ethambutol and rifabutin by Dr. Okeefe, ID physician, three days prior to his admission at [facility] - one of the "Sternum" samples on 10/19/2018 at [facility] has 1+ AFB on smear - Pneumothorax, s/p R thoracostomy tube placement 10/13/2018; chest tube had slipped out of pleural space and was removed on 10/17/2018 - Large R hydropneumothorax multiple air pockets within suspicious for empyema per CT - S/p successful CT guided placement of 10-Emirati drainage catheter in R pleural space 10/18/2018 - s/p R sided decortication 10/21/18 - Erythematous mildly pruritic rash on the trunk, groin and extremities, improved after stopping clarithro, ethambutol and rifabutin; I suspect this was caused by rifabutin - poor appetite, possibly related to clarithromycin # other conditions - JOHNNY on 10/18/2018 - resolved - Thrombosis of the right cephalic vein in the antecubital fossa per venous doppler on 10/17/2018 - DMT2 - RA - Immunocompromised state - Elevated alk phos -improving - so far he took: meropenem (10/17/2018-10/23/2018), pip/tazo (10/15/2018- 10/17/2018), vancomycin (10/15/2018-10/21/18), fluconazole (10/18/2018-10/24/2018). clarithromycin, rifabutin, and ethambutol (10/14/2018-) - so far: coccodioides serology in the serum on 10/16/2018 was negative recommendations: - pending results: speciation of AFB in one of the "Sternum" samples on 10/19/2018 (1+ AFB on smear) - ordered: blood cultures, urinalysis and urine culture - discussed with Dr. Okeefe, Pt's regular ID professional housing consultant as outpatient. Will restart clarithromycin, rifabutin (10/14/2018-). - start IV amikacin (Pt's strain of MAC in his BAL at [place] on 07/31/2018 had THEODORE of 16) - rifabutin was discontinued (10/14/2018-10/24/2018). - Pt's on airborne isolation: a copy of this Pt's BAL culture result is on the P t's chart and at the infection control office. Officer Courtney agreed to call the [facility] TB control unit and discuss whether Pt needs to remain on airborne isolation (conversation on 10/24/2018) management d/w Pt, RN Whit, Drs. Andrade, David, Maldonado the total time I took to care for this Pt today was from 1100 to 1150 Consultation Date/Type/Reason Admit Date/Time Oct 13, 2018 at 23:44 Initial Consult Date 10/17/18 Type of Consult ID Requesting Provider: KAREN ANDRADE MD Date/Time of Note DATE: 10/25/18 TIME: 11:55 24 HR Interval Summary Constitutional: febrile Detailed Summary Eyes: no complaints ENT: no complaints Respiratory: pleuritic pain (R chest wall); No cough, No shortness of breath, No sputum Cardiovascular: no complaints Gastrointestinal: no complaints Genitourinary: no complaints Musculoskeletal: no complaints Skin: rash (less pronounced) Neurologic: no complaints Exam/Review of Systems Exam Vitals Vital Signs Date Temp Pulse Resp B/P (MAP) Pulse Ox O2 O2 Flow FiO2 Time Delivery Rate 10/25/18 102.3 141 18 138/76 94 11:33 (96) 10/25/18 Room Air 03:55 10/22/18 4.0 04:30 Intake and Output 10/24/18 10/24/18 10/25/18 1515:00 23:00 07:00 IntakeIntake Total 1020 ml 440 ml OutputOutput Total 50 ml 1650 ml 1320 ml BalanceBalance -50 ml -630 ml -880 ml Constitutional: alert, oriented, well developed Psych: no complaints, nl mood/affect Head: normocephalic, atraumatic Eyes: nl conjunctiva, nl lids ENMT: nl external ears & nose, nl nasal mucosa & septum, mucosa pink and moist Neck: supple Respiratory: crackles/rales Cardiovascular: other (tachycardic but regular) Gastrointestinal: soft; No distended Musculoskeletal: nl extremities to inspection Extremities: No edema Skin: rash or lesions (maculopapular rash on the inner thigh, trunk, flank, fading on the back) Results Result Diagram: 10/23/18 0500 10/23/18 0500 Results 24hrs Laboratory Tests Test 10/24/18 16:48 10/24/18 20:13 10/25/18 08:03 Bedside Glucose 201 139 154 Medications Medication Current Medications Ondansetron HCl (Zofran Inj) 4 mg Q4H PRN IV nausea; Start 10/13/18 at 23:30 Zolpidem Tartrate (Ambien) 5 mg HS MAY REPEAT X 1 PRN PO INSOMNIA; Start 10/13/18 at 23:30 Folic Acid (Folic Acid) 1 mg DAILY PO Last administered on 10/25/18at 09:00; Admin Dose 1 MG; Start 10/14/18 at 09:00 Prednisone (Prednisone) 7.5 mg DAILY PO Last administered on 10/25/18at 10:39; Admin Dose 7.5 MG; Start 10/14/18 at 09:00 Insulin Aspart (Novolog Insulin Pen) NOVOLOG *MODERATE* ALGORITHM WITH MEALS BEDTIME SC Last administered on 10/25/18at 08:50; Admin Dose 2 UNIT; Start 10/14/18 at 11:50 Miscellaneous Information 1 ea NOTE XX ; Start 10/14/18 at 09:00 Glucose (Glutose) 15 gm Q15M PRN PO DECREASED GLUCOSE; Start 10/14/18 at 09:00 Glucose (Glutose) 22.5 gm Q15M PRN PO DECREASED GLUCOSE; Start 10/14/18 at 09:00 Dextrose (D50w Syringe) 25 ml Q15M PRN IV DECREASED GLUCOSE; Start 10/14/18 at 09:00 Dextrose (D50w Syringe) 50 ml Q15M PRN IV DECREASED GLUCOSE; Start 10/14/18 at 09:00 Glucagon (Glucagen) 1 mg Q15M PRN IM DECREASED GLUCOSE; Start 10/14/18 at 09:00 Glucose (Glutose) 15 gm Q15M PRN BUCCAL DECREASED GLUCOSE; Start 10/14/18 at 09:00 Acetaminophen (Tylenol Tab) 650 mg Q4H PRN PO MILD PAIN(1-3)OR ELEVATED TEMP Last administered on 10/25/18 04:04; Admin Dose 650 MG; Start 10/15/18 at 04:38 Pantoprazole (Protonix Tab) 40 mg DAILY@06 PO Last administered on 10/25/18 04:04; Admin Dose 40 MG; Start 10/16/18 at 13:55 Morphine Sulfate (morphine) 2 mg Q3H PRN IV SEVERE PAIN LEVEL 7-10 Last administered on 10/24/18 04:12; Admin Dose 2 MG; Start 10/17/18 at 08:30 Aspirin (Aspirin) 81 mg DAILY PO Last administered on 10/25/18 10:39; Admin Dose 81 MG; Start 10/17/18 at 16:30 Benzonatate (Tessalon) 200 mg TID PRN PO cough Last administered on 10/18/18 15:00; Admin Dose 200 MG; Start 10/18/18 at 12:00 Diphenhydramine HCl (Benadryl) 25 mg Q6H PRN IV itching Last administered on 10/18/18 16:14; Admin Dose 25 MG; Start 10/18/18 at 18:00 Enoxaparin Sodium (Lovenox) 40 mg DAILY SC Last administered on 10/25/18 10:43; Admin Dose 40 MG; Start 10/22/18 at 09:00 Al Hydrox/Mg Hydrox/Simethicone (Mag-Al Plus) 30 ml QID PRN PO GASTROINTESTINAL UPSET Last administered on 10/24/18 21:13; Admin Dose 30 ML; Start 10/24/18 at 21:00 SALEEM MAST M.D. Oct 25, 2018 12:06
--- NOTE | 2018-10-25 12:10 | CONS ---
Consultation Date/Type/Reason Admit Date/Time Oct 13, 2018 at 23:44 Initial Consult Date 10/17/18 Type of Consult Pulmonary Patient is a 58-year-old male who came into the emergency room on the seventh of this month with acute shortness of breath. Upon evaluation chest was done which showed a right pneumothorax. Patient had a chest tube placement with lung reexpansion. 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 Patient is feeling better still complains of scant cough without any sputum production or hemoptysis. Denies any fever or chills. Past medical history; 1. History of MAC pneumonia. 2. Right pneumothorax, status post chest tube placement. 3. COPD. Medications; reviewed. Allergies; none. Social history; noncontributory. Family history; noncontributory. No sure of any tuberculosis infection in the family. Occupational history; patient is on disability. Review of systems; denies any headache, seizures, fever, chest pain, wheezing, complains of very scant cough. Denies any weight loss. Any hemoptysis. Denies any abdominal pain, nausea vomiting. Any melena hematochezia. Any arthritis symptoms. Any skin changes. Patient has good appetite. General exam; middle-aged male, awake and alert. Currently in no distress. Requesting Provider: KAREN HINDS MD Date/Time of Note DATE: 10/25/18 TIME: 12:07 24 HR Interval Summary Free Text/Dictation Patient's condition is stable. Rash is improving. Denies any shortness or, chest pain, wheezing, sputum production. General exam; middle-aged male, awake alert, currently in no distress. H EENT exam; supple neck, no JVD. No lymphadenopathy. Midline trachea. No thyromegaly. No neck masses. Patient has fair dentition. Chest exam; diminished but clear breath sounds. Right side chest tube in place. S1-S2 audible, no murmurs. Regular rhythm. Abdomen exam; soft, nontender. No organomegaly. Bowel sounds audible. Extremity exam; no peripheral edema clubbing. HEALTH AND WELLNESS ADVISOR exam; no focal deficit. Assessment and recommendations; 1. Patient with history of MAC pneumonia maintained on antibiotic regimen admitted for shortness of breath due to right pneumothorax likely acute bacterial community acquired pneumonia associated. Chest x-ray is markedly improved now. 2. Skin rash possibly drug reaction. MAC regimen changed per ID senior wind energy consultant. Continue current supportive care. Patient to be maintained on NAC regimen only. Discontinue treatment for acute community acquired pneumonia. Chest tube can be removed. Exam/Review of Systems Exam Vitals Vital Signs Date Temp Pulse Resp B/P (MAP) Pulse Ox O2 O2 Flow FiO2 Time Delivery Rate 10/25/18 102.3 141 18 138/76 94 11:33 (96) 10/25/18 Room Air 03:55 10/22/18 4.0 04:30 Intake and Output 10/24/18 10/24/18 10/25/18 1515:00 23:00 07:00 IntakeIntake Total 1020 ml 440 ml OutputOutput Total 50 ml 1650 ml 1320 ml BalanceBalance -50 ml -630 ml -880 ml Results Result Diagram: 10/23/18 0500 10/23/18 0500 Results 24hrs Laboratory Tests Test 10/24/18 16:48 10/24/18 20:13 10/25/18 08:03 Bedside Glucose 201 139 154 Medications Medication Current Medications Ondansetron HCl (Zofran Inj) 4 mg Q4H PRN IV nausea; Start 10/13/18 at 23:30 Zolpidem Tartrate (Ambien) 5 mg HS MAY REPEAT X 1 PRN PO INSOMNIA; Start 9 at 23:30 Folic Acid (Folic Acid) 1 mg DAILY PO Last administered on 10/25/18at 09:00; Admin Dose 1 MG; Start 10/14/18 at 09:00 Prednisone (Prednisone) 7.5 mg DAILY PO Last administered on 10/25/18at 10:39; Admin Dose 7.5 MG; Start 10/14/18 at 09:00 Insulin Aspart (Novolog Insulin Pen) NOVOLOG *MODERATE* ALGORITHM WITH MEALS BEDTIME SC Last administered on 10/25/18at 08:50; Admin Dose 2 UNIT; Start 10/14/18 at 11:50 Miscellaneous Information 1 ea NOTE XX ; Start 10/14/18 at 09:00 Glucose (Glutose) 15 gm Q15M PRN PO DECREASED GLUCOSE; Start 10/14/18 at 09:00 Glucose (Glutose) 22.5 gm Q15M PRN PO DECREASED GLUCOSE; Start 10/14/18 at 09:00 Dextrose (D50w Syringe) 25 ml Q15M PRN IV DECREASED GLUCOSE; Start 10/14/18 at 09:00 Dextrose (D50w Syringe) 50 ml Q15M PRN IV DECREASED GLUCOSE; Start 10/14/18 at 09:00 Glucagon (Glucagen) 1 mg Q15M PRN IM DECREASED GLUCOSE; Start 10/14/18 at 09:00 Glucose (Glutose) 15 gm Q15M PRN BUCCAL DECREASED GLUCOSE; Start 10/14/18 at 09:00 Acetaminophen (Tylenol Tab) 650 mg Q4H PRN PO MILD PAIN(1-3)OR ELEVATED TEMP Last administered on 10/25/18 04:04; Admin Dose 650 MG; Start 10/15/18 at 04:38 Pantoprazole (Protonix Tab) 40 mg DAILY@06 PO Last administered on 10/25/18 04:04; Admin Dose 40 MG; Start 10/16/18 at 13:55 Morphine Sulfate (morphine) 2 mg Q3H PRN IV SEVERE PAIN LEVEL 7-10 Last administered on 10/24/18 04:12; Admin Dose 2 MG; Start 10/17/18 at 08:30 Aspirin (Aspirin) 81 mg DAILY PO Last administered on 10/25/18 10:39; Admin Dose 81 MG; Start 10/17/18 at 16:30 Benzonatate (Tessalon) 200 mg TID PRN PO cough Last administered on 10/18/18at 15:00; Admin Dose 200 MG; Start 10/18/18 at 12:00 Diphenhydramine HCl (Benadryl) 25 mg Q6H PRN IV itching Last administered on 10/18/18at 16:14; Admin Dose 25 MG; Start 10/18/18 at 18:00 Enoxaparin Sodium (Lovenox) 40 mg DAILY SC Last administered on 10/25/18at 10:43; Admin Dose 40 MG; Start 10/22/18 at 09:00 Al Hydrox/Mg Hydrox/Simethicone (Mag-Al Plus) 30 ml QID PRN PO GASTROINTESTINAL UPSET Last administered on 10/24/18at 21:13; Admin Dose 30 ML; Start 10/24/18 at 21:00 Clarithromycin (Biaxin) 500 mg MoWeFr PO ; Start 10/25/18 at 21:00; Status UNV Ethambutol HCl (Myambutol) 400 mg MoWeFr PO ; Start 10/25/18 at 21:00; Status UNV Amikacin Sulfate (Amikacin Iv Per Pharmacy) AMIKACIN PER PHARM... NOTE XX ; Start 10/25/18 at 12:00; Status UNV BENJAMIN PERSON Oct 25, 2018 12:10
--- NOTE | 2018-10-25 13:27 | PN ---
Date/Time of Note Date/Time of Note DATE: 10/25/18 TIME: 13:26 Assessment/Plan Lines/Catheters IV Catheter Type (from Nrsg): Saline Lock Retana in Place (from Nrsg): No Assessment/Plan Assessment/Plan Status post right video-assisted thoracic surgery pulmonary decortication Chest tube still with 130 cc of output CXR Continue chest tube suctionStable position of 2 right-sided chest tubes without pneumothorax. No significant change in small right pleural effusion with adjacent consolidated lung. Decrease subcutaneous air along the right chest. pulmonary toilet Check cultures Subjective 24 Hr Interval Summary Constitutional: improved Pain Control: mild Exam/Review of Systems Vital Signs Vitals Vital Signs Date Temp Pulse Resp B/P (MAP) Pulse Ox O2 O2 Flow FiO2 Time Delivery Rate 10/25/18 102.3 141 18 138/76 94 11:33 (96) 10/25/18 Room Air 03:55 10/22/18 4.0 04:30 Intake and Output 10/24/18 10/24/18 10/25/18 1515:00 23:00 07:00 IntakeIntake Total 1020 ml 440 ml OutputOutput Total 50 ml 1650 ml 1320 ml BalanceBalance -50 ml -630 ml -880 ml Exam Eyes: nl conjunctiva, EOMI, nl lids, nl sclera ENMT: nl external ears & nose, nl lips & teeth, nl nasal mucosa & septum, mucosa pink and moist Neck: supple, non-tender Respiratory: clear to auscultation, normal air movement Cardiovascular: regular rate and rhythm, nl pulses Musculoskeletal: nl extremities to inspection, nl gait and stance Results Result Diagram: 10/23/18 0500 10/23/18 0500 JOSEPH VALADEZ MD Oct 25, 2018 13:27
[2018-10-25] MEDS: ETHAMBUTOL 400 MG TAB PO SCH (13:30)
[2018-10-25] MEDS ORDERED: AMIKACIN 1,000 MG in SOD CHLORIDE 0.9% 100 ML IVPB SCH (15:00)
[2018-10-25] MEDS: CLARITHROMYCIN 500 MG TAB PO SCH (20:25)
[2018-10-26] VITALS (10 sets, daily range): BP systolic 113–135; BP diastolic 75–81; PULSE 99–128; RESP 16–19
[2018-10-26] MEDS: PANTOPRAZOLE (EC) 40 MG TAB PO SCH (05:52)
[2018-10-26] MEDS: INSULIN ASPART [NOVOLOG] 3 ML PEN SC SCH ×4 (07:55→20:24)
[2018-10-26] MEDS: ACETAMINOPHEN 325 MG TAB PO PRN (08:22)
[2018-10-26] MEDS: predniSONE 2.5 MG TAB PO SCH (08:22)
[2018-10-26] MEDS: FOLIC ACID 1 MG TAB PO SCH (08:22)
[2018-10-26] MEDS: ASPIRIN 81 MG TAB PO SCH (08:22)
[2018-10-26] MEDS: ENOXAPARIN 40 MG/0.4 ML SYG SC SCH (08:26)
--- NOTE | 2018-10-26 11:00 | PN ---
Date/Time of Note Date/Time of Note DATE: 10/26/18 TIME: 10:58 Subjective No new complaints. Continues to have fever Objective Vitals Vital Signs Date Temp Pulse Resp B/P (MAP) Pulse Ox O2 O2 Flow FiO2 Time Delivery Rate 10/26/18 100.3 09:07 10/26/18 128 18 131/81 93 08:08 (98) 10/26/18 Room Air 04:30 Intake and Output 10/25/18 10/25/18 10/26/18 1515:00 23:00 07:00 IntakeIntake Total 850 ml 750 ml OutputOutput Total 120 ml 1590 ml 1750 ml BalanceBalance -120 ml -740 ml -1000 ml Right more than left rhonchi. Chest tube in place Regular rate and rhythm Soft nontender nondistended normoactive bowel sounds No edema Nonfocal Results Result Diagram: 10/23/18 0500 10/23/18 0500 Medications Medications Current Medications Ondansetron HCl (Zofran Inj) 4 mg Q4H PRN IV nausea; Start 10/13/18 at 23:30 Zolpidem Tartrate (Ambien) 5 mg HS MAY REPEAT X 1 PRN PO INSOMNIA; Start 10/13/18 at 23:30 Folic Acid (Folic Acid) 1 mg DAILY PO Last administered on 10/26/18at 08:22; Admin Dose 1 MG; Start 10/14/18 at 09:00 Prednisone (Prednisone) 7.5 mg DAILY PO Last administered on 10/26/18at 08:22; Admin Dose 7.5 MG; Start 10/14/18 at 09:00 Insulin Aspart (Novolog Insulin Pen) NOVOLOG *MODERATE* ALGORITHM WITH MEALS BEDTIME SC Last administered on 10/25/18at 18:03; Admin Dose 8 UNIT; Start 10/14/18 at 11:50 Miscellaneous Information 1 ea NOTE XX ; Start 10/14/18 at 09:00 Glucose (Glutose) 15 gm Q15M PRN PO DECREASED GLUCOSE; Start 10/14/18 at 09:00 Glucose (Glutose) 22.5 gm Q15M PRN PO DECREASED GLUCOSE; Start 10/14/18 at 09:00 Dextrose (D50w Syringe) 25 ml Q15M PRN IV DECREASED GLUCOSE; Start 10/14/18 at 09:00 Dextrose (D50w Syringe) 50 ml Q15M PRN IV DECREASED GLUCOSE; Start 10/14/18 at 09:00 Glucagon (Glucagen) 1 mg Q15M PRN IM DECREASED GLUCOSE; Start 10/14/18 at 09:00 Glucose (Glutose) 15 gm Q15M PRN BUCCAL DECREASED GLUCOSE; Start 10/14/18 at 09:00 Acetaminophen (Tylenol Tab) 650 mg Q4H PRN PO MILD PAIN(1-3)OR ELEVATED TEMP Last administered on 10/26/18 08:22; Admin Dose 650 MG; Start 10/15/18 at 04:38 Pantoprazole (Protonix Tab) 40 mg DAILY@06 PO Last administered on 10/26/18 05:52; Admin Dose 40 MG; Start 10/16/18 at 13:55 Morphine Sulfate (morphine) 2 mg Q3H PRN IV SEVERE PAIN LEVEL 7-10 Last administered on 10/24/18 04:12; Admin Dose 2 MG; Start 10/17/18 at 08:30 Aspirin (Aspirin) 81 mg DAILY PO Last administered on 10/26/18 08:22; Admin Dose 81 MG; Start 10/17/18 at 16:30 Benzonatate (Tessalon) 200 mg TID PRN PO cough Last administered on 10/18/18 15:00; Admin Dose 200 MG; Start 10/18/18 at 12:00 Diphenhydramine HCl (Benadryl) 25 mg Q6H PRN IV itching Last administered on 10/18/18 16:14; Admin Dose 25 MG; Start 10/18/18 at 18:00 Enoxaparin Sodium (Lovenox) 40 mg DAILY SC Last administered on 10/26/18 08:26; Admin Dose 40 MG; Start 10/22/18 at 09:00 Al Hydrox/Mg Hydrox/Simethicone (Mag-Al Plus) 30 ml QID PRN PO GASTROINTESTINAL UPSET Last administered on 10/24/18 21:13; Admin Dose 30 ML; Start 10/24/18 at 21:00 Clarithromycin (Biaxin) 500 mg MoWeFr@0900,2100 PO Last administered on 10/25/18 20:25; Admin Dose 500 MG; Start 10/25/18 at 21:00 Ethambutol HCl (Myambutol) 400 mg MoWeFr@0900,1200 PO Last administered on 10/25/18at 13:30; Admin Dose 400 MG; Start 10/25/18 at 12:30 Amikacin Sulfate (Amikacin Iv Per Pharmacy) AMIKACIN PER PHARM... NOTE XX ; Start 10/25/18 at 12:00 Amikacin Sulfate 1000 mg/Sodium Chloride 104 ml @ 102 mls/hr Q24H IVPB Last administered on 10/25/18at 14:50; Admin Dose 102 MLS/HR; Start 10/25/18 at 15:00 VTE Prophylaxis Risk score (from Ns)>0 risk: 4 SCD applied (from Ns): Yes Lines/Catheters IV Catheter Type: Saline Lock Retana in Place: No Assessment/Plan Assessment/Plan 58-year-old male with right hydropneumothorax Status post decortication MAC pneumonia Drug-induced rash, slowly improving Continue current antibiotics including amikacin Check pending culture results Cardiothoracic, pulmonary, and ID follow-up KAREN HINDS MD Oct 26, 2018 10:59
--- NOTE | 2018-10-26 11:57 | CONS ---
Consultation Date/Type/Reason Admit Date/Time Oct 13, 2018 at 23:44 Initial Consult Date 10/17/18 Type of Consult Pulmonary Patient is a 58-year-old male who came into the emergency room on the seventh of this month with acute shortness of breath. Upon evaluation chest was done which showed a right pneumothorax. Patient had a chest tube placement with lung reexpansion. 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 Patient is feeling better still complains of scant cough without any sputum production or hemoptysis. Denies any fever or chills. Past medical history; 1. History of MAC pneumonia. 2. Right pneumothorax, status post chest tube placement. 3. COPD. Medications; reviewed. Allergies; none. Social history; noncontributory. Family history; noncontributory. No sure of any tuberculosis infection in the family. Occupational history; patient is on disability. Review of systems; denies any headache, seizures, fever, chest pain, wheezing, complains of very scant cough. Denies any weight loss. Any hemoptysis. Denies any abdominal pain, nausea vomiting. Any melena hematochezia. Any arthritis symptoms. Any skin changes. Patient has good appetite. General exam; middle-aged male, awake and alert. Currently in no distress. Requesting Provider: KAREN HINDS MD Date/Time of Note DATE: 10/26/18 TIME: 11:51 24 HR Interval Summary Free Text/Dictation Patient's condition is stable. Denies any chest pain, shortness of breath, coughing, wheezing. General exam; middle-aged male, awake alert, currently in no distress. H EENT exam; supple neck, no JVD. No lymphadenopathy. Midline trachea. No thyromegaly. Patient has good dentition. Chest exam; diminished breath sounds right lower lobe. S1-S2 audible, no murmurs. Regular rhythm. Right-sided chest tube in place. There is persistent air leak in the Pleur-evac chamber. Abdomen exam; soft, no organomegaly. Nontender. Bowel sounds audible. Extremity exam; no edema. No rash seen. 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 Assessment and recommendations; 1. Patient with a history of KIERAN pneumonia admitted with right pneumothorax likely complicated by acute right lower lobe community acquired pneumonia. 2. Rash from from antibiotics, significantly resolved once antimicrobial regimen changed to amikacin. 3. Persistent air leak in Pleur-evac chamber. Continue current supportive care. Maintain chest tube for now. Antibiotic recommendations per ID search engine optimization consultant. Exam/Review of Systems Exam Vitals Vital Signs Date Temp Pulse Resp B/P (MAP) Pulse Ox O2 O2 Flow FiO2 Time Delivery Rate 10/26/18 100.3 09:07 10/26/18 128 18 131/81 93 08:08 (98) 10/26/18 Room Air 04:30 Intake and Output 10/25/18 10/25/18 10/26/18 1515:00 23:00 07:00 IntakeIntake Total 850 ml 750 ml OutputOutput Total 120 ml 1590 ml 1750 ml BalanceBalance -120 ml -740 ml -1000 ml Results Result Diagram: 10/23/18 0500 10/23/18 0500 Results 24hrs Laboratory Tests Test 10/25/18 12:30 10/25/18 13:30 10/25/18 17:48 10/25/18 20:21 Urine Color YELLOW Urine Clarity CLEAR Urine pH 6.0 Urine Specific 1.012 [place] Urine Ketones 1+ H Urine Nitrite NEGATIVE Urine Bilirubin NEGATIVE Urine Urobilinogen NEGATIVE Urine Leukocyte NEGATIVE Esterase Urine Microscopic 0 RBC Urine Microscopic 1 WBC Urine Hemoglobin 1+ H Urine Glucose NEGATIVE Urine Total NEGATIVE Protein Bedside Glucose 178 270 H 118 Test 10/26/18 08:11 10/26/18 09:14 10/26/18 11:35 Bedside Glucose 74 163 Lab Scanned Report REFERENCE LAB Medications Medication Current Medications Ondansetron HCl (Zofran Inj) 4 mg Q4H PRN IV nausea; Start 10/13/18 at 23:30 Zolpidem Tartrate (Ambien) 5 mg HS MAY REPEAT X 1 PRN PO INSOMNIA; Start 10/13/18 at 23:30 Folic Acid (Folic Acid) 1 mg DAILY PO Last administered on 10/26/18at 08:22; Admin Dose 1 MG; Start 10/14/18 at 09:00 Prednisone (Prednisone) 7.5 mg DAILY PO Last administered on 10/26/18at 08:22; Admin Dose 7.5 MG; Start 10/14/18 at 09:00 Insulin Aspart (Novolog Insulin Pen) NOVOLOG *MODERATE* ALGORITHM WITH MEALS BEDTIME SC Last administered on 10/25/18at 18:03; Admin Dose 8 UNIT; Start 10/14/18 at 11:50 Miscellaneous Information 1 ea NOTE XX ; Start 10/14/18 at 09:00 Glucose (Glutose) 15 gm Q15M PRN PO DECREASED GLUCOSE; Start 10/14/18 at 09:00 Glucose (Glutose) 22.5 gm Q15M PRN PO DECREASED GLUCOSE; Start 10/14/18 at 09:00 Dextrose (D50w Syringe) 25 ml Q15M PRN IV DECREASED GLUCOSE; Start 10/14/18 at 09:00 Dextrose (D50w Syringe) 50 ml Q15M PRN IV DECREASED GLUCOSE; Start 10/14/18 at 09:00 Glucagon (Glucagen) 1 mg Q15M PRN IM DECREASED GLUCOSE; Start 10/14/18 at 09:00 Glucose (Glutose) 15 gm Q15M PRN BUCCAL DECREASED GLUCOSE; Start 10/14/18 at 09:00 Acetaminophen (Tylenol Tab) 650 mg Q4H PRN PO MILD PAIN(1-3)OR ELEVATED TEMP Last administered on 10/26/18at 08:22; Admin Dose 650 MG; Start 10/15/18 at 04:38 Pantoprazole (Protonix Tab) 40 mg DAILY@06 PO Last administered on 10/26/18at 05:52; Admin Dose 40 MG; Start 10/16/18 at 13:55 Morphine Sulfate (morphine) 2 mg Q3H PRN IV SEVERE PAIN LEVEL 7-10 Last administered on 10/24/18at 04:12; Admin Dose 2 MG; Start 10/17/18 at 08:30 Aspirin (Aspirin) 81 mg DAILY PO Last administered on 10/26/18at 08:22; Admin Do se 81 MG; Start 10/17/18 at 16:30 Benzonatate (Tessalon) 200 mg TID PRN PO cough Last administered on 10/18/18at 15:00; Admin Dose 200 MG; Start 10/18/18 at 12:00 Diphenhydramine HCl (Benadryl) 25 mg Q6H PRN IV itching Last administered on 10/18/18at 16:14; Admin Dose 25 MG; Start 10/18/18 at 18:00 Enoxaparin Sodium (Lovenox) 40 mg DAILY SC Last administered on 10/26/18at 08:26; Admin Dose 40 MG; Start 10/22/18 at 09:00 Al Hydrox/Mg Hydrox/Simethicone (Mag-Al Plus) 30 ml QID PRN PO GASTROINTESTINAL UPSET Last administered on 10/24/18at 21:13; Admin Dose 30 ML; Start 10/24/18 at 21:00 Clarithromycin (Biaxin) 500 mg MoWeFr@0900,2100 PO Last administered on 10/25/18at 20:25; Admin Dose 500 MG; Start 10/25/18 at 21:00 Ethambutol HCl (Myambutol) 400 mg MoWeFr@0900,1200 PO Last administered on 10/25/18at 13:30; Admin Dose 400 MG; Start 10/25/18 at 12:30 Amikacin Sulfate (Amikacin Iv Per Pharmacy) AMIKACIN PER PHARM... NOTE XX ; Start 10/25/18 at 12:00 Amikacin Sulfate 1000 mg/Sodium Chloride 104 ml @ 102 mls/hr Q24H IVPB Last administered on 10/25/18at 14:50; Admin Dose 102 MLS/HR; Start 10/25/18 at 15:00 BENJAMIN PERSON Oct 26, 2018 11:57
[2018-10-26] MEDS ORDERED: AMIKACIN 1,000 MG in SOD CHLORIDE 0.9% 250 ML IVPB SCH (13:13)
[2018-10-26] MEDS: AMIKACIN 1,000 MG in SOD CHLORIDE 0.9% 250 ML IVPB SCH (16:51)
--- NOTE | 2018-10-26 21:31 | PN ---
Date/Time of Note Date/Time of Note DATE: 10/26/18 TIME: 21:30 Assessment/Plan Lines/Catheters IV Catheter Type (from Nrsg): Saline Lock Retana in Place (from Nrsg): No Assessment/Plan Assessment/Plan Assessment/Plan Status post right video-assisted thoracic surgery pulmonary decortication Chest tube still with 45 cc of output CXR Subjective 24 Hr Interval Summary Constitutional: improved Pain Control: mild Exam/Review of Systems Vital Signs Vitals Vital Signs Date Temp Pulse Resp B/P (MAP) Pulse Ox O2 O2 Flow FiO2 Time Delivery Rate 10/26/18 97.5 118 18 113/76 96 20:23 (88) 10/26/18 Room Air 04:30 Intake and Output 10/25/18 10/25/18 10/26/18 1515:00 23:00 07:00 IntakeIntake Total 850 ml 750 ml OutputOutput Total 120 ml 1590 ml 1750 ml BalanceBalance -120 ml -740 ml -1000 ml Exam ENMT: nl external ears & nose, nl lips & teeth, nl nasal mucosa & septum, mucosa pink and moist Neck: supple, non-tender Respiratory: clear to auscultation, normal air movement Cardiovascular: regular rate and rhythm, nl pulses Gastrointestinal: soft, nl liver, spleen, non-tender Musculoskeletal: nl extremities to inspection, nl gait and stance Results Result Diagram: 10/23/18 0500 10/23/18 0500 JOSEPH VALADEZ MD Oct 26, 2018 21:31
--- NOTE | 2018-10-26 21:33 | CONS ---
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 BAL culture at [facility] that was collected on 07/31/2018 grew MAC, finalized on 08/18/2018. MAC was sensitive to clarithromycin but resistant to moxifloxacin and linezolid (this report was brought to [facility] from his . The copy was left in Pt's chart and also at the infection control office. Pt was started on PO clarithromycin, ethambutol and rifabutin by Dr. Okeefe, ID physician, three days prior to his admission at [facility] - reviewed the results of Pt's AFB samples at [facility]: his AFB samples was negative for M. tuberculosis - one of the "Sternum" samples on 10/19/2018 at [facility] has 1+ AFB on smear/culture positive for AFB. This is reportedly pleural fluid rather than a sternal swab/sample - Pneumothorax, s/p R thoracostomy tube placement 10/13/2018; chest tube had slipped out of pleural space and was removed on 10/17/2018 - Large R hydropneumothorax multiple air pockets within suspicious for empyema per CT - S/p successful CT guided placement of 10-Yi drainage catheter in R pleural space 10/18/2018 - s/p R sided decortication 10/21/18 - Erythematous mildly pruritic rash on the trunk, groin and extremities, improved after stopping clarithro, ethambutol and rifabutin; I suspect this was caused by rifabutin - poor appetite, possibly related to clarithromycin # other conditions - JOHNNY on 10/18/2018 - resolved - Thrombosis of the right cephalic vein in the antecubital fossa per venous doppler on 10/17/2018 - DMT2 - RA - Immunocompromised state - Elevated alk phos -improving - so far he took: meropenem (10/17/2018-10/23/2018), pip/tazo (10/15/2018- 10/17/2018), vancomycin (10/15/2018-10/21/18), fluconazole (10/18/2018-10/24/2018) - so far: coccodioides serology in the serum on 10/16/2018 was negative management discussion and recommendations # specimens - pending results: speciation of AFB in one of the "Sternum" samples on 10/19/2018 at 05:42AM (1+ AFB on smear/culture positive). This is actually a pleural fluid sample. The specimen was submitted for antibiotic sensitivity on 10/26/2018. I added a request to test this strain of AFB against clofazimine in vitro - Dr. Walker requested that Pt has given us "minimum 3 adequate volume respir atory specimens collected at least 8hrs apart and sent for AFB culture." this does not include pleural fluid or VATS specimen. Accordingly, we have here: - 10/18/2018 at 08:00 AM, sputum for AFB smear and culture - 10/20/2018 at 16:15 PM, sputum for AFB smear and culture - other specimens are either pleural fluids or "lung" - 10/18/2018 at 14:30 PM, pleural fluid for AFB smear and culture - 10/19/2018 at 05:42 AM, "sternum" culture (this is reportedly pleural fluid) for AFB smear and culture - 10/21/2018 at 14:30 PM, R lung for AFB smear and culture - 10/21/2018 at 14:31 PM, R lung for AFB smear and culture # treatment - Dr. Walker requested that I describe this Pt's anti-MAC treatment. Please note that I discussed this Pt's treatment plan with Dr. Okeefe, Pt's regular ID retail wireless sales consultant as outpatient on 10/25/2018 - Pt took rifabutin from 10/11/2018 to 10/24/2018. It was stopped on 10/24/2018 because Pt had rash. After rifabutin was stopped, rash continued to improve and so rifabutin was the probable culprit and added to his allergy list. - Pt has been taking PO ethambutol and PO clarithromycin since 10/11/2018 (started as outpatient and continued as inpatient). - instead of rifabutin, IV amikacin was started on 10/25/2018. I plan to give Pt IV amikacin maximum 2 weeks because I am concerned of potential side effects that are associated with long-term amikacin use, i.e. hearing problem and renal failure - This Pt's strain of MAC that grew in his BAL culture at [facility] was resistant to common PO meds such as linezolid (THEODORE 64) and moxifloxacin (THEODORE 8) and therefore, his options are limited. Dr. Walker indicated that nebulized amikacin is an option after the 2 weeks of induction period - as I indicated above, I added a request to test his strain of AFB against clofazimine. If it is sensitive, I think it is a good drug to use, and request pre-authorization from his insurance company - Dr. Okeefe and I could consult the Mycobacterial Referral & Consult Hotline on [facility] for an expert opinion too management d/w Pt, VANESSA Hook, Dr. Walker the total time I took to care for this Pt today was 20 min in the morning and 60 min this evening Consultation Date/Type/Reason Admit Date/Time Oct 13, 2018 at 23:44 Initial Consult Date 10/17/18 Type of Consult ID Reason for Consultation pneumonia due to MAC Requesting Provider: KAREN HINDS MD Date/Time of Note DATE: 10/26/18 TIME: 20:53 24 HR Interval Summary Constitutional: improved Detailed Summary Eyes: no complaints ENT: no complaints, other (no tinnitus or hearing problems) Respiratory: cough, pleuritic pain (R chest tube site); No shortness of breath, No sputum Cardiovascular: no complaints Gastrointestinal: no complaints Musculoskeletal: no complaints Skin: no complaints Neurologic: no complaints Exam/Review of Systems Exam Vitals Vital Signs Date Temp Pulse Resp B/P (MAP) Pulse Ox O2 O2 Flow FiO2 Time Delivery Rate 10/26/18 97.5 118 18 113/76 96 20:23 (88) 10/26/18 Room Air 04:30 Intake and Output 10/25/18 10/25/18 10/26/18 1515:00 23:00 07:00 IntakeIntake Total 850 ml 750 ml OutputOutput Total 120 ml 1590 ml 1750 ml BalanceBalance -120 ml -740 ml -1000 ml Constitutional: alert, oriented, well developed, frail Psych: no complaints, nl mood/affect Head: normocephalic, atraumatic Eyes: nl conjunctiva, nl lids, nl sclera ENMT: nl external ears & nose, nl nasal mucosa & septum, mucosa pink and moist Neck: supple Respiratory: crackles/rales, wheezing Cardiovascular: regular rate and rhythm, nl pulses Gastrointestinal: soft; No distended Musculoskeletal: nl extremities to inspection Extremities: No edema Neurological: 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, nl mental status, nl speech Skin: rash or lesions (less pronounced erythema of b/l thighs and LEs, no new rash) Results Result Diagram: 10/23/18 0500 10/23/18 0500 Results 24hrs Laboratory Tests Test 10/26/18 08:11 10/26/18 09:14 10/26/18 11:35 10/26/18 16:53 Bedside Glucose 74 163 182 Lab Scanned Report REFERENCE LAB Test 10/26/18 20:23 Bedside Glucose 119 Medications Medication Current Medications Ondansetron HCl (Zofran Inj) 4 mg Q4H PRN IV nausea; Start 10/13/18 at 23:30 Zolpidem Tartrate (Ambien) 5 mg HS MAY REPEAT X 1 PRN PO INSOMNIA; Start 10/13/18 at 23:30 Folic Acid (Folic Acid) 1 mg DAILY PO Last administered on 10/26/18at 08:22; Admin Dose 1 MG; Start 10/14/18 at 09:00 Prednisone (Prednisone) 7.5 mg DAILY PO Last administered on 10/26/18at 08:22; Admin Dose 7.5 MG; Start 10/14/18 at 09:00 Insulin Aspart (Novolog Insulin Pen) NOVOLOG *MODERATE* ALGORITHM WITH MEALS BEDTIME SC Last administered on 10/26/18at 17:03; Admin Dose 4 UNIT; Start 10/14/18 at 11:50 Miscellaneous Information 1 ea NOTE XX ; Start 10/14/18 at 09:00 Glucose (Glutose) 15 gm Q15M PRN PO DECREASED GLUCOSE; Start 10/14/18 at 09:00 Glucose (Glutose) 22.5 gm Q15M PRN PO DECREASED GLUCOSE; Start 10/14/18 at 09:00 Dextrose (D50w Syringe) 25 ml Q15M PRN IV DECREASED GLUCOSE; Start 10/14/18 at 09:00 Dextrose (D50w Syringe) 50 ml Q15M PRN IV DECREASED GLUCOSE; Start 10/14/18 at 09:00 Glucagon (Glucagen) 1 mg Q15M PRN IM DECREASED GLUCOSE; Start 10/14/18 at 09:00 Glucose (Glutose) 15 gm Q15M PRN BUCCAL DECREASED GLUCOSE; Start 10/14/18 at 09:00 Acetaminophen (Tylenol Tab) 650 mg Q4H PRN PO MILD PAIN(1-3)OR ELEVATED TEMP Last administered on 10/26/18 08:22; Admin Dose 650 MG; Start 10/15/18 at 04:38 Pantoprazole (Protonix Tab) 40 mg DAILY@06 PO Last administered on 10/26/18 05:52; Admin Dose 40 MG; Start 10/16/18 at 13:55 Morphine Sulfate (morphine) 2 mg Q3H PRN IV SEVERE PAIN LEVEL 7-10 Last administered on 10/24/18 04:12; Admin Dose 2 MG; Start 10/17/18 at 08:30 Aspirin (Aspirin) 81 mg DAILY PO Last administered on 10/26/18 08:22; Admin Dose 81 MG; Start 10/17/18 at 16:30 Benzonatate (Tessalon) 200 mg TID PRN PO cough Last administered on 10/18/18 15:00; Admin Dose 200 MG; Start 10/18/18 at 12:00 Diphenhydramine HCl (Benadryl) 25 mg Q6H PRN IV itching Last administered on 10/18/18 16:14; Admin Dose 25 MG; Start 10/18/18 at 18:00 Enoxaparin Sodium (Lovenox) 40 mg DAILY SC Last administered on 10/26/18 08:26; Admin Dose 40 MG; Start 10/22/18 at 09:00 Al Hydrox/Mg Hydrox/Simethicone (Mag-Al Plus) 30 ml QID PRN PO GASTROINTESTINAL UPSET Last administered on 10/24/18 21:13; Admin Dose 30 ML; Start 10/24/18 at 21:00 Clarithromycin (Biaxin) 500 mg MoWeFr@0900,2100 PO Last administered on 10/25/18 20:25; Admin Dose 500 MG; Start 10/25/18 at 21:00 Ethambutol HCl (Myambutol) 400 mg MoWeFr@0900,1200 PO Last administered on 10/25/18 13:30; Admin Dose 400 MG; Start 10/25/18 at 12:30 Amikacin Sulfate (Amikacin Iv Per Pharmacy) AMIKACIN PER PHARM... NOTE XX ; Start 10/25/18 at 12:00 Amikacin Sulfate 1000 mg/Sodium Chloride 254 ml @ 102 mls/hr Q24H IVPB Last administered on 10/26/18at 16:51; Admin Dose 102 MLS/HR; Start 10/26/18 at 15:00 Miscellaneous Information (*Rx Drug Level Order Reminder*) AMIKACIN TROUGH ON @ 400 1400 ONCE XX ; Start 10/27/18 at 14:00; Stop 10/27/18 at 14:01 SALEEM MAST M.D. Oct 26, 2018 21:33
[2018-10-27] VITALS (9 sets, daily range): BP systolic 117–133; BP diastolic 75–79; PULSE 99–129; RESP 18–20
[2018-10-27] MEDS: PANTOPRAZOLE (EC) 40 MG TAB PO SCH (06:18)
[2018-10-27] MEDS: INSULIN ASPART [NOVOLOG] 3 ML PEN SC SCH ×4 (07:55→22:14)
[2018-10-27] MEDS: ASPIRIN 81 MG TAB PO SCH (09:14)
[2018-10-27] MEDS: ETHAMBUTOL 400 MG TAB PO SCH ×2 (09:14→12:25)
[2018-10-27] MEDS: predniSONE 2.5 MG TAB PO SCH (09:14)
[2018-10-27] MEDS: FOLIC ACID 1 MG TAB PO SCH (09:14)
[2018-10-27] MEDS: CLARITHROMYCIN 500 MG TAB PO SCH ×2 (09:14→22:14)
[2018-10-27] MEDS: ENOXAPARIN 40 MG/0.4 ML SYG SC SCH (09:27)
--- NOTE | 2018-10-27 10:56 | PN ---
Date/Time of Note Date/Time of Note DATE: 10/27/18 TIME: 10:54 Subjective Doing well. No cough. No shortness of breath. Objective Vitals Vital Signs Date Temp Pulse Resp B/P (MAP) Pulse Ox O2 O2 Flow FiO2 Time Delivery Rate 10/27/18 100.4 129 19 133/78 96 Room Air 10:49 (96) Intake and Output 10/26/18 10/26/18 10/27/18 1515:00 23:00 07:00 IntakeIntake Total 1328 ml 1340 ml OutputOutput Total 200 ml 1250 ml 950 ml BalanceBalance -200 ml 78 ml 390 ml Right-sided rhonchi. Chest tube in place. Regular rate and rhythm Soft nontender nondistended normoactive bowel sounds No edema Nonfocal Results Result Diagram: 10/23/18 0500 10/23/18 0500 Medications Medications Current Medications Ondansetron HCl (Zofran Inj) 4 mg Q4H PRN IV nausea; Start 10/13/18 at 23:30 Zolpidem Tartrate (Ambien) 5 mg HS MAY REPEAT X 1 PRN PO INSOMNIA; Start 10/13/18 at 23:30 Folic Acid (Folic Acid) 1 mg DAILY PO Last administered on 10/27/18at 09:14; Admin Dose 1 MG; Start 10/14/18 at 09:00 Prednisone (Prednisone) 7.5 mg DAILY PO Last administered on 10/27/18at 09:14; Admin Dose 7.5 MG; Start 10/14/18 at 09:00 Insulin Aspart (Novolog Insulin Pen) NOVOLOG *MODERATE* ALGORITHM WITH MEALS BEDTIME SC Last administered on 10/26/18at 17:03; Admin Dose 4 UNIT; Start 10/14/18 at 11:50 Miscellaneous Information 1 ea NOTE XX ; Start 10/14/18 at 09:00 Glucose (Glutose) 15 gm Q15M PRN PO DECREASED GLUCOSE; Start 10/14/18 at 09:00 Glucose (Glutose) 22.5 gm Q15M PRN PO DECREASED GLUCOSE; Start 10/14/18 at 09:00 Dextrose (D50w Syringe) 25 ml Q15M PRN IV DECREASED GLUCOSE; Start 10/14/18 at 09:00 Dextrose (D50w Syringe) 50 ml Q15M PRN IV DECREASED GLUCOSE; Start 10/14/18 at 09:00 Glucagon (Glucagen) 1 mg Q15M PRN IM DECREASED GLUCOSE; Start 10/14/18 at 09:00 Glucose (Glutose) 15 gm Q15M PRN BUCCAL DECREASED GLUCOSE; Start 10/14/18 at 09:00 Acetaminophen (Tylenol Tab) 650 mg Q4H PRN PO MILD PAIN(1-3)OR ELEVATED TEMP Last administered on 10/26/18 08:22; Admin Dose 650 MG; Start 10/15/18 at 04:38 Pantoprazole (Protonix Tab) 40 mg DAILY@06 PO Last administered on 10/27/18 06:18; Admin Dose 40 MG; Start 10/16/18 at 13:55 Morphine Sulfate (morphine) 2 mg Q3H PRN IV SEVERE PAIN LEVEL 7-10 Last admini stered on 10/24/18 04:12; Admin Dose 2 MG; Start 10/17/18 at 08:30 Aspirin (Aspirin) 81 mg DAILY PO Last administered on 10/27/18 09:14; Admin Dose 81 MG; Start 10/17/18 at 16:30 Benzonatate (Tessalon) 200 mg TID PRN PO cough Last administered on 10/18/18 15:00; Admin Dose 200 MG; Start 10/18/18 at 12:00 Diphenhydramine HCl (Benadryl) 25 mg Q6H PRN IV itching Last administered on 10/18/18 16:14; Admin Dose 25 MG; Start 10/18/18 at 18:00 Enoxaparin Sodium (Lovenox) 40 mg DAILY SC Last administered on 10/27/18 09:27; Admin Dose 40 MG; Start 10/22/18 at 09:00 Al Hydrox/Mg Hydrox/Simethicone (Mag-Al Plus) 30 ml QID PRN PO GASTROINTESTINAL UPSET Last administered on 10/24/18 21:13; Admin Dose 30 ML; Start 10/24/18 at 21:00 Clarithromycin (Biaxin) 500 mg MoWeFr@0900,2100 PO Last administered on 10/27/18 09:14; Admin Dose 500 MG; Start 10/25/18 at 21:00 Ethambutol HCl (Myambutol) 400 mg MoWeFr@0900,1200 PO Last administered on 6/21/19at 09:14; Admin Dose 400 MG; Start 10/25/18 at 12:30 Amikacin Sulfate (Amikacin Iv Per Pharmacy) AMIKACIN PER PHARM... NOTE XX ; Start 10/25/18 at 12:00 Amikacin Sulfate 1000 mg/Sodium Chloride 254 ml @ 102 mls/hr Q24H IVPB Last administered on 10/26/18at 16:51; Admin Dose 102 MLS/HR; Start 10/26/18 at 15:00 Miscellaneous Information (*Rx Drug Level Order Reminder*) AMIKACIN TROUGH ON @ 400 1400 ONCE XX ; Start 10/27/18 at 14:00; Stop 10/27/18 at 14:01 VTE Prophylaxis Risk score (from Ns)>0 risk: 4 SCD applied (from Ns): Yes Lines/Catheters IV Catheter Type: Saline Lock Retana in Place: No Assessment/Plan Assessment/Plan 58-year-old male with right hydropneumothorax Status post decortication MAC pneumonia Drug-induced rash, resolving Continue current antibiotics Await removal of chest tube Pulmonary, cardiothoracic, and ID follow-up Case was discussed with ID specialist. Patient may need inhaled amikacin as outpatient KAREN HINDS MD Oct 27, 2018 10:56
--- NOTE | 2018-10-27 11:23 | CONS ---
Assessment/Plan Assessment/Plan Assessment/Plan (Daily) Assessment and recommendations; 1. Patient with history of KIERAN pneumonia admitted with acute right lower lobe community-acquired pneumonia with resulting pneumothorax status post VATS procedure and chest tube placement. There is significant radiological improvement now. 2. Skin rash likely from antimicrobial regimen, patient switched over to amikacin per ID recommendations. Continue current supportive care. Chest tube management per cardiothoracic surgeon. Consultation Date/Type/Reason Admit Date/Time Oct 13, 2018 at 23:44 Initial Consult Date 10/17/18 Type of Consult Pulmonary Patient is a 58-year-old male who came into the emergency room on the seventh of this month with acute shortness of breath. Upon evaluation chest was done which showed a right pneumothorax. Patient had a chest tube placement with lung reexpansion. 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 Patient is feeling better still complains of scant cough without any sputum production or hemoptysis. Denies any fever or chills. Past medical history; 1. History of MAC pneumonia. 2. Right pneumothorax, status post chest tube placement. 3. COPD. Medications; reviewed. Allergies; none. Social history; noncontributory. Family history; noncontributory. No sure of any tuberculosis infection in the family. Occupational history; patient is on disability. Review of systems; denies any headache, seizures, fever, chest pain, wheezing, complains of very scant cough. Denies any weight loss. Any hemoptysis. Denies any abdominal pain, nausea vomiting. Any melena hematochezia. Any arthritis symptoms. Any skin changes. Patient has good appetite. General exam; middle-aged male, awake and alert. Currently in no distress. Requesting Provider: KAREN HINDS MD Date/Time of Note DATE: 10/27/18 TIME: 11:21 24 HR Interval Summary Free Text/Dictation Patient's condition is stable. Denies any chest pain, coughing, shortness of breath, fever, sputum production. General exam; middle-aged male, awake alert, currently no distress. Exam/Review of Systems Exam Vitals Vital Signs Date Temp Pulse Resp B/P (MAP) Pulse Ox O2 O2 Flow FiO2 Time Delivery Rate 10/27/18 100.4 129 19 133/78 96 Room Air 10:49 (96) Intake and Output 10/26/18 10/26/18 10/27/18 1515:00 23:00 07:00 IntakeIntake Total 1328 ml 1340 ml OutputOutput Total 200 ml 1250 ml 950 ml BalanceBalance -200 ml 78 ml 390 ml Exam H EENT exam; supple neck, no JVD. No lymphadenopathy. Midline trachea. No thyromegaly. Patient has fair dentition. No neck masses. Chest exam; diminished breath sounds right lower lobe. Rest of the lung eubanks are clear. Right chest tube in place. S1-S2 audible, no murmurs. Regular rhythm. Abdomen exam; soft, mildly protuberant. Nontender. No organomegaly. Bowel hansel nds audible. Extremity exam; no peripheral edema clubbing. There is complete resolution of rash. 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 Results Result Diagram: 10/23/18 0500 10/23/18 0500 Results 24hrs Laboratory Tests Test 10/26/18 11:35 10/26/18 16:53 10/26/18 20:23 10/27/18 05:37 Bedside Glucose 163 182 119 Lab Scanned BLOOD TRANSFUSIO Report N Test 10/27/18 08:34 Bedside Glucose 92 Medications Medication Current Medications Ondansetron HCl (Zofran Inj) 4 mg Q4H PRN IV nausea; Start 10/13/18 at 23:30 Zolpidem Tartrate (Ambien) 5 mg HS MAY REPEAT X 1 PRN PO INSOMNIA; Start 10/13/18 at 23:30 Folic Acid (Folic Acid) 1 mg DAILY PO Last administered on 10/27/18at 09:14; Admin Dose 1 MG; Start 10/14/18 at 09:00 Prednisone (Prednisone) 7.5 mg DAILY PO Last administered on 10/27/18at 09:14; Admin Dose 7.5 MG; Start 10/14/18 at 09:00 Insulin Aspart (Novolog Insulin Pen) NOVOLOG *MODERATE* ALGORITHM WITH MEALS BEDTIME SC Last administered on 10/26/18at 17:03; Admin Dose 4 UNIT; Start 10/14/18 at 11:50 Miscellaneous Information 1 ea NOTE XX ; Start 10/14/18 at 09:00 Glucose (Glutose) 15 gm Q15M PRN PO DECREASED GLUCOSE; Start 10/14/18 at 09:00 Glucose (Glutose) 22.5 gm Q15M PRN PO DECREASED GLUCOSE; Start 10/14/18 at 09:00 Dextrose (D50w Syringe) 25 ml Q15M PRN IV DECREASED GLUCOSE; Start 10/14/18 at 09:00 Dextrose (D50w Syringe) 50 ml Q15M PRN IV DECREASED GLUCOSE; Start 10/14/18 at 09:00 Glucagon (Glucagen) 1 mg Q15M PRN IM DECREASED GLUCOSE; Start 10/14/18 at 09:00 Glucose (Glutose) 15 gm Q15M PRN BUCCAL DECREASED GLUCOSE; Start 10/14/18 at 09:00 Acetaminophen (Tylenol Tab) 650 mg Q4H PRN PO MILD PAIN(1-3)OR ELEVATED TEMP Last administered on 10/26/18 08:22; Admin Dose 650 MG; Start 10/15/18 at 04:38 Pantoprazole (Protonix Tab) 40 mg DAILY@06 PO Last administered on 10/27/18 06:18; Admin Dose 40 MG; Start 10/16/18 at 13:55 Morphine Sulfate (morphine) 2 mg Q3H PRN IV SEVERE PAIN LEVEL 7-10 Last administered on 10/24/18 04:12; Admin Dose 2 MG; Start 10/17/18 at 08:30 Aspirin (Aspirin) 81 mg DAILY PO Last administered on 10/27/18 09:14; Admin Dose 81 MG; Start 10/17/18 at 16:30 Benzonatate (Tessalon) 200 mg TID PRN PO cough Last administered on 10/18/18 15:00; Admin Dose 200 MG; Start 10/18/18 at 12:00 Diphenhydramine HCl (Benadryl) 25 mg Q6H PRN IV itching Last administered on 10/18/18 16:14; Admin Dose 25 MG; Start 10/18/18 at 18:00 Enoxaparin Sodium (Lovenox) 40 mg DAILY SC Last administered on 10/27/18 09:27; Admin Dose 40 MG; Start 10/22/18 at 09:00 Al Hydrox/Mg Hydrox/Simethicone (Mag-Al Plus) 30 ml QID PRN PO GASTROINTESTINAL UPSET Last administered on 10/24/18at 21:13; Admin Dose 30 ML; Start 10/24/18 at 21:00 Clarithromycin (Biaxin) 500 mg MoWeFr@0900,2100 PO Last administered on 10/27/18at 09:14; Admin Dose 500 MG; Start 10/25/18 at 21:00 Ethambutol HCl (Myambutol) 400 mg MoWeFr@0900,1200 PO Last administered on 10/27/18at 09:14; Admin Dose 400 MG; Start 10/25/18 at 12:30 Amikacin Sulfate (Amikacin Iv Per Pharmacy) AMIKACIN PER PHARM... NOTE XX ; Start 10/25/18 at 12:00 Amikacin Sulfate 1000 mg/Sodium Chloride 254 ml @ 102 mls/hr Q24H IVPB Last administered on 10/26/18at 16:51; Admin Dose 102 MLS/HR; Start 10/26/18 at 15:00 Miscellaneous Information (*Rx Drug Level Order Reminder*) AMIKACIN TROUGH ON @ 400 1400 ONCE XX ; Start 10/27/18 at 14:00; Stop 10/27/18 at 14:01 BENJAMIN PERSON Oct 27, 2018 11:23
--- NOTE | 2018-10-27 12:27 | CONS ---
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 BAL culture at [facility] that was collected on 07/31/2018 grew MAC, finalized on 08/18/2018. MAC was sensitive to clarithromycin but resistant to moxifloxacin and linezolid (this report was brought to [facility] from his . The copy was left in Pt's chart and also at the infection control office. Pt was started on PO clarithromycin, ethambutol and rifabutin by Dr. Okeefe, ID physician, three days prior to his admission at [facility] - reviewed the results of Pt's AFB samples at [facility]: his AFB samples was negative for M. tuberculosis - one of the "Sternum" samples on 10/19/2018 at [facility] has 1+ AFB on smear/culture positive for AFB. This is reportedly pleural fluid rather than a sternal swab/sample - Pneumothorax, s/p R thoracostomy tube placement 10/13/2018; chest tube had slipped out of pleural space and was removed on 10/17/2018 - Large R hydropneumothorax multiple air pockets within suspicious for empyema per CT - S/p successful CT guided placement of 10-Slovak drainage catheter in R pleural space 10/18/2018 - s/p R sided decortication 10/21/18 - Erythematous mildly pruritic rash on the trunk, groin and extremities due to rifabutin, resolved after stopping it - poor appetite and mildly upset stomach, possibly related to clarithromycin # other conditions - JOHNNY on 10/18/2018 - resolved - Thrombosis of the right cephalic vein in the antecubital fossa per venous doppler on 10/17/2018 - DMT2 - RA - Immunocompromised state - Elevated alk phos -improving - so far he took: meropenem (10/17/2018-10/23/2018), pip/tazo (10/15/2018- 10/17/2018), vancomycin (10/15/2018-10/21/18), fluconazole (10/18/2018-10/24/2018) - so far: coccodioides serology in the serum on 10/16/2018 was negative management discussion and recommendations # specimens - pending results: speciation of AFB in one of the "Sternum" samples on 10/19/2018 at 05:42AM (1+ AFB on smear/culture positive). This is actually a pleural fluid sample. The specimen was submitted for antibiotic sensitivity on 10/26/2018. I added a request to test this strain of AFB against clofazimine in vitro on 10/26/2018 and 10/27/2018 (micro lab rn Ollie). [facility] also agreed to change the label "Sternum" to "pleural fluid." - so far, we have the following specimens: - 10/18/2018 at 08:00 AM, sputum for AFB smear and culture - 10/20/2018 at 16:15 PM, sputum for AFB smear and culture - other specimens are either pleural fluids or "lung" - 10/18/2018 at 14:30 PM, pleural fluid for AFB smear and culture - 10/19/2018 at 05:42 AM, "sternum" culture (this is reportedly pleural fluid) for AFB smear and culture - 10/21/2018 at 14:30 PM, R lung for AFB smear and culture - 10/21/2018 at 14:31 PM, R lung for AFB smear and culture - Dr. Walker requested that Pt has given us "minimum 3 adequate volume respiratory specimens collected at least 8hrs apart and sent for AFB culture." this does not include pleural fluid or VATS specimen. Accordingly, we are collecting another sputum sample for AFB smear and culture today # treatment - Dr. Walker requested that I describe this Pt's anti-MAC treatment. Please note that I discussed this Pt's treatment plan with Dr. Okeefe, Pt's regular ID financial services consultant as outpatient on 10/25/2018 - Pt took rifabutin from 10/11/2018 to 10/24/2018. It was stopped on 10/24/2018 because Pt had rash. After rifabutin was stopped, rash resolved and so rifabutin was the probable culprit and added to his allergy list. - Pt has been taking PO ethambutol and PO clarithromycin since 10/11/2018 (started as outpatient and continued as inpatient). - Pt seems to be having mild GI side effects from clarithromycin; if the Sx escalate and Pt can no longer eat, etc then will change PO clarithromycin to another agent. I informed Pt that effective anti-MAC medications that are given orally are limited and so will change his MAC treatment only if side effects start to limit his treatment - instead of rifabutin, IV amikacin was started on 10/25/2018. I plan to give Pt IV amikacin maximum 2 weeks because I am concerned of potential side effects that are associated with long-term amikacin use, i.e. hearing problem and renal failure - This Pt's strain of MAC that grew in his BAL culture at [facility] was resistant to common PO meds such as linezolid (THEODORE 64) and moxifloxacin (THEODORE 8) and therefore, his options are limited. Dr. Walker indicated that nebulized amikacin is an option after the 2 weeks of induction period - as I indicated above, I added a request to test his strain of AFB against clofazimine. If it is sensitive, I think it is a good drug to use, and request pre-authorization from his insurance company - Dr. Okeefe and I could consult the Mycobacterial Referral & Consult Hotline on [facility] for an expert opinion too management d/w Pt, RN Miladys, and Dr. Hinds. Left a message at [facility] of infection control office the total time I took to care for this Pt today was from 1130 to 1220 Consultation Date/Type/Reason Admit Date/Time Oct 13, 2018 at 23:44 Initial Consult Date 10/17/18 Type of Consult ID Requesting Provider: KAREN HINDS MD Date/Time of Note DATE: 10/27/18 TIME: 12:15 24 HR Interval Summary Constitutional: febrile, poor po Detailed Summary Eyes: no complaints ENT: no complaints Respiratory: cough, pleuritic pain (R chest tube site), sputum (scant); No shortness of breath Cardiovascular: no complaints Gastrointestinal: other (mild upset stomach) Genitourinary: no complaints Musculoskeletal: no complaints Skin: rash (rash is almost gone) Neurologic: no complaints Exam/Review of Systems Exam Vitals Vital Signs Date Temp Pulse Resp B/P (MAP) Pulse Ox O2 O2 Flow FiO2 Time Delivery Rate 10/27/18 100.4 129 19 133/78 96 Room Air 10:49 (96) Intake and Output 10/26/18 10/26/18 10/27/18 1515:00 23:00 07:00 IntakeIntake Total 1328 ml 1340 ml OutputOutput Total 200 ml 1250 ml 950 ml BalanceBalance -200 ml 78 ml 390 ml Constitutional: alert, oriented, well developed Psych: no complaints, nl mood/affect Head: normocephalic, atraumatic Eyes: nl conjunctiva, nl lids, nl sclera ENMT: nl external ears & nose, nl nasal mucosa & septum, mucosa pink and moist Neck: supple Respiratory: crackles/rales Cardiovascular: other (tachycardic and regular) Gastrointestinal: soft, non-tender; No distended Musculoskeletal: nl extremities to inspection Extremities: No edema Neurological: 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 MACHINE 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, nl mental status, nl speech, nl strength Skin: rash or lesions (macular rash is nearly completely resolved) Results Result Diagram: 10/23/18 0500 10/23/18 0500 Results 24hrs Laboratory Tests Test 10/26/18 16:53 10/26/18 20:23 10/27/18 05:37 10/27/18 08:34 Bedside Glucose 182 119 92 Lab Scanned BLOOD TRANSFUSIO Report N Test 10/27/18 11:51 White Blood Count Pending Red Blood Count Pending Hemoglobin Pending Hematocrit Pending Mean Corpuscular Pending Volume Mean Corpuscular Pending Hemoglobin Mean Corpuscular Pending Hemoglobin Concen t Red Cell Pending Distribution Width Platelet Count Pending Mean Platelet Pending Volume Medications Medication Current Medications Ondansetron HCl (Zofran Inj) 4 mg Q4H PRN IV nausea; Start 10/13/18 at 23:30 Zolpidem Tartrate (Ambien) 5 mg HS MAY REPEAT X 1 PRN PO INSOMNIA; Start 10/13/18 at 23:30 Folic Acid (Folic Acid) 1 mg DAILY PO Last administered on 10/27/18at 09:14; Admin Dose 1 MG; Start 10/14/18 at 09:00 Prednisone (Prednisone) 7.5 mg DAILY PO Last administered on 10/27/18at 09:14; Admin Dose 7.5 MG; Start 10/14/18 at 09:00 Insulin Aspart (Novolog Insulin Pen) NOVOLOG *MODERATE* ALGORITHM WITH MEALS BEDTIME SC Last administered on 10/26/18at 17:03; Admin Dose 4 UNIT; Start 10/14/18 at 11:50 Miscellaneous Information 1 ea NOTE XX ; Start 10/14/18 at 09:00 Glucose (Glutose) 15 gm Q15M PRN PO DECREASED GLUCOSE; Start 10/14/18 at 09:00 Glucose (Glutose) 22.5 gm Q15M PRN PO DECREASED GLUCOSE; Start 10/14/18 at 09:00 Dextrose (D50w Syringe) 25 ml Q15M PRN IV DECREASED GLUCOSE; Start 10/14/18 at 09:00 Dextrose (D50w Syringe) 50 ml Q15M PRN IV DECREASED GLUCOSE; Start 10/14/18 at 09:00 Glucagon (Glucagen) 1 mg Q15M PRN IM DECREASED GLUCOSE; Start 10/14/18 at 09:00 Glucose (Glutose) 15 gm Q15M PRN BUCCAL DECREASED GLUCOSE; Start 10/14/18 at 09:00 Acetaminophen (Tylenol Tab) 650 mg Q4H PRN PO MILD PAIN(1-3)OR ELEVATED TEMP Last administered on 10/26/18at 08:22; Admin Dose 650 MG; Start 10/15/18 at 04:38 Pantoprazole (Protonix Tab) 40 mg DAILY@06 PO Last administered on 10/27/18at 0 6:18; Admin Dose 40 MG; Start 10/16/18 at 13:55 Morphine Sulfate (morphine) 2 mg Q3H PRN IV SEVERE PAIN LEVEL 7-10 Last administered on 10/24/18at 04:12; Admin Dose 2 MG; Start 10/17/18 at 08:30 Aspirin (Aspirin) 81 mg DAILY PO Last administered on 10/27/18at 09:14; Admin Dose 81 MG; Start 10/17/18 at 16:30 Benzonatate (Tessalon) 200 mg TID PRN PO cough Last administered on 10/18/18at 15:00; Admin Dose 200 MG; Start 10/18/18 at 12:00 Diphenhydramine HCl (Benadryl) 25 mg Q6H PRN IV itching Last administered on 10/18/18at 16:14; Admin Dose 25 MG; Start 10/18/18 at 18:00 Enoxaparin Sodium (Lovenox) 40 mg DAILY SC Last administered on 10/27/18at 09:27; Admin Dose 40 MG; Start 10/22/18 at 09:00 Al Hydrox/Mg Hydrox/Simethicone (Mag-Al Plus) 30 ml QID PRN PO GASTROINTESTINAL UPSET Last administered on 10/24/18at 21:13; Admin Dose 30 ML; Start 10/24/18 at 21:00 Clarithromycin (Biaxin) 500 mg MoWeFr@0900,2100 PO Last administered on 10/27/18at 09:14; Admin Dose 500 MG; Start 10/25/18 at 21:00 Ethambutol HCl (Myambutol) 400 mg MoWeFr@0900,1200 PO Last administered on 10/27/18at 09:14; Admin Dose 400 MG; Start 10/25/18 at 12:30 Amikacin Sulfate (Amikacin Iv Per Pharmacy) AMIKACIN PER PHARM... NOTE XX ; Start 10/25/18 at 12:00 Amikacin Sulfate 1000 mg/Sodium Chloride 254 ml @ 102 mls/hr Q24H IVPB Last administered on 10/26/18at 16:51; Admin Dose 102 MLS/HR; Start 10/26/18 at 15:00 Miscellaneous Information (*Rx Drug Level Order Reminder*) AMIKACIN TROUGH ON @ 400 1400 ONCE XX ; Start 10/27/18 at 14:00; Stop 10/27/18 at 14:01 SALEEM MAST M.D. Oct 27, 2018 12:27
[2018-10-27] MEDS: AMIKACIN 1,000 MG in SOD CHLORIDE 0.9% 250 ML IVPB SCH (16:05)
[2018-10-28] VITALS (12 sets, daily range): BP systolic 116–127; BP diastolic 76–88; PULSE 93–136; RESP 18–20
[2018-10-28] MEDS: PANTOPRAZOLE (EC) 40 MG TAB PO SCH (05:39)
[2018-10-28] MEDS: INSULIN ASPART [NOVOLOG] 3 ML PEN SC SCH ×4 (07:55→20:32)
[2018-10-28] MEDS: predniSONE 2.5 MG TAB PO SCH (08:51)
[2018-10-28] MEDS: FOLIC ACID 1 MG TAB PO SCH (08:51)
[2018-10-28] MEDS: ASPIRIN 81 MG TAB PO SCH (08:51)
--- NOTE | 2018-10-28 10:14 | CONS ---
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 BAL culture at [facility] that was collected on 07/31/2018 grew MAC, finalized on 08/18/2018. MAC was sensitive to clarithromycin but resistant to moxifloxacin and linezolid (this report was brought to [facility] from his . The copy was left in Pt's chart and also at the infection control office. Pt was started on PO clarithromycin, ethambutol and rifabutin by Dr. Okeefe, ID physician, three days prior to his admission at [facility] - reviewed the results of Pt's AFB samples at [facility]: his AFB samples was negative for M. tuberculosis - one of the "Sternum" samples on 10/19/2018 at [facility] has 1+ AFB on smear/culture positive for AFB. This is reportedly pleural fluid rather than a sternal swab/sample - Pneumothorax, s/p R thoracostomy tube placement 10/13/2018; chest tube had slipped out of pleural space and was removed on 10/17/2018 - Large R hydropneumothorax multiple air pockets within suspicious for empyema per CT - S/p successful CT guided placement of 10-Ukrainian drainage catheter in R pleural space 10/18/2018 - s/p R sided decortication 10/21/18 - Erythematous mildly pruritic rash on the trunk, groin and extremities due to rifabutin, resolved after stopping it - poor appetite and mildly upset stomach, possibly related to clarithromycin # other conditions - JOHNNY on 10/18/2018 - resolved - Thrombosis of the right cephalic vein in the antecubital fossa per venous doppler on 10/17/2018 - DMT2 - RA - Immunocompromised state - Elevated alk phos -improving - so far he took: meropenem (10/17/2018-10/23/2018), pip/tazo (10/15/2018- 10/17/2018), vancomycin (10/15/2018-10/21/18), fluconazole (10/18/2018-10/24/2018) - so far: coccodioides serology in the serum on 10/16/2018 was negative management discussion and recommendations # specimens - pending results: speciation of AFB in one of the "Sternum" samples on 10/19/2018 at 05:42AM (1+ AFB on smear/culture positive). This is actually a pleural fluid sample. The specimen was submitted for antibiotic sensitivity on 10/26/2018. 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 [facility] also agreed to change the label "Sternum" to "pleural fluid." - so far, we have the following specimens: - 10/18/2018 at 08:00 AM, sputum for AFB smear and culture - 10/20/2018 at 16:15 PM, sputum for AFB smear and culture - other specimens are either pleural fluids or "lung" - 10/18/2018 at 14:30 PM, pleural fluid for AFB smear and culture - 10/19/2018 at 05:42 AM, "sternum" culture (this is reportedly pleural fluid) for AFB smear and culture - 10/21/2018 at 14:30 PM, R lung for AFB smear and culture - 10/21/2018 at 14:31 PM, R lung for AFB smear and culture - Dr. Walker requested that Pt has given us "minimum 3 adequate volume respiratory specimens collected at least 8hrs apart and sent for AFB culture." this does not include pleural fluid or VATS specimen. Accordingly, we are collecting another sputum sample for AFB smear and culture today # treatment - Dr. Walker requested description of this Pt's anti-MAC treatment. Dr. Milligan discussed this Pt's treatment plan with Dr. Okeefe, Pt's regular ID strategy planning consultant as outpatient on 10/25/2018 - Pt took rifabutin from 10/11/2018 to 10/24/2018. It was stopped on 10/24/2018 because Pt had rash. After rifabutin was stopped, rash resolved and so rifabutin was the probable culprit and added to his allergy list. - Pt has been taking PO ethambutol and PO clarithromycin since 10/11/2018 (started as outpatient and continued as inpatient). - Pt seems to be having mild GI side effects from clarithromycin; if the Sx escalate and Pt can no longer eat, etc then will change PO clarithromycin to another agent. I informed Pt that effective anti-MAC medications that are given orally are limited and so will change his MAC treatment only if side effects start to limit his treatment - instead of rifabutin, IV amikacin was started on 10/25/2018. The plan is to give Pt IV amikacin maximum 2 weeks because of potential side effects that are associated with long-term amikacin use, i.e. hearing problem and renal failure - This Pt's strain of MAC that grew in his BAL culture at [facility] was resistant to common PO meds such as linezolid (THEODORE 64) and moxifloxac in (THEODORE 8) and therefore, his options are limited. Dr. Walker indicated that nebulized amikacin is an option after the 2 weeks of induction period - Dr. Milligan requested to test his strain of AFB against clofazimine. If it is sensitive,It is a good drug to use, and request pre-authorization from his insurance company - Dr. Okeefe and Dr. Milligan may consult the Mycobacterial Referral & Consult Hotline on [facility] for an expert opinion too Consultation Date/Type/Reason Admit Date/Time Oct 13, 2018 at 23:44 Initial Consult Date Type of Consult ID Requesting Provider: KAREN HINDS MD Date/Time of Note DATE: 10/28/18 TIME: 10:11 24 HR Interval Summary Free Text/Dictation he notes some cough. tolerating abx about same Exam/Review of Systems Exam Vitals Vital Signs Date Temp Pulse Resp B/P (MAP) Pulse Ox O2 O2 Flow FiO2 Time Delivery Rate 10/28/18 99.1 123 20 116/76 96 07:28 (89) 10/27/18 Room Air 20:00 Intake and Output 10/27/18 10/27/18 10/28/18 1515:00 23:00 07:00 IntakeIntake Total 1000 ml 800 ml OutputOutput Total 2225 ml 535 ml BalanceBalance -1225 ml 265 ml Constitutional: alert, oriented, well developed Psych: no complaints, nl mood/affect Eyes: nl conjunctiva, EOMI, nl lids, nl sclera, PERRL ENMT: nl external ears & nose, nl lips & teeth, nl nasal mucosa & septum Respiratory: clear to auscultation, normal air movement Cardiovascular: regular rate and rhythm, nl pulses Musculoskeletal: nl extremities to inspection, nl gait and stance Neurological: WATER TAXI BOAT MATE 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, nl mental status, nl speech, nl strength Results Result Diagram: 10/28/18 0549 10/28/18 0549 Results 24hrs Laboratory Tests Test 10/27/18 11:51 10/27/18 12:24 10/27/18 17:41 10/27/18 22:13 White Blood Count 16.9 H Red Blood Count 4.13 L Hemoglobin 11.2 L Hematocrit 35.4 L Mean Corpuscular 85.7 Volume Mean Corpuscular 27.1 L Hemoglobin Mean Corpuscular 31.6 L Hemoglobin Concent Red Cell 16.4 H Distribution Width Platelet Count 541 H Mean Platelet Volume 8.7 Immature 2.300 H Granulocytes % Neutrophils % 83.1 H Lymphocytes % 4.0 L Monocytes % 6.2 Eosinophils % 4.0 Basophils % 0.4 Nucleated Red Blood 0.0 Cells % Immature 0.390 H Granulocytes # Neutrophils # 14.1 H Lymphocytes # 0.7 L Monocytes # 1.0 H Eosinophils # 0.7 H Basophils # 0.1 Nucleated Red Blood 0.0 Cells # Sodium Level 132 L Potassium Level 5.1 Chloride Level 92 L Carbon Dioxide Level 24 Anion Gap 16 H Blood Urea Nitrogen 13 Creatinine 1.25 H Est Glomerular 59 L Filtrat Rate mL/min Glucose Level 172 Calcium Level 8.9 Total Bilirubin 0.4 Direct Bilirubin 0.00 Indirect Bilirubin 0.4 Aspartate Amino 39 Transf (AST/SGOT) Alanine 25 Aminotransferase (AL T/SGPT) Alkaline Phosphatase 102 Total Protein 6.6 Albumin 3.2 L Globulin 3.40 H Albumin/Globulin 0.94 Ratio Bedside Glucose 178 157 136 Test 10/28/18 05:49 10/28/18 08:49 White Blood Count 11.1 #H Red Blood Count 4.37 L Hemoglobin 11.6 L Hematocrit 37.7 L Mean Corpuscular 86.3 Volume Mean Corpuscular 26.5 L Hemoglobin Mean Corpuscular 30.8 L Hemoglobin Concent Red Cell 16.1 H Distribution Width Platelet Count 549 H Mean Platelet Volume 8.5 Immature 3.600 H Granulocytes % Neutrophils % 67.6 Lymphocytes % 10.5 L Monocytes % 8.7 Eosinophils % 8.7 H Basophils % 0.9 Nucleated Red Blood 0.0 Cells % Immature 0.400 H Granulocytes # Neutrophils # 7.5 Lymphocytes # 1.2 Monocytes # 1.0 H Eosinophils # 1.0 H Basophils # 0.1 Nucleated Red Blood 0.0 Cells # Sodium Level 136 Potassium Level 4.0 Chloride Level 95 L Carbon Dioxide Level 31 Anion Gap 10 # Blood Urea Nitrogen 13 Creatinine 1.17 Est Glomerular > 60 Filtrat Rate mL/min Glucose Level 94 # Calcium Level 9.4 Bedside Glucose 90 Medications Medication Current Medications Ondansetron HCl (Zofran Inj) 4 mg Q4H PRN IV nausea; Start 10/13/18 at 23:30 Zolpidem Tartrate (Ambien) 5 mg HS MAY REPEAT X 1 PRN PO INSOMNIA; Start 10/13/18 at 23:30 Folic Acid (Folic Acid) 1 mg DAILY PO Last administered on 10/28/18at 08:51; Admin Dose 1 MG; Start 10/14/18 at 09:00 Prednisone (Prednisone) 7.5 mg DAILY PO Last administered on 10/28/18at 08:51; Admin Dose 7.5 MG; Start 10/14/18 at 09:00 Insulin Aspart (Novolog Insulin Pen) NOVOLOG *MODERATE* ALGORITHM WITH MEALS BEDTIME SC Last administered on 10/27/18at 17:54; Admin Dose 2 UNIT; Start 10/14/18 at 11:50 Miscellaneous Information 1 ea NOTE XX ; Start 10/14/18 at 09:00 Glucose (Glutose) 15 gm Q15M PRN PO DECREASED GLUCOSE; Start 10/14/18 at 09:00 Glucose (Glutose) 22.5 gm Q15M PRN PO DECREASED GLUCOSE; Start 10/14/18 at 09:00 Dextrose (D50w Syringe) 25 ml Q15M PRN IV DECREASED GLUCOSE; Start 10/14/18 at 09:00 Dextrose (D50w Syringe) 50 ml Q15M PRN IV DECREASED GLUCOSE; Start 10/14/18 at 09:00 Glucagon (Glucagen) 1 mg Q15M PRN IM DECREASED GLUCOSE; Start 10/14/18 at 09:00 Glucose (Glutose) 15 gm Q15M PRN BUCCAL DECREASED GLUCOSE; Start 10/14/18 at 09:00 Acetaminophen (Tylenol Tab) 650 mg Q4H PRN PO MILD PAIN(1-3)OR ELEVATED TEMP Last administered on 10/26/18at 08:22; Admin Dose 650 MG; Start 10/15/18 at 04:38 Pantoprazole (Protonix Tab) 40 mg DAILY@06 PO Last administered on 10/28/18 05:39; Admin Dose 40 MG; Start 10/16/18 at 13:55 Morphine Sulfate (morphine) 2 mg Q3H PRN IV SEVERE PAIN LEVEL 7-10 Last administered on 10/24/18 04:12; Admin Dose 2 MG; Start 10/17/18 at 08:30 Aspirin (Aspirin) 81 mg DAILY PO Last administered on 10/28/18 08:51; Admin Dose 81 MG; Start 10/17/18 at 16:30 Benzonatate (Tessalon) 200 mg TID PRN PO cough Last administered on 10/18/18 15:00; Admin Dose 200 MG; Start 10/18/18 at 12:00 Diphenhydramine HCl (Benadryl) 25 mg Q6H PRN IV itching Last administered on 10/18/18 16:14; Admin Dose 25 MG; Start 10/18/18 at 18:00 Enoxaparin Sodium (Lovenox) 40 mg DAILY SC Last administered on 10/27/18 09:27; Admin Dose 40 MG; Start 10/22/18 at 09:00 Al Hydrox/Mg Hydrox/Simethicone (Mag-Al Plus) 30 ml QID PRN PO GASTROINTESTINAL UPSET Last administered on 10/24/18 21:13; Admin Dose 30 ML; Start 10/24/18 at 21:00 Clarithromycin (Biaxin) 500 mg MoWeFr@0900,2100 PO Last administered on 10/27/18 22:14; Admin Dose 500 MG; Start 10/25/18 at 21:00 Ethambutol HCl (Myambutol) 400 mg MoWeFr@0900,1200 PO Last administered on 10/27/18 12:25; Admin Dose 400 MG; Start 10/25/18 at 12:30 Amikacin Sulfate (Amikacin Iv Per Pharmacy) AMIKACIN PER PHARM... NOTE XX ; Start 10/25/18 at 12:00 Amikacin Sulfate 1000 mg/Sodium Chloride 254 ml @ 102 mls/hr Q24H IVPB Last administered on 10/27/18 16:05; Admin Dose 102 MLS/HR; Start 10/26/18 at 15:00 SCOTTY YOUNGER MD Oct 28, 2018 10:14
[2018-10-28] MEDS: ENOXAPARIN 40 MG/0.4 ML SYG SC SCH (10:28)
--- NOTE | 2018-10-28 11:05 | PN ---
Date/Time of Note Date/Time of Note DATE: 10/28/18 TIME: 11:03 Assessment/Plan VTE Prophylaxis Risk score (from Ns)>0 risk: 2 SCD applied (from Nsg): Yes Pharmacological prophylaxis: LMWH Lines/Catheters IV Catheter Type (from [facility]): Saline Lock Urinary Cath still in place: No Assessment/Plan Assessment/Plan [facility] INTER[facility] MEDICINE 1. Mr. Hines is a 58-year-old man with right hydropneumothorax, now seven days s/p surgical decortication. Doing well with decreased chest tube drainage and clinically well. Negative cocci serology. Continued complex exam of the right chest suggesting persistent fluid. 2. MAC pneumonia, with positive acid fast culture x 1; all other cultures negative to date 3. Drug-induced rash attributed to rifabutin, resolving 4. Acute kidney injury on admission 10/18/2018 - resolved 5. Thrombosis of the right cephalic vein by Doppler on 10/17/2018 6. Type 2 diabetes 7. Rheumatoid arthritis, possible underlying role in his immunocompromised s eddy. Was on low-dose methotrexate (15mg weekly) until recently. No previous anti-TNF drug use (which can predispose to mycobacterial infection) 8. Elevated alkaline phosphatase, resolved (102) 9. Telemetry showed runs of SVT overnight, asymptomatic. No previous cardiology evaluation * Spoke to Dr. Yusra Banegas about cardiology consultation * Obtain EKG now * Repeat portable CXR. Last CXR 4 days ago showed stable position of 2 right- sided chest tubes without pneumothorax, with no significant change in small right pleural effusion with adjacent consolidated lung. Decrease subcutaneous air along the right chest. Repeat now to assess his complicated pulmonary exam today. * Continue current antibiotics (amikacin, clarithromycin, ethambutol) * Continue stress-dose steroids (prednisone 7.5mg PO daily) in RA patient * Anticipate removal of chest tube soon by Dr. Schneider * Pulmonary, cardiothoracic, and ID follow-up * Lovenox for DVT prevention/treatment of the cephalic renay clot * Famotidine GI prophylaxis * Disposition: home when stable Christian An MD PhD [facility] [phone] Result Diagram: 10/28/18 0549 10/28/18 0549 Results 24hrs Laboratory Tests Test 10/27/18 11:51 10/27/18 12:24 10/27/18 17:41 10/27/18 22:13 White Blood Count 16.9 H Red Blood Count 4.13 L Hemoglobin 11.2 L Hematocrit 35.4 L Mean Corpuscular 85.7 Volume Mean Corpuscular 27.1 L Hemoglobin Mean Corpuscular 31.6 L Hemoglobin Concent Red Cell 16.4 H Distribution Width Platelet Count 541 H Mean Platelet Volume 8.7 Immature 2.300 H Granulocytes % Neutrophils % 83.1 H Lymphocytes % 4.0 L Monocytes % 6.2 Eosinophils % 4.0 Basophils % 0.4 Nucleated Red Blood 0.0 Cells % Immature 0.390 H Granulocytes # Neutrophils # 14.1 H Lymphocytes # 0.7 L Monocytes # 1.0 H Eosinophils # 0.7 H Basophils # 0.1 Nucleated Red Blood 0.0 Cells # Sodium Level 132 L Potassium Level 5.1 Chloride Level 92 L Carbon Dioxide Level 24 Anion Gap 16 H Blood Urea Nitrogen 13 Creatinine 1.25 H Est Glomerular 59 L Filtrat Rate mL/min Glucose Level 172 Calcium Level 8.9 Total Bilirubin 0.4 Direct Bilirubin 0.00 Indirect Bilirubin 0.4 Aspartate Amino 39 Transf (AST/SGOT) Alanine 25 Aminotransferase (AL T/SGPT) Alkaline Phosphatase 102 Total Protein 6.6 Albumin 3.2 L Globulin 3.40 H Albumin/Globulin 0.94 Ratio Bedside Glucose 178 157 136 Test 10/28/18 05:49 10/28/18 08:49 White Blood Count 11.1 #H Red Blood Count 4.37 L Hemoglobin 11.6 L Hematocrit 37.7 L Mean Corpuscular 86.3 Volume Mean Corpuscular 26.5 L Hemoglobin Mean Corpuscular 30.8 L Hemoglobin Concent Red Cell 16.1 H Distribution Width Platelet Count 549 H Mean Platelet Volume 8.5 Immature 3.600 H Granulocytes % Neutrophils % 67.6 Lymphocytes % 10.5 L Monocytes % 8.7 Eosinophils % 8.7 H Basophils % 0.9 Nucleated Red Blood 0.0 Cells % Immature 0.400 H Granulocytes # Neutrophils # 7.5 Lymphocytes # 1.2 Monocytes # 1.0 H Eosinophils # 1.0 H Basophils # 0.1 Nucleated Red Blood 0.0 Cells # Sodium Level 136 Potassium Level 4.0 Chloride Level 95 L Carbon Dioxide Level 31 Anion Gap 10 # Blood Urea Nitrogen 13 Creatinine 1.17 Est Glomerular > 60 Filtrat Rate mL/min Glucose Level 94 # Calcium Level 9.4 Bedside Glucose 90 Subjective 24 Hr Interval Summary Free Text/Dictation Feeling well, with no chest pain or dyspnea breathing on room air. Still limited appetite. Stooling normally. at bedside. Chest tube in place. Exam/Review of Systems Exam Vitals Vital Signs Date Temp Pulse Resp B/P (MAP) Pulse Ox O2 O2 Flow FiO2 Time Delivery Rate 10/28/18 120 08:00 10/28/18 99.1 20 116/76 96 07:28 (89) 10/27/18 Room Air 20:00 Intake and Output 10/27/18 10/27/18 10/28/18 1515:00 23:00 07:00 IntakeIntake Total 1000 ml 800 ml OutputOutput Total 2225 ml 535 ml BalanceBalance -1225 ml 265 ml Exam Gen: Well-nourished, well-developed, serious, but comfortable-appearing HEENT: Normal pupils, no icterus, no JVD, no thrush CVS: Regular rhythm, tachycardic, 2/6 systolic murmur, good peripheral perfusion Chest: Severe rhonchi throughout the right lung eubanks, but symmetric tympany. No crackles or wheezes on the left. Abd: Soft, non-tender, no distension, normal bowel sounds Skin: No rash Neuro: Alert, oriented, cranial nerves and motor exams intact. Toes downgoing. Speech, affect, memory all normal. Results Results 24hrs Laboratory Tests Test 10/27/18 11:51 10/27/18 12:24 10/27/18 17:41 10/27/18 22:13 White Blood Count 16.9 H Red Blood Count 4.13 L Hemoglobin 11.2 L Hematocrit 35.4 L Mean Corpuscular 85.7 Volume Mean Corpuscular 27.1 L Hemoglobin Mean Corpuscular 31.6 L Hemoglobin Concent Red Cell 16.4 H Distribution Width Platelet Count 541 H Mean Platelet Volume 8.7 Immature 2.300 H Granulocytes % Neutrophils % 83.1 H Lymphocytes % 4.0 L Monocytes % 6.2 Eosinophils % 4.0 Basophils % 0.4 Nucleated Red Blood 0.0 Cells % Immature 0.390 H Granulocytes # Neutrophils # 14.1 H Lymphocytes # 0.7 L Monocytes # 1.0 H Eosinophils # 0.7 H Basophils # 0.1 Nucleated Red Blood 0.0 Cells # Sodium Level 132 L Potassium Level 5.1 Chloride Level 92 L Carbon Dioxide Level 24 Anion Gap 16 H Blood Urea Nitrogen 13 Creatinine 1.25 H Est Glomerular 59 L Filtrat Rate mL/min Glucose Level 172 Calcium Level 8.9 Total Bilirubin 0.4 Direct Bilirubin 0.00 Indirect Bilirubin 0.4 Aspartate Amino 39 Transf (AST/SGOT) Alanine 25 Aminotransferase (AL T/SGPT) Alkaline Phosphatase 102 Total Protein 6.6 Albumin 3.2 L Globulin 3.40 H Albumin/Globulin 0.94 Ratio Bedside Glucose 178 157 136 Test 10/28/18 05:49 10/28/18 08:49 White Blood Count 11.1 #H Red Blood Count 4.37 L Hemoglobin 11.6 L Hematocrit 37.7 L Mean Corpuscular 86.3 Volume Mean Corpuscular 26.5 L Hemoglobin Mean Corpuscular 30.8 L Hemoglobin Concent Red Cell 16.1 H Distribution Width Platelet Count 549 H Mean Platelet Volume 8.5 Immature 3.600 H Granulocytes % Neutrophils % 67.6 Lymphocytes % 10.5 L Monocytes % 8.7 Eosinophils % 8.7 H Basophils % 0.9 Nucleated Red Blood 0.0 Cells % Immature 0.400 H Granulocytes # Neutrophils # 7.5 Lymphocytes # 1.2 Monocytes # 1.0 H Eosinophils # 1.0 H Basophils # 0.1 Nucleated Red Blood 0.0 Cells # Sodium Level 136 Potassium Level 4.0 Chloride Level 95 L Carbon Dioxide Level 31 Anion Gap 10 # Blood Urea Nitrogen 13 Creatinine 1.17 Est Glomerular > 60 Filtrat Rate mL/min Glucose Level 94 # Calcium Level 9.4 Bedside Glucose 90 Medications Medication Current Medications Ondansetron HCl (Zofran Inj) 4 mg Q4H PRN IV nausea; Start 10/13/18 at 23:30 Zolpidem Tartrate (Ambien) 5 mg HS MAY REPEAT X 1 PRN PO INSOMNIA; Start 10/13/18 at 23:30 Folic Acid (Folic Acid) 1 mg DAILY PO Last administered on 10/28/18at 08:51; Admin Dose 1 MG; Start 10/14/18 at 09:00 Prednisone (Prednisone) 7.5 mg DAILY PO Last administered on 10/28/18at 08:51; Admin Dose 7.5 MG; Start 10/14/18 at 09:00 Insulin Aspart (Novolog Insulin Pen) NOVOLOG *MODERATE* ALGORITHM WITH MEALS BEDTIME SC Last administered on 10/27/18 17:54; Admin Dose 2 UNIT; Start 10/14/18 at 11:50 Miscellaneous Information 1 ea NOTE XX ; Start 10/14/18 at 09:00 Glucose (Glutose) 15 gm Q15M PRN PO DECREASED GLUCOSE; Start 10/14/18 at 09:00 Glucose (Glutose) 22.5 gm Q15M PRN PO DECREASED GLUCOSE; Start 10/14/18 at 09:00 Dextrose (D50w Syringe) 25 ml Q15M PRN IV DECREASED GLUCOSE; Start 10/14/18 at 09:00 Dextrose (D50w Syringe) 50 ml Q15M PRN IV DECREASED GLUCOSE; Start 10/14/18 at 09:00 Glucagon (Glucagen) 1 mg Q15M PRN IM DECREASED GLUCOSE; Start 10/14/18 at 09:00 Glucose (Glutose) 15 gm Q15M PRN BUCCAL DECREASED GLUCOSE; Start 10/14/18 at 09:00 Acetaminophen (Tylenol Tab) 650 mg Q4H PRN PO MILD PAIN(1-3)OR ELEVATED TEMP Last administered on 10/26/18 08:22; Admin Dose 650 MG; Start 10/15/18 at 04:38 Pantoprazole (Protonix Tab) 40 mg DAILY@06 PO Last administered on 10/28/18at 05:39; Admin Dose 40 MG; Start 10/16/18 at 13:55 Morphine Sulfate (morphine) 2 mg Q3H PRN IV SEVERE PAIN LEVEL 7-10 Last administered on 10/24/18at 04:12; Admin Dose 2 MG; Start 10/17/18 at 08:30 Aspirin (Aspirin) 81 mg DAILY PO Last administered on 10/28/18 08:51; Admin Dose 81 MG; Start 10/17/18 at 16:30 Benzonatate (Tessalon) 200 mg TID PRN PO cough Last administered on 10/18/18 15:00; Admin Dose 200 MG; Start 10/18/18 at 12:00 Diphenhydramine HCl (Benadryl) 25 mg Q6H PRN IV itching Last administered on 10/18/18at 16:14; Admin Dose 25 MG; Start 10/18/18 at 18:00 Enoxaparin Sodium (Lovenox) 40 mg DAILY SC Last administered on 10/28/18at 10:28; Admin Dose 40 MG; Start 10/22/18 at 09:00 Al Hydrox/Mg Hydrox/Simethicone (Mag-Al Plus) 30 ml QID PRN PO GASTROINTESTINAL UPSET Last administered on 10/24/18 21:13; Admin Dose 30 ML; Start 10/24/18 at 21:00 Clarithromycin (Biaxin) 500 mg MoWeFr@0900,2100 PO Last administered on 10/27/18at 22:14; Admin Dose 500 MG; Start 10/25/18 at 21:00 Ethambutol HCl (Myambutol) 400 mg MoWeFr@0900,1200 PO Last administered on 10/27/18at 12:25; Admin Dose 400 MG; Start 10/25/18 at 12:30 Amikacin Sulfate (Amikacin Iv Per Pharmacy) AMIKACIN PER PHARM... NOTE XX ; Start 10/25/18 at 12:00 Amikacin Sulfate 1000 mg/Sodium Chloride 254 ml @ 102 mls/hr Q24H IVPB Last administered on 10/27/18at 16:05; Admin Dose 102 MLS/HR; Start 10/26/18 at 15:00 GEORGIE AN M.D. Oct 28, 2018 11:05
--- NOTE | 2018-10-28 18:44 | PN ---
Date/Time of Note Date/Time of Note DATE: 10/28/18 TIME: 18:44 Assessment/Plan Lines/Catheters IV Catheter Type (from Nrsg): Saline Lock Retana in Place (from Nrsg): No Assessment/Plan Assessment/Plan Status post video-assisted thoracic surgery and pulmonary decortication DC chest tubes Subjective 24 Hr Interval Summary Constitutional: improved Pain Control: mild Exam/Review of Systems Vital Signs Vitals Vital Signs Date Temp Pulse Resp B/P (MAP) Pulse Ox O2 O2 Flow FiO2 Time Delivery Rate 10/28/18 98.0 101 20 126/82 95 15:32 (97) 10/27/18 Room Air 20:00 Intake and Output 10/27/18 10/27/18 10/28/18 1515:00 23:00 07:00 IntakeIntake Total 1000 ml 800 ml OutputOutput Total 2225 ml 535 ml BalanceBalance -1225 ml 265 ml Exam Eyes: nl conjunctiva, EOMI, nl lids, nl sclera ENMT: nl external ears & nose, nl lips & teeth, nl nasal mucosa & septum, mucosa pink and moist Neck: supple, non-tender Respiratory: clear to auscultation, normal air movement Cardiovascular: regular rate and rhythm, nl pulses Results Result Diagram: 10/28/18 0549 10/28/18 0549 JOSEPH VALADEZ MD Oct 28, 2018 18:44
[2018-10-29] VITALS (12 sets, daily range): BP systolic 112–125; BP diastolic 67–78; PULSE 92–152; RESP 18–20
[2018-10-29] MEDS: AMIKACIN 1,000 MG in SOD CHLORIDE 0.9% 250 ML IVPB SCH (04:40)
--- NOTE | 2018-10-29 04:54 | PN ---
DATE: 10/28/2018 SUBJECTIVE: Chart reviewed. The patient on room air saturating 96% and does not appear in acute dis tress. PHYSICAL EXAMINATION: VITAL SIGNS: Blood pressure 125/77, pulse 120, respirations 20, temperature 99.1. HEENT: Pupils are equal and reactive to light. NECK: Supple, no JVD noted, no cervical adenopathy noted. LUNGS: Fair breath sounds bilaterally. CARDIOVASCULAR: S1, S2 normal. ABDOMEN: Soft, nontender, no organomegaly or masses noted. EXTREMITIES: No clubbing or cyanosis noted. NEUROLOGIC: No changes. LABORATORY DATA: Sodium 136, potassium 4.0, chloride 95, CO2 31, BUN 13, creatinine 1.17, glucose 94 . WBC 11.1, hemoglobin 11.6, hematocrit 37.7, platelets 549. IMPRESSION: 1. Status post right hydropneumothorax, status post VATS procedure, decortication and chest tube becka cement. 2. History of KIERAN pneumonia. 3. Chronic obstructive pulmonary disease. RECOMMENDATIONS: 1. Antibiotics per ID. 2. Chest tube removal as per cardiothoracic surgeon. Dictated By: CHERYL TRAMMELL MD, MA/LINK Conf#: [id number] DID#: [id number] CC: KAREN HINDS MD;*EndCC*
[2018-10-29] MEDS: PANTOPRAZOLE (EC) 40 MG TAB PO SCH (05:41)
[2018-10-29] MEDS: INSULIN ASPART [NOVOLOG] 3 ML PEN SC SCH ×4 (07:55→21:00)
--- NOTE | 2018-10-29 09:52 | PN ---
Date/Time of Note Date/Time of Note DATE: 10/29/18 TIME: 09:51 Assessment/Plan VTE Prophylaxis Risk score (from [facility] [place])>0 risk: 4 SCD applied (from Ns): Yes Pharmacological prophylaxis: LMWH Lines/Catheters IV Catheter Type (from [facility] Saline Lock Urinary Cath still in place: No Assessment/Plan Assessment/Plan [facility] 1. Mr. Hines is a 58-year-old man with right hydropneumothorax, now eight days s/p surgical decortication. Doing very well s/p chest tube removal last night. Negative cocci serology. Continued complex exam of the right chest with mild R LL crackles and left-sided wheezing. CXR is reassuring last night. 2. MAC pneumonia, with positive acid fast culture x 1; all other cultures negative to date 3. Drug-induced rash attributed to rifabutin, still resolving 4. Acute kidney injury on admission 10/18/2018 - resolved 5. Thrombosis of the right cephalic vein by Doppler on 10/17/2018 6. Type 2 diabetes, with well-controlled blood sugars 7. Rheumatoid arthritis, possible underlying role in his immunocompromised state. Was on low-dose methotrexate (15mg weekly) until recently. No previous anti-TNF drug use (which can predispose to mycobacterial infection) 8. Elevated alkaline phosphatase, resolved (102) 9. Telemetry again shows sinus tachycardia, up to 150. No previous cardiology evaluation. EKG yesterday showed sinus tachycardia of 124/min with no ischemic changes. * Spoke to Dr. Yusra Banegas yesterday about cardiology consultation * Continue current antibiotics (amikacin, clarithromycin, ethambutol) * Continue stress-dose steroids (prednisone 7.5mg PO daily) in RA patient * Pulmonary, cardiothoracic, and ID follow-up * Lovenox for DVT prevention/treatment of the cephalic vein clot * Pantoprazole for GI prophylaxis * CBC, BMP pending this morning * Disposition: home when stable Christian An MD PhD [facility] [phone] Result Diagram: 10/28/18 0549 10/28/18 0549 Results 24hrs Laboratory Tests Test 10/28/18 12:55 10/28/18 18:38 10/28/18 20:32 10/29/18 07:57 Bedside Glucose 197 192 136 99 Subjective 24 Hr Interval Summary Free Text/Dictation Feeling much better after chest tube removal last night. No chest pain, good air movement. Still limited appetite, and no bowel movement for two days. Aware of a rapid heart rate, but no lightheadedness. Exam/Review of Systems Exam Vitals Vital Signs Date Temp Pulse Resp B/P (MAP) Pulse Ox O2 O2 Flow FiO2 Time Delivery Rate 10/29/18 99.1 110 20 118/72 96 07:13 (87) 10/28/18 Room Air 20:34 Intake and Output 10/28/18 10/28/18 10/29/18 1515:00 23:00 07:00 IntakeIntake Total 800 ml OutputOutput Total 600 ml 400 ml BalanceBalance -600 ml 400 ml Exam Gen: Well-nourished, well-developed, serious, but comfortable-appearing HEENT: Normal pupils, no icterus, no JVD, no thrush CVS: Regular rhythm, tachycardic, 2/6 systolic murmur, good peripheral perfusion Chest: Mild rhonchi throughout the right chest, with mild wheezing in the left lower lobe Abd: Soft, non-tender, no distension, normal bowel sounds Skin: No rash Neuro: Alert, oriented, cranial nerves and motor exams intact. Toes downgoing. Speech, affect, memory all normal. Results Results 24hrs Laboratory Tests Test 10/28/18 12:55 10/28/18 18:38 10/28/18 20:32 10/29/18 07:57 Bedside Glucose 197 192 136 99 Medications Medication Current Medications Ondansetron HCl (Zofran Inj) 4 mg Q4H PRN IV nausea; Start 10/13/18 at 23:30 Zolpidem Tartrate (Ambien) 5 mg HS MAY REPEAT X 1 PRN PO INSOMNIA; Start 10/13/18 at 23:30 Folic Acid (Folic Acid) 1 mg DAILY PO Last administered on 10/28/18at 08:51; Admin Dose 1 MG; Start 10/14/18 at 09:00 Prednisone (Prednisone) 7.5 mg DAILY PO Last administered on 10/28/18at 08:51; Admin Dose 7.5 MG; Start 10/14/18 at 09:00 Insulin Aspart (Novolog Insulin Pen) NOVOLOG *MODERATE* ALGORITHM WITH MEALS BEDTIME SC Last administered on 10/28/18 18:52; Admin Dose 4 UNIT; Start 10/14/18 at 11:50 Miscellaneous Information 1 ea NOTE XX ; Start 10/14/18 at 09:00 Glucose (Glutose) 15 gm Q15M PRN PO DECREASED GLUCOSE; Start 10/14/18 at 09:00 Glucose (Glutose) 22.5 gm Q15M PRN PO DECREASED GLUCOSE; Start 10/14/18 at 09:00 Dextrose (D50w Syringe) 25 ml Q15M PRN IV DECREASED GLUCOSE; Start 10/14/18 at 09:00 Dextrose (D50w Syringe) 50 ml Q15M PRN IV DECREASED GLUCOSE; Start 10/14/18 at 09:00 Glucagon (Glucagen) 1 mg Q15M PRN IM DECREASED GLUCOSE; Start 10/14/18 at 09:00 Glucose (Glutose) 15 gm Q15M PRN BUCCAL DECREASED GLUCOSE; Start 10/14/18 at 09:00 Acetaminophen (Tylenol Tab) 650 mg Q4H PRN PO MILD PAIN(1-3)OR ELEVATED TEMP Last administered on 10/26/18at 08:22; Admin Dose 650 MG; Start 10/15/18 at 04:38 Pantoprazole (Protonix Tab) 40 mg DAILY@06 PO Last administered on 10/29/18at 05:41; Admin Dose 40 MG; Start 10/16/18 at 13:55 Morphine Sulfate (morphine) 2 mg Q3H PRN IV SEVERE PAIN LEVEL 7-10 Last administered on 10/24/18at 04:12; Admin Dose 2 MG; Start 10/17/18 at 08:30 Aspirin (Aspirin) 81 mg DAILY PO Last administered on 10/28/18at 08:51; Admin Dose 81 MG; Start 10/17/18 at 16:30 Benzonatate (Tessalon) 200 mg TID PRN PO cough Last administered on 10/18/18 15:00; Admin Dose 200 MG; Start 10/18/18 at 12:00 Diphenhydramine HCl (Benadryl) 25 mg Q6H PRN IV itching Last administered on 10/18/18 16:14; Admin Dose 25 MG; Start 10/18/18 at 18:00 Enoxaparin Sodium (Lovenox) 40 mg DAILY SC Last administered on 10/28/18at 10:28; Admin Dose 40 MG; Start 10/22/18 at 09:00 Al Hydrox/Mg Hydrox/Simethicone (Mag-Al Plus) 30 ml QID PRN PO GASTROINTESTINAL UPSET Last administered on 10/24/18at 21:13; Admin Dose 30 ML; Start 10/24/18 at 21:00 Clarithromycin (Biaxin) 500 mg MoWeFr@0900,2100 PO Last administered on 10/27/18at 22:14; Admin Dose 500 MG; Start 10/25/18 at 21:00 Ethambutol HCl (Myambutol) 400 mg MoWeFr@0900,1200 PO Last administered on 10/27/18at 12:25; Admin Dose 400 MG; Start 10/25/18 at 12:30 Amikacin Sulfate (Amikacin Iv Per Pharmacy) AMIKACIN PER PHARM... NOTE XX ; Start 10/25/18 at 12:00 Amikacin Sulfate 1000 mg/Sodium Chloride 254 ml @ 102 mls/hr Q36H IVPB Last administered on 10/29/18at 04:40; Admin Dose 102 MLS/HR; Start 10/29/18 at 04:00 GEORGIE AN M.D. Oct 29, 2018 09:52
[2018-10-29] MEDS: predniSONE 2.5 MG TAB PO SCH (10:04)
[2018-10-29] MEDS: ASPIRIN 81 MG TAB PO SCH (10:04)
[2018-10-29] MEDS: FOLIC ACID 1 MG TAB PO SCH (10:04)
[2018-10-29] MEDS: ENOXAPARIN 40 MG/0.4 ML SYG SC SCH (10:10)
--- NOTE | 2018-10-29 11:07 | RADRPT ---
Vent Rate: 124 bpm RR Interval: 484 msec MN Interval: 124 msec QRS Duration: 88 msec QT Interval: 306 msec QTC Interval: 440 msec P-R-T [place]: 34 - 26 - 56 degrees Sinus tachycardia...rate> 99 Electronically Signed By: Raul Henderson
[2018-10-29] MEDS: ACETAMINOPHEN 325 MG TAB PO PRN (11:17)
--- NOTE | 2018-10-29 16:20 | CONS ---
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 BAL culture at [facility] that was collected on 07/31/2018 grew MAC, finalized on 08/18/2018. MAC was sensitive to clarithromycin but resistant to moxifloxacin and linezolid (this report was brought to [facility] from his . The copy was left in Pt's chart and also at the infection control office. Pt was started on PO clarithromycin, ethambutol and rifabutin by Dr. Okeefe, ID physician, three days prior to his admission at [facility] - reviewed the results of Pt's AFB samples at [facility]: his AFB samples was negative for M. tuberculosis - one of the "Sternum" samples on 10/19/2018 at [facility] has 1+ AFB on smear/culture positive for AFB. This is reportedly pleural fluid rather than a sternal swab/sample - Pneumothorax, s/p R thoracostomy tube placement 10/13/2018; chest tube had slipped out of pleural space and was removed on 10/17/2018 - Large R hydropneumothorax multiple air pockets within suspicious for empyema per CT - S/p successful CT guided placement of 10-Indonesian drainage catheter in R pleural space 10/18/2018 - s/p R sided decortication 10/21/18 - Erythematous mildly pruritic rash on the trunk, groin and extremities due to rifabutin, resolved after stopping it - poor appetite and mildly upset stomach, possibly related to clarithromycin # other conditions - JOHNNY on 10/18/2018 - resolved - Thrombosis of the right cephalic vein in the antecubital fossa per venous doppler on 10/17/2018 - DMT2 - RA - Immunocompromised state - Elevated alk phos -improving - Hyponatremia - so far he took: meropenem (10/17/2018-10/23/2018), pip/tazo (10/15/2018- 10/17/2018), vancomycin (10/15/2018-10/21/18), fluconazole (10/18/2018-10/24/2018) - so far: coccodioides serology in the serum on 10/16/2018 was negative management discussion and recommendations # specimens - pending results: speciation of AFB in one of the "Sternum" samples on 10/19/2018 at 05:42AM (1+ AFB on smear/culture positive). This is actually a pleural fluid sample. The specimen was submitted for antibiotic sensitivity on 10/26/2018. I added a request to test this strain of AFB against clofazimine in vitro on 10/26/2018 and 10/27/2018 (micro quality assurance qa lab analyst Ollie). Raheem also agreed to change the label "Sternum" to "pleural fluid." - so far, we have the following specimens: - 10/18/2018 at 08:00 AM, sputum for AFB smear and culture - 10/20/2018 at 16:15 PM, sputum for AFB smear and culture - other specimens are either pleural fluids or "lung" - 10/18/2018 at 14:30 PM, pleural fluid for AFB smear and culture - 10/19/2018 at 05:42 AM, "sternum" culture (this is reportedly pleural fluid) for AFB smear and culture - 10/21/2018 at 14:30 PM, R lung for AFB smear and culture - 10/21/2018 at 14:31 PM, R lung for AFB smear and culture - Dr. Walker requested that Pt has given us "minimum 3 adequate volume respiratory specimens collected at least 8hrs apart and sent for AFB culture." this does not include pleural fluid or VATS specimen. Accordingly, we are collecting another sputum sample for AFB smear and culture today # treatment - Dr. Walker requested description of this Pt's anti-MAC treatment. Dr. Milligan discussed this Pt's treatment plan with Dr. Okeefe, Pt's regular ID hospice care consultant as outpatient on 10/25/2018 - Pt took rifabutin from 10/11/2018 to 10/24/2018. It was stopped on 10/24/2018 because Pt had rash. After rifabutin was stopped, rash resolved and so rifabuti n was the probable culprit and added to his allergy list. - Pt has been taking PO ethambutol and PO clarithromycin since 10/11/2018 (started as outpatient and continued as inpatient). - Pt seems to be having mild GI side effects from clarithromycin; if the Sx escalate and Pt can no longer eat, etc then will change PO clarithromycin to another agent. Dr. Milligan had informed Pt that effective anti-MAC medications that are given orally are limited and so will change his MAC treatment only if side effects start to limit his treatment - instead of rifabutin, IV amikacin was started on 10/25/2018. The plan is to give Pt IV amikacin maximum 2 weeks because of potential side effects that are associated with long-term amikacin use, i.e. hearing problem and renal failure - This Pt's strain of MAC that grew in his BAL culture at [facility] was resistant to common PO meds such as linezolid (THEODORE 64) and moxifloxacin (THEODORE 8) and therefore, his options are limited. Dr. Walker indic ated that nebulized amikacin is an option after the 2 weeks of induction period - Dr. Milligan requested to test his strain of AFB against clofazimine. If it is sensitive, it is a good drug to use, and request pre-authorization from his insurance company - Dr. Okeefe and Dr. Milligan may consult the Mycobacterial Referral & Consult Hotline on [facility] for an expert opinion too - Trend WBC and fever curve - Ordered AM lactic acid and procalcitonin - If fever recurs, plan to repeat CXR and pancultures Management d/w patient, multiple family members at bedside, VANESSA Solis, and with Dr. Beltrán. Consultation Date/Type/Reason Admit Date/Time Oct 13, 2018 at 23:44 Initial Consult Date 10/17/18 Type of Consult Infectious Disease Requesting Provider: KAREN HINDS MD Date/Time of Note DATE: 10/29/18 TIME: 16:14 24 HR Interval Summary Free Text/Dictation Tmax 101.2F and pt was given Tylenol with resolution per d/w nursing. Pt states he "just felt hot earlier" but denies chills, SOB, cough, abd pain, n/v/d, dysuria. States "I feel good". Exam/Review of Systems Exam Vitals Vital Signs Date Temp Pulse Resp B/P (MAP) Pulse Ox O2 O2 Flow FiO2 Time Delivery Rate 10/29/18 98.1 106 20 118/76 96 15:09 (90) 10/28/18 Room Air 20:34 Intake and Output 10/28/18 10/28/18 10/29/18 1515:00 23:00 07:00 IntakeIntake Total 800 ml OutputOutput Total 600 ml 400 ml BalanceBalance -600 ml 400 ml Constitutional: alert, oriented, well developed, other (does not look septic) Psych: no complaints, nl mood/affect Head: normocephalic, atraumatic Eyes: nl conjunctiva, nl lids, nl sclera ENMT: nl external ears & nose, nl lips & teeth, nl nasal mucosa & septum, mucosa pink and moist Neck: supple, non-tender Respiratory: normal air movement, diminished breath sounds (RLL) Cardiovascular: nl pulses, other (regular rhythm, mildly tachycardic with HR 110's.) Gastrointestinal: soft, non-tender; No distended Musculoskeletal: nl extremities to inspection Extremities: normal pulses Neurological: nl mental status, nl speech, nl strength Skin: No rash or lesions Results Result Diagram: 10/29/18 1145 10/29/18 1222 Results 24hrs Laboratory Tests Test 10/28/18 18:38 10/28/18 20:32 10/29/18 07:57 10/29/18 11:15 Bedside Glucose 192 136 99 137 Test 10/29/18 11:45 10/29/18 12:22 White Blood Count 14.1 #H Red Blood Count 4.18 L Hemoglobin 11.0 L Hematocrit 35.3 L Mean Corpuscular 84.4 Volume Mean Corpuscular 26.3 L Hemoglobin Mean Corpuscular 31.2 L Hemoglobin Concent Red Cell 16.2 H Distribution Width Platelet Count 498 H Mean Platelet Volume 8.9 Immature 2.600 H Granulocytes % Neutrophils % 78.3 H Lymphocytes % 4.4 L Monocytes % 7.4 Eosinophils % 6.7 Basophils % 0.6 Nucleated Red Blood 0.0 Cells % Immature 0.370 H Granulocytes # Neutrophils # 11.1 H Lymphocytes # 0.6 L Monocytes # 1.0 H Eosinophils # 1.0 H Basophils # 0.1 Nucleated Red Blood 0.0 Cells # Sodium Level 129 L Potassium Level 4.2 Chloride Level 93 L Carbon Dioxide Level 25 Anion Gap 11 Blood Urea Nitrogen 12 Creatinine 1.14 Est Glomerular > 60 Filtrat Rate mL/min Glucose Level 181 Calcium Level 8.8 Imaging Imaging CXR 10/28/2018 at 1908: Interval removal of right-sided chest tube with small residual right-sided pleural effusion. No evidence of recurrent pneumothorax. Medications Medication Current Medications Ondansetron HCl (Zofran Inj) 4 mg Q4H PRN IV nausea; Start 10/13/18 at 23:30 Zolpidem Tartrate (Ambien) 5 mg HS MAY REPEAT X 1 PRN PO INSOMNIA; Start 10/13/18 at 23:30 Folic Acid (Folic Acid) 1 mg DAILY PO Last administered on 10/29/18at 10:04; Admin Dose 1 MG; Start 10/14/18 at 09:00 Prednisone (Prednisone) 7.5 mg DAILY PO Last administered on 10/29/18 10:04; Admin Dose 7.5 MG; Start 10/14/18 at 09:00 Insulin Aspart (Novolog Insulin Pen) NOVOLOG *MODERATE* ALGORITHM WITH MEALS BEDTIME SC Last administered on 10/28/18 18:52; Admin Dose 4 UNIT; Start 10/14/18 at 11:50 Miscellaneous Information 1 ea NOTE XX ; Start 10/14/18 at 09:00 Glucose (Glutose) 15 gm Q15M PRN PO DECREASED GLUCOSE; Start 10/14/18 at 09:00 Glucose (Glutose) 22.5 gm Q15M PRN PO DECREASED GLUCOSE; Start 10/14/18 at 09:00 Dextrose (D50w Syringe) 25 ml Q15M PRN IV DECREASED GLUCOSE; Start 10/14/18 at 09:00 Dextrose (D50w Syringe) 50 ml Q15M PRN IV DECREASED GLUCOSE; Start 10/14/18 at 09:00 Glucagon (Glucagen) 1 mg Q15M PRN IM DECREASED GLUCOSE; Start 10/14/18 at 09:00 Glucose (Glutose) 15 gm Q15M PRN BUCCAL DECREASED GLUCOSE; Start 10/14/18 at 09:00 Acetaminophen (Tylenol Tab) 650 mg Q4H PRN PO MILD PAIN(1-3)OR ELEVATED TEMP Last administered on 10/29/18at 11:17; Admin Dose 650 MG; Start 10/15/18 at 04:38 Pantoprazole (Protonix Tab) 40 mg DAILY@06 PO Last administered on 10/29/18at 05:41; Admin Dose 40 MG; Start 10/16/18 at 13:55 Morphine Sulfate (morphine) 2 mg Q3H PRN IV SEVERE PAIN LEVEL 7-10 Last administered on 10/24/18at 04:12; Admin Dose 2 MG; Start 10/17/18 at 08:30 Aspirin (Aspirin) 81 mg DAILY PO Last administered on 10/29/18 10:04; Admin Dose 81 MG; Start 10/17/18 at 16:30 Benzonatate (Tessalon) 200 mg TID PRN PO cough Last administered on 10/18/18 15:00; Admin Dose 200 MG; Start 10/18/18 at 12:00 Diphenhydramine HCl (Benadryl) 25 mg Q6H PRN IV itching Last administered on 10/18/18 16:14; Admin Dose 25 MG; Start 10/18/18 at 18:00 Enoxaparin Sodium (Lovenox) 40 mg DAILY SC Last administered on 10/29/18 10:10; Admin Dose 40 MG; Start 10/22/18 at 09:00 Al Hydrox/Mg Hydrox/Simethicone (Mag-Al Plus) 30 ml QID PRN PO GASTROINTESTINAL UPSET Last administered on 10/24/18 21:13; Admin Dose 30 ML; Start 10/24/18 at 21:00 Clarithromycin (Biaxin) 500 mg MoWeFr@0900,2100 PO Last administered on 10/27/18 22:14; Admin Dose 500 MG; Start 10/25/18 at 21:00 Ethambutol HCl (Myambutol) 400 mg MoWeFr@0900,1200 PO Last administered on 10/27/18 12:25; Admin Dose 400 MG; Start 10/25/18 at 12:30 Amikacin Sulfate (Amikacin Iv Per Pharmacy) AMIKACIN PER PHARM... NOTE XX ; Start 10/25/18 at 12:00 Amikacin Sulfate 1000 mg/Sodium Chloride 254 ml @ 102 mls/hr Q36H IVPB Last administered on 10/29/18 04:40; Admin Dose 102 MLS/HR; Start 10/29/18 at 04:00 Miscellaneous Information (*Rx Drug Level Order Reminder*) AMIKACIN TR 1500 ONCE XX ; Start 10/30/18 at 15:00; Stop 10/30/18 at 15:01 ANILA SIU NP Oct 29, 2018 16:20
--- NOTE | 2018-10-29 16:33 | CONS ---
Consultation Date/Type/Reason Admit Date/Time Oct 13, 2018 at 23:44 Type of Consult Cardiology Date/Time of Note DATE: 10/29/18 TIME: 16:28 Hx of Present Illness pt admitted for respiratory infection and pneumothorax noted to be tachycardic with exertion. At rest comfortable easily fatigued with minimal exertion Telelmetry reviewed on sinus tachycardia noted likely secondaryt o acute medical illness. Would conitnue treatment of infection as sinus tachycardia is a secondary manifestation. Will check echo but otherwise follow up with cardiology PRN Past Medical History Home Meds Reported Medications Cholecalciferol* (Vitamin D3*) 1,000 Unit Tablet, 1000 UNIT PO DAILY, TAB 10/14/18 Omeprazole* (Omeprazole*) 20 Mg Capsule.dr, 20 MG PO QAM, #30 CAP 10/14/18 Folic Acid* (Folic Acid*) 1 Mg Tablet, 1 MG PO DAILY for 90 Days, #90 10/14/18 Prednisone* (Prednisone*) 5 Mg Tab, 7.5 MG PO DAILY for 30 Days TAKE 1.5 TAB BY MOUTH DAILY 10/14/18 Clarithromycin* (Clarithromycin*) 500 Mg Tablet, 1000 MG PO DAILY for [id number] for 5 Days 10/14/18 Ethambutol Hcl (Ethambutol Hcl) 400 Mg Tablet, 800 MG PO DAILY for [id number] 10/14/18 Rifabutin (Rifabutin) 150 Mg Capsule, 300 MG PO DAILY for [id number] 10/14/18 Medications Current Medications Ondansetron HCl (Zofran Inj) 4 mg Q4H PRN IV nausea; Start 10/13/18 at 23:30 Zolpidem Tartrate (Ambien) 5 mg HS MAY REPEAT X 1 PRN PO INSOMNIA; Start 10/13/18 at 23:30 Folic Acid (Folic Acid) 1 mg DAILY PO Last administered on 10/29/18at 10:04; Admin Dose 1 MG; Start 10/14/18 at 09:00 Prednisone (Prednisone) 7.5 mg DAILY PO Last administered on 10/29/18at 10:04; Admin Dose 7.5 MG; Start 10/14/18 at 09:00 Insulin Aspart (Novolog Insulin Pen) NOVOLOG *MODERATE* ALGORITHM WITH MEALS BEDTIME SC Last administered on 10/28/18at 18:52; Admin Dose 4 UNIT; Start 10/14/18 at 11:50 Miscellaneous Information 1 ea NOTE XX ; Start 10/14/18 at 09:00 Glucose (Glutose) 15 gm Q15M PRN PO DECREASED GLUCOSE; Start 10/14/18 at 09:00 Glucose (Glutose) 22.5 gm Q15M PRN PO DECREASED GLUCOSE; Start 10/14/18 at 09:00 Dextrose (D50w Syringe) 25 ml Q15M PRN IV DECREASED GLUCOSE; Start 10/14/18 at 09:00 Dextrose (D50w Syringe) 50 ml Q15M PRN IV DECREASED GLUCOSE; Start 10/14/18 at 09:00 Glucagon (Glucagen) 1 mg Q15M PRN IM DECREASED GLUCOSE; Start 10/14/18 at 09:00 Glucose (Glutose) 15 gm Q15M PRN BUCCAL DECREASED GLUCOSE; Start 10/14/18 at 09:00 Acetaminophen (Tylenol Tab) 650 mg Q4H PRN PO MILD PAIN(1-3)OR ELEVATED TEMP Last administered on 10/29/18at 11:17; Admin Dose 650 MG; Start 10/15/18 at 04:38 Pantoprazole (Protonix Tab) 40 mg DAILY@06 PO Last administered on 10/29/18at 05:41; Admin Dose 40 MG; Start 10/16/18 at 13:55 Morphine Sulfate (morphine) 2 mg Q3H PRN IV SEVERE PAIN LEVEL 7-10 Last administered on 10/24/18at 04:12; Admin Dose 2 MG; Start 10/17/18 at 08:30 Aspirin (Aspirin) 81 mg DAILY PO Last administered on 10/29/18at 10:04; Admin Dose 81 MG; Start 10/17/18 at 16:30 Benzonatate (Tessalon) 200 mg TID PRN PO cough Last administered on 10/18/18at 15:00; Admin Dose 200 MG; Start 10/18/18 at 12:00 Diphenhydramine HCl (Benadryl) 25 mg Q6H PRN IV itching Last administered on 10/18/18at 16:14; Admin Dose 25 MG; Start 10/18/18 at 18:00 Enoxaparin Sodium (Lovenox) 40 mg DAILY SC Last administered on 10/29/18at 10:10; Admin Dose 40 MG; Start 10/22/18 at 09:00 Al Hydrox/Mg Hydrox/Simethicone (Mag-Al Plus) 30 ml QID PRN PO GASTROINTESTINAL UPSET Last administered on 10/24/18at 21:13; Admin Dose 30 ML; Start 10/24/18 at 21:00 Clarithromycin (Biaxin) 500 mg MoWeFr@0900,2100 PO Last administered on 10/27/18at 22:14; Admin Dose 500 MG; Start 10/25/18 at 21:00 Ethambutol HCl (Myambutol) 400 mg MoWeFr@0900,1200 PO Last administered on 10/27/18at 12:25; Admin Dose 400 MG; Start 10/25/18 at 12:30 Amikacin Sulfate (Amikacin Iv Per Pharmacy) AMIKACIN PER PHARM... NOTE XX ; Start 10/25/18 at 12:00 Amikacin Sulfate 1000 mg/Sodium Chloride 254 ml @ 102 mls/hr Q36H IVPB Last administered on 10/29/18at 04:40; Admin Dose 102 MLS/HR; Start 10/29/18 at 04:00 Miscellaneous Information (*Rx Drug Level Order Reminder*) AMIKACIN TR 1500 ONCE XX ; Start 10/30/18 at 15:00; Stop 10/30/18 at 15:01 Allergies: Coded Allergies: rifabutin (Verified Allergy, Severe, rash, 10/26/18) Social History Smoking Status: Former smoker Exam/Review of Systems Vital Signs Vitals Vital Signs Date Temp Pulse Resp B/P (MAP) Pulse Ox O2 O2 Flow FiO2 Time Delivery Rate 10/29/18 98.1 106 20 118/76 96 15:09 (90) 10/28/18 Room Air 20:34 Intake and Output 10/28/18 10/28/18 10/29/18 1515:00 23:00 07:00 IntakeIntake Total 800 ml OutputOutput Total 600 ml 400 ml BalanceBalance -600 ml 400 ml Labs Result Diagram: 10/29/18 1145 10/29/18 1222 Results 24hrs Laboratory Tests Test 10/28/18 18:38 10/28/18 20:32 10/29/18 07:57 10/29/18 11:15 Bedside Glucose 192 136 99 137 Test 10/29/18 11:45 10/29/18 12:22 White Blood Count 14.1 #H Red Blood Count 4.18 L Hemoglobin 11.0 L Hematocrit 35.3 L Mean Corpuscular 84.4 Volume Mean Corpuscular 26.3 L Hemoglobin Mean Corpuscular 31.2 L Hemoglobin Concent Red Cell 16.2 H Distribution Width Platelet Count 498 H Mean Platelet Volume 8.9 Immature 2.600 H Granulocytes % Neutrophils % 78.3 H Lymphocytes % 4.4 L Monocytes % 7.4 Eosinophils % 6.7 Basophils % 0.6 Nucleated Red Blood 0.0 Cells % Immature 0.370 H Granulocytes # Neutrophils # 11.1 H Lymphocytes # 0.6 L Monocytes # 1.0 H Eosinophils # 1.0 H Basophils # 0.1 Nucleated Red Blood 0.0 Cells # Sodium Level 129 L Potassium Level 4.2 Chloride Level 93 L Carbon Dioxide Level 25 Anion Gap 11 Blood Urea Nitrogen 12 Creatinine 1.14 Est Glomerular > 60 Filtrat Rate mL/min Glucose Level 181 Calcium Level 8.8 Medications Medications Current Medications Ondansetron HCl (Zofran Inj) 4 mg Q4H PRN IV nausea; Start 10/13/18 at 23:30 Zolpidem Tartrate (Ambien) 5 mg HS MAY REPEAT X 1 PRN PO INSOMNIA; Start 10/13/18 at 23:30 Folic Acid (Folic Acid) 1 mg DAILY PO Last administered on 10/29/18at 10:04; Admin Dose 1 MG; Start 10/14/18 at 09:00 Prednisone (Prednisone) 7.5 mg DAILY PO Last administered on 10/29/18at 10:04; Admin Dose 7.5 MG; Start 10/14/18 at 09:00 Insulin Aspart (Novolog Insulin Pen) NOVOLOG *MODERATE* ALGORITHM WITH MEALS BEDTIME SC Last administered on 10/28/18at 18:52; Admin Dose 4 UNIT; Start 10/14/18 at 11:50 Miscellaneous Information 1 ea NOTE XX ; Start 10/14/18 at 09:00 Glucose (Glutose) 15 gm Q15M PRN PO DECREASED GLUCOSE; Start 10/14/18 at 09:00 Glucose (Glutose) 22.5 gm Q15M PRN PO DECREASED GLUCOSE; Start 10/14/18 at 09:00 Dextrose (D50w Syringe) 25 ml Q15M PRN IV DECREASED GLUCOSE; Start 10/14/18 at 09:00 Dextrose (D50w Syringe) 50 ml Q15M PRN IV DECREASED GLUCOSE; Start 10/14/18 at 09:00 Glucagon (Glucagen) 1 mg Q15M PRN IM DECREASED GLUCOSE; Start 10/14/18 at 09:00 Glucose (Glutose) 15 gm Q15M PRN BUCCAL DECREASED GLUCOSE; Start 10/14/18 at 09:00 Acetaminophen (Tylenol Tab) 650 mg Q4H PRN PO MILD PAIN(1-3)OR ELEVATED TEMP Last administered on 10/29/18 11:17; Admin Dose 650 MG; Start 10/15/18 at 04:38 Pantoprazole (Protonix Tab) 40 mg DAILY@06 PO Last administered on 10/29/18 05:41; Admin Dose 40 MG; Start 10/16/18 at 13:55 Morphine Sulfate (morphine) 2 mg Q3H PRN IV SEVERE PAIN LEVEL 7-10 Last admi nistered on 10/24/18 04:12; Admin Dose 2 MG; Start 10/17/18 at 08:30 Aspirin (Aspirin) 81 mg DAILY PO Last administered on 10/29/18 10:04; Admin Dose 81 MG; Start 10/17/18 at 16:30 Benzonatate (Tessalon) 200 mg TID PRN PO cough Last administered on 10/18/18 15:00; Admin Dose 200 MG; Start 10/18/18 at 12:00 Diphenhydramine HCl (Benadryl) 25 mg Q6H PRN IV itching Last administered on 10/18/18 16:14; Admin Dose 25 MG; Start 10/18/18 at 18:00 Enoxaparin Sodium (Lovenox) 40 mg DAILY SC Last administered on 10/29/18 10:10; Admin Dose 40 MG; Start 10/22/18 at 09:00 Al Hydrox/Mg Hydrox/Simethicone (Mag-Al Plus) 30 ml QID PRN PO GASTROINTESTINAL UPSET Last administered on 10/24/18 21:13; Admin Dose 30 ML; Start 10/24/18 at 21:00 Clarithromycin (Biaxin) 500 mg MoWeFr@0900,2100 PO Last administered on 10/27/18 22:14; Admin Dose 500 MG; Start 10/25/18 at 21:00 Ethambutol HCl (Myambutol) 400 mg MoWeFr@0900,1200 PO Last administered on 10/27/18at 12:25; Admin Dose 400 MG; Start 10/25/18 at 12:30 Amikacin Sulfate (Amikacin Iv Per Pharmacy) AMIKACIN PER PHARM... NOTE XX ; Start 10/25/18 at 12:00 Amikacin Sulfate 1000 mg/Sodium Chloride 254 ml @ 102 mls/hr Q36H IVPB Last administered on 10/29/18at 04:40; Admin Dose 102 MLS/HR; Start 10/29/18 at 04:00 Miscellaneous Information (*Rx Drug Level Order Reminder*) AMIKACIN TR 1500 ONCE XX ; Start 10/30/18 at 15:00; Stop 10/30/18 at 15:01 ANNA BRYAN MD Oct 29, 2018 16:33
--- NOTE | 2018-10-29 17:29 | PN ---
DATE: 10/29/2018 SUBJECTIVE: Chart reviewed. The patient on room air saturating 96% and does not appear in acute dis tress. Chest tube was removed yesterday. PHYSICAL EXAMINATION: VITAL SIGNS: Blood pressure 119/67, pulse 138, respirations 20, temperature 101.2. HEENT: Pupils are equal and react to light. NECK: Supple, no JVD noted, no cervical adenopathy noted. LUNGS: Fair breath sounds bilaterally. CARDIOVASCULAR: S1, S2 normal. . ABDOMEN: Soft, nontender. EXTREMITIES: No clubbing or cyanosis noted. NEUROLOGICAL: Awake. LABORATORY DATA: WBC 14.1, hemoglobin 11, hematocrit 35.3, platelets 498. Chest x-ray yesterday walter tue removal of chest tube with a small residual right-sided pleural effusion and no pneumothorax. IMPRESSION: 1. Status post right hydropneumothorax, status post VATS procedure, decortication and now status pos t chest tube removal. 2. History of KIERAN pneumonia. 3. Chronic obstructive pulmonary disease. RECOMMENDATIONS: 1. Antibiotics per ID. 2. Followup x-ray. 3. Watch for fevers and ID followup. Dictated By: CHERYL TRAMMELL MD, MA/LINK Conf#: [id number] DID#: [id number] CC: KAREN HINDS MD; JOSEPH VALADEZ MD;*EndCC*
[2018-10-30] VITALS (11 sets, daily range): BP systolic 100–122; BP diastolic 59–76; PULSE 95–125; RESP 17–20
[2018-10-30] MEDS: PANTOPRAZOLE (EC) 40 MG TAB PO SCH (06:06)
[2018-10-30] MEDS: INSULIN ASPART [NOVOLOG] 3 ML PEN SC SCH ×4 (07:52→20:47)
[2018-10-30] MEDS: ETHAMBUTOL 400 MG TAB PO SCH ×2 (08:15→12:49)
[2018-10-30] MEDS: FOLIC ACID 1 MG TAB PO SCH (08:15)
[2018-10-30] MEDS: ASPIRIN 81 MG TAB PO SCH (08:15)
[2018-10-30] MEDS: CLARITHROMYCIN 500 MG TAB PO SCH ×2 (08:15→20:48)
[2018-10-30] MEDS: predniSONE 2.5 MG TAB PO SCH (08:15)
[2018-10-30] MEDS: ENOXAPARIN 40 MG/0.4 ML SYG SC SCH (08:20)
--- NOTE | 2018-10-30 11:55 | PN ---
Date/Time of Note Date/Time of Note DATE: 10/30/18 TIME: 11:54 Subjective Doing well. No cough or shortness of breath. Objective Vitals Vital Signs Date Temp Pulse Resp B/P (MAP) Pulse Ox O2 O2 Flow FiO2 Time Delivery Rate 10/30/18 99.2 125 20 105/59 94 11:03 (74) 10/28/18 Room Air 20:34 Intake and Output 10/29/18 10/29/18 10/30/18 1515:00 23:00 07:00 IntakeIntake Total 950 ml 800 ml OutputOutput Total 600 ml 500 ml BalanceBalance -600 ml 450 ml 800 ml Right-sided rhonchi more than left Regular rate and rhythm Soft nontender nondistended normoactive bowel sounds No edema Nonfocal Results Result Diagram: 10/29/18 1145 10/30/18 0538 Medications Medications Current Medications Ondansetron HCl (Zofran Inj) 4 mg Q4H PRN IV nausea; Start 10/13/18 at 23:30 Zolpidem Tartrate (Ambien) 5 mg HS MAY REPEAT X 1 PRN PO INSOMNIA; Start 10/13/18 at 23:30 Folic Acid (Folic Acid) 1 mg DAILY PO Last administered on 10/30/18at 08:15; Admin Dose 1 MG; Start 10/14/18 at 09:00 Prednisone (Prednisone) 7.5 mg DAILY PO Last administered on 10/30/18at 08:15; Admin Dose 7.5 MG; Start 10/14/18 at 09:00 Insulin Aspart (Novolog Insulin Pen) NOVOLOG *MODERATE* ALGORITHM WITH MEALS BEDTIME SC Last administered on 10/29/18at 17:38; Admin Dose 8 UNIT; Start 10/14/18 at 11:50 Miscellaneous Information 1 ea NOTE XX ; Start 10/14/18 at 09:00 Glucose (Glutose) 15 gm Q15M PRN PO DECREASED GLUCOSE; Start 10/14/18 at 09:00 Glucose (Glutose) 22.5 gm Q15M PRN PO DECREASED GLUCOSE; Start 10/14/18 at 09:00 Dextrose (D50w Syringe) 25 ml Q15M PRN IV DECREASED GLUCOSE; Start 10/14/18 at 09:00 Dextrose (D50w Syringe) 50 ml Q15M PRN IV DECREASED GLUCOSE; Start 10/14/18 at 09:00 Glucagon (Glucagen) 1 mg Q15M PRN IM DECREASED GLUCOSE; Start 10/14/18 at 09:00 Glucose (Glutose) 15 gm Q15M PRN BUCCAL DECREASED GLUCOSE; Start 10/14/18 at 09:00 Acetaminophen (Tylenol Tab) 650 mg Q4H PRN PO MILD PAIN(1-3)OR ELEVATED TEMP Last administered on 10/29/18 11:17; Admin Dose 650 MG; Start 10/15/18 at 04:38 Pantoprazole (Protonix Tab) 40 mg DAILY@06 PO Last administered on 10/30/18 06:06; Admin Dose 40 MG; Start 10/16/18 at 13:55 Morphine Sulfate (morphine) 2 mg Q3H PRN IV SEVERE PAIN LEVEL 7-10 Last a dministered on 10/24/18 04:12; Admin Dose 2 MG; Start 10/17/18 at 08:30 Aspirin (Aspirin) 81 mg DAILY PO Last administered on 10/30/18 08:15; Admin Dose 81 MG; Start 10/17/18 at 16:30 Benzonatate (Tessalon) 200 mg TID PRN PO cough Last administered on 10/18/18 15:00; Admin Dose 200 MG; Start 10/18/18 at 12:00 Diphenhydramine HCl (Benadryl) 25 mg Q6H PRN IV itching Last administered on 10/18/18 16:14; Admin Dose 25 MG; Start 10/18/18 at 18:00 Enoxaparin Sodium (Lovenox) 40 mg DAILY SC Last administered on 10/30/18 08:20; Admin Dose 40 MG; Start 10/22/18 at 09:00 Al Hydrox/Mg Hydrox/Simethicone (Mag-Al Plus) 30 ml QID PRN PO GASTROINTESTINAL UPSET Last administered on 10/24/18 21:13; Admin Dose 30 ML; Start 10/24/18 at 21:00 Clarithromycin (Biaxin) 500 mg MoWeFr@0900,2100 PO Last administered on 10/30/18 08:15; Admin Dose 500 MG; Start 10/25/18 at 21:00 Ethambutol HCl (Myambutol) 400 mg MoWeFr@0900,1200 PO Last administered on 6/24/19at 08:15; Admin Dose 400 MG; Start 10/25/18 at 12:30 Amikacin Sulfate (Amikacin Iv Per Pharmacy) AMIKACIN PER PHARM... NOTE XX ; Start 10/25/18 at 12:00 Amikacin Sulfate 1000 mg/Sodium Chloride 254 ml @ 102 mls/hr Q36H IVPB Last administered on 10/29/18at 04:40; Admin Dose 102 MLS/HR; Start 10/29/18 at 04:00 Miscellaneous Information (*Rx Drug Level Order Reminder*) AMIKACIN TR 1500 ONCE XX ; Start 10/30/18 at 15:00; Stop 10/30/18 at 15:01 VTE Prophylaxis Risk score (from Ns)>0 risk: 2 SCD applied (from Ns): Yes Lines/Catheters IV Catheter Type: Saline Lock Retana in Place: No Assessment/Plan Assessment/Plan Right hydropneumothorax Status post decortication and removal of right chest tube KIERAN pneumonia Continue current therapy Pulmonary and ID follow-up Discharge planning when cleared by KAREN Menezes MD Oct 30, 2018 11:55
--- NOTE | 2018-10-30 16:03 | CONS ---
Consult Date/Type/Reason Admit Date/Time Oct 13, 2018 at 23:44 Initial Consult Date 10/17/18 Type of Consult Pulmonary Requesting Provider: KAREN HINDS MD Date/Time of Note DATE: 10/30/18 TIME: 16:02 Subjective Patient comfortable this morning no respiratory distress Objective Vital Signs Date Temp Pulse Resp B/P (MAP) Pulse Ox O2 O2 Flow FiO2 Time Delivery Rate 10/30/18 98.3 104 20 115/70 95 15:25 (85) 10/28/18 Room Air 20:34 Intake and Output 10/29/18 10/29/18 10/30/18 1515:00 23:00 07:00 IntakeIntake Total 950 ml 800 ml OutputOutput Total 600 ml 500 ml BalanceBalance -600 ml 450 ml 800 ml Exam GENERAL: VITAL SIGNS: per chart NECK: Supple. No JVD or lymphadenopathy. CARDIAC EXAM: S1, S2. No added sounds or murmurs. CHEST: clear bilaterally, No added sounds, rales or wheezes ABDOMEN: Soft, nontender. No guarding or rebound. EXTREMITIES: No cyanosis, clubbing or edema. NEUROLOGIC: Generalized weakness. No focal deficits. Results/Medications Result Diagram: 10/29/18 1145 10/30/18 0538 Results 24 hrs Laboratory Tests Test 10/29/18 17:32 10/29/18 21:19 10/30/18 05:38 10/30/18 07:51 Bedside Glucose 265 H 173 104 Blood Urea 12 Nitrogen Creatinine 1.14 Lactic Acid Level 1.1 Procalcitonin 0.35 H Test 10/30/18 09:37 10/30/18 12:42 10/30/18 12:47 Lab Scanned Report REFERENCE LAB Bedside Glucose 343 H 272 H Medications Current Medications Ondansetron HCl (Zofran Inj) 4 mg Q4H PRN IV nausea; Start 10/13/18 at 23:30 Zolpidem Tartrate (Ambien) 5 mg HS MAY REPEAT X 1 PRN PO INSOMNIA; Start 10/13/18 at 23:30 Folic Acid (Folic Acid) 1 mg DAILY PO Last administered on 10/30/18at 08:15; Admin Dose 1 MG; Start 10/14/18 at 09:00 Prednisone (Prednisone) 7.5 mg DAILY PO Last administered on 10/30/18at 08:15; Admin Dose 7.5 MG; Start 10/14/18 at 09:00 Insulin Aspart (Novolog Insulin Pen) NOVOLOG *MODERATE* ALGORITHM WITH MEALS BEDTIME SC Last administered on 10/30/18at 12:48; Admin Dose 8 UNIT; Start 10/14/18 at 11:50 Miscellaneous Information 1 ea NOTE XX ; Start 10/14/18 at 09:00 Glucose (Glutose) 15 gm Q15M PRN PO DECREASED GLUCOSE; Start 10/14/18 at 09:00 Glucose (Glutose) 22.5 gm Q15M PRN PO DECREASED GLUCOSE; Start 10/14/18 at 09:00 Dextrose (D50w Syringe) 25 ml Q15M PRN IV DECREASED GLUCOSE; Start 10/14/18 at 09:00 Dextrose (D50w Syringe) 50 ml Q15M PRN IV DECREASED GLUCOSE; Start 10/14/18 at 09:00 Glucagon (Glucagen) 1 mg Q15M PRN IM DECREASED GLUCOSE; Start 10/14/18 at 09:00 Glucose (Glutose) 15 gm Q15M PRN BUCCAL DECREASED GLUCOSE; Start 10/14/18 at 09:00 Acetaminophen (Tylenol Tab) 650 mg Q4H PRN PO MILD PAIN(1-3)OR ELEVATED TEMP Last administered on 10/29/18at 11:17; Admin Dose 650 MG; Start 10/15/18 at 04:38 Pantoprazole (Protonix Tab) 40 mg DAILY@06 PO Last administered on 10/30/18 06:06; Admin Dose 40 MG; Start 10/16/18 at 13:55 Morphine Sulfate (morphine) 2 mg Q3H PRN IV SEVERE PAIN LEVEL 7-10 Last administered on 10/24/18at 04:12; Admin Dose 2 MG; Start 10/17/18 at 08:30 Aspirin (Aspirin) 81 mg DAILY PO Last administered on 10/30/18 08:15; Admin Dose 81 MG; Start 10/17/18 at 16:30 Benzonatate (Tessalon) 200 mg TID PRN PO cough Last administered on 10/18/18 15:00; Admin Dose 200 MG; Start 10/18/18 at 12:00 Diphenhydramine HCl (Benadryl) 25 mg Q6H PRN IV itching Last administered on 10/18/18 16:14; Admin Dose 25 MG; Start 10/18/18 at 18:00 Enoxaparin Sodium (Lovenox) 40 mg DAILY SC Last administered on 10/30/18at 08:20; Admin Dose 40 MG; Start 10/22/18 at 09:00 Al Hydrox/Mg Hydrox/Simethicone (Mag-Al Plus) 30 ml QID PRN PO GASTROINTESTINAL UPSET Last administered on 10/24/18at 21:13; Admin Dose 30 ML; Start 10/24/18 at 21:00 Clarithromycin (Biaxin) 500 mg MoWeFr@0900,2100 PO Last administered on 10/30/18at 08:15; Admin Dose 500 MG; Start 10/25/18 at 21:00 Ethambutol HCl (Myambutol) 400 mg MoWeFr@0900,1200 PO Last administered on 10/30/18at 12:49; Admin Dose 400 MG; Start 10/25/18 at 12:30 Amikacin Sulfate (Amikacin Iv Per Pharmacy) AMIKACIN PER PHARM... NOTE XX ; Start 10/25/18 at 12:00 Amikacin Sulfate 1000 mg/Sodium Chloride 254 ml @ 102 mls/hr Q36H IVPB Last administered on 10/29/18at 04:40; Admin Dose 102 MLS/HR; Start 10/29/18 at 04:00 Assessment/Plan Hospital Course (Demo Recall) IMPRESSION: 1. Status post right hydropneumothorax, status post VATS procedure, decortication and now status post chest tube removal. 2. History of KIERAN pneumonia. 3. Chronic obstructive pulmonary disease. RECOMMENDATIONS: 1. Antibiotics per ID. 2. Followup x-ray. 3. DC planning. MIGUEL ANGEL CASIANO MD, [facility] Oct 30, 2018 16:03
[2018-10-30] MEDS: AMIKACIN 1,000 MG in SOD CHLORIDE 0.9% 250 ML IVPB SCH (16:56)
--- NOTE | 2018-10-30 17:30 | CONS ---
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 BAL culture at [facility] that was collected on 07/31/2018 grew MAC, finalized on 08/18/2018. MAC was sensitive to clarithromycin but resistant to moxifloxacin and linezolid (this report was brought to [facility] from his . The copy was left in Pt's chart and also at the infection control office. Pt was started on PO clarithromycin, ethambutol and rifabutin by Dr. Okeefe, ID physician, three days prior to his admission at [facility] - reviewed the results of Pt's AFB samples at [facility]: his AFB samples was negative for M. tuberculosis - one of the "Sternum" samples on 10/19/2018 at [facility] has 1+ AFB on smear/culture positive for AFB. This is reportedly pleural fluid rather than a sternal swab/ sample - Pneumothorax, s/p R thoracostomy tube placement 10/13/2018; chest tube had slipped out of pleural space and was removed on 10/17/2018 - Large R hydropneumothorax multiple air pockets within suspicious for empyema per CT - S/p successful CT guided placement of 10-Thai drainage catheter in R pleural space 10/18/2018 - s/p R sided decortication 10/21/18 - s/p erythematous mildly pruritic rash on the trunk, groin and extremities due to rifabutin, resolved after stopping it - s/p poor appetite and mildly upset stomach, possibly related to clarithromycin, improved # other conditions - JOHNNY on 10/18/2018, resolved - Thrombosis of the right cephalic vein in the antecubital fossa per venous dop pler on 10/17/2018 - DMT2 - RA - Immunocompromised state - Elevated alk phos, improved - so far he took: meropenem (10/17/2018-10/23/2018), pip/tazo (10/15/2018- 10/17/2018), vancomycin (10/15/2018-10/21/18), fluconazole (10/18/2018-10/24/2018) - so far: coccodioides serology in the serum on 10/16/2018 was negative management discussion and recommendations # specimens - pending results: speciation of AFB in one of the "Sternum" samples on 10/19/2018 at 05:42AM (1+ AFB on smear/culture positive). This is actually a pleural fluid sample. The specimen was submitted for antibiotic sensitivity on 10/26/2018. 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 [facility] also agreed to change the label "Sternum" to "pleural fluid." - so far, we have the following specimens: - 10/28/2018 at 11:03 AM, sputum for AFB smear (smear negative) and culture - 10/18/2018 at 08:00 AM, sputum for AFB smear (smear negative) and culture - 10/20/2018 at 16:15 PM, sputum for AFB smear (smear negative) and culture - other specimens are either pleural fluids or "lung" - 10/18/2018 at 14:30 PM, pleural fluid for AFB smear and culture - 10/19/2018 at 05:42 AM, "sternum" culture (this is reportedly pleural fluid) for AFB smear and culture - 10/21/2018 at 14:30 PM, R lung for AFB smear and culture - 10/21/2018 at 14:31 PM, R lung for AFB smear and culture # treatment - Dr. Walker requested that I describe this Pt's anti-MAC treatment. Please note that I discussed this Pt's treatment plan with Dr. Okeefe, Pt's regular ID senior health consultant as outpatient on 10/25/2018 - Pt took rifabutin from 10/11/2018 to 10/24/2018. It was stopped on 10/24/2018 because Pt had rash. After rifabutin was stopped, rash resolved and so rifabutin was the probable culprit and added to his allergy list. - Pt has been taking PO ethambutol and PO clarithromycin since 10/11/2018 (started as outpatient and continued as inpatient). - Pt seems to be having mild GI side effects from clarithromycin; if the Sx escalate and Pt can no longer eat, etc then will change PO clarithromycin to another agent. I informed Pt that effective anti-MAC medications that are given orally are limited and so will change his MAC treatment only if side effects start to limit his treatment - instead of rifabutin, IV amikacin was started on 10/25/2018. I plan to give Pt IV amikacin maximum 2 weeks because I am concerned of potential side effects that are associated with long-term amikacin use, i.e. hearing problem and renal failure - therefore, I recommend that Pt receive inhalational amikacin after discharge. I filled out a pre-authorization form for inhalational amikacin x 2 months and his RN Melvina faxed it to [place] on 10/30/2018 - This Pt's strain of MAC that grew in his BAL culture at [facility] was resistant to common PO meds such as linezolid (THEODORE 64) and moxifloxacin (THEODORE 8) and therefore, his options are limited. - as I indicated above, I added a request to test his strain of AFB against clofazimine. If it is sensitive, clofazimine is another option replacing amikacin - if the above is not approved, I plan to consult the Mycobacterial Referral & Consult Hotline on [facility] for an expert opinion management d/w Pt, RN Melvina, and Dr. Hinds the total time I took to care for this Pt today was 50 min Consultation Date/Type/Reason Admit Date/Time Oct 13, 2018 at 23:44 Initial Consult Date 10/17/18 Type of Consult ID Reason for Consultation MAC pneumonia Requesting Provider: KAREN HINDS MD Date/Time of Note DATE: 10/30/18 TIME: 17:22 24 HR Interval Summary Constitutional: improved Detailed Summary Eyes: no complaints ENT: no complaints Respiratory: No cough, No pleuritic pain, No shortness of breath Cardiovascular: no complaints Gastrointestinal: no complaints, other (regained some appetite) Genitourinary: no complaints Musculoskeletal: no complaints Skin: no complaints Neurologic: no complaints Exam/Review of Systems Exam Vitals Vital Signs Date Temp Pulse Resp B/P (MAP) Pulse Ox O2 O2 Flow FiO2 Time Delivery Rate 10/30/18 98.3 104 20 115/70 95 15:25 (85) 10/28/18 Room Air 20:34 Intake and Output 10/29/18 10/29/18 10/30/18 1515:00 23:00 07:00 IntakeIntake Total 950 ml 800 ml OutputOutput Total 600 ml 500 ml BalanceBalance -600 ml 450 ml 800 ml Constitutional: alert, oriented, well developed Psych: no complaints, nl mood/affect Head: normocephalic, atraumatic Eyes: nl conjunctiva, nl lids, nl sclera ENMT: nl external ears & nose, nl nasal mucosa & septum, mucosa pink and moist Neck: non-tender Respiratory: crackles/rales Cardiovascular: regular rate and rhythm, nl pulses Gastrointestinal: soft, non-tender; No distended Musculoskeletal: nl extremities to inspection Extremities: No edema Neurological: PATIENT SUPPORT REPRESENTATIVE 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, nl mental status Skin: No rash or lesions Results Result Diagram: 10/29/18 1145 10/30/18 0538 Results 24hrs Laboratory Tests Test 10/29/18 17:32 10/29/18 21:19 10/30/18 05:38 10/30/18 07:51 Bedside Glucose 265 H 173 104 Blood Urea 12 Nitrogen Creatinine 1.14 Lactic Acid Level 1.1 Procalcitonin 0.35 H Test 10/30/18 09:37 10/30/18 12:42 10/30/18 12:47 Lab Scanned Report REFERENCE LAB Bedside Glucose 343 H 272 H Medications Medication Current Medications Ondansetron HCl (Zofran Inj) 4 mg Q4H PRN IV nausea; Start 10/13/18 at 23:30 Zolpidem Tartrate (Ambien) 5 mg HS MAY REPEAT X 1 PRN PO INSOMNIA; Start at 23:30 Folic Acid (Folic Acid) 1 mg DAILY PO Last administered on 10/30/18at 08:15; Admin Dose 1 MG; Start 10/14/18 at 09:00 Prednisone (Prednisone) 7.5 mg DAILY PO Last administered on 10/30/18at 08:15; Admin Dose 7.5 MG; Start 10/14/18 at 09:00 Insulin Aspart (Novolog Insulin Pen) NOVOLOG *MODERATE* ALGORITHM WITH MEALS BEDTIME SC Last administered on 10/30/18at 12:48; Admin Dose 8 UNIT; Start 10/14/18 at 11:50 Miscellaneous Information 1 ea NOTE XX ; Start 10/14/18 at 09:00 Glucose (Glutose) 15 gm Q15M PRN PO DECREASED GLUCOSE; Start 10/14/18 at 09:00 Glucose (Glutose) 22.5 gm Q15M PRN PO DECREASED GLUCOSE; Start 10/14/18 at 09:00 Dextrose (D50w Syringe) 25 ml Q15M PRN IV DECREASED GLUCOSE; Start 10/14/18 at 09:00 Dextrose (D50w Syringe) 50 ml Q15M PRN IV DECREASED GLUCOSE; Start 10/14/18 at 09:00 Glucagon (Glucagen) 1 mg Q15M PRN IM DECREASED GLUCOSE; Start 10/14/18 at 09:00 Glucose (Glutose) 15 gm Q15M PRN BUCCAL DECREASED GLUCOSE; Start 10/14/18 at 09:00 Acetaminophen (Tylenol Tab) 650 mg Q4H PRN PO MILD PAIN(1-3)OR ELEVATED TEMP Last administered on 10/29/18 11:17; Admin Dose 650 MG; Start 10/15/18 at 04:38 Pantoprazole (Protonix Tab) 40 mg DAILY@06 PO Last administered on 10/30/18 06:06; Admin Dose 40 MG; Start 10/16/18 at 13:55 Morphine Sulfate (morphine) 2 mg Q3H PRN IV SEVERE PAIN LEVEL 7-10 Last administered on 10/24/18 04:12; Admin Dose 2 MG; Start 10/17/18 at 08:30 Aspirin (Aspirin) 81 mg DAILY PO Last administered on 10/30/18 08:15; Admin Dose 81 MG; Start 10/17/18 at 16:30 Benzonatate (Tessalon) 200 mg TID PRN PO cough Last administered on 10/18/18 15:00; Admin Dose 200 MG; Start 10/18/18 at 12:00 Diphenhydramine HCl (Benadryl) 25 mg Q6H PRN IV itching Last administered on 10/18/18 16:14; Admin Dose 25 MG; Start 10/18/18 at 18:00 Enoxaparin Sodium (Lovenox) 40 mg DAILY SC Last administered on 10/30/18 08:20; Admin Dose 40 MG; Start 10/22/18 at 09:00 Al Hydrox/Mg Hydrox/Simethicone (Mag-Al Plus) 30 ml QID PRN PO GASTROINTESTINAL UPSET Last administered on 10/24/18 21:13; Admin Dose 30 ML; Start 10/24/18 at 21:00 Clarithromycin (Biaxin) 500 mg MoWeFr@0900,2100 PO Last administered on 10/30/18at 08:15; Admin Dose 500 MG; Start 10/25/18 at 21:00 Ethambutol HCl (Myambutol) 400 mg MoWeFr@0900,1200 PO Last administered on 10/30/18at 12:49; Admin Dose 400 MG; Start 10/25/18 at 12:30 Amikacin Sulfate (Amikacin Iv Per Pharmacy) AMIKACIN PER PHARM... NOTE XX ; Start 10/25/18 at 12:00 Amikacin Sulfate 1000 mg/Sodium Chloride 254 ml @ 102 mls/hr Q36H IVPB Last administered on 10/30/18at 16:56; Admin Dose 102 MLS/HR; Start 10/29/18 at 04:00 SALEEM MAST M.D. Oct 30, 2018 17:30
[2018-10-31] VITALS (10 sets, daily range): BP systolic 106–127; BP diastolic 64–80; PULSE 92–134; RESP 18–20
[2018-10-31] MEDS: PANTOPRAZOLE (EC) 40 MG TAB PO SCH (05:32)
[2018-10-31] MEDS: INSULIN ASPART [NOVOLOG] 3 ML PEN SC SCH ×4 (07:53→20:59)
[2018-10-31] MEDS: FOLIC ACID 1 MG TAB PO SCH (08:17)
[2018-10-31] MEDS: ASPIRIN 81 MG TAB PO SCH (08:18)
[2018-10-31] MEDS: ACETAMINOPHEN 325 MG TAB PO PRN (08:18)
[2018-10-31] MEDS: predniSONE 2.5 MG TAB PO SCH (08:55)
[2018-10-31] MEDS: ENOXAPARIN 40 MG/0.4 ML SYG SC SCH (08:56)
[2018-10-31] MEDS ORDERED: ASPI-831 PO (09:49)
--- NOTE | 2018-10-31 09:50 | PDOCDIS ---
Discharge Instructions CONDITION [id number] Patient Condition: [id number] Good HOME CARE INSTRUCTIONS: [id number] Diet Instructions: [id number] FOLLOW UP/APPOINTMENTS Follow-up Plan pcp [address] Milligan 1 week KAREN HINDS MD Oct 31, 2018 09:50
--- NOTE | 2018-10-31 09:56 | PN ---
Date/Time of Note Date/Time of Note DATE: 10/31/18 TIME: 09:52 Subjective Doing well. No shortness of breath. No cough. Objective Vitals Vital Signs Date Temp Pulse Resp B/P (MAP) Pulse Ox O2 O2 Flow FiO2 Time Delivery Rate 10/31/18 99.9 08:18 10/31/18 130 08:01 10/31/18 20 127/78 96 07:23 (94) 10/28/18 Room Air 20:34 Intake and Output 10/30/18 10/30/18 10/31/18 1515:00 23:00 07:00 IntakeIntake Total 1200 ml OutputOutput Total 300 ml 750 ml 675 ml BalanceBalance -300 ml 450 ml -675 ml Right more than left rhonchi Regular rate and rhythm no murmurs or gallops Soft nontender nondistended normoactive bowel sounds No edema Nonfocal Results Result Diagram: 10/29/18 1145 10/30/18 0538 Medications Medications Current Medications Ondansetron HCl (Zofran Inj) 4 mg Q4H PRN IV nausea; Start 10/13/18 at 23:30 Zolpidem Tartrate (Ambien) 5 mg HS MAY REPEAT X 1 PRN PO INSOMNIA; Start 10/13/18 at 23:30 Folic Acid (Folic Acid) 1 mg DAILY PO Last administered on 10/31/18at 08:17; Admin Dose 1 MG; Start 10/14/18 at 09:00 Prednisone (Prednisone) 7.5 mg DAILY PO Last administered on 10/31/18at 08:55; Admin Dose 7.5 MG; Start 10/14/18 at 09:00 Insulin Aspart (Novolog Insulin Pen) NOVOLOG *MODERATE* ALGORITHM WITH MEALS BEDTIME SC Last administered on 10/30/18at 17:40; Admin Dose 4 UNIT; Start 10/14/18 at 11:50 Miscellaneous Information 1 ea NOTE XX ; Start 10/14/18 at 09:00 Glucose (Glutose) 15 gm Q15M PRN PO DECREASED GLUCOSE; Start 10/14/18 at 09:00 Glucose (Glutose) 22.5 gm Q15M PRN PO DECREASED GLUCOSE; Start 10/14/18 at 09:00 Dextrose (D50w Syringe) 25 ml Q15M PRN IV DECREASED GLUCOSE; Start 10/14/18 at 09:00 Dextrose (D50w Syringe) 50 ml Q15M PRN IV DECREASED GLUCOSE; Start 10/14/18 at 09:00 Glucagon (Glucagen) 1 mg Q15M PRN IM DECREASED GLUCOSE; Start 10/14/18 at 09:00 Glucose (Glutose) 15 gm Q15M PRN BUCCAL DECREASED GLUCOSE; Start 10/14/18 at 09:00 Acetaminophen (Tylenol Tab) 650 mg Q4H PRN PO MILD PAIN(1-3)OR ELEVATED TEMP Last administered on 10/31/18 08:18; Admin Dose 650 MG; Start 10/15/18 at 04:38 Pantoprazole (Protonix Tab) 40 mg DAILY@06 PO Last administered on 10/31/18 05:32; Admin Dose 40 MG; Start 10/16/18 at 13:55 Morphine Sulfate (morphine) 2 mg Q3H PRN IV SEVERE PAIN LEVEL 7-10 Last administered on 10/24/18 04:12; Admin Dose 2 MG; Start 10/17/18 at 08:30 Aspirin (Aspirin) 81 mg DAILY PO Last administered on 10/31/18 08:18; Admin Dose 81 MG; Start 10/17/18 at 16:30 Benzonatate (Tessalon) 200 mg TID PRN PO cough Last administered on 10/18/18 15:00; Admin Dose 200 MG; Start 10/18/18 at 12:00 Diphenhydramine HCl (Benadryl) 25 mg Q6H PRN IV itching Last administered on 10/18/18 16:14; Admin Dose 25 MG; Start 10/18/18 at 18:00 Enoxaparin Sodium (Lovenox) 40 mg DAILY SC Last administered on 10/31/18 08: 56; Admin Dose 40 MG; Start 10/22/18 at 09:00 Al Hydrox/Mg Hydrox/Simethicone (Mag-Al Plus) 30 ml QID PRN PO GASTROINTESTINAL UPSET Last administered on 10/24/18 21:13; Admin Dose 30 ML; Start 10/24/18 at 21:00 Clarithromycin (Biaxin) 500 mg MoWeFr@0900,2100 PO Last administered on 10/30/18 20:48; Admin Dose 500 MG; Start 10/25/18 at 21:00 Ethambutol HCl (Myambutol) 400 mg MoWeFr@0900,1200 PO Last administered on 10/30/18at 12:49; Admin Dose 400 MG; Start 10/25/18 at 12:30 Amikacin Sulfate (Amikacin Iv Per Pharmacy) AMIKACIN PER PHARM... NOTE XX ; Start 10/25/18 at 12:00 Amikacin Sulfate 1000 mg/Sodium Chloride 254 ml @ 102 mls/hr Q36H IVPB Last administered on 10/30/18at 16:56; Admin Dose 102 MLS/HR; Start 10/29/18 at 04:00 VTE Prophylaxis Risk score (from [facility])>0 risk: 1 SCD applied (from [facility]): Yes Lines/Catheters IV Catheter Type: Saline Lock Retana in Place: No Assessment/Plan Assessment/Plan 58-year-old male with right hydropneumothorax Status post decortication and removal of chest tube KIERAN pneumonia Drug-induced rash most likely due to rifabutin, resolved Continue clarithromycin, ethambutol, and IV amikacin Await approval of inhaled amikacin. Prior authorization has been requested Discharge planning pending clearance by [facility]. 3 sputum's are negative for AFB Case was discussed with Dr. Milligan Plan of care was discussed with the patient KAREN HINDS MD Oct 31, 2018 09:56
--- NOTE | 2018-10-31 15:41 | CONS ---
Consult Date/Type/Reason Admit Date/Time Oct 13, 2018 at 23:44 Initial Consult Date 10/17/18 Type of Consult Pulmonary Requesting Provider: KAREN HINDS MD Date/Time of Note DATE: 10/31/18 TIME: 15:41 Subjective Patient appears comfortable this morning no respiratory distress Objective Vital Signs Date Temp Pulse Resp B/P (MAP) Pulse Ox O2 O2 Flow FiO2 Time Delivery Rate 10/31/18 98.1 97 20 106/64 97 15:35 (78) 10/28/18 Room Air 20:34 Intake and Output 10/30/18 10/30/18 10/31/18 1515:00 23:00 07:00 IntakeIntake Total 1200 ml OutputOutput Total 300 ml 750 ml 675 ml BalanceBalance -300 ml 450 ml -675 ml Exam GENERAL: VITAL SIGNS: per chart NECK: Supple. No JVD or lymphadenopathy. CARDIAC EXAM: S1, S2. No added sounds or murmurs. CHEST: clear bilaterally, No added sounds, rales or wheezes ABDOMEN: Soft, nontender. No guarding or rebound. EXTREMITIES: No cyanosis, clubbing or edema. NEUROLOGIC: Generalized weakness. No focal deficits. Results/Medications Result Diagram: 10/29/18 1145 10/30/18 0538 Results 24 hrs Laboratory Tests Test 10/30/18 17:36 10/30/18 20:47 10/31/18 06:47 10/31/18 07:29 Bedside Glucose 195 118 98 Lab Scanned REFERENCE LAB Report Test 10/31/18 09:15 10/31/18 11:47 Lab Scanned REFERENCE LAB Report Bedside Glucose 226 H Medications Current Medications Ondansetron HCl (Zofran Inj) 4 mg Q4H PRN IV nausea; Start 10/13/18 at 23:30 Zolpidem Tartrate (Ambien) 5 mg HS MAY REPEAT X 1 PRN PO INSOMNIA; Start 10/13/18 at 23:30 Folic Acid (Folic Acid) 1 mg DAILY PO Last administered on 10/31/18at 08:17; Admin Dose 1 MG; Start 10/14/18 at 09:00 Prednisone (Prednisone) 7.5 mg DAILY PO Last administered on 10/31/18at 08:55; Admin Dose 7.5 MG; Start 10/14/18 at 09:00 Insulin Aspart (Novolog Insulin Pen) NOVOLOG *MODERATE* ALGORITHM WITH MEALS BEDTIME SC Last administered on 10/31/18 12:02; Admin Dose 6 UNIT; Start 10/14/18 at 11:50 Miscellaneous Information 1 ea NOTE XX ; Start 10/14/18 at 09:00 Glucose (Glutose) 15 gm Q15M PRN PO DECREASED GLUCOSE; Start 10/14/18 at 09:00 Glucose (Glutose) 22.5 gm Q15M PRN PO DECREASED GLUCOSE; Start 10/14/18 at 09:00 Dextrose (D50w Syringe) 25 ml Q15M PRN IV DECREASED GLUCOSE; Start 10/14/18 at 09:00 Dextrose (D50w Syringe) 50 ml Q15M PRN IV DECREASED GLUCOSE; Start 10/14/18 at 09:00 Glucagon (Glucagen) 1 mg Q15M PRN IM DECREASED GLUCOSE; Start 10/14/18 at 09:00 Glucose (Glutose) 15 gm Q15M PRN BUCCAL DECREASED GLUCOSE; Start 10/14/18 at 09:00 Acetaminophen (Tylenol Tab) 650 mg Q4H PRN PO MILD PAIN(1-3)OR ELEVATED TEMP Last administered on 10/31/18at 08:18; Admin Dose 650 MG; Start 10/15/18 at 04:38 Pantoprazole (Protonix Tab) 40 mg DAILY@06 PO Last administered on 10/31/18at 05:32; Admin Dose 40 MG; Start 10/16/18 at 13:55 Morphine Sulfate (morphine) 2 mg Q3H PRN IV SEVERE PAIN LEVEL 7-10 Last administered on 10/24/18at 04:12; Admin Dose 2 MG; Start 10/17/18 at 08:30 Aspirin (Aspirin) 81 mg DAILY PO Last administered on 10/31/18 08:18; Admin Dose 81 MG; Start 10/17/18 at 16:30 Benzonatate (Tessalon) 200 mg TID PRN PO cough Last administered on 10/18/18at 15:00; Admin Dose 200 MG; Start 10/18/18 at 12:00 Diphenhydramine HCl (Benadryl) 25 mg Q6H PRN IV itching Last administered on 10/18/18at 16:14; Admin Dose 25 MG; Start 10/18/18 at 18:00 Enoxaparin Sodium (Lovenox) 40 mg DAILY SC Last administered on 10/31/18 08:56; Admin Dose 40 MG; Start 10/22/18 at 09:00 Al Hydrox/Mg Hydrox/Simethicone (Mag-Al Plus) 30 ml QID PRN PO GASTROINTESTINAL UPSET Last administered on 10/24/18at 21:13; Admin Dose 30 ML; Start 10/24/18 at 21:00 Clarithromycin (Biaxin) 500 mg MoWeFr@0900,2100 PO Last administered on 10/30/18at 20:48; Admin Dose 500 MG; Start 10/25/18 at 21:00 Ethambutol HCl (Myambutol) 400 mg MoWeFr@0900,1200 PO Last administered on 10/30/18at 12:49; Admin Dose 400 MG; Start 10/25/18 at 12:30 Amikacin Sulfate (Amikacin) 500 mg BID RESP THERAPY INH ; Start 10/31/18 at 20:00; Stop 11/01/18 at 09:01 Assessment/Plan Hospital Course (Demo Recall) IMPRESSION: 1. Status post right hydropneumothorax, status post VATS procedure, decortication and now status post chest tube removal. 2. History of KIERAN pneumonia. 3. Chronic obstructive pulmonary disease. RECOMMENDATIONS: 1. Antibiotics per ID. 2. Followup x-ray. 3. DC planning. MIGUEL ANGEL CASIANO MD, [facility] Oct 31, 2018 15:41
--- NOTE | 2018-10-31 16:00 | CONS ---
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 BAL culture at [facility] that was collected on 07/31/2018 grew MAC, finalized on 08/18/2018. MAC was sensitive to clarithromycin but resistant to moxifloxacin and linezolid (this report was brought to [facility] from his . The copy was left in Pt's chart and also at the infection control office. Pt was started on PO clarithromycin, ethambutol and rifabutin by Dr. Okeefe, ID physician, three days prior to his admission at [facility] - reviewed the results of Pt's AFB samples at [facility]: his AFB samples was negative for M. tuberculosis - one of the "Sternum" samples on 10/19/2018 at [facility] has 1+ AFB on smear/culture positive for AFB. This is reportedly pleural fluid rather than a sternal swab/ sample - Pneumothorax, s/p R thoracostomy tube placement 10/13/2018; chest tube had slipped out of pleural space and was removed on 10/17/2018 - Large R hydropneumothorax multiple air pockets within suspicious for empyema per CT - S/p successful CT guided placement of 10-Irish drainage catheter in R pleural space 10/18/2018 - s/p R sided decortication 10/21/18 - s/p erythematous mildly pruritic rash on the trunk, groin and extremities due to rifabutin, resolved after stopping it - s/p poor appetite and mildly upset stomach, possibly related to clarithromycin, improved # other conditions - JOHNNY on 10/18/2018, resolved - Thrombosis of the right cephalic vein in the antecubital fossa per venous dop pler on 10/17/2018 - DMT2 - RA - Immunocompromised state - Elevated alk phos, improved - so far he took: meropenem (10/17/2018-10/23/2018), pip/tazo (10/15/2018- 10/17/2018), vancomycin (10/15/2018-10/21/18), fluconazole (10/18/2018-10/24/2018) - so far: coccodioides serology in the serum on 10/16/2018 was negative management discussion and recommendations # specimens - pending results: speciation of AFB in one of the "Sternum" samples on 10/19/2018 at 05:42AM (1+ AFB on smear/culture positive). This is actually a pleural fluid sample. The specimen was submitted for antibiotic sensitivity on 10/26/2018. 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 According to Josephine, the turn around time of this test is 15 days (she called [facility] on 10/31/2018) - so far, we have the following specimens: - 10/28/2018 at 11:03 AM, sputum for AFB smear (smear negative) and culture - 10/18/2018 at 08:00 AM, sputum for AFB smear (smear negative) and culture - 10/20/2018 at 16:15 PM, sputum for AFB smear (smear negative) and culture - other specimens are either pleural fluids or "lung" - 10/18/2018 at 14:30 PM, pleural fluid for AFB smear and culture - 10/19/2018 at 05:42 AM, "sternum" culture (this is reportedly pleural fluid) for AFB smear and culture - 10/21/2018 at 14:30 PM, R lung for AFB smear and culture - 10/21/2018 at 14:31 PM, R lung for AFB smear and culture # treatment - Dr. Walker requested that I describe this Pt's anti-MAC treatment. Please note that I discussed this Pt's treatment plan with Dr. Okeefe, Pt's regular ID mainframe consultant as outpatient on 10/25/2018 - Pt took rifabutin from 10/11/2018 to 10/24/2018. It was stopped on 10/24/2018 because Pt had rash. After rifabutin was stopped, rash resolved and so rifabutin was the probable culprit and added to his allergy list. - Pt has been taking PO ethambutol and PO clarithromycin since 10/11/2018 (started as outpatient and continued as inpatient). - Pt seems to be having mild GI side effects from clarithromycin; if the Sx escalate and Pt can no longer eat, etc then will change PO clarithromycin to another agent. I informed Pt that effective anti-MAC medications that are given orally are limited and so will change his MAC treatment only if side effects start to limit his treatment - instead of rifabutin, IV amikacin was started on 10/25/2018. I requested approval for inhaled/nebulized amikacin after discharge in order to prevent nephrotoxicity and ototoxicity that are associated with long-term use of systemic amikacin. I filled out a pre-authorization form for inhalational amikacin x 2 months and his RN Melvina faxed it to [place] on 10/30/2018. As of 10/31/2018, it has not been approved yet - To confirm that Pt can tolerate and that Pt does not develop break through fever, I am giving him amikacin inhaled/neb x 2 doses on 10/31/2018 and 10/08/2018 - This Pt's strain of MAC that grew in his BAL culture at [facility] was resistant to common PO meds such as linezolid (THEODORE 64) and moxifloxacin (THEODORE 8) and therefore, his options are limited. - as I indicated above, I added a request to test his strain of AFB against clofazimine. If it is sensitive, clofazimine is another option replacing amikacin. I also requested consultation by the mycobacterial expert at [facility] on 10/31/2018. - I recommend that Pt's discharge be held until IV amikacin gets approved and confirmed its availability; if not, I will probably have to work on getting approval for the 3rd anti-mycobacterial drug as outpatient management d/w Pt, RN Melvina, , welfare case worker at [facility], [place] welfare case worker Marilyn and Dr. Hinds the total time I took to care for this Pt today was from 1345 to 1600 Consultation Date/Type/Reason Admit Date/Time Oct 13, 2018 at 23:44 Initial Consult Date 10/17/18 Type of Consult ID Requesting Provider: KAREN HINDS MD Date/Time of Note DATE: 10/31/18 TIME: 15:52 24 HR Interval Summary Constitutional: no complaints, improved Detailed Summary Eyes: no complaints ENT: no complaints Respiratory: no complaints Cardiovascular: no complaints Gastrointestinal: no complaints Genitourinary: no complaints Musculoskeletal: no complaints Skin: no complaints Neurologic: no complaints Exam/Review of Systems Exam Vitals Vital Signs Date Temp Pulse Resp B/P (MAP) Pulse Ox O2 O2 Flow FiO2 Time Delivery Rate 10/31/18 98.1 97 20 106/64 97 15:35 (78) 10/28/18 Room Air 20:34 Intake and Output 10/30/18 10/30/18 10/31/18 1515:00 23:00 07:00 IntakeIntake Total 1200 ml OutputOutput Total 300 ml 750 ml 675 ml BalanceBalance -300 ml 450 ml -675 ml Constitutional: alert, oriented; No distress, No frail Psych: no complaints, nl mood/affect Head: normocephalic, atraumatic Eyes: nl conjunctiva, nl lids ENMT: nl external ears & nose, nl nasal mucosa & septum Respiratory: crackles/rales (less pronounced) Cardiovascular: regular rate and rhythm, nl pulses Musculoskeletal: nl extremities to inspection Extremities: normal pulses; No edema Neurological: MEDICAL DETAILIST 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, nl mental status, nl strength Skin: nl turgor; No rash or lesions Results Result Diagram: 10/29/18 1145 10/30/18 0538 Results 24hrs Laboratory Tests Test 10/30/18 17:36 10/30/18 20:47 10/31/18 06:47 10/31/18 07:29 Bedside Glucose 195 118 98 Lab Scanned REFERENCE LAB Report Test 10/31/18 09:15 10/31/18 11:47 Lab Scanned REFERENCE LAB Report Bedside Glucose 226 H Medications Medication Current Medications Ondansetron HCl (Zofran Inj) 4 mg Q4H PRN IV nausea; Start 10/13/18 at 23:30 Zolpidem Tartrate (Ambien) 5 mg HS MAY REPEAT X 1 PRN PO INSOMNIA; Start 10/13 at 23:30 Folic Acid (Folic Acid) 1 mg DAILY PO Last administered on 10/31/18at 08:17; Admin Dose 1 MG; Start 10/14/18 at 09:00 Prednisone (Prednisone) 7.5 mg DAILY PO Last administered on 10/31/18at 08:55; Admin Dose 7.5 MG; Start 10/14/18 at 09:00 Insulin Aspart (Novolog Insulin Pen) NOVOLOG *MODERATE* ALGORITHM WITH MEALS BEDTIME SC Last administered on 10/31/18at 12:02; Admin Dose 6 UNIT; Start 10/14/18 at 11:50 Miscellaneous Information 1 ea NOTE XX ; Start 10/14/18 at 09:00 Glucose (Glutose) 15 gm Q15M PRN PO DECREASED GLUCOSE; Start 10/14/18 at 09:00 Glucose (Glutose) 22.5 gm Q15M PRN PO DECREASED GLUCOSE; Start 10/14/18 at 09:00 Dextrose (D50w Syringe) 25 ml Q15M PRN IV DECREASED GLUCOSE; Start 10/14/18 at 09:00 Dextrose (D50w Syringe) 50 ml Q15M PRN IV DECREASED GLUCOSE; Start 10/14/18 at 09:00 Glucagon (Glucagen) 1 mg Q15M PRN IM DECREASED GLUCOSE; Start 10/14/18 at 09:00 Glucose (Glutose) 15 gm Q15M PRN BUCCAL DECREASED GLUCOSE; Start 10/14/18 at 09:00 Acetaminophen (Tylenol Tab) 650 mg Q4H PRN PO MILD PAIN(1-3)OR ELEVATED TEMP Last administered on 10/31/18 08:18; Admin Dose 650 MG; Start 10/15/18 at 04:38 Pantoprazole (Protonix Tab) 40 mg DAILY@06 PO Last administered on 10/31/18at 05:32; Admin Dose 40 MG; Start 10/16/18 at 13:55 Morphine Sulfate (morphine) 2 mg Q3H PRN IV SEVERE PAIN LEVEL 7-10 Last administered on 10/24/18at 04:12; Admin Dose 2 MG; Start 10/17/18 at 08:30 Aspirin (Aspirin) 81 mg DAILY PO Last administered on 10/31/18at 08:18; Admin Dose 81 MG; Start 10/17/18 at 16:30 Benzonatate (Tessalon) 200 mg TID PRN PO cough Last administered on 10/18/18at 15:00; Admin Dose 200 MG; Start 10/18/18 at 12:00 Diphenhydramine HCl (Benadryl) 25 mg Q6H PRN IV itching Last administered on 10/18/18at 16:14; Admin Dose 25 MG; Start 10/18/18 at 18:00 Enoxaparin Sodium (Lovenox) 40 mg DAILY SC Last administered on 10/31/18at 08:56; Admin Dose 40 MG; Start 10/22/18 at 09:00 Al Hydrox/Mg Hydrox/Simethicone (Mag-Al Plus) 30 ml QID PRN PO GASTROINTESTINAL UPSET Last administered on 10/24/18at 21:13; Admin Dose 30 ML; Start 10/24/18 at 21:00 Clarithromycin (Biaxin) 500 mg MoWeFr@0900,2100 PO Last administered on 10/30/18at 20:48; Admin Dose 500 MG; Start 10/25/18 at 21:00 Ethambutol HCl (Myambutol) 400 mg MoWeFr@0900,1200 PO Last administered on 10/30/18at 12:49; Admin Dose 400 MG; Start 10/25/18 at 12:30 Amikacin Sulfate (Amikacin) 500 mg BID RESP THERAPY INH ; Start 10/31/18 at 20:00; Stop 11/01/18 at 09:01 SALEEM MAST M.D. Oct 31, 2018 16:00
--- NOTE | 2018-10-31 19:15 | RADRPT ---
Echocardiogram Report Patient Name: Shelbi JOSEPHtient ID: [id number] : [id number] (58y 5m)Study Date: 10/30/2018 7:43:54 AM Gender: MAccession #: [id number] Tech: Bryan Hatch [facility] Location: 8 Ref.Physician: ANNA BRYAN Height(Cm): BSA: Weight(Kg): Quality: AdequateOrder Physician: ANNA BRYAN Account #: Procedures: Echocardiographic Report: Transthoracic echocardiogram with complete 2D, M-Mode, and doppler examination. Indications: Tachycardia. Measurements: 2D/M Mode Doppler Measurement Value Normal Range Measurement Value Normal Range LVIDd 2D 4.3 [ 4.2 - 5.8 ] cm AV Peak Rick 1.1 [ 100.0 - 170.0 ] cm/sec LVIDs 2D 2.4 [ 2.5 - 4.0 ] cm AV Peak PG 5.0 [ 2.0 - 9.0 ] mmHg LVPWd 2D 1.1 [ 0.6 - 1.0 ] cm LVOT Peak Rick 1.0 [ 70.0 - 110.0 ] cm/sec IVSd 2D 1.0 [ 0.6 - 1.0 ] cm LVOT Peak PG 4.0 [ 2.0 - 6.0 ] mmHg AoR Diam 2D 3.3 [ 2.6 - 3.4 ] cm MV E Peak Rick 0.7 [ 60.0 - 130.0 ] cm/sec EDV 2D 80.8 [ 62.0 - 150.0 ] ml MV A Peak Rick 0.8 [ 100.0 - 120.0 ] cm/sec ESV 2D 19.7 [ 21.0 - 61.0 ] ml MV E/A 0.9 [ 0.8 - 1.5 ] ratio EF 2D 75.6 [ 52.0 - 72.0 ] percent MV Decel Time 218 [ 104 - 258 ] msec LA Dimen 2D 2.1 [ 3.0 - 4.0 ] cm Lat E` Rick 0.1 [ 10.0 - 15.0 ] cm/sec Lateral E/E` 12.0 [ 1.0 - 2.0 ] ratio Med E` Rick 0.1 cm/sec MV E/A 0.9 [ 0.8 - 1.5 ] ratio Findings: Left Ventricle: Normal left ventricular systolic function. Normal left ventricular cavity size. Mild concentric left ventricular hypertrophy. Ejection fraction is visually estimated at 55 %. Tissue Doppler/Mitral Doppler indices are consistent with impaired relaxation (Stage I diastolic dysfunction). Right Ventricle: Normal right ventricular size. Normal right ventricular systolic function. Left Atrium: The left atrium is normal in size. Right Atrium: The right atrium is normal in size. Mitral Valve: Normal appearance and function of the mitral valve with trace physiologic regurgitation. Aortic Valve: Normal appearance of the aortic valve. No significant aortic stenosis or insufficiency. Tricuspid Valve: Normal appearance and function of the tricuspid valve with trace physiologic regurgitation. Pulmonic Valve: Pulmonic valve not well visualized. Pericardium: Normal pericardium with no significant pericardial effusion. Aorta: Normal aortic root. IVC: Normal size and no respiratory collapse consistent with elevated right atrial pressure. Conclusions: Normal left ventricular systolic function. Normal left ventricular cavity size. Mild concentric left ventricular hypertrophy. Ejection fraction is visually estimated at 55 %. Tissue Doppler/Mitral Doppler indices are consistent with impaired relaxation (Stage I diastolic dysfunction). Normal right ventricular size. Normal right ventricular systolic function. The left atrium is normal in size. The right atrium is normal in size. No significant valvular stenosis or regurgitation seen. Normal pericardium with no significant pericardial effusion. Electronically Signed By: Luis Cope 2018-10-31 19:14:53 PDT
[2018-10-31] MEDS: AMIKACIN 500 MG INH SCH (21:00)
[2018-11-01] VITALS (11 sets, daily range): BP systolic 105–140; BP diastolic 65–79; PULSE 93–129; RESP 18–20
[2018-11-01] MEDS: PANTOPRAZOLE (EC) 40 MG TAB PO SCH (05:28)
[2018-11-01] MEDS: AMIKACIN 500 MG INH SCH (07:52)
[2018-11-01] MEDS: INSULIN ASPART [NOVOLOG] 3 ML PEN SC SCH ×4 (07:55→21:00)
[2018-11-01] MEDS: FOLIC ACID 1 MG TAB PO SCH (08:43)
[2018-11-01] MEDS: ASPIRIN 81 MG TAB PO SCH (08:44)
[2018-11-01] MEDS: predniSONE 2.5 MG TAB PO SCH (08:44)
[2018-11-01] MEDS: ENOXAPARIN 40 MG/0.4 ML SYG SC SCH (08:48)
[2018-11-01] MEDS: CLARITHROMYCIN 500 MG TAB PO SCH ×2 (08:52→21:07)
[2018-11-01] MEDS: ETHAMBUTOL 400 MG TAB PO SCH ×2 (08:52→12:05)
[2018-11-01] MEDS ORDERED: AMIKACIN IV PER PHARMACY XX SCH (11:00)
--- NOTE | 2018-11-01 12:52 | PN ---
Date/Time of Note Date/Time of Note DATE: 11/01/18 TIME: 11:56 Assessment/Plan VTE Prophylaxis Risk score (from Nsg)>0 risk: 4 SCD applied (from Nsg): Yes Pharmacological prophylaxis: LMWH Lines/Catheters IV Catheter Type (from Nrsg): Saline Lock Urinary Cath still in place: No Assessment/Plan Assessment/Plan 58 yo male with: 1. KIERAN pneumonia, right hydropneumothorax status post decortication and removal of chest tube, patient doing well currently, on room air, no chest pains. Appreciate assistance from infectious disease, awaiting delivery of inhaled amikacin on home for discharge planning. Continue Biaxin and ethambutol. Patient will also need close follow-up with infectious disease, Dr. Pearson due to the fact that he will need long-term inhaled amikacin up to a year and a half and will definitely require infectious disease close outpatient follow-up for reevaluation and refill of antibiotics. Patient already had 3 negative sputum for TB and cleared by [facility] for discharge 2. Acute kidney injury: Resolved 3. Thrombosis of the right cephalic vein in the antecubital fossa per venous Doppler 10/17/2018, stable, asymptomatic. 4. Rheumatoid arthritis, patient has been on disease modifying medications including methotrexate in the past, immunocompromised. 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 Continue Prednisone 5. Diabetes mellitus vs steroid induced hyperglycemia, check A1C on SSI currently Prophylaxis: Lovenox for DVT prophylaxis, tonics for GI prophylaxis. Disposition: Discharge home once delivery of inhaled amikacin confirmed, hopefully in the next 24 to 48 hours. Patient will need close outpatient infectious disease follow-up with Dr. Pearson. - Elevated alk phos, improved Result Diagram: 10/29/18 1145 10/30/18 0538 Results 24hrs Laboratory Tests Test 10/31/18 17:28 10/31/18 20:52 11/01/18 02:10 11/01/18 07:52 Bedside Glucose 261 H 188 172 125 Subjective 24 Hr Interval Summary Free Text/Dictation Patient doing well currently, on room air, no chest pain, no dyspnea on exertion or orthopnea. Awaiting delivery of inhaled amikacin confirmation prior to discharge home, hopefully in the next 24 to 48 hours. Exam/Review of Systems Exam Vitals Vital Signs Date Temp Pulse Resp B/P (MAP) Pulse Ox O2 O2 Flow FiO2 Time Delivery Rate 11/01/18 98.6 119 18 114/66 95 Room Air 11:50 (82) 11/01/18 21 07:52 Intake and Output 10/31/18 10/31/18 11/01/18 1515:00 23:00 07:00 IntakeIntake Total 350 ml 650 ml 1240 ml OutputOutput Total 650 ml 350 ml 1000 ml BalanceBalance -300 ml 300 ml 240 ml Constitutional: alert, oriented, well developed Respiratory: clear to auscultation, normal air movement Cardiovascular: regular rate and rhythm, nl pulses Gastrointestinal: soft, non-tender Musculoskeletal: nl extremities to inspection, nl gait and stance Extremities: normal pulses Neurological: 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, nl mental status, nl speech, nl strength Results Results 24hrs Laboratory Tests Test 10/31/18 17:28 10/31/18 20:52 11/01/18 02:10 11/01/18 07:52 Bedside Glucose 261 H 188 172 125 Medications Medication Current Medications Ondansetron HCl (Zofran Inj) 4 mg Q4H PRN IV nausea; Start 10/13/18 at 23:30 Zolpidem Tartrate (Ambien) 5 mg HS MAY REPEAT X 1 PRN PO INSOMNIA; Start 10/13/18 at 23:30 Folic Acid (Folic Acid) 1 mg DAILY PO Last administered on 11/01/18at 08:43; Admin Dose 1 MG; Start 10/14/18 at 09:00 Prednisone (Prednisone) 7.5 mg DAILY PO Last administered on 11/01/18at 08:44; Admin Dose 7.5 MG; Start 10/14/18 at 09:00 Insulin Aspart (Novolog Insulin Pen) NOVOLOG *MODERATE* ALGORITHM WITH MEALS BEDTIME SC Last administered on 10/31/18at 20:59; Admin Dose 1 UNIT; Start 10/14/18 at 11:50 Miscellaneous Information 1 ea NOTE XX ; Start 10/14/18 at 09:00 Glucose (Glutose) 15 gm Q15M PRN PO DECREASED GLUCOSE; Start 10/14/18 at 09:00 Glucose (Glutose) 22.5 gm Q15M PRN PO DECREASED GLUCOSE; Start 10/14/18 at 09:00 Dextrose (D50w Syringe) 25 ml Q15M PRN IV DECREASED GLUCOSE; Start 10/14/18 at 09:00 Dextrose (D50w Syringe) 50 ml Q15M PRN IV DECREASED GLUCOSE; Start 10/14/18 at 09:00 Glucagon (Glucagen) 1 mg Q15M PRN IM DECREASED GLUCOSE; Start 10/14/18 at 09:00 Glucose (Glutose) 15 gm Q15M PRN BUCCAL DECREASED GLUCOSE; Start 10/14/18 at 09:00 Acetaminophen (Tylenol Tab) 650 mg Q4H PRN PO MILD PAIN(1-3)OR ELEVATED TEMP Last administered on 10/31/18 08:18; Admin Dose 650 MG; Start 10/15/18 at 04:38 Pantoprazole (Protonix Tab) 40 mg DAILY@06 PO Last administered on 11/01/18 05:28; Admin Dose 40 MG; Start 10/16/18 at 13:55 Morphine Sulfate (morphine) 2 mg Q3H PRN IV SEVERE PAIN LEVEL 7-10 Last administered on 10/24/18 04:12; Admin Dose 2 MG; Start 10/17/18 at 08:30 Aspirin (Aspirin) 81 mg DAILY PO Last administered on 11/01/18 08:44; Admin Dose 81 MG; Start 10/17/18 at 16:30 Benzonatate (Tessalon) 200 mg TID PRN PO cough Last administered on 10/18/18 15:00; Admin Dose 200 MG; Start 10/18/18 at 12:00 Diphenhydramine HCl (Benadryl) 25 mg Q6H PRN IV itching Last administered on 10/18/18 16:14; Admin Dose 25 MG; Start 10/18/18 at 18:00 Enoxaparin Sodium (Lovenox) 40 mg DAILY SC Last administered on 11/01/18 08:48; Admin Dose 40 MG; Start 10/22/18 at 09:00 Al Hydrox/Mg Hydrox/Simethicone (Mag-Al Plus) 30 ml QID PRN PO GASTROINTESTINAL UPSET Last administered on 10/24/18 21:13; Admin Dose 30 ML; Start 10/24/18 at 21:00 Clarithromycin (Biaxin) 500 mg MoWeFr@0900,2100 PO Last administered on 11/01/18 08:52; Admin Dose 500 MG; Start 10/25/18 at 21:00 Ethambutol HCl (Myambutol) 400 mg MoWeFr@0900,1200 PO Last administered on 11/01/18at 08:52; Admin Dose 400 MG; Start 10/25/18 at 12:30 Amikacin Sulfate (Amikacin Iv Per Pharmacy) AMIKACIN PER PHARMA... NOTE XX ; Start 11/01/18 at 11:00 Amikacin Sulfate 1000 mg/Sodium Chloride 254 ml @ 102 mls/hr Q36H IVPB ; Start 11/01/18 at 14:00 ALEX DENIS Nov 01, 2018 12:42
--- NOTE | 2018-11-01 13:14 | CONS ---
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 BAL culture at [facility] that was collected on 07/31/2018 grew MAC, finalized on 08/18/2018. MAC was sensitive to clarithromycin but resistant to moxifloxacin and linezolid (this report was brought to [facility] from his . The copy was left in Pt's chart and also at the infection control office. Pt was started on PO clarithromycin, ethambutol and rifabutin by Dr. Okeefe, ID physician, three days prior to his admission at [facility] - reviewed the results of Pt's AFB samples at [facility]: his AFB samples was negative for M. tuberculosis - one of the "Sternum" samples on 10/19/2018 at [facility] has 1+ AFB on smear/culture positive for AFB. This is reportedly pleural fluid rather than a sternal s wab/sample - s/p severe near complete collapse of the right lung (very large R hydropneumothorax), dense consolidation in R lung base with adjacent small right pleural effusion suspicious for empyema per CT on 10/13/2018 - s/p R sided decortication 10/21/18 - s/p successful CT guided placement of 10-Colombian drainage catheter in R pleural space 10/18/2018 - s/p R thoracostomy and chest tube placement 10/13/2018; chest tube had slipped out of pleural space and was removed on 10/17/2018 - s/p erythematous mildly pruritic rash on the trunk, groin and extremities due to rifabutin, resolved after stopping it - s/p poor appetite and mildly upset stomach, possibly related to clarithromycin, improved # other conditions - JOHNNY on 10/18/2018, resolved - Thrombosis of the right cephalic vein in the antecubital fossa per venous doppler on 10/17/2018 - DMT2 - RA - Immunocompromised state - Elevated alk phos, improved - so far he took: meropenem (10/17/2018-10/23/2018), pip/tazo (10/15/2018- 10/17/2018), vancomycin (10/15/2018-10/21/18), fluconazole (10/18/2018-10/24/2018) - so far: coccodioides serology in the serum on 10/16/2018 was negative # AFB specimens - pending results: speciation of AFB in one of the "Sternum" samples on 10/19/2018 at 05:42AM (1+ AFB on smear/culture positive). This is actually a pleural fluid sample. The specimen was submitted for antibiotic sensitivity on 10/26/2018. A request for its sensitivity to clofazimine was requested on 10/26/2018 and 10/27/2018 (micro clinical lab specialist Raheem). According to Josephine, the turn around time of this test is 15 days (she called [facility] on 10/31/2018) - 10/28/2018 at 11:03 AM, sputum for AFB smear (smear negative) and culture - 10/18/2018 at 08:00 AM, sputum for AFB smear (smear negative) and culture - 10/20/2018 at 16:15 PM, sputum for AFB smear (smear negative) and culture - other specimens are either pleural fluids or "lung" - 10/18/2018 at 14:30 PM, pleural fluid for AFB smear and culture - 10/19/2018 at 05:42 AM, "sternum" culture (this is reportedly pleural fluid) for AFB smear and culture - 10/21/2018 at 14:30 PM, R lung for AFB smear and culture - 10/21/2018 at 14:31 PM, R lung for AFB smear and culture - 07/31/2018, sputum for AFB smear (positive) and culture (positive and finalized on 08/18/2018) # treatment history - This Pt's strain of MAC that grew in his BAL culture at [facility] was resistant to common PO meds such as linezolid (THEODORE 64) and moxifloxacin (THEODORE 8) and therefore, his options are limited. I discussed Pt's treatment plan with Dr. Okeefe, Pt's ID provider contracting consultant prior to admission on 10/25/2018. I also requested consultation by mycobacterial experts at [facility] on 10/31/2018. - PO rifabutin (10/11/2018-10/24/2018), stopped because Pt developed rash - PO ethambutol and PO clarithromycin (10/11/2018- started as outpatient and continued as inpatient). - IV amikacin (10/25/2018-); Pt has been tolerating IV amikacin so far but I do not recommend using it beyond two weeks for a concern of nephrotoxicity and ototoxicity - Pt took a test dose of nebulized amikacin x2 during this admission and tolerated it. Nebulized amikacin was approved by his insurance company for 2 months after discharge. It will be available either tomorrow morning or Tuesday morning at a local pharmacy. - Pt will need long-term treatment and close monitoring as outpatient - I recommend repeat chest CT after a few months; if Pt continues to improve, I will request renewal of nebulized amikacin beyond 2 months - I also recommend referral to ophthalmology while Pt is on ethambutol (to assess visual acuity, visual change) management d/w Pt, his , case coordinator at [facility], and Dr. Choudhary the total time I took to care for this Pt today was from 1130 to 1220 Consultation Date/Type/Reason Admit Date/Time Oct 13, 2018 at 23:44 Initial Consult Date 10/17/18 Type of Consult ID Requesting Provider: KRAEN HINDS MD Date/Time of Note DATE: 11/01/18 TIME: 12:51 24 HR Interval Summary Constitutional: improved Detailed Summary Eyes: no complaints ENT: no complaints Respiratory: pleuritic pain (mid anterior chest, only "a little") Cardiovascular: no complaints Gastrointestinal: no complaints Genitourinary: no complaints Musculoskeletal: no complaints Skin: no complaints; No rash Neurologic: no complaints Exam/Review of Systems Exam Vitals Vital Signs Date Temp Pulse Resp B/P (MAP) Pulse Ox O2 O2 Flow FiO2 Time Delivery Rate 11/01/18 98.6 119 18 114/66 95 Room Air 11:50 (82) 11/01/18 21 07:52 Intake and Output 10/31/18 10/31/18 11/01/18 1515:00 23:00 07:00 IntakeIntake Total 350 ml 650 ml 1240 ml OutputOutput Total 650 ml 350 ml 1000 ml BalanceBalance -300 ml 300 ml 240 ml Constitutional: alert, oriented, well developed Psych: no complaints, nl mood/affect Head: normocephalic, atraumatic Eyes: nl conjunctiva, nl lids, nl sclera ENMT: nl external ears & nose, nl nasal mucosa & septum Neck: supple Respiratory: clear to auscultation, normal air movement Cardiovascular: regular rate and rhythm, nl pulses; No edema Gastrointestinal: soft, non-tender Musculoskeletal: nl extremities to inspection Extremities: No edema Neurological: ORTHODONTIST ASSISTANT 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, nl mental status, nl speech, nl strength Skin: nl turgor; No rash or lesions Results Result Diagram: 10/29/18 1145 11/01/18 1210 Results 24hrs Laboratory Tests Test 10/31/18 17:28 10/31/18 20:52 11/01/18 02:10 11/01/18 07:52 Bedside Glucose 261 H 188 172 125 Test 11/01/18 11:54 11/01/18 12:10 Bedside Glucose 279 H Blood Urea Nitrogen 12 Creatinine 1.20 Medications Medication Current Medications Ondansetron HCl (Zofran Inj) 4 mg Q4H PRN IV nausea; Start 10/13/18 at 23:30 Zolpidem Tartrate (Ambien) 5 mg HS MAY REPEAT X 1 PRN PO INSOMNIA; Start 10/13/18 at 23:30 Folic Acid (Folic Acid) 1 mg DAILY PO Last administered on 11/01/18at 08:43; Admin Dose 1 MG; Start 10/14/18 at 09:00 Prednisone (Prednisone) 7.5 mg DAILY PO Last administered on 11/01/18at 08:44; Admin Dose 7.5 MG; Start 10/14/18 at 09:00 Insulin Aspart (Novolog Insulin Pen) NOVOLOG *MODERATE* ALGORITHM WITH MEALS BEDTIME SC Last administered on 11/01/18at 12:04; Admin Dose 8 UNIT; Start 10/14/18 at 11:50 Miscellaneous Information 1 ea NOTE XX ; Start 10/14/18 at 09:00 Glucose (Glutose) 15 gm Q15M PRN PO DECREASED GLUCOSE; Start 10/14/18 at 09:00 Glucose (Glutose) 22.5 gm Q15M PRN PO DECREASED GLUCOSE; Start 10/14/18 at 09:00 Dextrose (D50w Syringe) 25 ml Q15M PRN IV DECREASED GLUCOSE; Start 10/14/18 at 09:00 Dextrose (D50w Syringe) 50 ml Q15M PRN IV DECREASED GLUCOSE; Start 10/14/18 at 09:00 Glucagon (Glucagen) 1 mg Q15M PRN IM DECREASED GLUCOSE; Start 10/14/18 at 09:00 Glucose (Glutose) 15 gm Q15M PRN BUCCAL DECREASED GLUCOSE; Start 10/14/18 at 09:00 Acetaminophen (Tylenol Tab) 650 mg Q4H PRN PO MILD PAIN(1-3)OR ELEVATED TEMP Last administered on 10/31/18 08:18; Admin Dose 650 MG; Start 10/15/18 at 04:38 Pantoprazole (Protonix Tab) 40 mg DAILY@06 PO Last administered on 11/01/18 05:28; Admin Dose 40 MG; Start 10/16/18 at 13:55 Morphine Sulfate (morphine) 2 mg Q3H PRN IV SEVERE PAIN LEVEL 7-10 Last administered on 10/24/18 04:12; Admin Dose 2 MG; Start 10/17/18 at 08:30 Aspirin (Aspirin) 81 mg DAILY PO Last administered on 11/01/18 08:44; Admin Dose 81 MG; Start 10/17/18 at 16:30 Benzonatate (Tessalon) 200 mg TID PRN PO cough Last administered on 10/18/18 15:00; Admin Dose 200 MG; Start 10/18/18 at 12:00 Diphenhydramine HCl (Benadryl) 25 mg Q6H PRN IV itching Last administered on 10/18/18 16:14; Admin Dose 25 MG; Start 10/18/18 at 18:00 Enoxaparin Sodium (Lovenox) 40 mg DAILY SC Last administered on 11/01/18 08:48; Admin Dose 40 MG; Start 10/22/18 at 09:00 Al Hydrox/Mg Hydrox/Simethicone (Mag-Al Plus) 30 ml QID PRN PO GASTROINTESTINAL UPSET Last administered on 10/24/18 21:13; Admin Dose 30 ML; Start 10/24/18 at 21:00 Clarithromycin (Biaxin) 500 mg MoWeFr@0900,2100 PO Last administered on 9at 08:52; Admin Dose 500 MG; Start 10/25/18 at 21:00 Ethambutol HCl (Myambutol) 400 mg MoWeFr@0900,1200 PO Last administered on 11/01/18 12:05; Admin Dose 400 MG; Start 10/25/18 at 12:30 Amikacin Sulfate (Amikacin Iv Per Pharmacy) AMIKACIN PER PHARMA... NOTE XX ; Start 11/01/18 at 11:00 Amikacin Sulfate 1000 mg/Sodium Chloride 254 ml @ 102 mls/hr Q36H IVPB ; Start 11/01/18 at 14:00 SALEEM MAST M.D. Nov 01, 2018 13:14
[2018-11-01] MEDS: AMIKACIN 1,000 MG in SOD CHLORIDE 0.9% 250 ML IVPB SCH (14:24)
[2018-11-02 04:10] VITALS: BP 114/67; PULSE 102; RESP 20
[2018-11-02] MEDS: PANTOPRAZOLE (EC) 40 MG TAB PO SCH (06:22)
[2018-11-02 07:14] VITALS: BP 130/78; PULSE 121; RESP 20
[2018-11-02] MEDS: INSULIN ASPART [NOVOLOG] 3 ML PEN SC SCH ×4 (07:55→21:00)
[2018-11-02] MEDS: FOLIC ACID 1 MG TAB PO SCH (08:25)
[2018-11-02] MEDS: ASPIRIN 81 MG TAB PO SCH (08:25)
[2018-11-02] MEDS: predniSONE 2.5 MG TAB PO SCH (08:25)
[2018-11-02] MEDS: ENOXAPARIN 40 MG/0.4 ML SYG SC SCH (08:30)
--- NOTE | 2018-11-02 10:18 | PN ---
Date/Time of Note Date/Time of Note DATE: 11/02/18 TIME: 10:12 Assessment/Plan VTE Prophylaxis Risk score (from Nsg)>0 risk: 5 SCD applied (from Nsg): Yes Pharmacological prophylaxis: LMWH Lines/Catheters IV Catheter Type (from Nrsg): Saline Lock Urinary Cath still in place: No Assessment/Plan Assessment/Plan 58 yo male with: 1. KIERAN pneumonia, right hydropneumothorax status post decortication and removal of chest tube, patient doing well currently, on room air, no chest pains. Appreciate assistance from infectious disease, awaiting delivery of inhaled amikacin on home for discharge planning. Neb machine also ordered for home. Continue Biaxin and ethambutol. Patient will also need close follow-up with infectious disease, Dr. Pearson due to the fact that he will need long-term inhaled amikacin up to a year and a half and will definitely require infectious disease close outpatient follow-up for reevaluation and refill of antibiotics. Patient already had 3 negative sputum for TB and cleared by [facility] for discharge 2. Acute kidney injury: Resolved Monitor renal function 3. Thrombosis of the right cephalic vein in the antecubital fossa per venous Doppler 10/17/2018, stable, asymptomatic. 4. Rheumatoid arthritis, patient has been on disease modifying medications including methotrexate in the past, immunocompromised. He is to follow-up with his pharmacy affairs assistant as an outpatient for alternative therapy after discharge. Continue Prednisone 5. Diabetes mellitus vs steroid induced hyperglycemia, A1C 7.7 on SSI currently Prophylaxis: Lovenox for DVT prophylaxis, tonics for GI prophylaxis. Disposition: Discharge home once delivery of inhaled amikacin confirmed, hopefully in the next 24 hrs. Patient will need close outpatient infectious disease follow-up with Dr. Pearson. Result Diagram: 11/02/18 0545 11/02/18 0544 Results 24hrs Laboratory Tests Test 11/01/18 11:54 11/01/18 12:10 11/01/18 17:32 11/01/18 21:05 Bedside Glucose 279 H 191 165 Blood Urea Nitrogen 12 Creatinine 1.20 Test 11/02/18 05:41 11/02/18 05:44 11/02/18 05:45 11/02/18 08:23 Hemoglobin A1c 7.7 H Sodium Level 140 Potassium Level 4.5 Chloride Level 101 Carbon Dioxide Level 31 Anion Gap 8 Blood Urea Nitrogen 12 Creatinine 1.28 H Est Glomerular 58 L Filtrat Rate mL/min Glucose Level 98 Calcium Level 9.2 Phosphorus Level 4.9 Magnesium Level 2.0 Total Bilirubin 0.3 Direct Bilirubin 0.00 Indirect Bilirubin 0.3 Aspartate Amino 24 Transf (AST/SGOT) Alanine 16 Aminotransferase (AL T/SGPT) Alkaline Phosphatase 84 Total Protein 7.0 Albumin 3.2 L Globulin 3.80 H Albumin/Globulin 0.84 Ratio White Blood Count 9.4 # Red Blood Count 4.10 L Hemoglobin 10.9 L Hematocrit 34.7 L Mean Corpuscular 84.6 Volume Mean Corpuscular 26.6 L Hemoglobin Mean Corpuscular 31.4 L Hemoglobin Concent Red Cell 16.0 H Distribution Width Platelet Count 363 # Mean Platelet Volume 8.7 Immature 2.500 H Granulocytes % Neutrophils % 60.2 Lymphocytes % 13.5 L Monocytes % 9.7 Eosinophils % 13.1 H Basophils % 1.0 Nucleated Red Blood 0.0 Cells % Immature 0.240 H Granulocytes # Neutrophils # 5.7 Lymphocytes # 1.3 Monocytes # 0.9 Eosinophils # 1.2 H Basophils # 0.1 Nucleated Red Blood 0.0 Cells # Bedside Glucose 112 Subjective 24 Hr Interval Summary Free Text/Dictation Patient sleeping comfortably, easily arousable. No complaints today. Still awaiting approval and delivery of inhaled amikacin at his home to be able to discharge patient. Exam/Review of Systems Exam Vitals Vital Signs Date Temp Pulse Resp B/P (MAP) Pulse Ox O2 O2 Flow FiO2 Time Delivery Rate 11/02/18 99.9 121 20 130/78 97 Room Air 07:14 (95) 11/01/18 21 07:52 Intake and Output 11/01/18 11/01/18 11/02/18 1515:00 23:00 07:00 IntakeIntake Total 250 ml 800 ml 800 ml OutputOutput Total 1000 ml 350 ml BalanceBalance 250 ml -200 ml 450 ml Constitutional: alert, oriented, well developed Respiratory: clear to auscultation, normal air movement Cardiovascular: regular rate and rhythm, nl pulses Gastrointestinal: soft, non-tender Musculoskeletal: nl extremities to inspection, other (no edema, clubbing or cyanosis ) Extremities: normal pulses Neurological: SYSTEMS ENG 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, nl mental status, nl speech, nl strength Results Results 24hrs Laboratory Tests Test 11/01/18 11:54 11/01/18 12:10 11/01/18 17:32 11/01/18 21:05 Bedside Glucose 279 H 191 165 Blood Urea Nitrogen 12 Creatinine 1.20 Test 11/02/18 05:41 11/02/18 05:44 11/02/18 05:45 11/02/18 08:23 Hemoglobin A1c 7.7 H Sodium Level 140 Potassium Level 4.5 Chloride Level 101 Carbon Dioxide Level 31 Anion Gap 8 Blood Urea Nitrogen 12 Creatinine 1.28 H Est Glomerular 58 L Filtrat Rate mL/min Glucose Level 98 Calcium Level 9.2 Phosphorus Level 4.9 Magnesium Level 2.0 Total Bilirubin 0.3 Direct Bilirubin 0.00 Indirect Bilirubin 0.3 Aspartate Amino 24 Transf (AST/SGOT) Alanine 16 Aminotransferase (AL T/SGPT) Alkaline Phosphatase 84 Total Protein 7.0 Albumin 3.2 L Globulin 3.80 H Albumin/Globulin 0.84 Ratio White Blood Count 9.4 # Red Blood Count 4.10 L Hemoglobin 10.9 L Hematocrit 34.7 L Mean Corpuscular 84.6 Volume Mean Corpuscular 26.6 L Hemoglobin Mean Corpuscular 31.4 L Hemoglobin Concent Red Cell 16.0 H Distribution Width Platelet Count 363 # Mean Platelet Volume 8.7 Immature 2.500 H Granulocytes % Neutrophils % 60.2 Lymphocytes % 13.5 L Monocytes % 9.7 Eosinophils % 13.1 H Basophils % 1.0 Nucleated Red Blood 0.0 Cells % Immature 0.240 H Granulocytes # Neutrophils # 5.7 Lymphocytes # 1.3 Monocytes # 0.9 Eosinophils # 1.2 H Basophils # 0.1 Nucleated Red Blood 0.0 Cells # Bedside Glucose 112 Medications Medication Current Medications Ondansetron HCl (Zofran Inj) 4 mg Q4H PRN IV nausea; Start 10/13/18 at 23:30 Zolpidem Tartrate (Ambien) 5 mg HS MAY REPEAT X 1 PRN PO INSOMNIA; Start 10/13/18 at 23:30 Folic Acid (Folic Acid) 1 mg DAILY PO Last administered on 11/02/18at 08:25; Admin Dose 1 MG; Start 10/14/18 at 09:00 Prednisone (Prednisone) 7.5 mg DAILY PO Last administered on 11/02/18at 08:25; Admin Dose 7.5 MG; Start 10/14/18 at 09:00 Insulin Aspart (Novolog Insulin Pen) NOVOLOG *MODERATE* ALGORITHM WITH MEALS BEDTIME SC Last administered on 11/01/18at 17:37; Admin Dose 4 UNIT; Start 10/14/18 at 11:50 Miscellaneous Information 1 ea NOTE XX ; Start 10/14/18 at 09:00 Glucose (Glutose) 15 gm Q15M PRN PO DECREASED GLUCOSE; Start 10/14/18 at 09:00 Glucose (Glutose) 22.5 gm Q15M PRN PO DECREASED GLUCOSE; Start 10/14/18 at 09:00 Dextrose (D50w Syringe) 25 ml Q15M PRN IV DECREASED GLUCOSE; Start 10/14/18 at 09:00 Dextrose (D50w Syringe) 50 ml Q15M PRN IV DECREASED GLUCOSE; Start 10/14/18 at 09:00 Glucagon (Glucagen) 1 mg Q15M PRN IM DECREASED GLUCOSE; Start 10/14/18 at 09:00 Glucose (Glutose) 15 gm Q15M PRN BUCCAL DECREASED GLUCOSE; Start 10/14/18 at 09:00 Acetaminophen (Tylenol Tab) 650 mg Q4H PRN PO MILD PAIN(1-3)OR ELEVATED TEMP Last administered on 10/31/18at 08:18; Admin Dose 650 MG; Start 10/15/18 at 04:38 Pantoprazole (Protonix Tab) 40 mg DAILY@06 PO Last administered on 11/02/18at 06:22; Admin Dose 40 MG; Start 10/16/18 at 13:55 Morphine Sulfate (morphine) 2 mg Q3H PRN IV SEVERE PAIN LEVEL 7-10 Last administered on 10/24/18at 04:12; Admin Dose 2 MG; Start 10/17/18 at 08:30 Aspirin (Aspirin) 81 mg DAILY PO Last administered on 11/02/18 08:25; Admin Dose 81 MG; Start 10/17/18 at 16:30 Benzonatate (Tessalon) 200 mg TID PRN PO cough Last administered on 10/18/18at 15:00; Admin Dose 200 MG; Start 10/18/18 at 12:00 Diphenhydramine HCl (Benadryl) 25 mg Q6H PRN IV itching Last administered on 10/18/18at 16:14; Admin Dose 25 MG; Start 10/18/18 at 18:00 Enoxaparin Sodium (Lovenox) 40 mg DAILY SC Last administered on 11/02/18at 08:30; Admin Dose 40 MG; Start 10/22/18 at 09:00 Al Hydrox/Mg Hydrox/Simethicone (Mag-Al Plus) 30 ml QID PRN PO GASTROINTESTINAL UPSET Last administered on 10/24/18at 21:13; Admin Dose 30 ML; Start 10/24/18 at 21:00 Clarithromycin (Biaxin) 500 mg MoWeFr@0900,2100 PO Last administered on 11/01/18at 21:07; Admin Dose 500 MG; Start 10/25/18 at 21:00 Ethambutol HCl (Myambutol) 400 mg MoWeFr@0900,1200 PO Last administered on 11/01/18at 12:05; Admin Dose 400 MG; Start 10/25/18 at 12:30 Amikacin Sulfate (Amikacin Iv Per Pharmacy) AMIKACIN PER PHARMA... NOTE XX ; Start 11/01/18 at 11:00 Amikacin Sulfate 1000 mg/Sodium Chloride 254 ml @ 102 mls/hr Q36H IVPB Last administered on 11/01/18at 14:24; Admin Dose 102 MLS/HR; Start 11/01/18 at 14:00 ALEX DENIS Nov 02, 2018 10:18
[2018-11-02 11:28] VITALS: BP 119/66; PULSE 120; RESP 20
[2018-11-02] MEDS ORDERED: METF-849 PO (12:24)
[2018-11-02 15:13] VITALS: BP 105/72; PULSE 107; RESP 20
--- NOTE | 2018-11-02 15:18 | CONS ---
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 BAL culture at [facility] that was collected on 07/31/2018 grew MAC, finalized on 08/18/2018. MAC was sensitive to clarithromycin but resistant to moxifloxacin and linezolid (this report was brought to [facility] from his . The copy was left in Pt's chart and also at the infection control office. Pt was started on PO clarithromycin, ethambutol and rifabutin by Dr. Okeefe, ID physician, three days prior to his admission at [facility] - reviewed the results of Pt's AFB samples at [facility]: his AFB samples was negative for M. tuberculosis - one of the "Sternum" samples on 10/19/2018 at [facility] has 1+ AFB on smear/culture positive for AFB. This is reportedly pleural fluid rather than a sternal s wab/sample - s/p severe near complete collapse of the right lung (very large R hydropneumothorax), dense consolidation in R lung base with adjacent small right pleural effusion suspicious for empyema per CT on 10/13/2018 - s/p R sided decortication 10/21/18 - s/p successful CT guided placement of 10-Cambodian drainage catheter in R pleural space 10/18/2018 - s/p R thoracostomy and chest tube placement 10/13/2018; chest tube had slipped out of pleural space and was removed on 10/17/2018 - s/p erythematous mildly pruritic rash on the trunk, groin and extremities due to rifabutin, resolved after stopping it - s/p poor appetite and mildly upset stomach, possibly related to clarithromycin, improved # other conditions - JOHNNY on 10/18/2018, resolved - Thrombosis of the right cephalic vein in the antecubital fossa per venous doppler on 10/17/2018 - DMT2 - RA - Immunocompromised state - Elevated alk phos, improved - so far he took: meropenem (10/17/2018-10/23/2018), pip/tazo (10/15/2018- 10/17/2018), vancomycin (10/15/2018-10/21/18), fluconazole (10/18/2018-10/24/2018) - so far: coccodioides serology in the serum on 10/16/2018 was negative # AFB specimens - pending results: speciation of AFB in one of the "Sternum" samples on 10/19/2018 at 05:42AM (1+ AFB on smear/culture positive). This is actually a pleural fluid sample. The specimen was submitted for antibiotic sensitivity on 10/26/2018. 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 According to Josephine, the turn around time of this test is 15 days (she called [facility] on 10/31/2018) - 10/28/2018 at 11:03 AM, sputum for AFB smear (smear negative) and culture - 10/18/2018 at 08:00 AM, sputum for AFB smear (smear negative) and culture - 10/20/2018 at 16:15 PM, sputum for AFB smear (smear negative) and culture - other specimens are either pleural fluids or "lung" - 10/18/2018 at 14:30 PM, pleural fluid for AFB smear and culture - 10/19/2018 at 05:42 AM, "sternum" culture (this is reportedly pleural fluid) for AFB smear and culture - 10/21/2018 at 14:30 PM, R lung for AFB smear and culture - 10/21/2018 at 14:31 PM, R lung for AFB smear and culture - 07/31/2018, sputum for AFB smear (positive) and culture (positive and finalized on 08/18/2018) # treatment history - This Pt's strain of MAC that grew in his BAL culture at [facility] was resistant to common PO meds such as linezolid (THEODORE 64) and moxifloxacin (THEODORE 8) and therefore, his options are limited. I discussed Pt's treatment plan with Dr. Okeefe, Pt's ID data power consultant prior to admission on 10/25/2018. I also requested consultation by mycobacterial experts at [facility] on 10/31/2018. - PO rifabutin (10/11/2018-10/24/2018), stopped because Pt developed rash - PO ethambutol and PO clarithromycin (10/11/2018- started as outpatient and continued as inpatient). - IV amikacin (10/25/2018-); Pt has been tolerating IV amikacin so far but I do not recommend using it beyond two weeks for a concern of nephrotoxicity and ototoxicity - Pt took a test dose of nebulized amikacin x2 during this admission and kassi rated it. Nebulized amikacin was approved by his insurance company for 2 months after discharge. - Pt will need long-term treatment and close monitoring as outpatient - I recommend repeat chest CT after a few months; if Pt continues to improve, I will request renewal of nebulized amikacin beyond 2 months - I also recommend referral to ophthalmology while Pt is on ethambutol (to assess visual acuity, visual change) management d/w Pt, his , case fitter Rosangela at [facility], and Maricarmen at [facility] [facility] the total time I took to care for this Pt today was 60 min Consultation Date/Type/Reason Admit Date/Time Oct 13, 2018 at 23:44 Initial Consult Date 10/17/18 Type of Consult ID Requesting Provider: KAREN HINDS MD Date/Time of Note DATE: 11/02/18 TIME: 15:14 24 HR Interval Summary Constitutional: improved Detailed Summary Eyes: no complaints; No visual change ENT: no complaints Respiratory: cough (occasional) Cardiovascular: no complaints Gastrointestinal: no complaints Genitourinary: no complaints Musculoskeletal: no complaints Skin: no complaints Neurologic: no complaints Endocrine: no complaints Lymphatic: no complaints Psychological: no complaints Exam/Review of Systems Exam Vitals Vital Signs Date Temp Pulse Resp B/P (MAP) Pulse Ox O2 O2 Flow FiO2 Time Delivery Rate 11/02/18 98.7 107 20 105/72 96 Room Air 15:13 (83) 11/01/18 21 07:52 Intake and Output 11/01/18 11/01/18 11/02/18 1515:00 23:00 07:00 IntakeIntake Total 250 ml 800 ml 800 ml OutputOutput Total 1000 ml 350 ml BalanceBalance 250 ml -200 ml 450 ml Constitutional: alert, oriented, well developed Psych: no complaints, nl mood/affect Head: normocephalic, atraumatic Eyes: nl conjunctiva, nl lids ENMT: nl external ears & nose, nl nasal mucosa & septum Neck: supple; No non-tender Respiratory: normal air movement, diminished breath sounds Cardiovascular: regular rate and rhythm, nl pulses Gastrointestinal: soft, non-tender Musculoskeletal: nl extremities to inspection Extremities: normal pulses Neurological: MASTER MERCHANDISER 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, nl mental status, nl speech, nl strength Skin: nl turgor; No rash or lesions Results Result Diagram: 11/02/18 0545 11/02/18 0544 Results 24hrs Laboratory Tests Test 11/01/18 17:32 11/01/18 21:05 11/02/18 05:41 11/02/18 05:44 Bedside Glucose 191 165 Hemoglobin A1c 7.7 H Sodium Level 140 Potassium Level 4.5 Chloride Level 101 Carbon Dioxide Level 31 Anion Gap 8 Blood Urea Nitrogen 12 Creatinine 1.28 H Est Glomerular 58 L Filtrat Rate mL/min Glucose Level 98 Calcium Level 9.2 Phosphorus Level 4.9 Magnesium Level 2.0 Total Bilirubin 0.3 Direct Bilirubin 0.00 Indirect Bilirubin 0.3 Aspartate Amino 24 Transf (AST/SGOT) Alanine 16 Aminotransferase (AL T/SGPT) Alkaline Phosphatase 84 Total Protein 7.0 Albumin 3.2 L Globulin 3.80 H Albumin/Globulin 0.84 Ratio Test 11/02/18 05:45 11/02/18 08:23 11/02/18 12:33 White Blood Count 9.4 # Red Blood Count 4.10 L Hemoglobin 10.9 L Hematocrit 34.7 L Mean Corpuscular 84.6 Volume Mean Corpuscular 26.6 L Hemoglobin Mean Corpuscular 31.4 L Hemoglobin Concent Red Cell 16.0 H Distribution Width Platelet Count 363 # Mean Platelet Volume 8.7 Immature 2.500 H Granulocytes % Neutrophils % 60.2 Lymphocytes % 13.5 L Monocytes % 9.7 Eosinophils % 13.1 H Basophils % 1.0 Nucleated Red Blood 0.0 Cells % Immature 0.240 H Granulocytes # Neutrophils # 5.7 Lymphocytes # 1.3 Monocytes # 0.9 Eosinophils # 1.2 H Basophils # 0.1 Nucleated Red Blood 0.0 Cells # Bedside Glucose 112 196 Medications Medication Current Medications Ondansetron HCl (Zofran Inj) 4 mg Q4H PRN IV nausea; Start 10/13/18 at 23:30 Zolpidem Tartrate (Ambien) 5 mg HS MAY REPEAT X 1 PRN PO INSOMNIA; Start 10/13/18 at 23:30 Folic Acid (Folic Acid) 1 mg DAILY PO Last administered on 11/02/18at 08:25; Admin Dose 1 MG; Start 10/14/18 at 09:00 Prednisone (Prednisone) 7.5 mg DAILY PO Last administered on 11/02/18 08:25; Admin Dose 7.5 MG; Start 10/14/18 at 09:00 Insulin Aspart (Novolog Insulin Pen) NOVOLOG *MODERATE* ALGORITHM WITH MEALS BEDTIME SC Last administered on 11/02/18 12:38; Admin Dose 4 UNIT; Start 10/14/18 at 11:50 Miscellaneous Information 1 ea NOTE XX ; Start 10/14/18 at 09:00 Glucose (Glutose) 15 gm Q15M PRN PO DECREASED GLUCOSE; Start 10/14/18 at 09:00 Glucose (Glutose) 22.5 gm Q15M PRN PO DECREASED GLUCOSE; Start 10/14/18 at 09:00 Dextrose (D50w Syringe) 25 ml Q15M PRN IV DECREASED GLUCOSE; Start 10/14/18 at 09:00 Dextrose (D50w Syringe) 50 ml Q15M PRN IV DECREASED GLUCOSE; Start 10/14/18 at 09:00 Glucagon (Glucagen) 1 mg Q15M PRN IM DECREASED GLUCOSE; Start 10/14/18 at 09:00 Glucose (Glutose) 15 gm Q15M PRN BUCCAL DECREASED GLUCOSE; Start 10/14/18 at 09:00 Acetaminophen (Tylenol Tab) 650 mg Q4H PRN PO MILD PAIN(1-3)OR ELEVATED TEMP Last administered on 10/31/18 08:18; Admin Dose 650 MG; Start 10/15/18 at 04:38 Pantoprazole (Protonix Tab) 40 mg DAILY@06 PO Last administered on 11/02/18at 06:22; Admin Dose 40 MG; Start 10/16/18 at 13:55 Morphine Sulfate (morphine) 2 mg Q3H PRN IV SEVERE PAIN LEVEL 7-10 Last administered on 10/24/18 04:12; Admin Dose 2 MG; Start 10/17/18 at 08:30 Aspirin (Aspirin) 81 mg DAILY PO Last administered on 11/02/18 08:25; Admin Dose 81 MG; Start 10/17/18 at 16:30 Benzonatate (Tessalon) 200 mg TID PRN PO cough Last administered on 10/18/18at 15:00; Admin Dose 200 MG; Start 10/18/18 at 12:00 Diphenhydramine HCl (Benadryl) 25 mg Q6H PRN IV itching Last administered on 10/18/18at 16:14; Admin Dose 25 MG; Start 10/18/18 at 18:00 Enoxaparin Sodium (Lovenox) 40 mg DAILY SC Last administered on 11/02/18 08:30; Admin Dose 40 MG; Start 10/22/18 at 09:00 Al Hydrox/Mg Hydrox/Simethicone (Mag-Al Plus) 30 ml QID PRN PO GASTROINTESTINAL UPSET Last administered on 10/24/18 21:13; Admin Dose 30 ML; Start 10/24/18 at 21:00 Clarithromycin (Biaxin) 500 mg MoWeFr@0900,2100 PO Last administered on 11/01/18at 21:07; Admin Dose 500 MG; Start 10/25/18 at 21:00 Ethambutol HCl (Myambutol) 400 mg MoWeFr@0900,1200 PO Last administered on 11/01/18at 12:05; Admin Dose 400 MG; Start 10/25/18 at 12:30 Amikacin Sulfate (Amikacin Iv Per Pharmacy) AMIKACIN PER PHARMA... NOTE XX ; Start 11/01/18 at 11:00 Amikacin Sulfate 1000 mg/Sodium Chloride 254 ml @ 102 mls/hr Q36H IVPB Last administered on 11/01/18at 14:24; Admin Dose 102 MLS/HR; Start 11/01/18 at 14:00 Metformin HCl (Glucophage) 500 mg BID WITH MEALS PO ; Start 11/02/18 at 17:55 SALEEM MAST M.D. Nov 02, 2018 15:18
[2018-11-02] MEDS: metFORMIN 500 MG TAB PO SCH (17:43)
[2018-11-02 19:36] VITALS: BP 127/77; RESP 18
[2018-11-02 23:34] VITALS: BP 115/71; PULSE 95; RESP 17
[2018-11-03] MEDS: AMIKACIN 1,000 MG in SOD CHLORIDE 0.9% 250 ML IVPB SCH (01:22)
[2018-11-03 03:27] VITALS: BP 121/71; PULSE 91; RESP 18
[2018-11-03] MEDS: PANTOPRAZOLE (EC) 40 MG TAB PO SCH (06:13)
[2018-11-03 07:47] VITALS: BP 121/78; PULSE 105; RESP 20
[2018-11-03] MEDS: INSULIN ASPART [NOVOLOG] 3 ML PEN SC SCH ×3 (07:55→17:16)
[2018-11-03] MEDS: FOLIC ACID 1 MG TAB PO SCH (09:10)
[2018-11-03] MEDS: predniSONE 2.5 MG TAB PO SCH (09:11)
[2018-11-03] MEDS: metFORMIN 500 MG TAB PO SCH ×2 (09:11→17:18)
[2018-11-03] MEDS: ASPIRIN 81 MG TAB PO SCH (09:11)
[2018-11-03] MEDS: ENOXAPARIN 40 MG/0.4 ML SYG SC SCH (09:14)
[2018-11-03] MEDS: ETHAMBUTOL 400 MG TAB PO SCH ×2 (09:19→12:19)
[2018-11-03] MEDS: CLARITHROMYCIN 500 MG TAB PO SCH (09:19)
[2018-11-03 10:54] VITALS: BP 127/76; PULSE 119; RESP 20
--- NOTE | 2018-11-03 13:18 | CONS ---
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 BAL culture at [facility] that was collected on 07/31/2018 grew MAC, finalized on 08/18/2018. MAC was sensitive to clarithromycin but resistant to moxifloxacin and linezolid (this report was brought to [facility] from his . The copy was left in Pt's chart and also at the infection control office. Pt was started on PO clarithromycin, ethambutol and rifabutin by Dr. Okeefe, ID physician, three days prior to his admission at [facility] - reviewed the results of Pt's AFB samples at [facility]: his AFB samples was negative for M. tuberculosis - one of the "Sternum" samples on 10/19/2018 at [facility] has 1+ AFB on smear/culture positive for AFB. This is reportedly pleural fluid rather than a sternal s wab/sample - s/p severe near complete collapse of the right lung (very large R hydropneumothorax), dense consolidation in R lung base with adjacent small right pleural effusion suspicious for empyema per CT on 10/13/2018 - s/p R sided decortication 10/21/18 - s/p successful CT guided placement of 10-Turkish drainage catheter in R pleural space 10/18/2018 - s/p R thoracostomy and chest tube placement 10/13/2018; chest tube had slipped out of pleural space and was removed on 10/17/2018 - s/p erythematous mildly pruritic rash on the trunk, groin and extremities due to rifabutin, resolved after stopping it - s/p poor appetite and mildly upset stomach, possibly related to clarithromycin, improved # other conditions - JOHNNY on 10/18/2018, resolved - Thrombosis of the right cephalic vein in the antecubital fossa per venous doppler on 10/17/2018 - DMT2 - 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 He was on methotrexate, prednisone 7.5 mg daily and HCQ - Immunocompromised state - Elevated alk phos, improved - so far he took: meropenem (10/17/2018-10/23/2018), pip/tazo (10/15/2018- 9), vancomycin (10/15/2018-10/21/18), fluconazole (10/18/2018-10/24/2018) - so far: coccodioides serology in the serum on 10/16/2018 was negative # AFB specimens - pending results: speciation of AFB in one of the "Sternum" samples on 10/19/2018 at 05:42AM (1+ AFB on smear/culture positive). This is actually a pleural fluid sample. The specimen was submitted for antibiotic sensitivity on 10/26/2018. 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 According to Josephine, the turn around time of this test is 15 days (she called [facility] on 10/31/2018) - 10/28/2018 at 11:03 AM, sputum for AFB smear (smear negative) and culture - 10/18/2018 at 08:00 AM, sputum for AFB smear (smear negative) and culture - 10/20/2018 at 16:15 PM, sputum for AFB smear (smear negative) and culture - other specimens are either pleural fluids or "lung" - 10/18/2018 at 14:30 PM, pleural fluid for AFB smear and culture - 10/19/2018 at 05:42 AM, "sternum" culture (this is reportedly pleural fluid) for AFB smear and culture - 10/21/2018 at 14:30 PM, R lung for AFB smear and culture - 10/21/2018 at 14:31 PM, R lung for AFB smear and culture - 07/31/2018, sputum for AFB smear (positive) and culture (positive and finalized on 08/18/2018) # treatment history - This Pt's strain of MAC that grew in his BAL culture at [facility] was resistant to common PO meds such as linezolid (THEODORE 64) and moxifloxacin (THEODORE 8) and therefore, his options are limited. I discussed Pt's treatment plan with Dr. Okeefe, Pt's ID health and wellness sales consultant prior to admission on 10/25/2018. I also requested consultation by mycobacterial experts at [facility] on 10/31/2018. - PO rifabutin (10/11/2018-10/24/2018), stopped because Pt developed rash - PO ethambutol and PO clarithromycin (10/11/2018- started as outpatient and continued as inpatient). - IV amikacin (10/25/2018-); Pt has been tolerating IV amikacin so far but I do not recommend using it beyond two weeks for a concern of nephrotoxicity and ototoxicity - Pt took a test dose of nebulized amikacin x2 during this admission and tolerated it. Nebulized amikacin was approved by his insurance company for 2 months after discharge. Pt's waiting for a proper person to teach him how to use the equipment which he received - Pt will need long-term treatment and close monitoring as outpatient - I recommend repeat chest CT after a few months; if Pt continues to improve, I will request renewal of nebulized amikacin beyond 2 months - I also recommend referral to ophthalmology while Pt is on ethambutol (to assess visual acuity, visual change) - I recommend that Pt's immunosuppressants be reduced if possible to prevent i nfections management d/w Pt, his , RN Nicolasa Consultation Date/Type/Reason Admit Date/Time Oct 13, 2018 at 23:44 Initial Consult Date 10/17/18 Type of Consult ID Requesting Provider: KAREN HINDS MD Date/Time of Note DATE: 11/03/18 TIME: 13:16 24 HR Interval Summary Constitutional: improved Detailed Summary Eyes: no complaints ENT: no complaints Respiratory: cough (occasional, dry); No pleuritic pain, No shortness of breath, No sputum Cardiovascular: no complaints Gastrointestinal: no complaints Genitourinary: no complaints Musculoskeletal: no complaints Skin: no complaints Neurologic: no complaints Exam/Review of Systems Exam Vitals Vital Signs Date Temp Pulse Resp B/P (MAP) Pulse Ox O2 O2 Flow FiO2 Time Delivery Rate 11/03/18 98.5 119 20 127/76 95 Room Air 10:54 (93) 11/01/18 21 07:52 Intake and Output 11/02/18 11/02/18 11/03/18 1515:00 23:00 07:00 IntakeIntake Total 240 ml 1200 ml OutputOutput Total 1300 ml 800 ml 450 ml BalanceBalance -1060 ml 400 ml -450 ml Constitutional: alert, oriented, well developed Psych: no complaints, nl mood/affect Head: normocephalic, atraumatic Eyes: nl conjunctiva, nl lids, nl sclera ENMT: nl external ears & nose, nl nasal mucosa & septum, mucosa pink and moist Neck: supple Respiratory: diminished breath sounds Cardiovascular: regular rate and rhythm, nl pulses; No edema Gastrointestinal: soft, non-tender Musculoskeletal: nl extremities to inspection Neurological: nl mental status, nl speech, nl strength Skin: nl turgor; No rash or lesions Results Result Diagram: 11/02/18 0545 11/03/18 0630 Results 24hrs Laboratory Tests Test 11/02/18 21:06 11/03/18 06:30 11/03/18 07:59 11/03/18 11:57 Bedside Glucose 176 99 190 Sodium Level 139 Potassium Level 3.6 Chloride Level 99 Carbon Dioxide 30 Level Anion Gap 10 Blood Urea 11 Nitrogen Creatinine 1.17 Est Glomerular > 60 Filtrat Rate mL/min Glucose Level 96 Calcium Level 9.2 Test 11/03/18 12:48 Lab Scanned Report REFERENCE LAB Medications Medication Current Medications Ondansetron HCl (Zofran Inj) 4 mg Q4H PRN IV nausea; Start 10/13/18 at 23:30 Zolpidem Tartrate (Ambien) 5 mg HS MAY REPEAT X 1 PRN PO INSOMNIA; Start 10/13/18 at 23:30 Folic Acid (Folic Acid) 1 mg DAILY PO Last administered on 11/03/18at 09:10; Admin Dose 1 MG; Start 10/14/18 at 09:00 Prednisone (Prednisone) 7.5 mg DAILY PO Last administered on 11/03/18at 09:11; Admin Dose 7.5 MG; Start 10/14/18 at 09:00 Insulin Aspart (Novolog Insulin Pen) NOVOLOG *MODERATE* ALGORITHM WITH MEALS BEDTIME SC Last administered on 11/03/18at 12:15; Admin Dose 4 UNIT; Start 10/14/18 at 11:50 Miscellaneous Information 1 ea NOTE XX ; Start 10/14/18 at 09:00 Glucose (Glutose) 15 gm Q15M PRN PO DECREASED GLUCOSE; Start 10/14/18 at 09:00 Glucose (Glutose) 22.5 gm Q15M PRN PO DECREASED GLUCOSE; Start 10/14/18 at 09:00 Dextrose (D50w Syringe) 25 ml Q15M PRN IV DECREASED GLUCOSE; Start 10/14/18 at 09:00 Dextrose (D50w Syringe) 50 ml Q15M PRN IV DECREASED GLUCOSE; Start 10/14/18 at 09:00 Glucagon (Glucagen) 1 mg Q15M PRN IM DECREASED GLUCOSE; Start 10/14/18 at 09:00 Glucose (Glutose) 15 gm Q15M PRN BUCCAL DECREASED GLUCOSE; Start 10/14/18 at 09:00 Acetaminophen (Tylenol Tab) 650 mg Q4H PRN PO MILD PAIN(1-3)OR ELEVATED TEMP Last administered on 10/31/18 08:18; Admin Dose 650 MG; Start 10/15/18 at 04:38 Pantoprazole (Protonix Tab) 40 mg DAILY@06 PO Last administered on 11/03/18 06:13; Admin Dose 40 MG; Start 10/16/18 at 13:55 Morphine Sulfate (morphine) 2 mg Q3H PRN IV SEVERE PAIN LEVEL 7-10 Last administered on 10/24/18 04:12; Admin Dose 2 MG; Start 10/17/18 at 08:30 Aspirin (Aspirin) 81 mg DAILY PO Last administered on 11/03/18 09:11; Admin Dose 81 MG; Start 10/17/18 at 16:30 Benzonatate (Tessalon) 200 mg TID PRN PO cough Last administered on 10/18/18 15:00; Admin Dose 200 MG; Start 10/18/18 at 12:00 Diphenhydramine HCl (Benadryl) 25 mg Q6H PRN IV itching Last administered on 10/18/18 16:14; Admin Dose 25 MG; Start 10/18/18 at 18:00 Enoxaparin Sodium (Lovenox) 40 mg DAILY SC Last administered on 11/03/18 09:14; Admin Dose 40 MG; Start 10/22/18 at 09:00 Al Hydrox/Mg Hydrox/Simethicone (Mag-Al Plus) 30 ml QID PRN PO GASTROINTESTINAL UPSET Last administered on 10/24/18 21:13; Admin Dose 30 ML; Start 10/24/18 at 21:00 Clarithromycin (Biaxin) 500 mg MoWeFr@0900,2100 PO Last administered on 11/03/18 09:19; Admin Dose 500 MG; Start 10/25/18 at 21:00 Ethambutol HCl (Myambutol) 400 mg MoWeFr@0900,1200 PO Last administered on 11/03/18at 12:19; Admin Dose 400 MG; Start 10/25/18 at 12:30 Amikacin Sulfate (Amikacin Iv Per Pharmacy) AMIKACIN PER PHARMA... NOTE XX ; Start 11/01/18 at 11:00 Amikacin Sulfate 1000 mg/Sodium Chloride 254 ml @ 102 mls/hr Q36H IVPB Last administered on 11/03/18at 01:22; Admin Dose 102 MLS/HR; Start 11/01/18 at 14:00 Metformin HCl (Glucophage) 500 mg BID WITH MEALS PO Last administered on 11/03/18at 09:11; Admin Dose 500 MG; Start 11/02/18 at 17:55 SALEEM MAST M.D. Nov 03, 2018 13:17
[2018-11-03 15:33] VITALS: BP 107/74; PULSE 110; RESP 20
== END 2018-11-03 17:15 | disposition home health service (06) | DRG 163 ==
LOC: E/R 18:15 → TEL 23:44 → UNDODISIN 10-21 12:42 → ICU 10-21 12:46 → TEL 10-23 09:51
PROVIDERS: ADMIT Internal Medicine; ATTEND Internal Medicine
PROC: 0W9930Z Drainage of Right Pleural Cavity with Drainage Device, Percutaneous Approach (ICD-10-PCS; 2018-10-13)
PROC: 0W9930Z Drainage of Right Pleural Cavity with Drainage Device, Percutaneous Approach (ICD-10-PCS; 2018-10-18)
PROC: 30233N1 Transfusion of Nonautologous Red Blood Cells into Peripheral Vein, Percutaneous Approach (ICD-10-PCS; 2018-10-20)
PROC: 0W9940Z Drainage of Right Pleural Cavity with Drainage Device, Percutaneous Endoscopic Approach (ICD-10-PCS; 2018-10-21)
PROC: 0BJ08ZZ Inspection of Tracheobronchial Tree, Via Natural or Artificial Opening Endoscopic (ICD-10-PCS; 2018-10-21)
PROC: 0BNK4ZZ Release Right Lung, Percutaneous Endoscopic Approach (ICD-10-PCS; principal; 2018-10-21 10:30)
DX: J93.11 Primary spontaneous pneumothorax (principal); A41.9 Sepsis, unspecified organism; J15.8 Pneumonia due to other specified bacteria; J18.1 Lobar pneumonia, unspecified organism; J86.9 Pyothorax without fistula; A31.0 Pulmonary mycobacterial infection; N17.9 Acute kidney failure, unspecified; I82.611 Acute embolism and thrombosis of superficial veins of right upper extremity; D89.9 Disorder involving the immune mechanism, unspecified; D64.9 Anemia, unspecified; E11.65 Type 2 diabetes mellitus with hyperglycemia; I10 Essential (primary) hypertension; J44.9 Chronic obstructive pulmonary disease, unspecified; M06.9 Rheumatoid arthritis, unspecified; L27.1 Localized skin eruption due to drugs and medicaments taken internally; T36.6X5A Adverse effect of rifampicins, initial encounter; Z87.891 Personal history of nicotine dependence
CPT/HCPCS: 36415; 36430; 36600; 71045; 71250; 71275; 75989; 80048; 80053; 80150; 80202; 81001; 82565; 82803; 82962; 83036; 83605; 83735; 83880; 84100; 84145; 84484; 84520; 85025; 85610; 85730; 86480; 86635; 86641; 86644; 86703; 86850; 86900; 86901; 86920; 87070; 87075; 87081; 87086; 87102; 87116; 87400; 88307; 93005; 93306; 93971; 94640; 94664; 94770; 96374; 96375; C1729; J0278; J0360; J0696; J1100; J1170; J1200; J1450; J1650; J1815; J2185; J2250; J2270; J2405; J2543; J3010; J3370; J7030; J7040; J7050; J7512; P9016; Q9967

== ENCOUNTER 2018-11-07 10:35 | Emergency (ER) | payer OTHER ==
[~2018-11-07] VITALS: Ht 167.6 cm; Wt 63.9 kg
[~2018-11-07 10:35] MED LIST changes: +ASPI-831 PO; +CHOL100062 PO; +CLAR500T PO; +ETHA400T8 PO; +FOLI-49 PO; -IBUP-1542 PO; -LEVO750T25 PO; +METF-849 PO; +OMEP20CA16 PO; +PRED5TAB PO; -TRAM50TA2 PO
[2018-11-07 10:42] VITALS: Ht 167.6 cm; Wt 63.9 kg
[2018-11-07] MEDS ORDERED: ACETAMINOPHEN 500 MG TAB PO STA (10:55)
[2018-11-07] MEDS ORDERED: SODIUM CHLORIDE 0.9% 1L BAG IV* STA (10:55)
[2018-11-07] MEDS ORDERED: CEFEPIME 2GM/50 ML (PMX) 50 ML IVPB STA (11:12)
[2018-11-07] MEDS ORDERED: VANCOMYCIN 1 GM (PMX) 250 ML IVPB ONE (11:30)
[2018-11-07] MEDS ORDERED: IOHEXOL 300MG/ML 150 ML BTL ONE (11:47)
[2018-11-07] MEDS ORDERED: SOD CHLORIDE 0.9% 100 ML ONE (11:47)
[2018-11-07] MEDS ORDERED: [UNRECOGNIZED DRUG - OTHER] INH (11:48)
[2018-11-07] MEDS ORDERED: HYDR200T39 PO (11:51)
[2018-11-07] MEDS ORDERED: IODIXANOL LOCM 100 ML BTL ONE (11:51)
[2018-11-07] MEDS ORDERED: AMIKACIN 500 MG INH ONE (12:00)
[2018-11-07 13:00] VITALS: BP 116/70; PULSE 117; RESP 20
--- NOTE | 2018-11-07 13:10 | CONS ---
Assessment/Plan Assessment/Plan Hospital Course (Demo Recall) asked to consult. emr reviewed. await CT. will be in shortly Consultation Date/Type/Reason Admit Date/Time Date/Time of Note DATE: 11/07/18 TIME: 13:09 Past Medical History Home Meds Active Scripts Metformin* (Glucophage*) 500 Mg Tab, 500 MG PO BID WITH MEALS for 30 Days, TAB 1 Refill Prov:ALEX DENIS 11/02/18 Aspirin (Aspirin) 81 Mg Chew, 81 MG PO DAILY for 30 Days, TAB Prov:KAREN HINDS MD 10/31/18 Reported Medications Hydroxychloroquine Sulfate* (Hydroxychloroquine Sulfate*) 200 Mg Tablet, 200 MG PO BID, TAB 11/07/18 [Arikayce] 590MG/8.4ML INHA No Conflict Check, 8.4 ML INH QPM THIS IS A COMPOUNDED DRUG 11/07/18 Cholecalciferol* (Vitamin D3*) 1,000 Unit Tablet, 1000 UNIT PO DAILY, TAB 10/14/18 Omeprazole* (Omeprazole*) 20 Mg Capsule.dr, 20 MG PO QAM, #30 CAP 10/14/18 Folic Acid* (Folic Acid*) 1 Mg Tablet, 1 MG PO DAILY for 90 Days, #90 10/14/18 Prednisone* (Prednisone*) 5 Mg Tab, 7.5 MG PO DAILY for 30 Days TAKE 1.5 TAB BY MOUTH DAILY 10/14/18 Ethambutol Hcl (Ethambutol Hcl) 400 Mg Tablet, 800 MG PO DAILY for [id number] 10/14/18 Discontinued Reported Medications Clarithromycin* (Clarithromycin*) 500 Mg Tablet, 1000 MG PO DAILY for [id number] for 5 Days 10/14/18 Rifabutin (Rifabutin) 150 Mg Capsule, 300 MG PO DAILY for [id number] 10/14/18 Medications Current Medications Vancomycin HCl 250 ml @ 125 mls/hr ONCE ONCE IVPB Last administered on 11/07/18at 12:31; Admin Dose 125 MLS/HR; Start 11/07/18 at 11:30; Stop 11/07/18 at 13:29 Allergies: Coded Allergies: rifabutin (Verified Allergy, Severe, rash, 11/07/18) Social History Smoking Status: Never smoker Exam/Review of Systems Exam Vitals Vital Signs Date Temp Pulse Resp B/P (MAP) Pulse Ox O2 O2 Flow FiO2 Time Delivery Rate 11/07/18 100.5 137 20 135/77 98 10:42 (96) Results Result Diagram: 11/07/18 1105 11/07/18 1105 Results 24hrs Laboratory Tests Test 11/07/18 11:05 11/07/18 11:08 White Blood Count 11.7 #H Red Blood Count 4.03 L Hemoglobin 10.7 L Hematocrit 33.9 L Mean Corpuscular Volume 84.1 Mean Corpuscular Hemoglobin 26.6 L Mean Corpuscular Hemoglobin Concent 31.6 L Red Cell Distribution Width 15.8 H Platelet Count 318 Mean Platelet Volume 8.1 Immature Granulocytes % 1.300 H Neutrophils % 69.5 Lymphocytes % 10.3 L Monocytes % 8.8 Eosinophils % 9.5 H Basophils % 0.6 Nucleated Red Blood Cells % 0.0 Immature Granulocytes # 0.150 H Neutrophils # 8.1 H Lymphocytes # 1.2 Monocytes # 1.0 H Eosinophils # 1.1 H Basophils # 0.1 Nucleated Red Blood Cells # 0.0 Prothrombin Time 13.9 Prothrombin Time Ratio 1.1 INR International Normalized Ratio 1.06 Activated Partial Thromboplast Time 35.1 H Sodium Level 135 Potassium Level 4.0 Chloride Level 96 L Carbon Dioxide Level 28 Anion Gap 11 Blood Urea Nitrogen 9 Creatinine 1.31 H Est Glomerular Filtrat Rate mL/min 56 L Glucose Level 133 Calcium Level 9.4 Total Bilirubin 0.4 Direct Bilirubin 0.00 Indirect Bilirubin 0.4 Aspartate Amino Transf (AST/SGOT) 23 Alanine Aminotransferase (ALT/SGPT) 14 Alkaline Phosphatase 83 Troponin I < 0.012 Total Protein 7.6 Albumin 3.5 Globulin 4.10 H Albumin/Globulin Ratio 0.85 POC Venous Lactate 1.4 Medications Medication Current Medications Vancomycin HCl 250 ml @ 125 mls/hr ONCE ONCE IVPB Last administered on 11/07/18at 12:31; Admin Dose 125 MLS/HR; Start 11/07/18 at 11:30; Stop 11/07/18 at 13:29 SCOTTY YOUNGER MD Nov 07, 2018 13:10
--- NOTE | 2018-11-07 13:11 | CONS ---
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 BAL culture at [facility] that was collected on 07/31/2018 grew MAC, finalized on 08/18/2018. MAC was sensitive to clarithromycin but resistant to moxifloxacin and linezolid (this report was brought to [facility] from his . The copy was left in Pt's chart and also at the infection control office. Pt was started on PO clarithromycin, ethambutol and rifabutin by Dr. Okeefe, ID physician, three days prior to his admission at [facility] - reviewed the results of Pt's AFB samples at [facility]: his AFB samples was negative for M. tuberculosis - one of the "Sternum" samples on 10/19/2018 at [facility] has 1+ AFB on smear/culture positive for AFB. This is reportedly pleural fluid rather than a sternal swab/sample - s/p severe near complete collapse of the right lung (very large R hydropneumothorax), dense consolidation in R lung base with adjacent small right pleural effusion suspicious for empyema per CT on 10/13/2018 - s/p R sided decortication 10/21/18 - s/p successful CT guided placement of 10-Andorran drainage catheter in R pleural space 10/18/2018 - s/p R thoracostomy and chest tube placement 10/13/2018; chest tube had slipped out of pleural space and was removed on 10/17/2018 - s/p erythematous mildly pruritic rash on the trunk, groin and extremities due to rifabutin, resolved after stopping it - s/p poor appetite and mildly upset stomach, possibly related to clarithromycin, improved # other conditions - JOHNNY on 10/18/2018, resolved - Thrombosis of the right cephalic vein in the antecubital fossa per venous doppler on 10/17/2018 - DMT2 - 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 He was on methotrexate, prednisone 7.5 mg daily and HCQ - Immunocompromised state - Elevated alk phos, improved - so far he took: meropenem (10/17/2018-10/23/2018), pip/tazo (10/15/2018- 10/17/2018), vancomycin (10/15/2018-10/21/18), fluconazole (10/18/2018-10/24/2018) - so far: coccodioides serology in the serum on 10/16/2018 was negative # AFB specimens - pending results: speciation of AFB in one of the "Sternum" samples on 10/19/2018 at 05:42AM (1+ AFB on smear/culture positive). This is actually a pleural fluid sample. The specimen was submitted for antibiotic sensitivity on 10/26/2018. A request for its sensitivity to clofazimine was requested on 10/26/2018 and 10/27/2018 (micro construction laborer Raheem). According to Josephine, the turn around time of this test is 15 days (she called [facility] on 10/31/2018) - 10/28/2018 at 11:03 AM, sputum for AFB smear (smear negative) and culture - 10/18/2018 at 08:00 AM, sputum for AFB smear (smear negative) and culture - 10/20/2018 at 16:15 PM, sputum for AFB smear (smear negative) and culture - other specimens are either pleural fluids or "lung" - 10/18/2018 at 14:30 PM, pleural fluid for AFB smear and culture - 10/19/2018 at 05:42 AM, "sternum" culture (this is reportedly pleural fluid) for AFB smear and culture - 10/21/2018 at 14:30 PM, R lung for AFB smear and culture - 10/21/2018 at 14:31 PM, R lung for AFB smear and culture - 07/31/2018, sputum for AFB smear (positive) and culture (positive and finalized on 08/18/2018) # treatment history - This Pt's strain of MAC that grew in his BAL culture at [facility] was resistant to common PO meds such as linezolid (THEODORE 64) and moxifloxacin (THEODORE 8) and therefore, his options are limited. I discussed Pt's treatment plan with Dr. Okeefe, Pt's ID customer service and sales consultant prior to admission on 10/25/2018. I also requested consultation by mycobacterial experts at [facility] ([place], [place]) on 10/31/2018. - PO rifabutin (10/11/2018-10/24/2018), stopped because Pt developed rash - PO ethambutol and PO clarithromycin (10/11/2018- started as outpatient and lorena nued as inpatient). - IV amikacin (10/25/2018-); Pt has been tolerating IV amikacin so far but I do n ot recommend using it beyond two weeks for a concern of nephrotoxicity and ototoxicity - Pt took a test dose of nebulized amikacin x2 during this admission and tolerated it. Nebulized amikacin was approved by his insurance company for 2 months after discharge. Pt's waiting for a proper person to teach him how to use the equipment which he received - Pt will need long-term treatment and close monitoring as outpatient - I recommend repeat chest CT after a few months; if Pt continues to improve, I will request renewal of nebulized amikacin beyond 2 months - I also recommend referral to ophthalmology while Pt is on ethambutol (to assess visual acuity, visual change) - I recommend that Pt's immunosuppressants be reduced if possible to prevent infections Consultation Date/Type/Reason Admit Date/Time Date/Time of Note DATE: 11/07/18 TIME: 13:10 Past Medical History Home Meds Active Scripts Metformin* (Glucophage*) 500 Mg Tab, 500 MG PO BID WITH MEALS for 30 Days, TAB 1 Refill Prov:ALEX DENIS 11/02/18 Aspirin (Aspirin) 81 Mg Chew, 81 MG PO DAILY for 30 Days, TAB Prov:KAREN HINDS MD 10/31/18 Reported Medications Hydroxychloroquine Sulfate* (Hydroxychloroquine Sulfate*) 200 Mg Tablet, 200 MG PO BID, TAB 11/07/18 [Arikayce] 590MG/8.4ML INHA No Conflict Check, 8.4 ML INH QPM THIS IS A COMPOUNDED DRUG 11/07/18 Cholecalciferol* (Vitamin D3*) 1,000 Unit Tablet, 1000 UNIT PO DAILY, TAB 10/14/18 Omeprazole* (Omeprazole*) 20 Mg Capsule.dr, 20 MG PO QAM, #30 CAP 10/14/18 Folic Acid* (Folic Acid*) 1 Mg Tablet, 1 MG PO DAILY for 90 Days, #90 10/14/18 Prednisone* (Prednisone*) 5 Mg Tab, 7.5 MG PO DAILY for 30 Days TAKE 1.5 TAB BY MOUTH DAILY 10/14/18 Ethambutol Hcl (Ethambutol Hcl) 400 Mg Tablet, 800 MG PO DAILY for [id number] 10/14/18 Discontinued Reported Medications Clarithromycin* (Clarithromycin*) 500 Mg Tablet, 1000 MG PO DAILY for [id number] for 5 Days 10/14/18 Rifabutin (Rifabutin) 150 Mg Capsule, 300 MG PO DAILY for [id number] 10/14/18 Medications Current Medications Vancomycin HCl 250 ml @ 125 mls/hr ONCE ONCE IVPB Last administered on 11/07/18at 12:31; Admin Dose 125 MLS/HR; Start 11/07/18 at 11:30; Stop 11/07/18 at 13:29 Allergies: Coded Allergies: rifabutin (Verified Allergy, Severe, rash, 11/07/18) Social History Smoking Status: Never smoker Exam/Review of Systems Exam Vitals Vital Signs Date Temp Pulse Resp B/P (MAP) Pulse Ox O2 O2 Flow FiO2 Time Delivery Rate 11/07/18 100.5 137 20 135/77 98 10:42 (96) Results Result Diagram: 11/07/18 1105 11/07/18 1105 Results 24hrs Laboratory Tests Test 11/07/18 11:05 11/07/18 11:08 White Blood Count 11.7 #H Red Blood Count 4.03 L Hemoglobin 10.7 L Hematocrit 33.9 L Mean Corpuscular Volume 84.1 Mean Corpuscular Hemoglobin 26.6 L Mean Corpuscular Hemoglobin Concent 31.6 L Red Cell Distribution Width 15.8 H Platelet Count 318 Mean Platelet Volume 8.1 Immature Granulocytes % 1.300 H Neutrophils % 69.5 Lymphocytes % 10.3 L Monocytes % 8.8 Eosinophils % 9.5 H Basophils % 0.6 Nucleated Red Blood Cells % 0.0 Immature Granulocytes # 0.150 H Neutrophils # 8.1 H Lymphocytes # 1.2 Monocytes # 1.0 H Eosinophils # 1.1 H Basophils # 0.1 Nucleated Red Blood Cells # 0.0 Prothrombin Time 13.9 Prothrombin Time Ratio 1.1 INR International Normalized Ratio 1.06 Activated Partial Thromboplast Time 35.1 H Sodium Level 135 Potassium Level 4.0 Chloride Level 96 L Carbon Dioxide Level 28 Anion Gap 11 Blood Urea Nitrogen 9 Creatinine 1.31 H Est Glomerular Filtrat Rate mL/min 56 L Glucose Level 133 Calcium Level 9.4 Total Bilirubin 0.4 Direct Bilirubin 0.00 Indirect Bilirubin 0.4 Aspartate Amino Transf (AST/SGOT) 23 Alanine Aminotransferase (ALT/SGPT) 14 Alkaline Phosphatase 83 Troponin I < 0.012 Total Protein 7.6 Albumin 3.5 Globulin 4.10 H Albumin/Globulin Ratio 0.85 POC Venous Lactate 1.4 Medications Medication Current Medications Vancomycin HCl 250 ml @ 125 mls/hr ONCE ONCE IVPB Last administered on 11/07/18at 12:31; Admin Dose 125 MLS/HR; Start 11/07/18 at 11:30; Stop 11/07/18 at 1 3:29 SCOTTY YOUNGER MD Nov 07, 2018 13:11
--- NOTE | 2018-11-07 13:23 | ERD ---
ER Documentation Chief Complaint Chief Complaint Pt here for dressing change to old chest tube site, DC past Tuesday. HPI This is a 58-year-old gentleman who had complex inpatient hospitalization for KIERAN pneumonia complicated by chest tube insertion, decortication among others. Patient presents today because of significant drainage from his chest tube site. He is soaking through dressing over the past 12 hours. He is noted to have a low-grade fever at triage. He is taking oral and inhaled antibiotics at home. He denies any chest pain or significant shortness of breath. ROS All systems reviewed and are negative except as per history of present illness. Medications Home Meds Active Scripts Metformin* (Glucophage*) 500 Mg Tab, 500 MG PO BID WITH MEALS for 30 Days, TAB 1 Refill Prov:ALEX DENIS 11/02/18 Aspirin (Aspirin) 81 Mg Chew, 81 MG PO DAILY for 30 Days, TAB Prov:KAREN HINDS MD 10/31/18 Reported Medications Hydroxychloroquine Sulfate* (Hydroxychloroquine Sulfate*) 200 Mg Tablet, 200 MG PO BID, TAB 11/07/18 [Arikayce] 590MG/8.4ML INHA No Conflict Check, 8.4 ML INH QPM THIS IS A COMPOUNDED DRUG 11/07/18 Cholecalciferol* (Vitamin D3*) 1,000 Unit Tablet, 1000 UNIT PO DAILY, TAB 10/14/18 Omeprazole* (Omeprazole*) 20 Mg Capsule.dr, 20 MG PO QAM, #30 CAP 10/14/18 Folic Acid* (Folic Acid*) 1 Mg Tablet, 1 MG PO DAILY for 90 Days, #90 10/14/18 Prednisone* (Prednisone*) 5 Mg Tab, 7.5 MG PO DAILY for 30 Days TAKE 1.5 TAB BY MOUTH DAILY 10/14/18 Ethambutol Hcl (Ethambutol Hcl) 400 Mg Tablet, 800 MG PO DAILY for [id number] 10/14/18 Discontinued Reported Medications Clarithromycin* (Clarithromycin*) 500 Mg Tablet, 1000 MG PO DAILY for [id number] for 5 Days 10/14/18 Rifabutin (Rifabutin) 150 Mg Capsule, 300 MG PO DAILY for [id number] 10/14/18 Allergies Allergies: Coded Allergies: rifabutin (Verified Allergy, Severe, rash, 11/07/18) PMhx/Soc History of Surgery: Yes (APPENDECTOMY) Anesthesia Reaction: No Hx Neurological Disorder: No Hx Respiratory Disorders: No Hx Cardiac Disorders: No Hx Psychiatric Problems: No Hx Miscellaneous Medical Probl: No Hx Alcohol Use: No Hx Substance Use: No Hx Tobacco Use: No Smoking Status: Never smoker FmHx Family History: No diabetes Physical Exam Vitals Vital Signs Date Temp Pulse Resp B/P (MAP) Pulse Ox O2 O2 Flow FiO2 Time Delivery Rate 11/07/18 100.5 137 20 135/77 98 10:42 (96) Physical Exam General: Well developed, well nourished, no acute distress Head: Normocephalic, atraumatic. Eyes: Pupils equally reactive, EOM intact ENT: Moist mucous membranes Neck: Supple, no lymphadenopathy Respiratory:, No chest wall crepitus, good aeration. Cardiovascular: RRR, no murmurs, rubs, or gallops Abdominal: Soft, non-tender, non-distended, no peritoneal signs : Deferred MSK: No edema, no unilateral swelling, 5/5 strength Neurologic: Alert and oriented, moving all extremities, normal speech, no focal weakness, no cerebellar signs Skin: The patient has purulent drainage through chest tube site on the right chest wall with audible airflow Psych: Normal mood Result Diagram: 11/07/18 1105 11/07/18 1105 Results 24 hrs Laboratory Tests Test 11/07/18 11:05 11/07/18 11:08 White Blood Count 11.7 10^3/ul Red Blood Count 4.03 10^6/ul Hemoglobin 10.7 g/dl Hematocrit 33.9 % Mean Corpuscular Volume 84.1 fl Mean Corpuscular Hemoglobin 26.6 pg Mean Corpuscular Hemoglobin Concent 31.6 g/dl Red Cell Distribution Width 15.8 % Platelet Count 318 10^3/UL Mean Platelet Volume 8.1 fl Immature Granulocytes % 1.300 % Neutrophils % 69.5 % Lymphocytes % 10.3 % Monocytes % 8.8 % Eosinophils % 9.5 % Basophils % 0.6 % Nucleated Red Blood Cells % 0.0 /100WBC Immature Granulocytes # 0.150 10^3/ul Neutrophils # 8.1 10^3/ul Lymphocytes # 1.2 10^3/ul Monocytes # 1.0 10^3/ul Eosinophils # 1.1 10^3/ul Basophils # 0.1 10^3/ul Nucleated Red Blood Cells # 0.0 10^3/ul Prothrombin Time 13.9 Sec Prothrombin Time Ratio 1.1 INR International Normalized Ratio 1.06 Activated Partial Thromboplast Time 35.1 Sec Sodium Level 135 mmol/L Potassium Level 4.0 mmol/L Chloride Level 96 mmol/L Carbon Dioxide Level 28 mmol/L Anion Gap 11 Blood Urea Nitrogen 9 mg/dl Creatinine 1.31 mg/dl Est Glomerular Filtrat Rate mL/min 56 mL/min Glucose Level 133 mg/dl Calcium Level 9.4 mg/dl Total Bilirubin 0.4 mg/dl Direct Bilirubin 0.00 mg/dl Indirect Bilirubin 0.4 mg/dl Aspartate Amino Transf (AST/SGOT) 23 IU/L Alanine Aminotransferase (ALT/SGPT) 14 IU/L Alkaline Phosphatase 83 IU/L Troponin I < 0.012 ng/ml Total Protein 7.6 g/dl Albumin 3.5 g/dl Globulin 4.10 g/dl Albumin/Globulin Ratio 0.85 POC Venous Lactate 1.4 mmol/L Current Medications Medications Dose Sig/Raoul Start Time Status Last (Trade) Ordered Route PRN Stop Time Admin Dose Reason Admin Sodium 1,920 ml BOLUS OVER 2 11/07/18 DC 11/07/18 Chloride HOURS STAT 10:55 11/07/18 11:12 (NS) IV* 10:57 1,000 mg ONCE STAT 11/07/18 DC 11/07/18 Acetaminophen PO 10:55 11/07/18 11:15 (Tylenol 10:57 Tab) Cefepime HCl 50 ml @ ONCE STAT 11/07/18 DC 11/07/18 100 mls/hr IVPB 11:12 11/07/18 11:25 11:41 Vancomycin 250 ml @ ONCE ONCE 11/07/18 11/07/18 HCl 125 mls/hr IVPB 11:30 11/07/18 12:31 13:29 Amikacin 500 mg ONCE ONCE 11/07/18 DC Sulfate INH 12:00 11/07/18 (Amikacin) 12:01 IV Flush 10 ml STK-MED 11/07/18 DC 11/07/18 (NS 10 ml) ONCE .ROUTE 11:47 11/07/18 12:16 11:48 Sodium 100 ml @ ud STK-MED 11/07/18 DC 11/07/18 Chloride ONCE .ROUTE 11:47 11/07/18 12:16 11:48 Iohexol 150 ml STK-MED 11/07/18 DC (Omnipaque ONCE .ROUTE 11:47 11/07/18 300mg/ ml) 11:48 Iodixanol 100 ml STK-MED 11/07/18 DC 11/07/18 (Visipaque ONCE .ROUTE 11:51 11/07/18 12:16 Locm) 11:52 Procedures/MDM EKG, MONITORS, & DIAGNOSTIC IMAGING: EKG: I reviewed and interpreted a 12-lead EKG. Rhythm: Normal sinus rhythm ST Changes: No contiguous ST segment elevations T waves: No contiguous T wave inversions Impression: [No evidence of acute cardiac ischemia] CXR IMPRESSION: Persistent right pleural effusion with right basilar atelectasis / consolidation. No evidence of recurrent pneumothorax, status post removal of chest tubes. Mild plate-like atelectasis in the left basilar lung. RPTAT: EE CT chest: PENDING LAB INTERPRETATION: I reviewed the laboratory testing and it shows normal lactic acid, white count of 11 MEDICAL DECISION MAKING: The patient had a very complicated hospital course secondary to KIERAN pneumonia. The patient was recently discharged and had chest tube removal. However the patient is having significant purulent drainage from the right chest tube site. This raises the concern for empyema or intrathoracic infection that warrants possible surgical intervention. Cardiothoracic surgeon was Dr. Wyatt ojeda who agrees with laboratory testing broad-spectrum antibiotics and CT imaging of the chest. He recommends placement of a nonadherent dressing to allow it to drain. ER COURSE: * The patient had a code sepsis initiated with blood cultures and lactic acid. Broad-spectrum antibiotics in the form of vancomycin and cefepime provided. * Conversation with cardiothoracic specialist as documented above. * I also notified the admitting team and they will consult infectious disease specialist to discuss antibiotic course * Unfortunately during the patient's ER course he has requested to leave and go home. I had an in-depth conversation with the patient discussing the risk benefits and alternatives. He was informed that he may have a very serious infection and is certainly at risk for more serious etiology such as bacteremia, sepsis and even . Patient has capacity. He has been given all appropriate information. Even so the patient wishes to be discharged. He will be leaving AGAINST MEDICAL ADVICE. * The patient has decided to leave AGAINST MEDICAL ADVICE. A conversation was had discussing the risk benefits and alternatives including inpatient and outpatient management. The patient understands my recommendation for admission. The risks of leaving including significant morbidity and were discussed and understood. The patient has capacity. Document will be signed and placed in the chart * The patient unfortunately left prior to receiving diagnostic imaging results and finalizing his work-up in the emergency room. Patient left AGAINST MEDICAL ADVICE CONSULTATION: Dr. Schneider DISPOSITION PLAN: Patient left AGAINST MEDICAL ADVICE Departure Diagnosis: Primary Impression: Empyema of lung Additional Impression: Acute renal insufficiency Condition: Stable Referrals: [facility] YOU HAVE RECEIVED A MEDICAL SCREENING EXAM AND THE RESULTS INDICATE THAT YOU DO NOT HAVE A CONDITION THAT REQUIRES URGENT TREATMENT IN THE EMERGENCY DEPARTMENT. FURTHER EVALUATION AND TREATMENT OF YOUR CONDITION CAN WAIT UNTIL YOU ARE SEEN IN YOUR DOCTORS OFFICE WITHIN THE NEXT 1-2 DAYS. IT IS YOUR RESPONSIBILITY TO MAKE AN APPOINTMENT FOR FOLOW-UP CARE. IF YOU HAVE A PRIMARY DOCTOR --you should call your primary doctor and schedule an appointment IF YOU DO NOT HAVE A PRIMARY DOCTOR YOU CAN CALL OUR PHYSICIAN REFERRAL HOTLINE AT IF YOU CAN NOT AFFORD TO SEE A PHYSICIAN YOU CAN CHOSE FROM THE FO[facility] [address] [facility] [facility] [address] [facility] [facility] [address] [facility] [facility] [address] [facility] [address] [facility]. [facility]. [address] [facility]. [facility] YOU HAVE RECEIVED A MEDICAL SCREENING EXAM AND THE RESULTS INDICATE THAT YOU DO NOT HAVE A CONDITION THAT REQUIRES URGENT TREATMENT IN THE EMERGENCY DEPARTMENT. FURTHER EVALUATION AND TREATMENT OF YOUR CONDITION CAN WAIT UNTIL YOU ARE SEEN IN YOUR DOCTORS OFFICE WITHIN THE NEXT 1-2 DAYS. IT IS YOUR RESPONSIBILITY TO MAKE AN APPOINTMENT FOR FOLOW-UP CARE. IF YOU HAVE A PRIMARY DOCTOR --you should call your primary doctor and schedule and appointment IF YOU DO NOT HAVE A PRIMARY DOCTOR YOU CAN CALL OUR PHYSICIAN REFERRAL HOTLINE AT . IF YOU CAN NOT AFFORD TO SEE A PHYSICIAN YOU CAN CHOSE FROM THE FOLLOWING [facility] INSTITUTIONS: [facility] [address] [place] [address] [facility] [address] [place] [address] [facility] [address] [place] [address] Additional Instructions: It is very important to follow-up with your primary care physician. Return for any worsening symptoms or fevers. Continue your antibiotics. MICHELLE SOMERS MD Nov 07, 2018 13:23
== END 2018-11-07 14:05 | disposition left against medical advice (07) ==
LOC: E/R 10:35
DX: J86.9 Pyothorax without fistula (principal); N28.9 Disorder of kidney and ureter, unspecified; Z79.82 Long term (current) use of aspirin; Z79.84 Long term (current) use of oral hypoglycemic drugs
CPT/HCPCS: 36415; 71045; 71260; 80053; 83605; 84484; 85025; 85610; 85730; 87040; 93005; 96374; 96375; J0278; J0692; J3370; J7030; Q9967; Z7502; Z7610